=== PATIENT | female | born 1940 | race Caucasian/White ===

== ENCOUNTER 2016-11-28 05:02 | Inpatient (IN) | payer OTHER, MEDICARE ==
[2016-11-28] VITALS (21 sets, daily range): BP systolic 113–180; BP diastolic 55–81; PULSE 73–128; RESP 14–32; TEMP 97–99.6; O2SAT 93–100
[~2016-11-28] VITALS: Ht 152.4 cm; Wt 111.1 kg
[~2016-11-28 05:02] MED LIST: ASPI81TA82 PO; ATOR40TA49 PO; DUONI NEB; FURO20TA PO; HYDR10SO PO; LANTUS2P SQ; LISI-357 PO; LOPR50TA12 PO; PROC90TA PO; TICA90 PO
[2016-11-28] MEDS ORDERED: SUCCINYLCHOLINE CHLORIDE 200 MG/10 ML VIAL ONE (05:06)
[2016-11-28] MEDS ORDERED: ETOMIDATE 20 MG/10 ML VIAL ONE (05:06)
[2016-11-28] MEDS ORDERED: PROPOFOL 1000 MG/100 ML INJ 100 ML ONE (05:19)
[2016-11-28] MEDS ORDERED: INSULIN HUMAN REGULAR 1,000 UNITS/10 ML VIAL SQ ONE (05:30)
[2016-11-28] MEDS ORDERED: SODIUM CHLORIDE 0.9% FLUSH 5 ML FLUSH IVF PRN ×2 (05:30→10:15)
[2016-11-28] MEDS ORDERED: SUCCINYLCHOLINE CHLORIDE 200 MG/10 ML VIAL IV PUSH ONE (05:30)
[2016-11-28] MEDS ORDERED: ETOMIDATE 20 MG/10 ML VIAL IV PUSH ONE (05:30)
[2016-11-28] MEDS ORDERED: FUROSEMIDE 40 MG/4 ML VIAL IV PUSH ONE (05:30)
[2016-11-28 05:37] LABS: AUTOMATED NEUTROPHIL # 15.6 TH/MM3 (1.8-7.7); BASOPHIL % 0.2 % (0.0-2.0); HEMATOCRIT 36.3 % (35.0-46.0); HEMO FLAGS DIFF FINAL; LYMPH % 10.3 % (9.0-44.0); LYMPHOCYTE # 1.9 TH/MM3 (1.0-4.8); MEAN CELL VOLUME 91.6 FL (80.0-100.0); MEAN CORPUSCULAR HEMOGLOBIN 29.1 PG (27.0-34.0); MEAN CORPUSCULAR HGB CONC 31.7 % (32.0-36.0); MONO % 3.6 % (0.0-8.0); NEUT % 85.9 % (16.0-70.0); PLATELET COUNT 302 TH/MM3 (150-450); RED BLOOD COUNT 3.96 MIL/MM3 (4.00-5.30); RED CELL DISTRIBUTION WIDTH 13.3 % (11.6-17.2); WHITE BLOOD COUNT 18.2 TH/MM3 (4.0-11.0)
[2016-11-28] MEDS ORDERED: MIDAZOLAM HCL 2 MG/2 ML VIAL IV PUSH ONE (05:45)
[2016-11-28 05:46] LABS: I-STAT POTASSIUM 4.7 MMOL/L (3.5-4.9)
[2016-11-28 05:49] LABS: APTT (PATIENT) 23.4 SEC (24.3-30.1); PROTHROMBIN TIME - PATIENT 11.3 SEC (9.8-11.6)
[2016-11-28] MEDS: PROPOFOL 1000 MG/100 ML INJ 100 ML IV SCH (05:49)
--- NOTE | 2016-11-28 05:50 | RADRPT ---
EXAM DATE/TIME: 11/28/2016 05:27 [facility] COMPARISON: CHEST SINGLE AP, February 19, 2016, 5:38. INDICATIONS : Evaluate ETT placement, Possible STEMI alert. MEDICAL HISTORY : Congestive heart failure. SURGICAL HISTORY : None. ENCOUNTER: Initial ACUITY: 1 day PAIN SCORE: Non-responsive. LOCATION: Bilateral chest FINDINGS: Portable AP view the chest demonstrates a normal-sized cardiac silhouette in this patient post median sternotomy. Nasogastric tube is looped in the stomach. Endotracheal tube has been placed and extends into the right main bronchus. There is bibasilar pleural-parenchymal opacity, left greater than righ t. No pneumothorax is visualized. Multiple clips overlie the left axilla. There is abnormal appearanc e of the right proximal humerus at the glenohumeral joint similar to the prior exam. CONCLUSION: 1. The endotracheal tube extends into the right main bronchus and should be retracted proximately 3-4 cm. 2. Abnormal bibasilar pleural-parenchymal opacities likely representing pleural effusions with associ ated volume loss and/or airspace consolidation. 3. Abnormal appearance of the right proximal humerus at the glenohumeral joint that is stable. The above findings concerning the endotracheal tube location were discussed with Dr. Cruz via tele phone at 5:47 AM. Lennox Tomas MD on November 28, 2016 at 5:44 Board Certified Radiologist. This report was verified electronically.
--- NOTE | 2016-11-28 05:50 | PD ---
HPI Chief Complaint: Respiratory Distress Time Seen by Provider: 05:20 Travel History International Travel<30 days: No Contact w/Intl Traveler<30days: No Traveled to known affect area: No History of Present Illness HPI 76-year-old female came to the emergency room brought by EMS as a STEMI alert. Patient called 911 for shortness of breath. When they arrived patient says oxygen saturation was in the 80s and she was in respiratory distress. Patient has history of coronary artery disease and congestive heart failure. She told me she had her bypass surgery done few years ago. Patient denied of any chest pain at any point. EMS said that patient had told them that she was nauseous for past couple days and vomited last night. She was woken up from the sleep with this shortness of breath. By the time patient arrived to the ER she was acutely short of breath and in severe respiratory distress. She was unable to give much history. She was pale and started getting agitated and diaphoretic when they moved her from the gurney to the stretcher. PFSH Past Medical History Narrative Medical List of her past medical history as reviewed from the nursing note. Arthritis: Yes Asthma: No Autoimmune Disease: No Heart Rhythm Problems: No Cancer: Yes Cardiac Catheterization: Yes Cardiovascular Problems: Yes High Cholesterol: Yes Chemotherapy: Yes (LT BREAST) Chest Pain: Yes Congestive Heart Failure: Yes COPD: No Cerebrovascular Accident: No Coronary Artery Disease: Yes Diabetes: Yes (type 2) Diminished Hearing: No Endocrine: Yes Gastrointestinal Disorders: Yes GERD: Yes Glaucoma: No Genitourinary: Yes (KIDNEY PROBLEMS, MD CLAY) Headaches: No Hepatitis: No Hiatal Hernia: No Hypertension: Yes Immune Disorder: No Implanted Vascular Access Dvce: No Kidney Stones: No Musculoskeletal: Yes (POLIO) Neurologic: Yes (POLIO) Psychiatric: No Reproductive: No Respiratory: Yes Immunizations Current: Yes Myocardial Infarction: Yes Radiation Therapy: No Renal Failure: No Seizures: No Sleep Apnea: No Thyroid Disease: No Ulcer: No Past Surgical History Abdominal Surgery: No AICD: No Body Medical Devices: STENTS Cardiac Surgery: Yes (CABG) Coronary Artery Bypass Graft: Yes (triple bypass 2003) Coronary Stent: Yes (X 4) Ear Surgery: No Endocrine Surgery: No Eye Surgery: No Genitourinary Surgery: No Gynecologic Surgery: Yes (ROLF) Hysterectomy: Yes Mastectomy: Yes (lt) Neurologic Surgery: No Oral Surgery: No Pacemaker: No Thoracic Surgery: No Other Surgery: Yes (BREAST RECONSTRUCTION DUE TO CA BREAST) Social History Alcohol Use: No Tobacco Use: No Substance Use: No Allergies-Medications (Allergen,Severity, Reaction): Coded Allergies: Sulfa (Verified Allergy, Severe, Swelling, 11/28/16) Swelling of lips *MDRO Multi-Drug Resistant Organism (Verified Allergy, Unknown, 11/28/16) MRSA foot wound 05/2013 MRSA PCR screen negative 12/17/15 & 12/20/15 Per Infection Control, pt does not require isolation for history of MRSA prior to 12/20/2015. Comments List of allergies reviewed from the nursing note. Reported Meds & Prescriptions Reported Meds & Active Scripts Active Reported Nifedipine ER (Nifedipine) 90 Mg Tab 1 Tab PO DAILY Hydrocodone-Acetaminophen 5-300 Mg Tab Unknown Dose PO Q4H PRN Lopressor (Metoprolol Tartrate) 50 Mg Tab 75 Mg PO DAILY Lisinopril 5 Mg Tab 5 Mg PO DAILY Lantus Inj (Insulin Glargine) 100 Unit/Ml Inj 35 Units SQ BID Furosemide 20 Mg Tab 20 Mg PO DAILY Brilinta (Ticagrelor) 90 Mg Tab 90 Mg PO BID Atorvastatin (Atorvastatin Calcium) 40 Mg Tab 40 Mg PO HS Aspir-81 (Aspirin) 81 Mg Tabdr 1 Tab PO DAILY Duoneb (Ipratropium-Albuterol Neb) 0.5-2.5 Mg/3 Ml Neb 1 Nebule INH Q4HR NEB Narrative Medication List of her home medications reviewed from the nursing note. Review of Systems Except as stated in HPI: all other systems reviewed are Neg Physical Exam Narrative GENERAL: Awake, alert, anxious, severe respiratory distress, morbidly obese SKIN: Pale, diaphoretic HEAD: Atraumatic. Normocephalic. EYES: Pupils equal and round. No scleral icterus. No injection or drainage. ENT: No nasal bleeding or discharge. Mucous membranes pink and moist. NECK: Trachea midline. No JVD. CARDIOVASCULAR: Regular rate and rhythm. No murmur appreciated. RESPIRATORY: Severe respiratory distress, accessory muscles used, decreased air entry bilaterally GASTROINTESTINAL: Abdomen soft, non-tender, nondistended. Hepatic and splenic margins not palpable. MUSCULOSKELETAL: No obvious deformities. No clubbing. No cyanosis. No edema. NEUROLOGICAL: Awake and alert. No obvious cranial nerve deficits. Motor grossly within normal limits. Normal speech. PSYCHIATRIC: Appropriate mood and affect; insight and judgment normal. Data Data Last Documented VS Vital Signs Date Time Temp Pulse Resp B/P Pulse Ox O2 Delivery O2 Flow Rate FiO2 11/28/16 06:30 87 14 113/55 96 Ventilator 60 11/28/16 05:22 97.8 Orders Etomidate Inj (Amidate Inj) (11/28/16 05:06) Succinylcholine Inj (Quelicin Inj) (11/28/16 05:06) Propofol 1000 Mg/100 Ml Inj (Diprivan 10 (11/28/16 05:19) Electrocardiogram (11/28/16 05:20) Basic Metabolic Panel (Bmp) (11/28/16 05:20) B-Type Natriuretic Peptide (11/28/16 05:20) Ckmb (Isoenzyme) Profile (11/28/16 05:20) Complete Blood Count With Diff (11/28/16 05:20) Magnesium (Mg) (11/28/16 05:20) Prothrombin Time / Inr (Pt) (11/28/16 05:20) Act Partial Throm Time (Ptt) (11/28/16 05:20) Troponin I (11/28/16 05:20) Chest, Single Ap (11/28/16 05:20) Ecg Monitoring (11/28/16 05:20) Bilateral Bp Monitoring (11/28/16 05:20) Iv Access Insert/Monitor (11/28/16 05:20) Oximetry (11/28/16 05:20) Oxygen Administration (11/28/16 05:20) Sodium Chloride 0.9% Flush (Ns Flush) (11/28/16 05:30) Arterial Blood Gas (Abg) (11/28/16 ) Succinylcholine Inj (Quelicin Inj) (11/28/16 05:30) Etomidate Inj (Amidate Inj) (11/28/16 05:30) Propofol 1000 Mg/100 Ml Inj (Diprivan 10 (11/28/16 05:30) ^ Infusion (11/28/16 05:22) RASS (11/28/16 05:22) Neurological Rass Scale THAD.Q2H (11/28/16 05:22) I-Stat Creatinine (11/28/16 05:20) I-Stat Profile (11/28/16 05:20) Insulin Human Regular Inj (Novolin R Inj (11/28/16 05:30) Furosemide Inj (Lasix Inj) (11/28/16 05:30) Juan Manuel-Gastric Tube Insert/Mon (11/28/16 05:24) Urinary Catheter Insert/Apply (11/28/16 05:24) Midazolam Inj (Versed Inj) (11/28/16 05:45) Chest, Single Ap (11/28/16 ) CKMB (11/28/16 05:00) CKMB% (11/28/16 05:00) Lactic Acid (11/28/16 06:13) Heparin Inj (Heparin Inj) (11/28/16 06:15) Heparin Infusion THAD.Q1H (11/28/16 06:32) Heparin-D5w Inj (Heparin-D5w Inj) (11/28/16 06:45) Cbc No Diff, Includes Plts (12/01/16 06:00) Act Partial Throm Time (Ptt) (11/28/16 13:32) Occult Blood (Hemoccult) Stool (11/28/16 06:32) Quality Control Supervisor / Telemetry (11/28/16 06:32) ^ Insert Iv (11/28/16 06:32) Diet Npo (11/28/16 Breakfast) Sodium Chlor 0.9% 1000 Ml Inj (Ns 1000 M (11/28/16 06:32) Dext 5%-Nacl 0.9% 1000 Ml Inj (D5w-Ns 10 (11/28/16 06:32) Insulin Regular (Iv Infusion) (Novolin R (11/28/16 06:45) Potassium Chlor 40 Meq Premix (Kcl 40 Me (11/28/16 06:45) Potassium Chlor 40 Meq Premix (Kcl 40 Me (11/28/16 06:45) Potassium Chlor 20 Meq Premix (Kcl 20 Me (11/28/16 06:45) Potassium Chlor 20 Meq Premix (Kcl 20 Me (11/28/16 06:45) Potassium Chlor 20 Meq Premix (Kcl 20 Me (11/28/16 06:45) Potassium Chlor 20 Meq Premix (Kcl 20 Me (11/28/16 06:45) Potassium Chlor 20 Meq Premix (Kcl 20 Me (11/28/16 06:45) Potassium Chlor 20 Meq Premix (Kcl 20 Me (11/28/16 06:45) Sodium Bicarbonate 8.4% Inj (Sodium Bica (11/28/16 06:45) Sodium Bicarbonate 8.4% Inj (Sodium Bica (11/28/16 06:45) Sodium Phosphate Inj (Sodium Phosphate I (11/28/16 06:45) Urinalysis - C+S If Indicated (11/28/16 06:32) Basic Metabolic Panel (Bmp) (11/28/16 11:32) Basic Metabolic Panel (Bmp) (11/28/16 17:32) Magnesium (Mg) (11/28/16 11:32) Magnesium (Mg) (11/28/16 17:32) Magnesium (Mg) (11/29/16 05:32) Phosphorus (Po4) (11/28/16 11:32) Phosphorus (Po4) (11/28/16 17:32) Phosphorus (Po4) (11/29/16 05:32) Admit Order (Ed Use Only) (11/28/16 06:36) Piperacil-Tazo 4.5 Gm Premix (Zosyn 4.5 (11/28/16 06:45) Vancomycin Inj (Vancomycin Inj) (11/28/16 06:45) CKMB (11/28/16 17:35) CKMB% (11/28/16 17:35) CKMB (11/29/16 00:13) CKMB% (11/29/16 00:13) Labs Laboratory Tests Test 11/28/16 11/28/16 11/28/16 11/28/16 05:00 05:15 05:20 06:15 Bedside Hemoglobin 12.2 G/DL Bedside Hematocrit 36.0 % Prothrombin Time 11.3 SEC Prothromb Time International 1.0 RATIO Ratio Activated Partial 23.4 SEC Thromboplast Time Bedside Sodium 139 MMOL/L Sodium Level 138 MEQ/L Bedside Potassium 4.7 MMOL/L Potassium Level 4.7 MEQ/L Bedside Chloride 105 MMOL/L Chloride Level 104 MEQ/L Carbon Dioxide Level 20.6 MEQ/L Anion Gap 13 MEQ/L Bedside Blood Urea Nitrogen 51 MG/DL Blood Urea Nitrogen 52 MG/DL Creatinine 2.23 MG/DL Bedside Creatinine 1.8 MG/DL Estimat Glomerular Filtration 21 ML/MIN Rate Bedside Glucose 524 MG/DL Random Glucose 528 MG/DL Calcium Level 8.9 MG/DL Magnesium Level 2.2 MG/DL Total Creatine Kinase 525 U/L Creatine Kinase MB 29.7 NG/ML Creatine Kinase MB % 5.7 % Troponin I 20.70 NG/ML B-Type Natriuretic Peptide 922 PG/ML B-Hydroxybutyrate 0.73 MMOL/L Hemoglobin A1c 10.4 % Urine Color LIGHT-YELLOW Urine Turbidity CLEAR Urine pH 5.0 Urine Specific [place] 1.014 Urine Protein TRACE mg/dL Urine Glucose (UA) 1000 mg/dL Urine Ketones NEG mg/dL Urine Occult Blood NEG Urine Nitrite NEG Urine Bilirubin NEG Urine Urobilinogen LESS THAN 2.0 MG/DL Urine Leukocyte Esterase NEG Urine RBC LESS THAN 1 /hpf Urine WBC LESS THAN 1 /hpf Microscopic Urinalysis Comment CATH-CULT NOT IND White Blood Count 18.2 TH/MM3 Red Blood Count 3.96 MIL/MM3 Hemoglobin 11.5 GM/DL Hematocrit 36.3 % Mean Corpuscular Volume 91.6 FL Mean Corpuscular Hemoglobin 29.1 PG Mean Corpuscular Hemoglobin 31.7 % Concent Red Cell Distribution Width 13.3 % Platelet Count 302 TH/MM3 Mean Platelet Volume 9.7 FL Neutrophils (%) (Auto) 85.9 % Lymphocytes (%) (Auto) 10.3 % Monocytes (%) (Auto) 3.6 % Eosinophils (%) (Auto) 0.0 % Basophils (%) (Auto) 0.2 % Neutrophils # (Auto) 15.6 TH/MM3 Lymphocytes # (Auto) 1.9 TH/MM3 Monocytes # (Auto) 0.7 TH/MM3 Eosinophils # (Auto) 0.0 TH/MM3 Basophils # (Auto) 0.0 TH/MM3 CBC Comment DIFF FINAL Differential Comment Blood Gas Puncture Site RT RADIAL Blood Gas Patient Temperature 98.6 Blood Gas HCO3 19 mmol/L Blood Gas Base Excess -5.8 mmol/L Blood Gas Oxygen Saturation 92 % Arterial Blood pH 7.30 Arterial Blood Partial 41 mmHg Pressure CO2 Arterial Blood Partial 94 mmHG Pressure O2 Arterial Blood Oxygen Content 14.4 Vol % Arterial Blood 2.2 % Carboxyhemoglobin Arterial Blood Methemoglobin 2.2 % Blood Gas Hemoglobin 11.1 G/DL Blood Gas Ventilator Setting Blood Gas Inspired Oxygen 60 % Test 11/28/16 06:25 Lactic Acid Level 4.8 mmol/L MDM Medical Decision Making Medical Screen Exam Complete: Yes Emergency Medical Condition: Yes Medical Record Reviewed: Yes Interpretation(s) Twelve-lead EKG was reviewed by me. Normal sinus rhythm, tachycardia, left bundle branch block versus interventricular conduction delay, normal axis. Heart rate of 115 bpm. Differential Diagnosis Flash pulmonary edema, congestive heart failure, pneumonia, pleural effusion, non-STEMI Narrative Course 6:24 AM I decided to intubate the patient given her severe respiratory distress and impending respiratory failure. Once patient was intubated at 12-lead EKG was obtained. Due to the lack of convincing ST elevations a STEMI alert was not called. Also confirmed directly by patient and from EMS patient never complained of any chest pain. Sterilization Specialist integration software developer Dr. Garcia was contacted and I spoke with him over the phone. The case was discussed along with the EKG findings. He agreed not to call this a STEMI alert. However, he came down to see the patient and evaluated her. Soon after, troponin result was called as a critical from the labs soon after. Patient was given a bolus of heparin and a drip will be started. Patient has significant high morbidity and mortality given the past medical history as well as the current lab values showing acute renal failure, metabolic acidosis, DKA and possible sepsis from pneumonia. I will start her on antibiotic as well. Awaiting for the applied behavior science specialist to call back. Patient's condition is critical with a quite possibly poor prognosis. 6:30 AM I discussed the case with Dr. Santiago from ICU who has accepted the patient. Dr. Garcia is yet to let me know if the patient will go to the [facility] Apprentice. Patient's mortality is high regardless. I decided to put a a central line given the number of drips and medications needed. Critical Care Narrative Aggregate critical care time was 60 minutes. Time to perform other separately billable procedures was not included in the critical care time. My time did not include minutes spent treating any other patients simultaneously or on activities that did not directly contribute to the patient's treatment. The services I provided to this patient were to treat and/or prevent clinically significant deterioration that could result in: Respiratory failure, non-STEMI, elevated troponin, congestive heart failure , DKA, acute renal failure, pneumonia, sepsis I provided critical care services requiring my management, as noted below: Chart data review, documentation time, medication orders and management, vital sign assessments/reviewing monitor data, ordering and reviewing lab tests, ordering and interpreting/reviewing x-rays and diagnostic studies, care of the patient and discussion of the patient with the admitting physicians. Procedures Procedure Narrative After the risks and benefits were discussed the following procedure was performed: INTUBATION: The patient was put in optimal position for the procedure. Rapid sequence intubation was initiated by me using 20 milligrams of etomidate IV and 100 milligrams of succinylcholine IV. The patient was intubated with a 7.5 cuffed endotracheal tube. Tube placement was confirmed by visualization of the tube and balloon passing through the cords, capnometry and subsequent chest x-ray. Breath sounds were equal and well aerated bilaterally postintubation. No breath sounds over stomach. Patient tolerated procedure well. CENTRAL VENOUS LINE: The site was prepped with Betadine and sterilely draped. It was infiltrated with 1% lidocaine plain. The deep vein was cannulated using normal Seldinger technique. A triple lumen central line was placed in the left subclavian site and secured with simple interrupted suture. The site was sterilely dressed. The patient tolerated the procedure well. EKG Prior to Arrival: Yes Physician Communication Physician Communication Dr. Garcia, Dr. Santiago Diagnosis Primary Impression: Acute respiratory failure with hypoxemia Additional Impressions: Hx of chronic congestive heart failure Non-STEMI (non-ST elevated myocardial infarction) Sepsis Qualified Code: A41.9 - Sepsis, due to unspecified organism Pneumonia Qualified Code: J18.9 - Pneumonia of both lungs due to infectious organism, unspecified part of lung Acute renal failure Qualified Code: N17.9 - Acute renal failure, unspecified acute renal failure type Admitting Information Admitting Physician Requests: Glen Gates MD Nov 28, 2016 05:49
[2016-11-28 06:09] LABS: BICARBONATE 20.6 MEQ/L (21.0-32.0); MAGNESIUM 2.2 MG/DL (1.5-2.5); POTASSIUM 4.7 MEQ/L (3.5-5.1)
[2016-11-28] MEDS ORDERED: HEPARIN SODIUM - IV 10,000 UNITS/10 ML VIAL IV ONE (06:15)
[2016-11-28 06:21] LABS: BLOOD GAS BASE EXCESS -5.8 mmol/L (-2-2); BLOOD GAS CARBOXYHEMOGLOBIN 2.2 % (0-4); BLOOD GAS HCO3 19 mmol/L (22-26); BLOOD GAS METHEMOGLOBIN 2.2 % (0-2); BLOOD GAS O2 HGB SATURATION 92 % (90-100); BLOOD GAS OXYGEN CONTENT 14.4 Vol % (12.0-20.0); BLOOD GAS PCO2 41 mmHg (38-42); BLOOD GAS PO2 94 mmHG (61-120); BLOOD GAS TOTAL HGB 11.1 G/DL (12.0-16.0); TEMP CORR TO 98.6
[2016-11-28 06:22] LABS: CRITICAL VALUE YES; DRAW SITE RT RADIAL; FIO2 60 %; NUMBER OF ARTERIAL PUNCTURES 3; STAT YES; ULNAR PULSE Y
[2016-11-28 06:31] LABS: CKMB 29.7 NG/ML (0.5-3.6)
[2016-11-28] MEDS ORDERED: PIPERACIL-TAZO 4.5 GM PREMIX 100 ML IV ONE (06:45)
[2016-11-28] MEDS ORDERED: SODIUM BICARBONATE 8.4% SOLN 50 MEQ/50 ML VIAL IV PRN ×2 (06:45)
[2016-11-28] MEDS ORDERED: VANCOMYCIN INJ 1,000 MG in SODIUM CHLOR 0.9% 250 ML INJ 250 ML IV ONE (06:45)
[2016-11-28] MEDS ORDERED: POTASSIUM CHLOR 20 MEQ PREMIX 100 ML IV PRN ×5 (06:45)
[2016-11-28] MEDS ORDERED: SODIUM PHOSPHATE INJ 15 MMOL in SODIUM CHLORIDE 0.9% INJ 100 ML IV PRN (06:45)
[2016-11-28] MEDS ORDERED: POTASSIUM CHLOR 40 MEQ PREMIX 100 ML IV PRN ×2 (06:45)
--- NOTE | 2016-11-28 06:49 | RADRPT ---
EXAM DATE/TIME: 11/28/2016 06:12 [facility] COMPARISON: CHEST SINGLE AP, November 28, 2016, 5:27. INDICATIONS : ET tube adjustment. MEDICAL HISTORY : Congestive heart failure. SURGICAL HISTORY : None. ENCOUNTER: Subsequent ACUITY: 1 day PAIN SCORE: Non-responsive. LOCATION: Bilateral chest FINDINGS: Portable AP view of the chest demonstrates interval retraction of the endotracheal tube with tip flaquita uring approximately 2.1 cm from the ad. Otherwise, there has been no significant interval change. CONCLUSION: Interval retraction of the endotracheal tube with tip now measuring approximately 2.1 cm from the car corey. Lennox Tomas MD on November 28, 2016 at 6:47 Board Certified Radiologist. This report was verified electronically.
--- NOTE | 2016-11-28 07:31 | RADRPT ---
EXAM DATE/TIME: 11/28/2016 06:55 [facility] COMPARISON: CHEST SINGLE AP, November 28, 2016, 6:12. INDICATIONS : Left sided central line placement. MEDICAL HISTORY : Unobtainable. SURGICAL HISTORY : Unobtainable. ENCOUNTER: Initial ACUITY: 1 day PAIN SCORE: Non-responsive. LOCATION: Bilateral chest FINDINGS: ET tube and nasogastric tube are in good position. Central line is in expected locations superior ca va. Heart is enlarged. Patchy airspace disease is present in both lungs worse in the right. Surgic al clips are seen in the left apex. CONCLUSION: Support apparatus in good position. Patchy airspace disease on the right. Jimmie Multani MD FACR on November 28, 2016 at 7:29 Board Certified Radiologist. This report was verified electronically.
[2016-11-28] MEDS: HEPARIN-D5W INJ 250 ML IV SCH (07:34)
[2016-11-28 07:52] LABS: BLOOD, URINE NEG (NEG); GLUCOSE,URINE 1000 mg/dL (NEG); KETONE, URINE NEG (NEG); NITRITE,URINE NEG (NEG); URINE COLOR LIGHT-YELLOW (YELLW/STRAW)
[2016-11-28 07:53] LABS: COMMENT (UR) CATH-CULT NOT IND; CULTURE IF INDICATED CATH CULTURE NOT IND
[2016-11-28] MEDS ORDERED: LISI-519 PO (07:53)
[2016-11-28] MEDS ORDERED: LANTUS2P SQ (07:53)
[2016-11-28] MEDS ORDERED: ASPI81TA81 PO (07:53)
[2016-11-28] MEDS ORDERED: IPRASOL INH (07:53)
[2016-11-28] MEDS ORDERED: HYDR-4107 PO (07:53)
[2016-11-28] MEDS ORDERED: BRIL90TA PO (07:53)
[2016-11-28] MEDS ORDERED: ATOR40TA16 PO (07:53)
[2016-11-28] MEDS ORDERED: NIFE90TA2 PO (07:53)
[2016-11-28] MEDS ORDERED: FURO20TA PO (07:53)
[2016-11-28] MEDS ORDERED: METO-309 PO (07:53)
[2016-11-28] MEDS: INSULIN REGULAR (IV INFUSION) 100 UNITS in SODIUM CHLORIDE 0.9% INJ 99 ML IV SCH ×2 (07:59→15:33)
--- NOTE | 2016-11-28 08:19 | MB ---
cc: MURPHY CHERY,RADHA BUCKLEY M.D., M.D. DATE OF CONSULTATION: 11/28/2016 REASON FOR CONSULTATION Heart failure, NSTEMI. HISTORY OF PRESENT ILLNESS Sandee Almonte is a 76-year-old female who presented to [facility] on November 28, 2016 due to shortness of breath. The patient is currently intubated and history is taken from the chart and the emergency room physician. Mrs. Almonte apparently was nauseous for the past few days and vomiting last night. She woke up this morning short of breath but denied any chest pain. She called 911 due to the shortness of breath. She was found to be in severe respiratory distress and on arrival Dr. Cruz spoke to her and she once again stated that she was not in chest pain. It was felt at that time due to her significant shortness of breath that she needed to be intubated. EKG was done which shows sinus tachycardia with an intraventricular conduction delay. I was called emergently by Dr. Cruz for consideration of a STEMI Alert. At this time the EKG has no acute ST elevations. Although there was a concern for a new left bundle branch block, previous EKGs show a similar interventricular conduction delay. I did feel due to her presentation and critical status that I would see the patient emergently. PAST MEDICAL HISTORY 1. Coronary artery disease. 2. Peripheral artery disease. 3. Hypertension 4. Diabetes mellitus. 5. Obesity. 6. Dyslipidemia. 7. Chronic kidney disease. 8. History of breast cancer status post mastectomy and chemotherapy. 9. Hysterectomy. 10.History of sepsis with bilateral pneumonia. 11.Chronic leg edema. 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 13.GERD. 14.Lumbar laminectomy. PAST SURGICAL HISTORY 1. Coronary artery bypass grafting ([address] Carty) with a IYER to LAD, vein graft to circumflex, vein graft to RCA. 2. Chronic occlusion of SFA and popliteal with an unsuccessful attempt at opening (February 20, 2011). 3. Previous cardiac catheterization at [facility] by Dr. Sorto with bare metal stenting in the distal and proximal circumflex, two long drug-eluting stents in the mid RCA and one Promus stent at the ostium of the RCA. 4. Left transmetatarsal amputation. 5. Previous mastectomy for breast cancer with breast reconstruction. 6. Hysterectomy. 7. Lumbar laminectomy. ALLERGIES SULFA. MEDICATIONS Unable to be obtained at this time; previously on: 1. Lisinopril. 2. Lopressor. 3. Nifedipine. 4. Lipitor. 5. Lantus. 6. Lasix. 7. Aspirin. FAMILY HISTORY Unable to be obtained at this time. SOCIAL HISTORY The patient is and retired. Per the son she has been helping out in an office for a friend who is extremely sick which has put more stress on her. She is a lifetime nonsmoker. Denies alcohol or drug abuse. REVIEW OF SYSTEMS Unable to obtain other then from the emergency room records. Essentially positive for nausea and vomiting this week, shortness of breath this morning and no chest pain. PHYSICAL EXAMINATION VITAL SIGNS: Temperature 97.8, heart rate 83, blood pressure 120/78, respirations 20. Pulse ox 98% on the vent. GENERAL: In general the patient is currently sedated on the vent. HEENT: Pupils are equal and reactive. Mucous membranes are moist. NECK: Supple. Difficult to determine the JVD due to neck size and current condition. HEART: Regular rate and rhythm. Positive first and second heart sounds with a 1/6 holosystolic murmur noted at the apex. LUNGS: Decreased breath sounds bilateral with rales noted. ABDOMEN: Soft, nontender, nondistended. No organomegaly noted. EXTREMITIES: Mild edema bilaterally. NEUROLOGIC: Unable to determine due to current status. SKIN: Warm, dry and intact. MUSCULOSKELETAL: Osteopathically mild lordosis, no kyphoscoliosis or paraspinal tender points. LABORATORY White blood cells 18.2, hemoglobin 11.5, hematocrit 36.3, platelets 302. Potassium 4.7, BUN 52, creatinine 2.23, GFR 21, glucose 524, lactic acid 4.8. Troponin 20.7. BNP 922. EKG Electrocardiogram (November 28, 2016 at 0511): Sinus tachycardia at 119 beats per minute, intraventricular conduction delay, nonspecific ST-T wave changes. Similar to an EKG from December 16, 2015 at 2138. IMPRESSIONS 1. Lma-SO-agkieqssh myocardial infarction. 2. Acute heart failure on chronic diastolic heart failure. 3. Acute respiratory failure requiring intubation. 4. Leukocytosis, possibly stress reaction versus pneumonia. 5. Coronary artery disease with a history of coronary artery bypass grafting and interventions. 6. Peripheral artery disease with an occluded right SFA and popliteal. 7. Acute kidney injury. 8. Lactic acidosis. 9. Possible DKA with an elevation of glucose at 524. 10.Sepsis. RECOMMENDATIONS 1. I was called emergently for Mrs. Almonte for consideration of new left bundle branch block and possible STEMI Alert. On arrival she was having no chest pain and looking back at previous EKGs she did have a similar type intraventricular conduction delay in the past. 2. As far as her NSTEMI and current heart failure, she is currently hemodynamically stable and I do not feel that she needs to emergently go to the lab with her significant co-morbidities including acute kidney injury on chronic kidney disease, DKA, lactic acidosis, leukocytosis. 3. Will check a 2-D echo to look at her overall left ventricular function, valvulopathies and cardiac structure. 4. Will continue with supportive care for her heart failure and NSTEMI. 5. Will place her on heparin, aspirin and Brilinta. Will hold off on beta blockade to make sure she continues to be stable. 6. I spoke to Mrs. Almonte' son, Miller Almonte, to let him know the critical nature of the patient and that I did not feel at this time that taking her emergently to the director labor standards would change her mortality risk. 7. Once the patient is through the acute illness including sugar control, resolution of her acute kidney injury and lactic acidosis, consideration will be made for coronary visualization. Thank you for allowing me to see Sandee Almonte. If there are any questions, please do not hesitate to call. Murphy Chery DO VGP/BT /6:57 AM /7:42 AM
[2016-11-28] MEDS: ASPIRIN 81 MG CHEW TAB CHEW SCH (08:50)
[2016-11-28] MEDS: SODIUM CHLOR 0.9% 1000 ML INJ 1,000 ML IV SCH ×2 (09:04→23:38)
[2016-11-28] MEDS: TICAGRELOR 90 MG TAB PO SCH ×2 (09:19→21:56)
[2016-11-28] MEDS ORDERED: CHLORHEXIDINE GLUCONATE 2 % 1 PACK (2 CLOTHS) TOP PRN (10:15)
[2016-11-28] MEDS ORDERED: MISCELLANEOUS NURSING INFORMATION XX SCH (10:15)
--- NOTE | 2016-11-28 10:36 | HHI.HP ---
HPI Service Critical Care Medicine Primary Care Physician Ethan Pradhan MD Admission Diagnosis respiratory failure, non-STEMI, congestive heart failure, sepsis, DK Diagnosis: Travel History International Travel<30 Days: No Contact w/Intl Traveler <30 Da: No Traveled to Known Affected Are: No History of Present Illness HPI 76-year-old female came to the emergency room brought by EMS as a STEMI alert. Patient called 911 for shortness of breath. When they arrived patient says oxygen saturation was in the 80s and she was in respiratory distress. Patient has history of coronary artery disease and congestive heart failure. She told me she had her bypass surgery done few years ago. Patient denied of any chest pain at any point. EMS said that patient had told them that she was nauseous for past couple days and vomited last night. She was woken up from the sleep with this shortness of breath. By the time patient arrived to the ER she was acutely short of breath and in severe respiratory distress. She was unable to give much history. She was pale and started getting agitated and diaphoretic when they moved her from the [place] to the [facility]. Patient developed worsening respiratory distress and required emergent intubation was placed on mechanical ventilation by ER physician. Her troponin came back at 20 and her EKG suggested intraventricular conduction delay versus left bundle branch block. Cardiology was contacted and felt patient had a non-ST elevation ID. She was also noted to be extremely hyperglycemic with glucose levels in the 500s with metabolic acidosis/lactic acidosis. She was started on the DKA protocol by ER physician. Urine ketones are negative. Beta hydroxybutyrate slightly elevated. Patient had a central line placed by ER physician and was started on heparin drip for anticoagulation for her ID. She was accepted for admission by critical care medicine service. I discussed the case with Dr. Auguste who is not planning cardiac catheterization at this time. Patient also was given empiric antibiotics up to obtaining cultures. History PFSH Past Medical History Narrative Medical List of her past medical history as reviewed from the nursing note. Arthritis: Yes Asthma: No Autoimmune Disease: No Heart Rhythm Problems: No Cancer: Yes Cardiac Catheterization: Yes Cardiovascular Problems: Yes High Cholesterol: Yes Chemotherapy: Yes (LT BREAST) Chest Pain: Yes Congestive Heart Failure: Yes COPD: No Cerebrovascular Accident: No Coronary Artery Disease: Yes Diabetes: Yes (type 2) Diminished Hearing: No Endocrine: Yes Gastrointestinal Disorders: Yes GERD: Yes Glaucoma: No Genitourinary: Yes (KIDNEY PROBLEMS, MD CLAY) Headaches: No Hepatitis: No Hiatal Hernia: No Hypertension: Yes Immune Disorder: No Implanted Vascular Access Dvce: No Kidney Stones: No Musculoskeletal: Yes (POLIO) Neurologic: Yes (POLIO) Psychiatric: No Reproductive: No Respiratory: Yes Immunizations Current: Yes Myocardial Infarction: Yes Radiation Therapy: No Renal Failure: No Seizures: No Sleep Apnea: No Thyroid Disease: No Ulcer: No Past Surgical History Abdominal Surgery: No AICD: No Body Medical Devices: STENTS Cardiac Surgery: Yes (CABG) Coronary Artery Bypass Graft: Yes (triple bypass 2003) Coronary Stent: Yes (X 4) Ear Surgery: No Endocrine Surgery: No Eye Surgery: No Genitourinary Surgery: No Gynecologic Surgery: Yes (ROLF) Hysterectomy: Yes Mastectomy: Yes (lt) Neurologic Surgery: No Oral Surgery: No Pacemaker: No Thoracic Surgery: No Other Surgery: Yes (BREAST RECONSTRUCTION DUE TO CA BREAST) Social History Alcohol Use: No Tobacco Use: No Substance Use: No Allergies-Medications Allergies-Medications (Allergen,Severity, Reaction): Coded Allergies: Sulfa (Verified Allergy, Severe, Swelling, 11/28/16) Swelling of lips *MDRO Multi-Drug Resistant Organism (Verified Allergy, Unknown, 11/28/16) MRSA foot wound 05/2013 MRSA PCR screen negative 12/17/15 & 12/20/15 Per Infection Control, pt does not require isolation for history of MRSA prior to 12/20/2015. Comments List of allergies reviewed from the nursing note. Reported Meds & Prescriptions Reported Meds & Active Scripts Active Furosemide 20 Mg Tab 40 Mg PO DAILY Procardia Xl (Nifedipine) 90 Mg Tabcr 90 Mg PO BID 30 Days Lipitor 40 Mg Tab (Atorvastatin Calcium) 40 Mg Tab 40 Mg PO HS 30 Days Brilinta 90 Mg Tab (Ticagrelor) 90 Mg Tab 90 Mg PO Q12H 30 Days Resp: Albuterol/Ipratropium 2.5 Mg/0.5 Mg (Albuterol/Ipratropium) 1 Amp Nebu 1 Ampule NEB Q4HR NEB PRN 30 Days Reported Lopressor (Metoprolol Tartrate) 50 Mg Tab 75 Mg PO BID Lisinopril 5 mg (Lisinopril) 5 Mg Tab 5 Mg PO DAILY Hydrocodone/Acetaminophen 10 mg/325 mg 1 Tab 1 Tab PO Q4H PRN Aspir-81 (Aspirin) 81 Mg Tab 81 Mg PO HS Review of Systems ROS Limitations: Intubated Physical Exam Vital Signs Vital Signs Date Time Temp Pulse Resp B/P Pulse Ox O2 Delivery O2 Flow Rate FiO2 11/28/16 10:09 100 50 11/28/16 09:00 75 20 131/63 98 Ventilator 50 11/28/16 08:00 97.5 83 20 119/59 97 Ventilator 50 11/28/16 07:47 97 60 11/28/16 07:18 60 11/28/16 07:15 82 14 125/61 98 60 11/28/16 07:00 83 14 122/55 98 Ventilator 60 11/28/16 06:30 87 14 113/55 96 Ventilator 60 11/28/16 06:00 95 14 115/58 96 Ventilator 60 11/28/16 05:30 114 14 157/72 95 Ventilator 60 11/28/16 05:24 93 60 11/28/16 05:22 97.8 128 32 173/79 93 11/28/16 05:10 124 16 180/77 97 11/28/16 05:09 60 Physical Exam HEENT/ Neuro: Sedated, orally intubated, Pallor present, no icterus, tongue/ mucosa moist Neck: No JVD Chest/Pulm: on mech vent, good air entry bilaterally, scattered rhonchi, no wheezing or crackles CVS: S1-S2 regular, no murmur GI/abdomen: soft, nontender, bowel sounds sluggish Extremities: warm bilaterally, no edema Laboratory Laboratory Tests Test 11/28/16 11/28/16 11/28/16 11/28/16 05:00 05:15 05:20 06:15 Bedside Hemoglobin 12.2 Bedside Hematocrit 36.0 Prothrombin Time 11.3 Prothromb Time International 1.0 Ratio Activated Partial 23.4 Thromboplast Time Bedside Sodium 139 Sodium Level 138 Bedside Potassium 4.7 Potassium Level 4.7 Bedside Chloride 105 Chloride Level 104 Carbon Dioxide Level 20.6 Anion Gap 13 Bedside Blood Urea Nitrogen 51 Blood Urea Nitrogen 52 Creatinine 2.23 Bedside Creatinine 1.8 Estimat Glomerular Filtration 21 Rate Bedside Glucose 524 Random Glucose 528 Calcium Level 8.9 Magnesium Level 2.2 Total Creatine Kinase 525 Creatine Kinase MB 29.7 Creatine Kinase MB % 5.7 Troponin I 20.70 B-Type Natriuretic Peptide 922 B-Hydroxybutyrate 0.73 Urine Color LIGHT-YELLOW Urine Turbidity CLEAR Urine pH 5.0 Urine Specific [place] 1.014 Urine Protein TRACE Urine Glucose (UA) 1000 Urine Ketones NEG Urine Occult Blood NEG Urine Nitrite NEG Urine Bilirubin NEG Urine Urobilinogen LESS THAN 2.0 Urine Leukocyte Esterase NEG Urine RBC LESS THAN 1 Urine WBC LESS THAN 1 Microscopic Urinalysis Comment CATH-CULT NOT IND White Blood Count 18.2 Red Blood Count 3.96 Hemoglobin 11.5 Hematocrit 36.3 Mean Corpuscular Volume 91.6 Mean Corpuscular Hemoglobin 29.1 Mean Corpuscular Hemoglobin 31.7 Concent Red Cell Distribution Width 13.3 Platelet Count 302 Mean Platelet Volume 9.7 Neutrophils (%) (Auto) 85.9 Lymphocytes (%) (Auto) 10.3 Monocytes (%) (Auto) 3.6 Eosinophils (%) (Auto) 0.0 Basophils (%) (Auto) 0.2 Neutrophils # (Auto) 15.6 Lymphocytes # (Auto) 1.9 Monocytes # (Auto) 0.7 Eosinophils # (Auto) 0.0 Basophils # (Auto) 0.0 CBC Comment DIFF FINAL Differential Comment Blood Gas Puncture Site RT RADIAL Blood Gas Patient Temperature 98.6 Blood Gas HCO3 19 Blood Gas Base Excess -5.8 Blood Gas Oxygen Saturation 92 Arterial Blood pH 7.30 Arterial Blood Partial 41 Pressure CO2 Arterial Blood Partial 94 Pressure O2 Arterial Blood Oxygen Content 14.4 Arterial Blood 2.2 Carboxyhemoglobin Arterial Blood Methemoglobin 2.2 Blood Gas Hemoglobin 11.1 Blood Gas Ventilator Setting Blood Gas Inspired Oxygen 60 Test 11/28/16 06:25 Lactic Acid Level 4.8 Result Diagram: 11/28/1651911/28/16 0500 Imaging Last 24 hours Impressions Chest X-Ray 11/28/16519 Signed Impressions: Service Date/Time: Monday, November 28, 2016 05:27 - CONCLUSION: 1. The endotracheal tube extends into the right main bronchus and should be retracted proximately 3-4 cm. 2. Abnormal bibasilar pleural-parenchymal opacities likely representing pleural effusions with associated volume loss and/or airspace consolidation. 3. Abnormal appearance of the right proximal humerus at the glenohumeral joint that is stable. The above findings concerning the endotracheal tube location were discussed with Dr. Cruz via telephone at 5: 47 AM. Lennox Tomas MD Chest X-Ray 11/28/16 0000 Signed Impressions: Service Date/Time: Monday, November 28, 2016 06:55 - CONCLUSION: Support apparatus in good position. Patchy airspace disease on the right. Jimmie Multani MD FACR Chest X-Ray 11/28/16 0000 Signed Impressions: Service Date/Time: Monday, November 28, 2016 06:12 - CONCLUSION: Interval retraction of the endotracheal tube with tip now measuring approximately 2.1 cm from the ad. Lennox Tomas MD Septic Shock Reassessment Heart: Regular rate and rhythm Lungs: Course Skin: Warm Peripheral Pulses: Bounding Right Radial Capillary Refill: Brisk Assessment and Plan Assessment and Plan 76-year-old female with: Acute respiratory failure on mechanical ventilation CHF Sepsis Possible Pneumonia Non-ST elevation ID Uncontrolled diabetes mellitus Lactic acidosis History of CAD History of PVD Plan: Neuro: Sedation with propofol, fentanyl when necessary, daily sedation vacation. Follow neuro status Cardiovascular: Started on heparin for full anticoagulation. Continue aspirin and Brilinta per cardiology. Cardiac catheterization to be held at this time per my discussion with Dr. Murphy Garcia until improvement in her metabolic status. Currently on IV fluids due to sepsis/DKA protocol. Cycle cardiac enzymes. Follow-up 2-D echo. Decrease normal saline to 100 cc per hour. May require diuresis subsequently. Pulmonary: Continue mechanical ventilation, vent bundle, bronchodilators. Daily C Pap trials starting tomorrow. GI/liver: Nothing by mouth for now. If not extubated in a.m. consider tube feeds Renal/: IV hydration, strict intake output, monitor and replete electrolytes, follow BUN/creatinine. Heme: Follow CBC ID: Empiric antibiotic coverage with IV cefepime/Zithromax. Received a dose of vancomycin and Zosyn in the ER. Follow-up cultures. Endocrine: Started on insulin drip DKA protocol by ER. Urine for ketones negative. Beta hydroxybutyrate borderline elevated. Plan to switch insulin drip to non-DKA protocol following review of next set of labs. Prophylaxis: PPI/SCDs. On full anticoagulation with heparin Discussed with ER physician. Discussed with Dr. Murphy Garcia from cardiology. Condition critical. Time spent on critical care excluding procedures 70 minutes. Bahman Gamble MD Nov 28, 2016 10:36
[2016-11-28 11:08] LABS: BICARBONATE 25.4 MEQ/L (21.0-32.0); MAGNESIUM 1.9 MG/DL (1.5-2.5); POTASSIUM 4.4 MEQ/L (3.5-5.1)
[2016-11-28 11:09] LABS: CREATINE KINASE 922 U/L (26-192)
[2016-11-28 11:31] LABS: CKMB 62.8 NG/ML (0.5-3.6)
[2016-11-28] MEDS: CEFEPIME INJ 1,000 MG in SODIUM CHLORIDE 0.9% INJ 100 ML IV SCH ×2 (12:32→21:56)
[2016-11-28] MEDS: PANTOPRAZOLE SODIUM 40 MG VIAL IV SCH (12:33)
[2016-11-28] MEDS: AZITHROMYCIN INJ 500 MG in SODIUM CHLOR 0.9% 250 ML INJ 250 ML IV SCH (12:33)
[2016-11-28 14:30] LABS: APTT (PATIENT) 58.8 SEC (24.3-30.1)
--- NOTE | 2016-11-28 14:51 | EKG ---
Date Performed: 11/28/2016 Time Performed: 05:11:48 PTAGE: 76 years EKG: SINUS TACHYCARDIA MODERATE INTRAVENTRICULAR CONDUCTION DELAY ST ELEVATION, PROBABLY EARLY R EPOLARIZATION NONSPECIFIC ST & T-WAVE ABNORMALITY Compared to previous tracing there has been an incr ease in the IVCD and the sinus tachycardia is new. There has been an increase in the lateral ST segme nt elevation but it is nonspecific with the worsening conduction delay. Clinical correlation advised. ABNORMAL ECG PREVIOUS TRACING : 02/15/2016 15.25 DOCTOR: Cherie King Interpretating Date/Time 11/28/2016 14:50:39
[2016-11-28] MEDS: RESP: ALBUTEROL 2.5 MG/IPRATROPIUM 0.5 MG NEB (SCH) NEB ×2 (16:07→20:22)
[2016-11-28] MEDS ORDERED: GLUCAGON 1 MG/ML VIAL IM/SQ PRN (17:00)
[2016-11-28] MEDS ORDERED: DEXTROSE 50% IN WATER 50 ML VIAL(D50) IV PRN (17:00)
[2016-11-28] MEDS ORDERED: DC previous DKA orders (HMC 1917) XX ONE (18:00)
[2016-11-28] MEDS ORDERED: DC Insulin drip 2 hrs post basal insulin dose XX ONE (18:00)
[2016-11-28] MEDS: INSULIN DETEMIR 100 UNITS/ML VIAL SQ SCH ×2 (18:39→21:55)
[2016-11-28 18:59] LABS: ANION GAP 7 MEQ/L (5-15); BICARBONATE 26.5 MEQ/L (21.0-32.0); BLOOD UREA NITROGEN 46 MG/DL (7-18); CHLORIDE 112 MEQ/L (98-107); CREATINE KINASE 1139 U/L (26-192); GLOMERULAR FILTRATION RATE 29 ML/MIN (>89); POTASSIUM 4.5 MEQ/L (3.5-5.1); SODIUM (NA) 145 MEQ/L (136-145)
[2016-11-28] MEDS: DEXT 5%-NACL 0.9% 1000 ML INJ 1,000 ML IV SCH (19:35)
[2016-11-28] MEDS: INSULIN ASPART SUPPLEMENTAL SCALE SQ SCH (20:00)
[2016-11-28] MEDS: CHLORHEXIDINE 0.12% (ORAL KIT) 15 ML CUP MT SCH (20:00)
[2016-11-28] MEDS: SODIUM CHLORIDE 0.9% FLUSH 5 ML FLUSH IVF SCH (21:56)
[2016-11-28 22:20] LABS: CKMB 73.6 NG/ML (0.5-3.6)
[2016-11-29] VITALS (18 sets, daily range): BP systolic 105–148; BP diastolic 54–67; PULSE 70–100; RESP 20; TEMP 99.7–100.4; O2SAT 93–100
[2016-11-29] MEDS: DEXT 5%-NACL 0.9% 1000 ML INJ 1,000 ML IV SCH (02:32)
[2016-11-29] MEDS: CEFEPIME INJ 1,000 MG in SODIUM CHLORIDE 0.9% INJ 100 ML IV SCH ×3 (03:18→20:15)
[2016-11-29 03:20] LABS: APTT (PATIENT) 45.9 SEC (24.3-30.1)
[2016-11-29] MEDS: INSULIN ASPART SUPPLEMENTAL SCALE SQ SCH ×8 (03:25→23:54)
[2016-11-29] MEDS: CHLORHEXIDINE GLUCONATE 2 % 1 PACK (2 CLOTHS) TOP SCH ×2 (03:25→23:55)
[2016-11-29 04:40] LABS: AUTOMATED NEUTROPHIL # 10.3 TH/MM3 (1.8-7.7); BASOPHIL % 0.2 % (0.0-2.0); EOSINOPHIL % 0.1 % (0.0-4.0); HEMATOCRIT 26.8 % (35.0-46.0); HEMO FLAGS DIFF FINAL; LYMPH % 6.9 % (9.0-44.0); LYMPHOCYTE # 0.8 TH/MM3 (1.0-4.8); MEAN CELL VOLUME 87.1 FL (80.0-100.0); MEAN CORPUSCULAR HEMOGLOBIN 29.4 PG (27.0-34.0); MEAN CORPUSCULAR HGB CONC 33.8 % (32.0-36.0); MONO % 7.2 % (0.0-8.0); NEUT % 85.6 % (16.0-70.0); PLATELET COUNT 199 TH/MM3 (150-450); RED BLOOD COUNT 3.07 MIL/MM3 (4.00-5.30); RED CELL DISTRIBUTION WIDTH 13.1 % (11.6-17.2)
[2016-11-29] MEDS: RESP: ALBUTEROL 2.5 MG/IPRATROPIUM 0.5 MG NEB (SCH) NEB ×4 (04:40→20:08)
[2016-11-29] MEDS: HEPARIN-D5W INJ 250 ML IV SCH (04:49)
[2016-11-29] MEDS: PROPOFOL 1000 MG/100 ML INJ 100 ML IV SCH ×6 (04:50→23:56)
[2016-11-29 05:02] LABS: ANION GAP 9 MEQ/L (5-15); AST (GOT) 113 U/L (15-37); BICARBONATE 22.2 MEQ/L (21.0-32.0); BLOOD UREA NITROGEN 44 MG/DL (7-18); CHLORIDE 112 MEQ/L (98-107); GLOMERULAR FILTRATION RATE 31 ML/MIN (>89); MAGNESIUM 1.9 MG/DL (1.5-2.5); POTASSIUM 4.5 MEQ/L (3.5-5.1); SODIUM (NA) 143 MEQ/L (136-145)
[2016-11-29 05:04] LABS: ALKALINE PHOSPHATASE 61 U/L (45-117); ALT (GPT) 24 U/L (10-53); TOTAL BILIRUBIN ADULT 0.5 MG/DL (0.2-1.0)
--- NOTE | 2016-11-29 08:59 | PD.CARD.PN ---
Subjective Subjective Remarks The chart was reviewed. Patient is intubated and sedated. Telemetry reveals sinus rhythm. Objective Medications Reviewed Vital Signs / I&O Vital Signs Date Time Temp Pulse Resp B/P Pulse Ox O2 Delivery O2 Flow Rate FiO2 11/29/16 08:41 99 35 11/29/16 06:00 87 11/29/16 04:18 100 35 11/29/16 04:00 40 11/29/16 04:00 92 11/29/16 04:00 99.7 92 20 132/63 99 11/29/16 02:00 92 11/29/16 01:12 98 35 11/29/16 00:00 99.7 86 20 105/54 97 11/29/16 00:00 86 11/29/16 00:00 40 11/28/16 22:15 100 40 11/28/16 22:00 93 11/28/16 20:00 84 11/28/16 20:00 40 11/28/16 20:00 99.6 84 20 120/60 100 11/28/16 19:22 100 40 11/28/16 16:08 98 40 11/28/16 16:00 98.0 83 21 125/81 99 11/28/16 12:00 97.0 73 20 122/56 99 11/28/16 10:27 99 40 11/28/16 10:15 40 11/28/16 10:15 95 100 11/28/16 10:09 100 50 11/28/16 09:00 75 20 131/63 98 Ventilator 50 I/O 11/28/16 11/28/16 11/28/16 11/29/16 11/29/16 11/29/16 07:00 15:00 23:00 07:00 15:00 23:00 Intake Total 937 ml 1129 ml 880 ml Output Total 875 ml 350 ml 400 ml Balance 62 ml 779 ml 480 ml Intake IV Total 937 ml 1129 ml 880 ml Output Urine Total 775 ml 350 ml 400 ml Gastric Drainage Total 100 ml # Bowel Movements 0 Physical Exam GENERAL: Intubated and sedated. SKIN: Warm and dry. NECK: JVD normal - less than or equal to 5 cm H20. CARDIOVASCULAR: Regular rate and rhythm without murmurs, gallops, or rubs. RESPIRATORY: Normal breath sounds - equal bilaterally. No accessory muscle use. No wheezes, rales or rubs. PERIPHERY: No cyanosis, or edema. Laboratory Laboratory Tests Test 11/28/16 11/28/16 11/28/16 11/28/16 10:05 10:35 13:25 17:35 Nasal Screen MRSA (PCR) NEGATIVE Sodium Level 141 MEQ/L 145 MEQ/L Potassium Level 4.4 MEQ/L 4.5 MEQ/L Chloride Level 107 MEQ/L 112 MEQ/L Carbon Dioxide Level 25.4 MEQ/L 26.5 MEQ/L Anion Gap 9 MEQ/L 7 MEQ/L Blood Urea Nitrogen 50 MG/DL 46 MG/DL Creatinine 2.11 MG/DL 1.74 MG/DL Estimat Glomerular Filtration 23 ML/MIN 29 ML/MIN Rate Random Glucose 400 MG/DL 88 MG/DL Calcium Level 8.4 MG/DL 8.3 MG/DL Phosphorus Level 2.2 MG/DL 1.7 MG/DL Magnesium Level 1.9 MG/DL 2.0 MG/DL Total Creatine Kinase 922 U/L 1139 U/L Creatine Kinase MB 62.8 NG/ML 73.6 NG/ML Creatine Kinase MB % 6.8 % 6.5 % Troponin I GREATER THAN GREATER THAN 40.00 NG/ML 40.00 NG/ML Activated Partial 58.8 SEC Thromboplast Time Lactic Acid Level 1.2 mmol/L Test 11/28/16 11/29/16 11/29/16 11/29/16 20:40 00:13 02:50 04:05 Activated Partial 47.0 SEC 45.9 SEC Thromboplast Time Total Creatine Kinase 857 U/L Creatine Kinase MB 39.0 NG/ML Creatine Kinase MB % 4.6 % Troponin I 34.70 NG/ML White Blood Count 12.0 TH/MM3 Red Blood Count 3.07 MIL/MM3 Hemoglobin 9.0 GM/DL Hematocrit 26.8 % Mean Corpuscular Volume 87.1 FL Mean Corpuscular Hemoglobin 29.4 PG Mean Corpuscular Hemoglobin 33.8 % Concent Red Cell Distribution Width 13.1 % Platelet Count 199 TH/MM3 Mean Platelet Volume 9.5 FL Neutrophils (%) (Auto) 85.6 % Lymphocytes (%) (Auto) 6.9 % Monocytes (%) (Auto) 7.2 % Eosinophils (%) (Auto) 0.1 % Basophils (%) (Auto) 0.2 % Neutrophils # (Auto) 10.3 TH/MM3 Lymphocytes # (Auto) 0.8 TH/MM3 Monocytes # (Auto) 0.9 TH/MM3 Eosinophils # (Auto) 0.0 TH/MM3 Basophils # (Auto) 0.0 TH/MM3 CBC Comment DIFF FINAL Differential Comment Sodium Level 143 MEQ/L Potassium Level 4.5 MEQ/L Chloride Level 112 MEQ/L Carbon Dioxide Level 22.2 MEQ/L Anion Gap 9 MEQ/L Blood Urea Nitrogen 44 MG/DL Creatinine 1.63 MG/DL Estimat Glomerular Filtration 31 ML/MIN Rate Random Glucose 179 MG/DL Calcium Level 8.1 MG/DL Phosphorus Level 2.3 MG/DL Magnesium Level 1.9 MG/DL Total Bilirubin 0.5 MG/DL Aspartate Amino Transf 113 U/L (AST/SGOT) Alanine Aminotransferase 24 U/L (ALT/SGPT) Alkaline Phosphatase 61 U/L Total Protein 5.7 GM/DL Albumin 2.5 GM/DL Imaging Last 48 hours Impressions Chest X-Ray 11/28/16 05 Signed Impressions: Service Date/Time: Monday, November 28, 2016 05:27 - CONCLUSION: 1. The endotracheal tube extends into the right main bronchus and should be retracted proximately 3-4 cm. 2. Abnormal bibasilar pleural-parenchymal opacities likely representing pleural effusions with associated volume loss and/or airspace consolidation. 3. Abnormal appearance of the right proximal humerus at the glenohumeral joint that is stable. The above findings concerning the endotracheal tube location were discussed with Dr. Cruz via telephone at 5: 47 AM. Lennox Tomas MD Chest X-Ray 11/28/16 0000 Signed Impressions: Service Date/Time: Monday, November 28, 2016 06:55 - CONCLUSION: Support apparatus in good position. Patchy airspace disease on the right. Jimmie Multani MD FACR Chest X-Ray 11/28/16 0000 Signed Impressions: Service Date/Time: Monday, November 28, 2016 06:12 - CONCLUSION: Interval retraction of the endotracheal tube with tip now measuring approximately 2.1 cm from the ad. Lennox Tomas MD Assessment and Plan Assessment and Plan Problems: Non-ST elevation [place] Respiratory failure Sepsis Known coronary artery disease and peripheral vascular disease Diabetes Hypertension Hyperlipidemia Chronic kidney disease Recommendations: Continue present medical management Respiratory and antibiotics per primary service We will be available if needed tomorrow. Dr. Auguste will be back on Thursday. Rudolph Clark MD Nov 29, 2016 08:59
[2016-11-29] MEDS: SODIUM CHLORIDE 0.9% FLUSH 5 ML FLUSH IVF SCH ×2 (09:10→20:15)
[2016-11-29] MEDS: ACETAMINOPHEN 325 MG TAB PO PRN ×2 (09:10→17:24)
[2016-11-29] MEDS: ATORVASTATIN 40 MG TAB PO SCH (09:11)
[2016-11-29] MEDS: PANTOPRAZOLE SODIUM 40 MG VIAL IV SCH (09:11)
[2016-11-29] MEDS: ASPIRIN 81 MG CHEW TAB CHEW SCH (09:11)
[2016-11-29] MEDS: TICAGRELOR 90 MG TAB PO SCH ×2 (09:11→20:16)
[2016-11-29] MEDS: SODIUM CHLOR 0.9% 1000 ML INJ 1,000 ML IV SCH (09:12)
[2016-11-29] MEDS: INSULIN DETEMIR 100 UNITS/ML VIAL SQ SCH ×2 (09:12→20:16)
[2016-11-29] MEDS: CHLORHEXIDINE 0.12% (ORAL KIT) 15 ML CUP MT SCH ×2 (09:13→20:14)
--- NOTE | 2016-11-29 11:09 | HHI.CCPN ---
Subjective Remarks/Hospital Course 76-year-old female came to the emergency room brought by EMS as a STEMI alert. Patient called 911 for shortness of breath. When they arrived patient says oxygen saturation was in the 80s and she was in respiratory distress. Patient has history of coronary artery disease and congestive heart failure. She told me she had her bypass surgery done few years ago. Patient denied of any chest pain at any point. EMS said that patient had told them that she was nauseous for past couple days and vomited last night. She was woken up from the sleep with this shortness of breath. By the time patient arrived to the ER she was acutely short of breath and in severe respiratory distress. She was unable to give much history. She was pale and started getting agitated and diaphoretic when they moved her from the gurney to the stretcher. Patient developed worsening respiratory distress and required emergent intubation was placed on mechanical ventilation by ER physician. Her troponin came back at 20 and her EKG suggested intraventricular conduction delay versus left bundle branch block. Cardiology was contacted and felt patient had a non-ST elevation HI. She was also noted to be extremely hyperglycemic with glucose levels in the 500s with metabolic acidosis/lactic acidosis. She was started on the DKA protocol by ER physician. Urine ketones are negative. Beta hydroxybutyrate slightly elevated. Patient had a central line placed by ER physician and was started on heparin drip for anticoagulation for her HI. She was accepted for admission by critical care medicine service. I discussed the case with Dr. Auguste who is not planning cardiac catheterization at this time. Patient also was given empiric antibiotics up to obtaining cultures. 11/29 Patient is sedated with Diprivan and intubated. Remains on Heparin drip. On PRVC/AC RR 20 IT 1.0, TV 500, PEEP:5 and FIO2 35% Objective Vital Signs Date Time Temp Pulse Resp B/P Pulse Ox O2 Delivery O2 Flow Rate FiO2 11/29/16 08:41 99 35 11/29/16 06:00 87 11/29/16 04:00 99.7 20 132/63 11/28/16 09:00 Ventilator Intake and Output 11/28/16 11/28/16 11/29/16 08:00 16:00 00:00 Intake Total 937 ml 1129 ml Output Total 875 ml 350 ml Balance 62 ml 779 ml Result Diagram: 11/29/16 0405 11/29/16 0405 Other Results Laboratory Tests Test 11/28/16 11/28/16 11/28/16 11/29/16 13:25 17:35 20:40 00:13 Activated Partial 58.8 SEC 47.0 SEC Thromboplast Time Sodium Level 145 MEQ/L Potassium Level 4.5 MEQ/L Chloride Level 112 MEQ/L Carbon Dioxide Level 26.5 MEQ/L Anion Gap 7 MEQ/L Blood Urea Nitrogen 46 MG/DL Creatinine 1.74 MG/DL Estimat Glomerular Filtration 29 ML/MIN Rate Random Glucose 88 MG/DL Lactic Acid Level 1.2 mmol/L Calcium Level 8.3 MG/DL Phosphorus Level 1.7 MG/DL Magnesium Level 2.0 MG/DL Total Creatine Kinase 1139 U/L 857 U/L Creatine Kinase MB 73.6 NG/ML 39.0 NG/ML Creatine Kinase MB % 6.5 % 4.6 % Troponin I GREATER THAN 34.70 NG/ML 40.00 NG/ML Test 11/29/16 11/29/16 02:50 04:05 Activated Partial 45.9 SEC Thromboplast Time White Blood Count 12.0 TH/MM3 Red Blood Count 3.07 MIL/MM3 Hemoglobin 9.0 GM/DL Hematocrit 26.8 % Mean Corpuscular Volume 87.1 FL Mean Corpuscular Hemoglobin 29.4 PG Mean Corpuscular Hemoglobin 33.8 % Concent Red Cell Distribution Width 13.1 % Platelet Count 199 TH/MM3 Mean Platelet Volume 9.5 FL Neutrophils (%) (Auto) 85.6 % Lymphocytes (%) (Auto) 6.9 % Monocytes (%) (Auto) 7.2 % Eosinophils (%) (Auto) 0.1 % Basophils (%) (Auto) 0.2 % Neutrophils # (Auto) 10.3 TH/MM3 Lymphocytes # (Auto) 0.8 TH/MM3 Monocytes # (Auto) 0.9 TH/MM3 Eosinophils # (Auto) 0.0 TH/MM3 Basophils # (Auto) 0.0 TH/MM3 CBC Comment DIFF FINAL Differential Comment Sodium Level 143 MEQ/L Potassium Level 4.5 MEQ/L Chloride Level 112 MEQ/L Carbon Dioxide Level 22.2 MEQ/L Anion Gap 9 MEQ/L Blood Urea Nitrogen 44 MG/DL Creatinine 1.63 MG/DL Estimat Glomerular Filtration 31 ML/MIN Rate Random Glucose 179 MG/DL Calcium Level 8.1 MG/DL Phosphorus Level 2.3 MG/DL Magnesium Level 1.9 MG/DL Total Bilirubin 0.5 MG/DL Aspartate Amino Transf 113 U/L (AST/SGOT) Alanine Aminotransferase 24 U/L (ALT/SGPT) Alkaline Phosphatase 61 U/L Total Protein 5.7 GM/DL Albumin 2.5 GM/DL Imaging Last Impressions Chest X-Ray 11/28/16 0520 Signed Impressions: Service Date/Time: Monday, November 28, 2016 05:27 - CONCLUSION: 1. The endotracheal tube extends into the right main bronchus and should be retracted proximately 3-4 cm. 2. Abnormal bibasilar pleural-parenchymal opacities likely representing pleural effusions with associated volume loss and/or airspace consolidation. 3. Abnormal appearance of the right proximal humerus at the glenohumeral joint that is stable. The above findings concerning the endotracheal tube location were discussed with Dr. Cruz via telephone at 5: 47 AM. Lennox Tomas MD Objective Remarks GENERAL: Patient is 76 yo intubated and sedated SKIN: Warm and dry. HEAD: Normocephalic. EYES: No scleral icterus. No injection or drainage. NECK: Supple, trachea midline. No JVD or lymphadenopathy. Orally intubated. CARDIOVASCULAR: Regular rate and rhythm without murmurs, gallops, or rubs. RESPIRATORY: Breath sounds equal bilaterally. No accessory muscle use. GASTROINTESTINAL: Abdomen soft, non-tender, nondistended. MUSCULOSKELETAL: No cyanosis, or edema. Neuro: sedated and intubated A/P Assessment and Plan 76-year-old female with: VDRF CHF Sepsis Possible Pneumonia Non-ST elevation HI Uncontrolled diabetes mellitus Lactic acidosis History of CAD History of PVD Plan: Neuro: On Diprivan infusion for sedation. Daily sedation vacation. Pulm: Continue with vent support keep sat >92% Bronchodilators, ICU vent bundle, start CPAP trials as ramone CV: Monitor HR and BP keep MAP>65mmHg Monitor CK/trop. Follow up on echo results Cards- Dr. Garcia. On ASA, Lipitor, Brilinta 90mg BID, heparin drip. : Monitor renal function, I/O's, electrolytes replacement per protocol. Cr: 1.63 today from 1.74 GI/liver: On Protonix 40mg daily, start TF if remains intubated today Heme: Monitor CBC ID: Empiric antibiotic coverage with IV cefepime/Zithromax. Received a dose of vancomycin and Zosyn in the ER. Monitor for signs of infections ( Fever, WBC) Endocrine: On SSI ( medium scale) and Levemir 10u BID Prophylaxis: PPI/SCDs. On full anticoagulation with heparin CCT 30 mins Fransisco Mas MD Nov 29, 2016 11:09
--- NOTE | 2016-11-29 12:15 | EC ---
Study Study Date:11/29/2016 STUDY CONCLUSIONS SUMMARY - Left ventricle: The cavity size was normal. Wall thickness was normal. Systolic function was mildly to moderately reduced. The estimated ejection fraction was in the range of 40% to 45%. Hypokinesis of the apical myocardium. - Aortic valve: Valve area: 0.52cm^2(VTI). Valve area: 0.78cm^2 (Vmax). - Mitral valve: Mildly calcified annulus. Mildly thickened leaflets, . - Pulmonary arteries: PA peak pressure: 35mm Hg (S). If LV function is below 40, please consider prescribing an ACEI or ARB or document rationale for non-use. PROCEDURE DATA STUDY STATUS: Elective. Procedure: Transthoracic echocardiography. Image quality was fair. Scanning was performed from the parasternal, apical, and subcostal acoustic windows. Study completion: The patient tolerated the procedure well. Transthoracic echocardiography. M-mode, complete 2D, complete spectral Doppler, and color Doppler. Weight: Weight: 248.5lb. Patient status: Inpatient. CARDIAC ANATOMY LEFT VENTRICLE: The cavity size was normal. Wall thickness was normal. Systolic function was mildly to moderately reduced. The estimated ejection fraction was in the range of 40% to 45%. Regional wall motion abnormalities: Hypokinesis of the apical myocardium. AORTIC VALVE: Trileaflet; mildly thickened, mildly calcified leaflets. Doppler: Transvalvular velocity was within the normal range. There was no stenosis. No regurgitation. Valve area: 0.52cm^2(VTI). Valve area: 0.78cm^2 (Vmax). Mean gradient: 3mm Hg (S). AORTA: Aortic root: The aortic root was normal in size. MITRAL VALVE: Mildly calcified annulus. Mildly thickened leaflets, . Doppler: Transvalvular velocity was within the normal range. There was no evidence for stenosis. Trace regurgitation. Peak gradient: 4mm Hg (D). LEFT ATRIUM: The atrium was normal in size. RIGHT VENTRICLE: Poorly visualized. PULMONIC VALVE: Doppler: Transvalvular velocity was within the normal range. There was no evidence for stenosis. No regurgitation. TRICUSPID VALVE: Poorly visualized. Doppler: Transvalvular velocity was within the normal range. No regurgitation. PULMONARY ARTERY: The main pulmonary artery was normal-sized. Systolic pressure was within the normal range. RIGHT ATRIUM: Poorly visualized. PERICARDIUM: There was no pericardial effusion. Patient weight: 248.5lb _Ejection fraction:_ 65-75% _Fractional shortening:_ 32% up to 5Kg 5-11.5Kg 11.6-22.9Kg 23-45Kg 45-57Kg Aortic Root 7-13 <17 13-22 17-27 17-27 LA diam 6-13 <23 24-38 33-47 37-40 RVID 10-17 7-15 7-15 7-18 8-17 LVIDd 12-22 <32 24-38 33-47 37-40 LVPW 2-4 3-6 5-7 6-8 7-8 IVS 2-4 3-6 5-7 6-8 7-8 BASIC MEASUREMENTS ADULT Normal Left ventricle LV internal dimension, ED, chordal level, *41.4 mm 43-52 PLAX LV internal dimension, ES, chordal level, 33.3 mm 23-38 PLAX Fractional shortening, chordal level, PLAX *20 % >29 LV posterior wall thickness, ED 10.9 mm IVS/LVPW ratio, ED 1 <1.3 Ventricular septum Septal thickness, ED 10.9 mm Aortic valve Leaflet separation 20 mm 15-26 Aorta Root diameter, ED 33 mm Left atrium Anterior-posterior dimension 33 mm BASIC MEASUREMENTS ADULT Normal Aortic valve Leaflet separation 20 mm 15-26 DOPPLER MEASUREMENTS ADULT Normal Main pulmonary artery Pressure, S *35 mm Hg =30 Aortic valve Peak velocity, S 103 cm/s Mean velocity, S 77.8 cm/s VTI, S 20.5 cm Mean gradient, S 3 mm Hg Valve area, VTI 0.52 cm^2 Valve area, Vmax 0.78 cm^2 Mitral valve Peak E-wave velocity 98.2 cm/s Peak A-wave velocity 108 cm/s Peak gradient, D 4 mm Hg Peak E/A ratio 0.9 Tricuspid valve Regurgitant peak velocity 276 cm/s Peak RV-RA gradient, S 30 mm Hg Maximal regurgitant velocity 276 cm/s Systemic veins Estimated CVP 10 mm Hg Right ventricle RV pressure, S *40 mm Hg <30 Pulmonic valve Peak velocity, S 114 cm/s LEGEND: Mean values are shown as u=mean value. Asterisk (*) colin values outside specified normal range. Prepared and signed by Rudoplh Clark [id number]
[2016-11-29] MEDS: AZITHROMYCIN INJ 500 MG in SODIUM CHLOR 0.9% 250 ML INJ 250 ML IV SCH (13:53)
[2016-11-29 13:57] LABS: CKMB 17.4 NG/ML (0.5-3.6)
[2016-11-29 14:27] LABS: BLOOD GAS BASE EXCESS -5.1 mmol/L (-2-2); BLOOD GAS CARBOXYHEMOGLOBIN 1.8 % (0-4); BLOOD GAS HCO3 19 mmol/L (22-26); BLOOD GAS METHEMOGLOBIN 1.3 % (0-2); BLOOD GAS O2 HGB SATURATION 83 % (90-100); BLOOD GAS OXYGEN CONTENT 12.2 Vol % (12.0-20.0); BLOOD GAS PCO2 30 mmHg (38-42); BLOOD GAS PO2 50 mmHg (61-120); BLOOD GAS TOTAL HGB 10.5 G/DL (12.0-16.0); TEMP CORR TO 98.6
[2016-11-29 14:28] LABS: CRITICAL VALUE YES; DRAW SITE RT RADIAL; FIO2 35 %; NUMBER OF ARTERIAL PUNCTURES 1; OXYGEN DEVICE VENTILATOR; STAT NO; ULNAR PULSE PRESENT; VENT SETTINGS CPAP+5/PS+10/
--- NOTE | 2016-11-29 16:25 | RADRPT ---
EXAM DATE/TIME: 11/29/2016 15:06 [facility] COMPARISON: CHEST SINGLE AP, November 28, 2016, 6:55. INDICATIONS : Short of Breath, Low FiO2. MEDICAL HISTORY : Cardiovascular disease. Hypertension. Carcinoma, breast. SURGICAL HISTORY : CABG. Mastectomy, left. Stents ENCOUNTER: Subsequent ACUITY: 2 days PAIN SCORE: Non-responsive. LOCATION: Bilateral chest FINDINGS: A single view of the chest demonstrates endotracheal tube in satisfactory position. NG enters stomach . Left central line in superior vena cava. Bilateral basilar airspace disease and pleural effusions. CONCLUSION: 1. Bilateral mostly basilar airspace disease and pleural effusions slightly increased from November 28 . Support apparatus unchanged. Previous CABG. Larry Dawson MD on November 29, 2016 at 16:17 Board Certified Radiologist. This report was verified electronically.
[2016-11-29 19:39] LABS: CKMB 13.9 NG/ML (0.5-3.6)
[2016-11-30] VITALS (18 sets, daily range): BP systolic 129–163; BP diastolic 60–74; PULSE 76–108; RESP 20–23; TEMP 98.1–100.8; O2SAT 90–100
[2016-11-30 01:44] LABS: CKMB 9.5 NG/ML (0.5-3.6)
[2016-11-30] MEDS: CEFEPIME INJ 1,000 MG in SODIUM CHLORIDE 0.9% INJ 100 ML IV SCH ×3 (03:16→20:23)
[2016-11-30] MEDS: INSULIN ASPART SUPPLEMENTAL SCALE SQ SCH ×5 (03:16→20:21)
[2016-11-30] MEDS: PROPOFOL 1000 MG/100 ML INJ 100 ML IV SCH ×3 (03:16→18:08)
[2016-11-30] MEDS: HEPARIN-D5W INJ 250 ML IV SCH (03:19)
[2016-11-30] MEDS: RESP: ALBUTEROL 2.5 MG/IPRATROPIUM 0.5 MG NEB (SCH) NEB ×4 (03:42→22:37)
[2016-11-30 05:29] LABS: AUTOMATED NEUTROPHIL # 11.4 TH/MM3 (1.8-7.7); BASOPHIL % 0.4 % (0.0-2.0); EOSINOPHIL # 0.1 TH/MM3 (0-0.4); EOSINOPHIL % 0.6 % (0.0-4.0); HEMATOCRIT 27.4 % (35.0-46.0); HEMO FLAGS DIFF FINAL; LYMPH % 8.4 % (9.0-44.0); LYMPHOCYTE # 1.1 TH/MM3 (1.0-4.8); MEAN CELL VOLUME 88.4 FL (80.0-100.0); MEAN CORPUSCULAR HEMOGLOBIN 29.5 PG (27.0-34.0); MEAN CORPUSCULAR HGB CONC 33.4 % (32.0-36.0); MONO % 7.3 % (0.0-8.0); NEUT % 83.3 % (16.0-70.0); PLATELET COUNT 201 TH/MM3 (150-450); RED CELL DISTRIBUTION WIDTH 13.4 % (11.6-17.2); WHITE BLOOD COUNT 13.6 TH/MM3 (4.0-11.0)
[2016-11-30 05:36] LABS: MAGNESIUM 2.3 MG/DL (1.5-2.5); POTASSIUM 4.2 MEQ/L (3.5-5.1)
[2016-11-30] MEDS: INSULIN DETEMIR 100 UNITS/ML VIAL SQ SCH ×2 (07:27→20:22)
[2016-11-30] MEDS: PANTOPRAZOLE SODIUM 40 MG VIAL IV SCH (07:27)
[2016-11-30] MEDS: SODIUM CHLORIDE 0.9% FLUSH 5 ML FLUSH IVF SCH ×2 (07:28→20:21)
[2016-11-30] MEDS: TICAGRELOR 90 MG TAB PO SCH ×2 (07:28→20:21)
[2016-11-30] MEDS: ATORVASTATIN 40 MG TAB PO SCH (07:28)
[2016-11-30] MEDS: ASPIRIN 81 MG CHEW TAB CHEW SCH (07:28)
[2016-11-30] MEDS: CHLORHEXIDINE 0.12% (ORAL KIT) 15 ML CUP MT SCH ×2 (07:29→20:21)
[2016-11-30] MEDS ORDERED: BUMETANIDE INJ 1 MG/4 ML VIAL IV PUSH ONE (08:30)
--- NOTE | 2016-11-30 08:36 | HHI.CCPN ---
Subjective Remarks/Hospital Course 76-year-old female came to the emergency room brought by EMS as a STEMI alert. Patient called 911 for shortness of breath. When they arrived patient says oxygen saturation was in the 80s and she was in respiratory distress. Patient has history of coronary artery disease and congestive heart failure. She told me she had her bypass surgery done few years ago. Patient denied of any chest pain at any point. EMS said that patient had told them that she was nauseous for past couple days and vomited last night. She was woken up from the sleep with this shortness of breath. By the time patient arrived to the ER she was acutely short of breath and in severe respiratory distress. She was unable to give much history. She was pale and started getting agitated and diaphoretic when they moved her from the gurney to the stretcher. Patient developed worsening respiratory distress and required emergent intubation was placed on mechanical ventilation by ER physician. Her troponin came back at 20 and her EKG suggested intraventricular conduction delay versus left bundle branch block. Cardiology was contacted and felt patient had a non-ST elevation OR. She was also noted to be extremely hyperglycemic with glucose levels in the 500s with metabolic acidosis/lactic acidosis. She was started on the DKA protocol by ER physician. Urine ketones are negative. Beta hydroxybutyrate slightly elevated. Patient had a central line placed by ER physician and was started on heparin drip for anticoagulation for her OR. She was accepted for admission by critical care medicine service. I discussed the case with Dr. Auguste who is not planning cardiac catheterization at this time. Patient also was given empiric antibiotics up to obtaining cultures. 11/29 Patient is sedated with Diprivan and intubated. Remains on Heparin drip. On PRVC/AC RR 20 IT 1.0, TV 500, PEEP:5 and FIO2 35% 11/30 No acute events overnight. Sedated and intubated. Afebrile. On Heparin drip Objective Vital Signs Date Time Temp Pulse Resp B/P Pulse Ox O2 Delivery O2 Flow Rate FiO2 11/30/16 07:54 92 50 11/30/16 06:00 76 11/30/16 04:00 98.1 23 141/63 11/28/16 09:00 Ventilator Intake and Output 11/29/16 11/29/16 11/30/16 08:00 16:00 00:00 Intake Total 880 ml 1242 ml 1186 ml Output Total 400 ml 575 ml 550 ml Balance 480 ml 667 ml 636 ml Result Diagram: 11/30/16 0410 11/30/16 0410 Other Results Laboratory Tests Test 11/29/16 11/29/16 11/29/16 11/30/16 11:45 13:54 18:00 00:27 Total Creatine Kinase 926 U/L 1093 U/L 822 U/L Creatine Kinase MB 17.4 NG/ML 13.9 NG/ML 9.5 NG/ML Creatine Kinase MB % 1.9 % 1.3 % 1.2 % Troponin I 18.60 NG/ML 13.30 NG/ML 9.59 NG/ML Blood Gas Puncture Site RT RADIAL Blood Gas Patient Temperature 98.6 Blood Gas HCO3 19 mmol/L Blood Gas Base Excess -5.1 mmol/L Blood Gas Oxygen Saturation 83 % Arterial Blood pH 7.41 Arterial Blood Partial 30 mmHg Pressure CO2 Arterial Blood Partial 50 mmHg Pressure O2 Arterial Blood Oxygen Content 12.2 Vol % Arterial Blood 1.8 % Carboxyhemoglobin Arterial Blood Methemoglobin 1.3 % Blood Gas Hemoglobin 10.5 G/DL Oxygen Delivery Device VENTILATOR Blood Gas Ventilator Setting CPAP+5/PS+10/ Blood Gas Inspired Oxygen 35 % Test 11/30/16 04:10 White Blood Count 13.6 TH/MM3 Red Blood Count 3.10 MIL/MM3 Hemoglobin 9.2 GM/DL Hematocrit 27.4 % Mean Corpuscular Volume 88.4 FL Mean Corpuscular Hemoglobin 29.5 PG Mean Corpuscular Hemoglobin 33.4 % Concent Red Cell Distribution Width 13.4 % Platelet Count 201 TH/MM3 Mean Platelet Volume 10.0 FL Neutrophils (%) (Auto) 83.3 % Lymphocytes (%) (Auto) 8.4 % Monocytes (%) (Auto) 7.3 % Eosinophils (%) (Auto) 0.6 % Basophils (%) (Auto) 0.4 % Neutrophils # (Auto) 11.4 TH/MM3 Lymphocytes # (Auto) 1.1 TH/MM3 Monocytes # (Auto) 1.0 TH/MM3 Eosinophils # (Auto) 0.1 TH/MM3 Basophils # (Auto) 0.0 TH/MM3 CBC Comment DIFF FINAL Differential Comment Sodium Level 145 MEQ/L Potassium Level 4.2 MEQ/L Chloride Level 113 MEQ/L Carbon Dioxide Level 23.0 MEQ/L Anion Gap 9 MEQ/L Blood Urea Nitrogen 41 MG/DL Creatinine 1.49 MG/DL Estimat Glomerular Filtration 34 ML/MIN Rate Random Glucose 272 MG/DL Calcium Level 8.3 MG/DL Phosphorus Level 2.9 MG/DL Magnesium Level 2.3 MG/DL Imaging Last Impressions Chest X-Ray 11/29/16 0000 Signed Impressions: Service Date/Time: Tuesday, November 29, 2016 15:06 - CONCLUSION: 1. Bilateral mostly basilar airspace disease and pleural effusions slightly increased from November 28. Support apparatus unchanged. Previous CABG. Larry Dawson MD Objective Remarks GENERAL: Patient is 76 yo intubated and sedated SKIN: Warm and dry. HEAD: Normocephalic. EYES: No scleral icterus. No injection or drainage. NECK: Supple, trachea midline. No JVD or lymphadenopathy. Orally intubated. CARDIOVASCULAR: Regular rate and rhythm without murmurs, gallops, or rubs. RESPIRATORY: Breath sounds equal bilaterally. No accessory muscle use. GASTROINTESTINAL: Abdomen soft, non-tender, nondistended. MUSCULOSKELETAL: No cyanosis, or edema. Neuro: sedated and intubated A/P Assessment and Plan 76-year-old female with: VDRF CHF Sepsis Possible Pneumonia Non-ST elevation OR Uncontrolled diabetes mellitus Lactic acidosis History of CAD History of PVD Plan: Neuro: On Diprivan infusion for sedation. Daily sedation vacation. Pulm: Continue with vent support keep sat >92% Bronchodilators, ICU vent bundle, CPAP trials as ramone CV: Monitor HR and BP keep MAP>65mmHg Monitor CK/trop. Echo showed EF 40-45%, hypokinesis in apical myocardium. Cards- Dr. Garcia. On ASA, Lipitor, Brilinta 90mg BID, heparin drip. : Monitor renal function, I/O's, electrolytes replacement per protocol. Cr: 1.49 today from 1.63. Diurese with [id number] x1 GI/liver: On Protonix 40mg daily, on Glucerna 1.5@45ml/hr Heme: Monitor CBC ID: Empiric antibiotic coverage with IV cefepime/Zithromax. Received a dose of vancomycin and Zosyn in the ER. Monitor for signs of infections ( Fever, WBC) Endocrine: On SSI ( medium scale) increase Levemir 15u BID Prophylaxis: PPI/SCDs. On full anticoagulation with heparin CCT 30 mins Fransisco Mas MD Nov 30, 2016 08:36
[2016-11-30 09:41] LABS: APTT (PATIENT) 40.7 SEC (24.3-30.1)
[2016-11-30 09:41] LABS: HEMOGLOBIN A1a 1.4 %; HEMOGLOBIN A1b 1.7 %; HEMOGLOBIN Ao 73.4 %; HEMOGLOBIN F 2.1 %; HEMOGLOBIN P3 8.6 %
[2016-11-30 09:47] LABS: INDIRECT BILIRUBIN 0.4 MG/DL (0.0-0.8); TOTAL BILIRUBIN ADULT 0.6 MG/DL (0.2-1.0)
[2016-11-30 10:13] LABS: CKMB 9.4 NG/ML (0.5-3.6)
[2016-11-30] MEDS: AZITHROMYCIN INJ 500 MG in SODIUM CHLOR 0.9% 250 ML INJ 250 ML IV SCH (12:02)
[2016-11-30] MEDS: ACETAMINOPHEN 325 MG TAB PO PRN (16:16)
[2016-12-01] VITALS (20 sets, daily range): BP systolic 131–142; BP diastolic 61–65; PULSE 79–102; RESP 20–23; TEMP 99.1–101.1; O2SAT 92–98
[2016-12-01] MEDS: INSULIN ASPART SUPPLEMENTAL SCALE SQ SCH ×7 (00:47→23:41)
[2016-12-01] MEDS: PROPOFOL 1000 MG/100 ML INJ 100 ML IV SCH ×5 (01:30→21:20)
[2016-12-01] MEDS: HEPARIN-D5W INJ 250 ML IV SCH (02:24)
[2016-12-01] MEDS: CHLORHEXIDINE GLUCONATE 2 % 1 PACK (2 CLOTHS) TOP SCH (03:19)
[2016-12-01] MEDS: CEFEPIME INJ 1,000 MG in SODIUM CHLORIDE 0.9% INJ 100 ML IV SCH ×3 (03:20→20:02)
[2016-12-01] MEDS: RESP: ALBUTEROL 2.5 MG/IPRATROPIUM 0.5 MG NEB (SCH) NEB ×4 (04:24→21:01)
[2016-12-01 05:40] LABS: AUTOMATED NEUTROPHIL # 8.1 TH/MM3 (1.8-7.7); BASOPHIL # 0.1 TH/MM3 (0-0.2); BASOPHIL % 0.8 % (0.0-2.0); EOSINOPHIL # 0.2 TH/MM3 (0-0.4); EOSINOPHIL % 1.9 % (0.0-4.0); HEMATOCRIT 24.1 % (35.0-46.0); HEMO FLAGS DIFF FINAL; LYMPH % 10.3 % (9.0-44.0); MEAN CELL VOLUME 88.5 FL (80.0-100.0); MEAN CORPUSCULAR HEMOGLOBIN 29.7 PG (27.0-34.0); MEAN CORPUSCULAR HGB CONC 33.5 % (32.0-36.0); MONO % 6.3 % (0.0-8.0); NEUT % 80.7 % (16.0-70.0); PLATELET COUNT 179 TH/MM3 (150-450); RED BLOOD COUNT 2.73 MIL/MM3 (4.00-5.30); RED CELL DISTRIBUTION WIDTH 13.4 % (11.6-17.2)
[2016-12-01 06:09] LABS: ALT (GPT) 22 U/L (10-53); ANION GAP 7 MEQ/L (5-15); AST (GOT) 40 U/L (15-37); BICARBONATE 23.8 MEQ/L (21.0-32.0); BLOOD UREA NITROGEN 44 MG/DL (7-18); CHLORIDE 115 MEQ/L (98-107); GLOMERULAR FILTRATION RATE 32 ML/MIN (>89); MAGNESIUM 2.5 MG/DL (1.5-2.5); POTASSIUM 4.1 MEQ/L (3.5-5.1); SODIUM (NA) 146 MEQ/L (136-145)
[2016-12-01 06:11] LABS: ALKALINE PHOSPHATASE 60 U/L (45-117); TOTAL BILIRUBIN ADULT 0.4 MG/DL (0.2-1.0)
[2016-12-01] MEDS: CHLORHEXIDINE 0.12% (ORAL KIT) 15 ML CUP MT SCH ×2 (08:07→20:03)
[2016-12-01] MEDS: ASPIRIN 81 MG CHEW TAB CHEW SCH (08:08)
[2016-12-01] MEDS: TICAGRELOR 90 MG TAB PO SCH ×2 (08:08→20:02)
[2016-12-01] MEDS: INSULIN DETEMIR 100 UNITS/ML VIAL SQ SCH ×2 (08:08→20:02)
[2016-12-01] MEDS: ATORVASTATIN 40 MG TAB PO SCH (08:08)
[2016-12-01] MEDS: PANTOPRAZOLE SODIUM 40 MG VIAL IV SCH (08:09)
[2016-12-01] MEDS: SODIUM CHLORIDE 0.9% FLUSH 5 ML FLUSH IVF SCH ×2 (08:09→20:03)
--- NOTE | 2016-12-01 10:37 | HHI.CCPN ---
Subjective Remarks/Hospital Course 76-year-old female came to the emergency room brought by EMS as a STEMI alert. Patient called 911 for shortness of breath. When they arrived patient says oxygen saturation was in the 80s and she was in respiratory distress. Patient has history of coronary artery disease and congestive heart failure. She told me she had her bypass surgery done few years ago. Patient denied of any chest pain at any point. EMS said that patient had told them that she was nauseous for past couple days and vomited last night. She was woken up from the sleep with this shortness of breath. By the time patient arrived to the ER she was acutely short of breath and in severe respiratory distress. She was unable to give much history. She was pale and started getting agitated and diaphoretic when they moved her from the gurney to the stretcher. Patient developed worsening respiratory distress and required emergent intubation was placed on mechanical ventilation by ER physician. Her troponin came back at 20 and her EKG suggested intraventricular conduction delay versus left bundle branch block. Cardiology was contacted and felt patient had a non-ST elevation DE. She was also noted to be extremely hyperglycemic with glucose levels in the 500s with metabolic acidosis/lactic acidosis. She was started on the DKA protocol by ER physician. Urine ketones are negative. Beta hydroxybutyrate slightly elevated. Patient had a central line placed by ER physician and was started on heparin drip for anticoagulation for her DE. She was accepted for admission by critical care medicine service. I discussed the case with Dr. Auguste who is not planning cardiac catheterization at this time. Patient also was given empiric antibiotics up to obtaining cultures. 2 Patient is sedated with Diprivan and intubated. Remains on Heparin drip. On PRVC/AC RR 20 IT 1.0, TV 500, PEEP:5 and FIO2 35% 2 No acute events overnight. Sedated and intubated. Afebrile. On Heparin drip 12/01 Patient remains sedated and intubated. Afebrile. On Heparin drip. She had episode of desaturation while on CPAP. Objective Vital Signs Date Time Temp Pulse Resp B/P Pulse Ox O2 Delivery O2 Flow Rate FiO2 12/01/16 10:00 93 12/01/16 09:44 97 45 12/01/16 08:00 99.1 20 137/62 11/28/16 09:00 Ventilator Intake and Output 11/30/16 11/30/16 12/01/16 08:00 16:00 00:00 Intake Total 427 ml 771 ml 732 ml Output Total 350 ml 775 ml 500 ml Balance 77 ml -4 ml 232 ml Result Diagram: 12/01/16 0415 12/01/16 0415 Other Results Laboratory Tests Test 12/01/16 04:15 White Blood Count 10.0 TH/MM3 Red Blood Count 2.73 MIL/MM3 Hemoglobin 8.1 GM/DL Hematocrit 24.1 % Mean Corpuscular Volume 88.5 FL Mean Corpuscular Hemoglobin 29.7 PG Mean Corpuscular Hemoglobin 33.5 % Concent Red Cell Distribution Width 13.4 % Platelet Count 179 TH/MM3 Mean Platelet Volume 9.8 FL Neutrophils (%) (Auto) 80.7 % Lymphocytes (%) (Auto) 10.3 % Monocytes (%) (Auto) 6.3 % Eosinophils (%) (Auto) 1.9 % Basophils (%) (Auto) 0.8 % Neutrophils # (Auto) 8.1 TH/MM3 Lymphocytes # (Auto) 1.0 TH/MM3 Monocytes # (Auto) 0.6 TH/MM3 Eosinophils # (Auto) 0.2 TH/MM3 Basophils # (Auto) 0.1 TH/MM3 CBC Comment DIFF FINAL Differential Comment Activated Partial 50.0 SEC Thromboplast Time Sodium Level 146 MEQ/L Potassium Level 4.1 MEQ/L Chloride Level 115 MEQ/L Carbon Dioxide Level 23.8 MEQ/L Anion Gap 7 MEQ/L Blood Urea Nitrogen 44 MG/DL Creatinine 1.56 MG/DL Estimat Glomerular Filtration 32 ML/MIN Rate Random Glucose 205 MG/DL Calcium Level 8.4 MG/DL Phosphorus Level 3.0 MG/DL Magnesium Level 2.5 MG/DL Total Bilirubin 0.4 MG/DL Aspartate Amino Transf 40 U/L (AST/SGOT) Alanine Aminotransferase 22 U/L (ALT/SGPT) Alkaline Phosphatase 60 U/L Total Protein 5.6 GM/DL Albumin 2.1 GM/DL Imaging Last Impressions Chest X-Ray 11/29/16 0000 Signed Impressions: Service Date/Time: Tuesday, November 29, 2016 15:06 - CONCLUSION: 1. Bilateral mostly basilar airspace disease and pleural effusions slightly increased from November 28. Support apparatus unchanged. Previous CABG. Larry Dawson MD Objective Remarks GENERAL: Patient is 76 yo intubated and sedated SKIN: Warm and dry. HEAD: Normocephalic. EYES: No scleral icterus. No injection or drainage. NECK: Supple, trachea midline. No JVD or lymphadenopathy. Orally intubated. CARDIOVASCULAR: Regular rate and rhythm without murmurs, gallops, or rubs. RESPIRATORY: Breath sounds equal bilaterally. No accessory muscle use. GASTROINTESTINAL: Abdomen soft, non-tender, nondistended. MUSCULOSKELETAL: No cyanosis, or edema. Neuro: sedated and intubated A/P Assessment and Plan 76-year-old female with: VDRF CHF Sepsis Possible Pneumonia Non-ST elevation DE Uncontrolled diabetes mellitus Lactic acidosis History of CAD History of PVD Plan: Neuro: On Diprivan infusion for sedation. Daily sedation vacation. Pulm: Continue with vent support keep sat >92% check CXR Bronchodilators, ICU vent bundle, CPAP trials as ramone CV: Monitor HR and BP keep MAP>65mmHg Monitor CK/trop. Echo showed EF 40-45%, hypokinesis in apical myocardium. Cards- Dr. Garcia. On ASA, Lipitor, Brilinta 90mg BID, heparin drip. : Monitor renal function, I/O's, electrolytes replacement per protocol. Cr: 1.56 with UO 1625 ml in 24 hrs GI/liver: On Protonix 40mg daily, on Glucerna 1.5@45ml/hr Heme: Monitor CBC ID: Empiric antibiotic coverage with IV cefepime/Zithromax. Received a dose of vancomycin and Zosyn in the ER. Monitor for signs of infections ( Fever, WBC) Endocrine: On SSI ( medium scale) increase Levemir 20 u BID Prophylaxis: PPI/SCDs. On full anticoagulation with heparin CCT 30 mins Fransisco Mas MD Dec 01, 2016 10:28
[2016-12-01 11:22] LABS: APTT (PATIENT) 41.9 SEC (24.3-30.1)
--- NOTE | 2016-12-01 11:26 | RADRPT ---
EXAM DATE/TIME: 12/01/2016 10:31 [facility] COMPARISON: CHEST SINGLE AP, November 29, 2016, 15:06. INDICATIONS: Respiratory failure. MEDICAL HISTORY: None. SURGICAL HISTORY: None. ENCOUNTER: Subsequent ACUITY: 4 - 6 days PAIN SCORE: Non-responsive. LOCATION: Chest FINDINGS: Nasogastric tube is across the GE junction. ET tube is in good position. Heart is enlarged. Mild in terstitial edema is present. Central line in good position. CONCLUSION: Increased interstitial edema. Jimmie Multani MD FACR on December 01, 2016 at 11:10 Board Certified Radiologist. This report was verified electronically.
[2016-12-01] MEDS ORDERED: BUMETANIDE INJ 1 MG/4 ML VIAL IV PUSH ONE (12:00)
[2016-12-01] MEDS: AZITHROMYCIN INJ 500 MG in SODIUM CHLOR 0.9% 250 ML INJ 250 ML IV SCH (12:02)
--- NOTE | 2016-12-01 12:18 | PD.CARD.PN ---
Subjective Subjective Remarks On vent/ sedated Objective Medications Current Medications Medications (Trade) Dose Ordered Sig/Amber Route Start Time Stop Time Status Last Admin Propofol 100 ml @ 0 mls/hr TITRATE IV 11/28/16 05:30 12/01/16 12:01 Heparin Sodium/ Dextrose 250 ml @ 0 mls/hr TITRATE IV 11/28/16 06:45 12/01/16 02:24 Potassium Chloride 100 ml @ 100 mls/hr Q1H PRN IV 11/28/16 06:45 Potassium Chloride 100 ml @ 50 mls/hr Q2H PRN IV 11/28/16 06:45 Potassium Chloride 100 ml @ 100 mls/hr Q1H PRN IV 11/28/16 06:45 Potassium Chloride 100 ml @ 100 mls/hr Q1H PRN IV 11/28/16 06:45 11/28/16 09:05 Potassium Chloride 100 ml @ 50 mls/hr Q2H PRN IV 11/28/16 06:45 Potassium Chloride 100 ml @ 50 mls/hr Q2H PRN IV 11/28/16 06:45 Potassium Chloride 100 ml @ 50 mls/hr Q2H PRN IV 11/28/16 06:45 (KCl 20 Meq Premix Inj) 100 ml @ 50 mls/hr Q2H PRN IV 11/28/16 06:45 (Sodium Bicarbonate 8.4% Inj) 100 meq UNSCH PRN IV 11/28/16 06:45 Sodium Bicarbonate 50 meq 50 meq UNSCH PRN IV 11/28/16 06:45 (Sodium Phosphate Inj/NS Inj) 105 ml @ 25 mls/hr UNSCH PRN IV 11/28/16 06:45 (Aspirin Chew) 81 mg DAILY CHEW 11/28/16 09:00 12/01/16 08:08 (Brilinta) 90 mg BID PO 11/28/16 09:00 12/01/16 08:08 (NS Flush) 2 ml UNSCH PRN IVF 11/28/16 10:15 11/30/16 07:28 (NS Flush) 2 ml BID IVF 11/28/16 21:00 12/01/16 08:09 (Tylenol) 650 mg Q6H PRN PO 11/28/16 10:15 11/30/16 16:16 (fentaNYL INJ) 100 mcg Q4H PRN IV 11/28/16 10:15 (Peridex 0.12% Liq) 15 ml BID@08,20 MT 11/28/16 20:00 12/01/16 08:07 (Protonix Inj) 40 mg DAILY IV 11/28/16 11:00 12/01/16 08:09 Miscellaneous Information 1 Q361D XX 11/28/16 10:15 11/28/16 10:15 (Chlorhexidine 2% Cloth) 3 pack Taper DAILY@04 TOP 11/29/16 04:00 11/25/17 03:59 12/01/16 03:19 Chlorhexidine Gluconate 3 pack 3 pack UNSCH PRN TOP 11/28/16 10:15 Propofol 100 ml @ 0 mls/hr TITRATE IV 11/28/16 10:15 11/29/16 04:50 Cefepime HCl 1000 mg/Sodium Chloride 100 ml @ 200 mls/hr Q8H IV 11/28/16 13:00 12/01/16 12:03 (Zithromax Inj/ NS 250 ml Inj) 250 ml @ 250 mls/hr Q24H IV 11/28/16 12:00 12/01/16 12:02 (NovoLOG SUPPLEMENTAL SCALE) 1 Q4HR SQ 11/28/16 20:00 12/01/16 12:03 (D50w (Vial) Inj) 25 ml UNSCH PRN IV 11/28/16 17:00 (Glucagon Inj) 1 mg UNSCH PRN IM/SQ 11/28/16 17:00 (Lipitor) 40 mg DAILY PO 11/29/16 09:00 12/01/16 08:08 (Levemir Inj) 20 units BID SQ 12/01/16 21:00 Vital Signs / I&O Vital Signs Date Time Temp Pulse Resp B/P Pulse Ox O2 Delivery O2 Flow Rate FiO2 12/01/16 10:00 93 12/01/16 09:44 97 45 12/01/16 08:45 40 12/01/16 08:35 92 45 12/01/16 08:00 40 12/01/16 08:00 91 12/01/16 08:00 99.1 83 20 137/62 95 12/01/16 07:25 96 45 12/01/16 06:00 93 12/01/16 04:20 98 45 12/01/16 04:00 99.5 79 20 131/61 96 12/01/16 04:00 79 12/01/16 04:00 45 12/01/16 02:00 82 12/01/16 00:00 45 12/01/16 00:00 96 12/01/16 00:00 99.5 82 20 138/64 98 11/30/16 22:37 100 45 11/30/16 22:00 86 11/30/16 20:00 91 11/30/16 20:00 100.5 91 20 133/62 98 11/30/16 20:00 45 11/30/16 18:00 91 11/30/16 16:00 100.8 91 22 129/60 95 11/30/16 16:00 91 11/30/16 16:00 45 11/30/16 14:51 98 45 11/30/16 14:00 96 I/O 11/30/16 11/30/16 11/30/16 12/01/16 12/01/16 12/01/16 07:00 15:00 23:00 07:00 15:00 23:00 Intake Total 427 ml 771 ml 732 ml 577 ml Output Total 350 ml 775 ml 500 ml 350 ml Balance 77 ml -4 ml 232 ml 227 ml Intake IV Total 262 ml 605 ml 492 ml 325 ml Tube Feeding 135 ml 106 ml 240 ml 222 ml Other 30 ml 60 ml 30 ml Output Urine Total 350 ml 775 ml 500 ml 350 ml # Bowel Movements 0 Physical Exam Sedated Morbidly obese Chest dimished anteriorly CV S1 S2 RRR Abd: obese Ext: warm/well perfused. Absent pedal pulses but good right femoral pulse. Laboratory Laboratory Tests Test 12/01/16 12/01/16 12/01/16 04:15 10:20 10:51 White Blood Count 10.0 TH/MM3 Red Blood Count 2.73 MIL/MM3 Hemoglobin 8.1 GM/DL Hematocrit 24.1 % Mean Corpuscular Volume 88.5 FL Mean Corpuscular Hemoglobin 29.7 PG Mean Corpuscular Hemoglobin 33.5 % Concent Red Cell Distribution Width 13.4 % Platelet Count 179 TH/MM3 Mean Platelet Volume 9.8 FL Neutrophils (%) (Auto) 80.7 % Lymphocytes (%) (Auto) 10.3 % Monocytes (%) (Auto) 6.3 % Eosinophils (%) (Auto) 1.9 % Basophils (%) (Auto) 0.8 % Neutrophils # (Auto) 8.1 TH/MM3 Lymphocytes # (Auto) 1.0 TH/MM3 Monocytes # (Auto) 0.6 TH/MM3 Eosinophils # (Auto) 0.2 TH/MM3 Basophils # (Auto) 0.1 TH/MM3 CBC Comment DIFF FINAL Differential Comment Activated Partial 50.0 SEC 41.9 SEC Thromboplast Time Sodium Level 146 MEQ/L Potassium Level 4.1 MEQ/L Chloride Level 115 MEQ/L Carbon Dioxide Level 23.8 MEQ/L Anion Gap 7 MEQ/L Blood Urea Nitrogen 44 MG/DL Creatinine 1.56 MG/DL Estimat Glomerular Filtration 32 ML/MIN Rate Random Glucose 205 MG/DL Calcium Level 8.4 MG/DL Phosphorus Level 3.0 MG/DL Magnesium Level 2.5 MG/DL Total Bilirubin 0.4 MG/DL Aspartate Amino Transf 40 U/L (AST/SGOT) Alanine Aminotransferase 22 U/L (ALT/SGPT) Alkaline Phosphatase 60 U/L Total Protein 5.6 GM/DL Albumin 2.1 GM/DL Total Creatine Kinase 583 U/L Creatine Kinase MB 5.0 NG/ML Creatine Kinase MB % 0.9 % Troponin I 6.93 NG/ML Assessment and Plan Problem List: (1) Non-STEMI (non-ST elevated myocardial infarction) Assessment and Plan: Troponin trending down. Add BB/nitrates. Conside a possible heart cath tomorrow depending on renal function. (2) Acute renal failure Assessment and Plan: Recheck creatinine in AM. High risk for contrast (3) Heart failure Assessment and Plan: Acute systolic (4) CAD (coronary artery disease) Assessment and Plan: Known severe disease (5) Anemia Assessment and Plan: Marked hematocrit drop since admit. No overt bleeding seen. Problem Qualifiers (1) Acute renal failure: Qualified Code: N17.9 - Acute renal failure, unspecified acute renal failure type Kyle Hartman MD Dec 01, 2016 12:17
[2016-12-01] MEDS ORDERED: PILL SPLITTER OTHER PRN (12:30)
[2016-12-01] MEDS: NITROGLYCERIN 2% OINT 1 GM PACKET TOPICAL SCH ×2 (16:20→23:41)
[2016-12-01] MEDS: ACETAMINOPHEN 325 MG TAB PO PRN (20:02)
[2016-12-01] MEDS: METOPROLOL TARTRATE 25 MG TAB PO SCH (20:02)
[2016-12-02] VITALS (19 sets, daily range): BP systolic 109–134; BP diastolic 57–63; PULSE 71–87; RESP 20; TEMP 97.7–100.1; O2SAT 97–99
[2016-12-02] MEDS: PROPOFOL 1000 MG/100 ML INJ 100 ML IV SCH ×5 (01:24→20:08)
[2016-12-02] MEDS: HEPARIN-D5W INJ 250 ML IV SCH ×2 (01:25→20:10)
[2016-12-02] MEDS: RESP: ALBUTEROL 2.5 MG/IPRATROPIUM 0.5 MG NEB (SCH) NEB ×3 (03:15→15:38)
[2016-12-02] MEDS: INSULIN ASPART SUPPLEMENTAL SCALE SQ SCH ×5 (04:00→20:00)
[2016-12-02] MEDS: CEFEPIME INJ 1,000 MG in SODIUM CHLORIDE 0.9% INJ 100 ML IV SCH ×3 (04:02→20:11)
[2016-12-02] MEDS: CHLORHEXIDINE GLUCONATE 2 % 1 PACK (2 CLOTHS) TOP SCH (04:02)
[2016-12-02] MEDS: NITROGLYCERIN 2% OINT 1 GM PACKET TOPICAL SCH ×3 (04:03→16:44)
[2016-12-02 05:05] LABS: AUTOMATED NEUTROPHIL # 8.7 TH/MM3 (1.8-7.7); BASOPHIL # 0.1 TH/MM3 (0-0.2); BASOPHIL % 0.5 % (0.0-2.0); EOSINOPHIL # 0.3 TH/MM3 (0-0.4); EOSINOPHIL % 3.1 % (0.0-4.0); HEMATOCRIT 24.5 % (35.0-46.0); HEMO FLAGS DIFF FINAL; LYMPH % 10.4 % (9.0-44.0); LYMPHOCYTE # 1.2 TH/MM3 (1.0-4.8); MEAN CELL VOLUME 88.2 FL (80.0-100.0); MEAN CORPUSCULAR HEMOGLOBIN 29.1 PG (27.0-34.0); MONO % 7.7 % (0.0-8.0); NEUT % 78.3 % (16.0-70.0); PLATELET COUNT 192 TH/MM3 (150-450); RED BLOOD COUNT 2.78 MIL/MM3 (4.00-5.30); RED CELL DISTRIBUTION WIDTH 13.4 % (11.6-17.2); WHITE BLOOD COUNT 11.1 TH/MM3 (4.0-11.0)
[2016-12-02 05:12] LABS: APTT (PATIENT) 42.2 SEC (24.3-30.1)
[2016-12-02 05:28] LABS: ALKALINE PHOSPHATASE 67 U/L (45-117); ALT (GPT) 25 U/L (10-53); ANION GAP 9 MEQ/L (5-15); AST (GOT) 28 U/L (15-37); BICARBONATE 24.4 MEQ/L (21.0-32.0); BLOOD UREA NITROGEN 51 MG/DL (7-18); CHLORIDE 115 MEQ/L (98-107); GLOMERULAR FILTRATION RATE 30 ML/MIN (>89); POTASSIUM 4.6 MEQ/L (3.5-5.1); SODIUM (NA) 148 MEQ/L (136-145); TOTAL BILIRUBIN ADULT 0.4 MG/DL (0.2-1.0)
[2016-12-02] MEDS: ASPIRIN 81 MG CHEW TAB CHEW SCH (08:02)
[2016-12-02] MEDS: INSULIN DETEMIR 100 UNITS/ML VIAL SQ SCH ×2 (08:02→20:08)
[2016-12-02] MEDS: METOPROLOL TARTRATE 25 MG TAB PO SCH ×2 (08:03→20:07)
--- NOTE | 2016-12-02 08:05 | PD.CARD.PN ---
Subjective Subjective Remarks Sedated on vent Objective Medications Current Medications Medications (Trade) Dose Ordered Sig/Amber Route Start Time Stop Time Status Last Admin Propofol 100 ml @ 0 mls/hr TITRATE IV 11/28/16 05:30 12/02/16 04:02 Heparin Sodium/ Dextrose 250 ml @ 0 mls/hr TITRATE IV 11/28/16 06:45 12/02/16 01:25 Potassium Chloride 100 ml @ 100 mls/hr Q1H PRN IV 11/28/16 06:45 Potassium Chloride 100 ml @ 50 mls/hr Q2H PRN IV 11/28/16 06:45 Potassium Chloride 100 ml @ 100 mls/hr Q1H PRN IV 11/28/16 06:45 Potassium Chloride 100 ml @ 100 mls/hr Q1H PRN IV 11/28/16 06:45 11/28/16 09:05 Potassium Chloride 100 ml @ 50 mls/hr Q2H PRN IV 11/28/16 06:45 Potassium Chloride 100 ml @ 50 mls/hr Q2H PRN IV 11/28/16 06:45 Potassium Chloride 100 ml @ 50 mls/hr Q2H PRN IV 11/28/16 06:45 (KCl 20 Meq Premix Inj) 100 ml @ 50 mls/hr Q2H PRN IV 11/28/16 06:45 (Sodium Bicarbonate 8.4% Inj) 100 meq UNSCH PRN IV 11/28/16 06:45 Sodium Bicarbonate 50 meq 50 meq UNSCH PRN IV 11/28/16 06:45 (Sodium Phosphate Inj/NS Inj) 105 ml @ 25 mls/hr UNSCH PRN IV 11/28/16 06:45 (Aspirin Chew) 81 mg DAILY CHEW 11/28/16 09:00 12/01/16 08:08 (Brilinta) 90 mg BID PO 11/28/16 09:00 12/01/16 20:02 (NS Flush) 2 ml UNSCH PRN IVF 11/28/16 10:15 11/30/16 07:28 (NS Flush) 2 ml BID IVF 11/28/16 21:00 12/01/16 08:09 (Tylenol) 650 mg Q6H PRN PO 11/28/16 10:15 12/01/16 20:02 (fentaNYL INJ) 100 mcg Q4H PRN IV 11/28/16 10:15 (Peridex 0.12% Liq) 15 ml BID@08,20 MT 11/28/16 20:00 12/01/16 20:03 (Protonix Inj) 40 mg DAILY IV 11/28/16 11:00 12/01/16 08:09 Miscellaneous Information 1 Q361D XX 11/28/16 10:15 11/28/16 10:15 (Chlorhexidine 2% Cloth) 3 pack Taper DAILY@04 TOP 11/29/16 04:00 11/25/17 03:59 12/02/16 04:02 Chlorhexidine Gluconate 3 pack 3 pack UNSCH PRN TOP 11/28/16 10:15 Propofol 100 ml @ 0 mls/hr TITRATE IV 11/28/16 10:15 11/29/16 04:50 Cefepime HCl 1000 mg/Sodium Chloride 100 ml @ 200 mls/hr Q8H IV 11/28/16 13:00 12/02/16 04:02 (Zithromax Inj/ NS 250 ml Inj) 250 ml @ 250 mls/hr Q24H IV 11/28/16 12:00 12/01/16 12:02 (NovoLOG SUPPLEMENTAL SCALE) 1 Q4HR SQ 11/28/16 20:00 12/01/16 23:41 (D50w (Vial) Inj) 25 ml UNSCH PRN IV 11/28/16 17:00 (Glucagon Inj) 1 mg UNSCH PRN IM/SQ 11/28/16 17:00 (Lipitor) 40 mg DAILY PO 11/29/16 09:00 12/01/16 08:08 (Levemir Inj) 20 units BID SQ 12/01/16 21:00 12/01/16 20:02 (Nitroglycerin 2% Oint) 0.5 inch Q6HR TOPICAL 12/01/16 18:00 12/02/16 04:03 (Lopressor) 12.5 mg Q12HR PO 12/01/16 21:00 12/01/16 20:02 (Pill Splitter) 1 ea UNSCH PRN OTHER 12/01/16 12:30 Vital Signs / I&O Vital Signs Date Time Temp Pulse Resp B/P Pulse Ox O2 Delivery O2 Flow Rate FiO2 12/02/16 07:50 98 40 12/02/16 06:00 75 12/02/16 04:19 97 40 12/02/16 04:00 98.5 87 20 133/62 97 12/02/16 04:00 87 12/02/16 04:00 45 12/02/16 02:54 97 40 12/02/16 02:00 81 12/02/16 01:05 98 40 12/02/16 00:00 45 12/02/16 00:00 85 12/02/16 00:00 100.1 85 20 123/59 97 12/01/16 22:08 98 45 12/01/16 22:00 98 12/01/16 21:20 20 12/01/16 20:00 102 12/01/16 20:00 45 12/01/16 20:00 101.1 102 21 142/63 95 12/01/16 19:35 96 45 12/01/16 18:00 93 12/01/16 16:00 99.7 97 20 142/65 94 12/01/16 16:00 40 12/01/16 16:00 93 12/01/16 15:58 97 45 12/01/16 14:00 96 12/01/16 12:00 93 12/01/16 12:00 40 12/01/16 12:00 99.3 99 23 140/63 98 12/01/16 11:55 94 45 12/01/16 10:00 93 12/01/16 09:44 97 45 12/01/16 08:45 40 12/01/16 08:35 92 45 I/O 12/01/16 12/01/16 12/01/16 12/02/16 12/02/16 12/02/16 07:00 15:00 23:00 07:00 15:00 23:00 Intake Total 577 ml 1052 ml 933 ml 273 ml Output Total 350 ml 675 ml 300 ml Balance 227 ml 377 ml 933 ml -27 ml Intake IV Total 325 ml 594 ml 651 ml 273 ml Tube Feeding 222 ml 408 ml 252 ml Tube Irrigant 50 ml Other 30 ml 30 ml Output Urine Total 350 ml 675 ml 300 ml Physical Exam Sedated Morbidly obese Chest dimished anteriorly CV S1 S2 RRR Abd: obese Ext: warm/well perfused. Absent pedal pulses but good right femoral pulse. Laboratory Laboratory Tests Test 12/01/16 12/01/1612/02/17 10:20 10:51 04:10 Activated Partial 41.9 SEC 42.2 SEC Thromboplast Time Total Creatine Kinase 583 U/L Creatine Kinase MB 5.0 NG/ML Creatine Kinase MB % 0.9 % Troponin I 6.93 NG/ML White Blood Count 11.1 TH/MM3 Red Blood Count 2.78 MIL/MM3 Hemoglobin 8.1 GM/DL Hematocrit 24.5 % Mean Corpuscular Volume 88.2 FL Mean Corpuscular Hemoglobin 29.1 PG Mean Corpuscular Hemoglobin 33.0 % Concent Red Cell Distribution Width 13.4 % Platelet Count 192 TH/MM3 Mean Platelet Volume 9.5 FL Neutrophils (%) (Auto) 78.3 % Lymphocytes (%) (Auto) 10.4 % Monocytes (%) (Auto) 7.7 % Eosinophils (%) (Auto) 3.1 % Basophils (%) (Auto) 0.5 % Neutrophils # (Auto) 8.7 TH/MM3 Lymphocytes # (Auto) 1.2 TH/MM3 Monocytes # (Auto) 0.9 TH/MM3 Eosinophils # (Auto) 0.3 TH/MM3 Basophils # (Auto) 0.1 TH/MM3 CBC Comment DIFF FINAL Differential Comment Sodium Level 148 MEQ/L Potassium Level 4.6 MEQ/L Chloride Level 115 MEQ/L Carbon Dioxide Level 24.4 MEQ/L Anion Gap 9 MEQ/L Blood Urea Nitrogen 51 MG/DL Creatinine 1.69 MG/DL Estimat Glomerular Filtration 30 ML/MIN Rate Random Glucose 154 MG/DL Calcium Level 8.2 MG/DL Total Bilirubin 0.4 MG/DL Aspartate Amino Transf 28 U/L (AST/SGOT) Alanine Aminotransferase 25 U/L (ALT/SGPT) Alkaline Phosphatase 67 U/L Total Protein 5.9 GM/DL Albumin 2.2 GM/DL Assessment and Plan Problem List: (1) Non-STEMI (non-ST elevated myocardial infarction) (2) Acute renal failure Assessment and Plan: Creatinine up from yesterday - potpone cath (3) Heart failure (4) CAD (coronary artery disease) (5) Anemia Problem Qualifiers (1) Acute renal failure: Qualified Code: N17.9 - Acute renal failure, unspecified acute renal failure type Kyle Hartman MD Dec 02, 2016 08:05
[2016-12-02] MEDS: ATORVASTATIN 40 MG TAB PO SCH (08:06)
[2016-12-02] MEDS: TICAGRELOR 90 MG TAB PO SCH ×2 (08:06→20:11)
[2016-12-02] MEDS: PANTOPRAZOLE SODIUM 40 MG VIAL IV SCH (08:06)
[2016-12-02] MEDS: CHLORHEXIDINE 0.12% (ORAL KIT) 15 ML CUP MT SCH ×2 (08:07→20:08)
[2016-12-02] MEDS: SODIUM CHLORIDE 0.9% FLUSH 5 ML FLUSH IVF SCH ×2 (08:07→20:11)
--- NOTE | 2016-12-02 11:14 | HHI.CCPN ---
Subjective Remarks/Hospital Course 76-year-old female came to the emergency room brought by EMS as a STEMI alert. Patient called 911 for shortness of breath. When they arrived patient says oxygen saturation was in the 80s and she was in respiratory distress. Patient has history of coronary artery disease and congestive heart failure. She told me she had her bypass surgery done few years ago. Patient denied of any chest pain at any point. EMS said that patient had told them that she was nauseous for past couple days and vomited last night. She was woken up from the sleep with this shortness of breath. By the time patient arrived to the ER she was acutely short of breath and in severe respiratory distress. She was unable to give much history. She was pale and started getting agitated and diaphoretic when they moved her from the gurney to the stretcher. Patient developed worsening respiratory distress and required emergent intubation was placed on mechanical ventilation by ER physician. Her troponin came back at 20 and her EKG suggested intraventricular conduction delay versus left bundle branch block. Cardiology was contacted and felt patient had a non-ST elevation DE. She was also noted to be extremely hyperglycemic with glucose levels in the 500s with metabolic acidosis/lactic acidosis. She was started on the DKA protocol by ER physician. Urine ketones are negative. Beta hydroxybutyrate slightly elevated. Patient had a central line placed by ER physician and was started on heparin drip for anticoagulation for her DE. She was accepted for admission by critical care medicine service. I discussed the case with Dr. Auguste who is not planning cardiac catheterization at this time. Patient also was given empiric antibiotics up to obtaining cultures. 11/29 Patient is sedated with Diprivan and intubated. Remains on Heparin drip. On PRVC/AC RR 20 IT 1.0, TV 500, PEEP:5 and FIO2 35% 11/30 No acute events overnight. Sedated and intubated. Afebrile. On Heparin drip 12/01 Patient remains sedated and intubated. Afebrile. On Heparin drip. She had episode of desaturation while on CPAP. 12/02 Patient is sedated with Diprivan and intubated. Remains on Heparin drip. Objective Vital Signs Date Time Temp Pulse Resp B/P Pulse Ox O2 Delivery O2 Flow Rate FiO2 12/02/16 08:00 75 12/02/16 08:00 40 12/02/16 08:00 97.7 20 109/57 98 11/28/16 09:00 Ventilator Intake and Output 12/01/16 12/01/16 12/02/16 08:00 16:00 00:00 Intake Total 577 ml 1052 ml 933 ml Output Total 350 ml 675 ml Balance 227 ml 377 ml 933 ml Result Diagram: 12/02/16 0410 12/02/16 0410 Other Results Laboratory Tests Test 12/02/16 04:10 White Blood Count 11.1 TH/MM3 Red Blood Count 2.78 MIL/MM3 Hemoglobin 8.1 GM/DL Hematocrit 24.5 % Mean Corpuscular Volume 88.2 FL Mean Corpuscular Hemoglobin 29.1 PG Mean Corpuscular Hemoglobin 33.0 % Concent Red Cell Distribution Width 13.4 % Platelet Count 192 TH/MM3 Mean Platelet Volume 9.5 FL Neutrophils (%) (Auto) 78.3 % Lymphocytes (%) (Auto) 10.4 % Monocytes (%) (Auto) 7.7 % Eosinophils (%) (Auto) 3.1 % Basophils (%) (Auto) 0.5 % Neutrophils # (Auto) 8.7 TH/MM3 Lymphocytes # (Auto) 1.2 TH/MM3 Monocytes # (Auto) 0.9 TH/MM3 Eosinophils # (Auto) 0.3 TH/MM3 Basophils # (Auto) 0.1 TH/MM3 CBC Comment DIFF FINAL Differential Comment Activated Partial 42.2 SEC Thromboplast Time Sodium Level 148 MEQ/L Potassium Level 4.6 MEQ/L Chloride Level 115 MEQ/L Carbon Dioxide Level 24.4 MEQ/L Anion Gap 9 MEQ/L Blood Urea Nitrogen 51 MG/DL Creatinine 1.69 MG/DL Estimat Glomerular Filtration 30 ML/MIN Rate Random Glucose 154 MG/DL Calcium Level 8.2 MG/DL Total Bilirubin 0.4 MG/DL Aspartate Amino Transf 28 U/L (AST/SGOT) Alanine Aminotransferase 25 U/L (ALT/SGPT) Alkaline Phosphatase 67 U/L Total Protein 5.9 GM/DL Albumin 2.2 GM/DL Imaging Last Impressions Chest X-Ray 12/01/16 0000 Signed Impressions: Service Date/Time: Thursday, December 01, 2016 10:31 - CONCLUSION: Increased interstitial edema. Jimmie Multani MD FACR Objective Remarks GENERAL: Patient is 76 yo intubated and sedated SKIN: Warm and dry. HEAD: Normocephalic. EYES: No scleral icterus. No injection or drainage. NECK: Supple, trachea midline. No JVD or lymphadenopathy. Orally intubated. CARDIOVASCULAR: Regular rate and rhythm without murmurs, gallops, or rubs. RESPIRATORY: Breath sounds equal bilaterally. No accessory muscle use. GASTROINTESTINAL: Abdomen soft, non-tender, nondistended. MUSCULOSKELETAL: No cyanosis, or edema. Neuro: sedated and intubated A/P Assessment and Plan 76-year-old female with: VDRF CHF Sepsis Possible Pneumonia Non-ST elevation DE Uncontrolled diabetes mellitus Lactic acidosis History of CAD History of PVD Plan: Neuro: On Diprivan infusion for sedation. Daily sedation vacation. Pulm: Continue with vent support keep sat >92% Bronchodilators, ICU vent bundle, CPAP trials as ramone CV: Monitor HR and BP keep MAP>65mmHg Monitor CK/trop. Echo showed EF 40-45%, hypokinesis in apical myocardium. Cards- . On ASA, Lipitor, Brilinta 90mg BID, heparin drip. No plans for cardiac cath today due to worsening renal function. : Monitor renal function, I/O's, electrolytes replacement per protocol. Cr: 1.69 from 1.56 with UO 975 ml in 24 hrs GI/liver: On Protonix 40mg daily, on Glucerna 1.5@45ml/hr Heme: Monitor CBC, coags- on heparin drip per DE protocol. ID: Empiric antibiotic coverage with IV cefepime/Zithromax started 2/3. Received a dose of vancomycin and Zosyn in the ER. Monitor for signs of infections ( Fever, WBC) check sputum cx Endocrine: On SSI ( medium scale) Levemir 20 u BID Prophylaxis: PPI/SCDs. On full anticoagulation with heparin CCT 30 mins Fransisco Mas MD Dec 02, 2016 11:14
[2016-12-02] MEDS: AZITHROMYCIN INJ 500 MG in SODIUM CHLOR 0.9% 250 ML INJ 250 ML IV SCH (12:08)
[2016-12-02 12:27] LABS: BLOOD GAS BASE EXCESS -3.2 mmol/L (-2-2); BLOOD GAS CARBOXYHEMOGLOBIN 1.4 % (0-4); BLOOD GAS HCO3 20 mmol/L (22-26); BLOOD GAS METHEMOGLOBIN 1.2 % (0-2); BLOOD GAS O2 HGB SATURATION 96 % (90-100); BLOOD GAS OXYGEN CONTENT 20.8 Vol % (12.0-20.0); BLOOD GAS PCO2 30 mmHg (38-42); BLOOD GAS PO2 107 mmHg (61-120); BLOOD GAS TOTAL HGB 15.5 G/DL (12.0-16.0); TEMP CORR TO 98.6
[2016-12-02 12:28] LABS: CRITICAL VALUE NO; OXYGEN DEVICE VENTILATOR
[2016-12-02 12:29] LABS: DRAW SITE RT RADIAL; FIO2 40 %; NUMBER OF ARTERIAL PUNCTURES 1; STAT NO; ULNAR PULSE PRESENT; VENT SETTINGS PRVC/AC20/500/IT1.0/
[2016-12-02] MEDS: RESP: ALBUTEROL 2.5 MG/3 ML NEB (PRN) INH (20:19)
[2016-12-03] VITALS (19 sets, daily range): BP systolic 116–147; BP diastolic 57–99; PULSE 71–98; RESP 20–21; TEMP 98.2–98.8; O2SAT 94–98
[2016-12-03] MEDS: NITROGLYCERIN 2% OINT 1 GM PACKET TOPICAL SCH ×5 (00:23→22:56)
[2016-12-03] MEDS: CHLORHEXIDINE GLUCONATE 2 % 1 PACK (2 CLOTHS) TOP SCH (03:36)
[2016-12-03] MEDS: CEFEPIME INJ 1,000 MG in SODIUM CHLORIDE 0.9% INJ 100 ML IV SCH ×3 (03:36→19:56)
[2016-12-03] MEDS: INSULIN ASPART SUPPLEMENTAL SCALE SQ SCH ×7 (03:40→22:56)
[2016-12-03] MEDS: PROPOFOL 1000 MG/100 ML INJ 100 ML IV SCH ×4 (03:53→20:07)
[2016-12-03 04:14] LABS: AUTOMATED NEUTROPHIL # 8.1 TH/MM3 (1.8-7.7); BASOPHIL % 0.2 % (0.0-2.0); EOSINOPHIL # 0.4 TH/MM3 (0-0.4); EOSINOPHIL % 3.6 % (0.0-4.0); HEMATOCRIT 23.3 % (35.0-46.0); LYMPH % 8.9 % (9.0-44.0); LYMPHOCYTE # 0.9 TH/MM3 (1.0-4.8); MEAN CELL VOLUME 88.4 FL (80.0-100.0); MEAN CORPUSCULAR HEMOGLOBIN 29.6 PG (27.0-34.0); MEAN CORPUSCULAR HGB CONC 33.5 % (32.0-36.0); MONO % 8.4 % (0.0-8.0); NEUT % 78.9 % (16.0-70.0); PLATELET COUNT 193 TH/MM3 (150-450); RED BLOOD COUNT 2.64 MIL/MM3 (4.00-5.30); RED CELL DISTRIBUTION WIDTH 13.7 % (11.6-17.2); WHITE BLOOD COUNT 10.2 TH/MM3 (4.0-11.0)
[2016-12-03 04:15] LABS: HEMO FLAGS AUTO DIFF
[2016-12-03 04:20] LABS: APTT (PATIENT) 39.9 SEC (24.3-30.1)
[2016-12-03 04:51] LABS: BICARBONATE 26.3 MEQ/L (21.0-32.0); POTASSIUM 4.8 MEQ/L (3.5-5.1)
--- NOTE | 2016-12-03 05:29 | RADRPT ---
EXAM DATE/TIME: 12/03/2016 03:57 [facility] COMPARISON: CHEST SINGLE AP, December 01, 2016, 10:31. INDICATIONS : Shortness of breath. MEDICAL HISTORY : Hypertension. Hypercholesterolemia. Myocardial infarction. CHF, PVD, Polio, CAD, GERD, Diabetes, Breast cancer, MRSA SURGICAL HISTORY : CABG. Mastectomy, left. Hysterectomy. Heart cath, Laminectomy, Breast reconstruction ENCOUNTER: Subsequent ACUITY: 4 - 6 days PAIN SCORE: Non-responsive. LOCATION: Bilateral chest FINDINGS: Bilateral effusions and consolidation unchanged. Sternotomy wires and clips, left axillary clips and left subclavian line, endotracheal tube and NG tube again noted. CONCLUSION: Stable exam. Clay Loco MD on December 03, 2016 at 5:26 Board Certified Radiologist. This report was verified electronically.
[2016-12-03 07:08] LABS: SCAN/DIFF AUTO DIFF CONFIRMED
[2016-12-03] MEDS: CHLORHEXIDINE 0.12% (ORAL KIT) 15 ML CUP MT SCH ×2 (08:17→19:56)
[2016-12-03] MEDS: PANTOPRAZOLE SODIUM 40 MG VIAL IV SCH (08:19)
[2016-12-03] MEDS: ASPIRIN 81 MG CHEW TAB CHEW SCH (08:19)
[2016-12-03] MEDS: SODIUM CHLORIDE 0.9% FLUSH 5 ML FLUSH IVF SCH ×2 (08:20→19:59)
[2016-12-03] MEDS: TICAGRELOR 90 MG TAB PO SCH ×2 (08:20→19:56)
[2016-12-03] MEDS: ATORVASTATIN 40 MG TAB PO SCH (08:20)
[2016-12-03] MEDS: METOPROLOL TARTRATE 25 MG TAB PO SCH ×2 (08:21→19:56)
[2016-12-03] MEDS: INSULIN DETEMIR 100 UNITS/ML VIAL SQ SCH ×2 (08:21→19:57)
--- NOTE | 2016-12-03 11:05 | PD.CARD.PN ---
Subjective Subjective Remarks Sedated on vent Objective Medications Current Medications Medications (Trade) Dose Ordered Sig/Amber Route Start Time Stop Time Status Last Admin Propofol 100 ml @ 0 mls/hr TITRATE IV 11/28/16 05:30 12/03/16 08:17 Heparin Sodium/ Dextrose 250 ml @ 0 mls/hr TITRATE IV 11/28/16 06:45 12/02/16 20:10 Potassium Chloride 100 ml @ 100 mls/hr Q1H PRN IV 11/28/16 06:45 Potassium Chloride 100 ml @ 50 mls/hr Q2H PRN IV 11/28/16 06:45 Potassium Chloride 100 ml @ 100 mls/hr Q1H PRN IV 11/28/16 06:45 Potassium Chloride 100 ml @ 100 mls/hr Q1H PRN IV 11/28/16 06:45 11/28/16 09:05 Potassium Chloride 100 ml @ 50 mls/hr Q2H PRN IV 11/28/16 06:45 Potassium Chloride 100 ml @ 50 mls/hr Q2H PRN IV 11/28/16 06:45 Potassium Chloride 100 ml @ 50 mls/hr Q2H PRN IV 11/28/16 06:45 (KCl 20 Meq Premix Inj) 100 ml @ 50 mls/hr Q2H PRN IV 11/28/16 06:45 (Sodium Bicarbonate 8.4% Inj) 100 meq UNSCH PRN IV 11/28/16 06:45 Sodium Bicarbonate 50 meq 50 meq UNSCH PRN IV 11/28/16 06:45 (Sodium Phosphate Inj/NS Inj) 105 ml @ 25 mls/hr UNSCH PRN IV 11/28/16 06:45 (Aspirin Chew) 81 mg DAILY CHEW 11/28/16 09:00 12/03/16 08:19 (Brilinta) 90 mg BID PO 11/28/16 09:00 12/03/16 08:20 (NS Flush) 2 ml UNSCH PRN IVF 11/28/16 10:15 11/30/16 07:28 (NS Flush) 2 ml BID IVF 11/28/16 21:00 12/03/16 08:20 (Tylenol) 650 mg Q6H PRN PO 11/28/16 10:15 12/01/16 20:02 (fentaNYL INJ) 100 mcg Q4H PRN IV 11/28/16 10:15 (Peridex 0.12% Liq) 15 ml BID@08,20 MT 11/28/16 20:00 12/03/16 08:17 (Protonix Inj) 40 mg DAILY IV 11/28/16 11:00 12/03/16 08:19 Miscellaneous Information 1 Q361D XX 11/28/16 10:15 11/28/16 10:15 (Chlorhexidine 2% Cloth) 3 pack Taper DAILY@04 TOP 11/29/16 04:00 11/25/17 03:59 12/03/16 03:36 Chlorhexidine Gluconate 3 pack 3 pack UNSCH PRN TOP 11/28/16 10:15 Propofol 100 ml @ 0 mls/hr TITRATE IV 11/28/16 10:15 11/29/16 04:50 Cefepime HCl 1000 mg/Sodium Chloride 100 ml @ 200 mls/hr Q8H IV 11/28/16 13:00 12/03/16 03:36 (Zithromax Inj/ NS 250 ml Inj) 250 ml @ 250 mls/hr Q24H IV 11/28/16 12:00 12/02/16 12:08 (NovoLOG SUPPLEMENTAL SCALE) 1 Q4HR SQ 11/28/16 20:00 12/03/16 03:40 (D50w (Vial) Inj) 25 ml UNSCH PRN IV 11/28/16 17:00 (Glucagon Inj) 1 mg UNSCH PRN IM/SQ 11/28/16 17:00 (Lipitor) 40 mg DAILY PO 11/29/16 09:00 12/03/16 08:20 (Levemir Inj) 20 units BID SQ 12/01/16 21:00 12/03/16 08:21 (Nitroglycerin 2% Oint) 0.5 inch Q6HR TOPICAL 12/01/16 18:00 12/03/16 06:29 (Lopressor) 12.5 mg Q12HR PO 12/01/16 21:00 12/03/16 08:21 (Pill Splitter) 1 ea UNSCH PRN OTHER 12/01/16 12:30 Vital Signs / I&O Vital Signs Date Time Temp Pulse Resp B/P Pulse Ox O2 Delivery O2 Flow Rate FiO2 12/03/16 08:00 40 12/03/16 08:00 98.4 75 20 124/61 98 12/03/16 08:00 75 12/03/16 07:58 98 40 12/03/16 06:00 85 12/03/16 04:43 98 40 12/03/16 04:00 40 12/03/16 04:00 98.6 83 20 120/60 98 12/03/16 04:00 83 12/03/16 02:00 82 12/03/16 00:45 98 40 12/03/16 00:00 75 12/03/16 00:00 40 12/03/16 00:00 98.4 75 20 116/57 97 12/02/16 22:00 87 12/02/16 20:05 97 40 12/02/16 20:00 40 12/02/16 20:00 98.8 75 20 110/57 98 12/02/16 20:00 75 12/02/16 18:00 81 12/02/16 16:00 40 12/02/16 16:00 79 12/02/16 16:00 98.6 79 20 134/63 98 12/02/16 15:39 98 40 12/02/16 14:00 71 12/02/16 12:05 99 40 12/02/16 12:00 40 12/02/16 12:00 74 12/02/16 12:00 98.7 74 20 129/60 98 I/O 12/02/16 12/02/16 12/02/16 12/03/16 12/03/16 12/03/16 07:00 15:00 23:00 07:00 15:00 23:00 Intake Total 273 ml 632 ml 685 ml 200 ml Output Total 300 ml 500 ml 450 ml 400 ml Balance -27 ml 132 ml 235 ml -200 ml Intake IV Total 273 ml 312 ml 400 ml 200 ml Tube Feeding 200 ml 165 ml 0 ml Other 120 ml 120 ml Output Urine Total 300 ml 500 ml 450 ml 400 ml # Bowel Movements 0 0 Physical Exam Sedated Morbidly obese Chest dimished anteriorly CV S1 S2 RRR Abd: obese Ext: warm/well perfused. Absent pedal pulses but good right femoral pulse. Exam unchanged Laboratory Laboratory Tests Test 12/02/16 12/03/16 12:20 03:40 Blood Gas Puncture Site RT RADIAL Blood Gas Patient Temperature 98.6 Blood Gas HCO3 20 mmol/L Blood Gas Base Excess -3.2 mmol/L Blood Gas Oxygen Saturation 96 % Arterial Blood pH 7.45 Arterial Blood Partial 30 mmHg Pressure CO2 Arterial Blood Partial 107 mmHg Pressure O2 Arterial Blood Oxygen Content 20.8 Vol % Arterial Blood 1.4 % Carboxyhemoglobin Arterial Blood Methemoglobin 1.2 % Blood Gas Hemoglobin 15.5 G/DL Oxygen Delivery Device VENTILATOR Blood Gas Ventilator Setting PRVC/AC20/500/IT1.0/ Blood Gas Inspired Oxygen 40 % White Blood Count 10.2 TH/MM3 Red Blood Count 2.64 MIL/MM3 Hemoglobin 7.8 GM/DL Hematocrit 23.3 % Mean Corpuscular Volume 88.4 FL Mean Corpuscular Hemoglobin 29.6 PG Mean Corpuscular Hemoglobin 33.5 % Concent Red Cell Distribution Width 13.7 % Platelet Count 193 TH/MM3 Mean Platelet Volume 9.9 FL Neutrophils (%) (Auto) 78.9 % Lymphocytes (%) (Auto) 8.9 % Monocytes (%) (Auto) 8.4 % Eosinophils (%) (Auto) 3.6 % Basophils (%) (Auto) 0.2 % Neutrophils # (Auto) 8.1 TH/MM3 Lymphocytes # (Auto) 0.9 TH/MM3 Monocytes # (Auto) 0.9 TH/MM3 Eosinophils # (Auto) 0.4 TH/MM3 Basophils # (Auto) 0.0 TH/MM3 CBC Comment AUTO DIFF Differential Comment AUTO DIFF CONFIRMED Activated Partial 39.9 SEC Thromboplast Time Sodium Level 148 MEQ/L Potassium Level 4.8 MEQ/L Chloride Level 115 MEQ/L Carbon Dioxide Level 26.3 MEQ/L Anion Gap 7 MEQ/L Blood Urea Nitrogen 53 MG/DL Creatinine 1.54 MG/DL Estimat Glomerular Filtration 33 ML/MIN Rate Random Glucose 153 MG/DL Calcium Level 8.3 MG/DL Assessment and Plan Problem List: (1) Non-STEMI (non-ST elevated myocardial infarction) (2) Acute renal failure Assessment and Plan: Creat fairly stable (3) Heart failure Assessment and Plan: CXR b/l effusionas (4) CAD (coronary artery disease) Assessment and Plan: Would like to do cath but extremely high risk (5) Anemia Assessment and Plan Will discuss with curriculum director Problem Qualifiers (1) Acute renal failure: Qualified Code: N17.9 - Acute renal failure, unspecified acute renal failure type Kyle Hartman MD Dec 03, 2016 11:05
[2016-12-03] MEDS: AZITHROMYCIN INJ 500 MG in SODIUM CHLOR 0.9% 250 ML INJ 250 ML IV SCH (12:32)
--- NOTE | 2016-12-03 15:43 | HHI.CCPN ---
Subjective Remarks/Hospital Course 76-year-old female came to the emergency room brought by EMS as a STEMI alert. Patient called 911 for shortness of breath. When they arrived patient says oxygen saturation was in the 80s and she was in respiratory distress. Patient has history of coronary artery disease and congestive heart failure. She told me she had her bypass surgery done few years ago. Patient denied of any chest pain at any point. EMS said that patient had told them that she was nauseous for past couple days and vomited last night. She was woken up from the sleep with this shortness of breath. By the time patient arrived to the ER she was acutely short of breath and in severe respiratory distress. She was unable to give much history. She was pale and started getting agitated and diaphoretic when they moved her from the gurney to the stretcher. Patient developed worsening respiratory distress and required emergent intubation was placed on mechanical ventilation by ER physician. Her troponin came back at 20 and her EKG suggested intraventricular conduction delay versus left bundle branch block. Cardiology was contacted and felt patient had a non-ST elevation AL. She was also noted to be extremely hyperglycemic with glucose levels in the 500s with metabolic acidosis/lactic acidosis. She was started on the DKA protocol by ER physician. Urine ketones are negative. Beta hydroxybutyrate slightly elevated. Patient had a central line placed by ER physician and was started on heparin drip for anticoagulation for her AL. She was accepted for admission by critical care medicine service. I discussed the case with Dr. Auguste who is not planning cardiac catheterization at this time. Patient also was given empiric antibiotics up to obtaining cultures. 2 Patient is sedated with Diprivan and intubated. Remains on Heparin drip. On PRVC/AC RR 20 IT 1.0, TV 500, PEEP:5 and FIO2 35% 11/30 No acute events overnight. Sedated and intubated. Afebrile. On Heparin drip 2 Patient remains sedated and intubated. Afebrile. On Heparin drip. She had episode of desaturation while on CPAP. 12/02 Patient is sedated with Diprivan and intubated. Remains on Heparin drip. 12/03 No events over night. Attempt SBT tomorrow post cardiac Catheterization Objective Vital Signs Date Time Temp Pulse Resp B/P Pulse Ox O2 Delivery O2 Flow Rate FiO2 12/03/16 14:00 98 12/03/16 12:00 98.2 20 136/61 98 12/03/16 12:00 40 Intake and Output 12/02/16 12/02/16 12/03/16 08:00 16:00 00:00 Intake Total 273 ml 632 ml 685 ml Output Total 300 ml 500 ml 450 ml Balance -27 ml 132 ml 235 ml Result Diagram: 12/03/16 0340 12/03/16 0340 Imaging Last Impressions Chest X-Ray 12/01/16 0000 Signed Impressions: Service Date/Time: Thursday, December 01, 2016 10:31 - CONCLUSION: Increased interstitial edema. Jimmie Multani MD FACR Objective Remarks GENERAL: Patient is 76 yo intubated and sedated SKIN: Warm and dry. HEAD: Normocephalic. EYES: No scleral icterus. No injection or drainage. NECK: Supple, trachea midline. No JVD or lymphadenopathy. Orally intubated. CARDIOVASCULAR: Regular rate and rhythm without murmurs, gallops, or rubs. RESPIRATORY: Breath sounds equal bilaterally. No accessory muscle use. GASTROINTESTINAL: Abdomen soft, non-tender, nondistended. MUSCULOSKELETAL: No cyanosis, or edema. Neuro: sedated and intubated A/P Assessment and Plan 76-year-old female with: VDRF CHF Sepsis Possible Pneumonia Non-ST elevation AL Uncontrolled diabetes mellitus Lactic acidosis History of CAD History of PVD Plan: Neuro: On Diprivan infusion for sedation. Daily sedation vacation. Attempt of SBT and extubation tomorrow post cardiac catheterization Pulm: Continue with vent support keep sat >92% Bronchodilators, ICU vent bundle, CPAP trials as ramone - SBT tomorrow CV: Monitor HR and BP keep MAP>65mmHg Monitor CK/trop. Echo showed EF 40-45%, hypokinesis in apical myocardium. Cards- . On ASA, Lipitor, Brilinta 90mg BID, heparin drip. cardiac cath tomorrow at 7:30 AM : Monitor renal function, I/O's, electrolytes replacement per protocol. Cr: 1.69 from 1.56 with UO 975 ml in 24 hrs GI/liver: On Protonix 40mg daily, on Glucerna 1.5@45ml/hr Heme: Monitor CBC, coags- on heparin drip per [place] protocol. ID: Empiric antibiotic coverage with IV cefepime/Zithromax started /. Received a dose of vancomycin and Zosyn in the ER. Monitor for signs of infections ( Fever, WBC) check sputum cx Endocrine: On SSI ( medium scale) Levemir 20 u BID Prophylaxis: PPI/SCDs. On full anticoagulation with heparin CCT 30 mins Hema Gomez MD Dec 03, 2016 15:43
[2016-12-03] MEDS: SODIUM BICARBONATE 8.4% INJ 100 MEQ in SODIUM CHLOR 0.45% 1000 ML INJ 1,000 ML IV SCH (18:36)
[2016-12-03] MEDS: HEPARIN-D5W INJ 250 ML IV SCH (19:59)
[2016-12-03] MEDS: RESP: ALBUTEROL 2.5 MG/3 ML NEB (PRN) INH (20:42)
[2016-12-03] MEDS: SODIUM CHLOR 0.9% 1000 ML INJ 1,000 ML IV SCH (22:21)
[2016-12-04] VITALS (18 sets, daily range): BP systolic 111–166; BP diastolic 54–73; PULSE 64–105; RESP 20–22; TEMP 98.1–100; O2SAT 95–99
[2016-12-04] MEDS: PROPOFOL 1000 MG/100 ML INJ 100 ML IV SCH ×4 (02:03→20:17)
[2016-12-04] MEDS: SODIUM BICARBONATE 8.4% INJ 100 MEQ in SODIUM CHLOR 0.45% 1000 ML INJ 1,000 ML IV SCH ×2 (02:34→16:48)
[2016-12-04] MEDS: CHLORHEXIDINE GLUCONATE 2 % 1 PACK (2 CLOTHS) TOP SCH (02:34)
[2016-12-04] MEDS: INSULIN ASPART SUPPLEMENTAL SCALE SQ SCH ×6 (04:00→23:52)
[2016-12-04] MEDS: CEFEPIME INJ 1,000 MG in SODIUM CHLORIDE 0.9% INJ 100 ML IV SCH ×3 (04:39→20:13)
[2016-12-04] MEDS: NITROGLYCERIN 2% OINT 1 GM PACKET TOPICAL SCH ×4 (05:00→23:52)
--- NOTE | 2016-12-04 05:28 | RADRPT ---
EXAM DATE/TIME: 12/04/2016 04:31 [facility] COMPARISON: CHEST SINGLE AP, December 03, 2016, 3:57. INDICATIONS : Shortness of breath, possible pulmonary disease. MEDICAL HISTORY : Hypertension. Hypercholesterolemia. Myocardial infarction. CHF PVD [place] GERD Breast cancer SURGICAL HISTORY : CABG. Mastectomy, left. Hysterectomy. ENCOUNTER: Subsequent ACUITY: 1 week PAIN SCORE: Non-responsive. LOCATION: Bilateral chest FINDINGS: Teral effusions and consolidation are again seen and stable. Endotracheal tube tip at the inferior ma rgin of the clavicles. Left axillary clips and left subclavian line are noted. NG tube courses beneat h the diaphragm. Sternotomy wires are present. CONCLUSION: No significant change has occurred. Clay Loco MD on December 04, 2016 at 5:26 Board Certified Radiologist. This report was verified electronically.
[2016-12-04 05:44] LABS: BLOOD GAS BASE EXCESS -3.7 mmol/L (-2-2); BLOOD GAS CARBOXYHEMOGLOBIN 1.6 % (0-4); BLOOD GAS HCO3 20 mmol/L (22-26); BLOOD GAS METHEMOGLOBIN 1.4 % (0-2); BLOOD GAS O2 HGB SATURATION 94 % (90-100); BLOOD GAS OXYGEN CONTENT 13.1 Vol % (12.0-20.0); BLOOD GAS PCO2 28 mmHg (38-42); BLOOD GAS PO2 90 mmHg (61-120); BLOOD GAS TOTAL HGB 9.8 G/DL (12.0-16.0); CRITICAL VALUE NO; OXYGEN DEVICE PRVC/AC; TEMP CORR TO 98.6
[2016-12-04 05:45] LABS: DRAW SITE RT RADIAL; FIO2 40 %; NUMBER OF ARTERIAL PUNCTURES 1; STAT NO; ULNAR PULSE PRESENT
[2016-12-04 05:47] LABS: AUTOMATED NEUTROPHIL # 7.2 TH/MM3 (1.8-7.7); BASOPHIL % 0.4 % (0.0-2.0); EOSINOPHIL # 0.2 TH/MM3 (0-0.4); EOSINOPHIL % 2.3 % (0.0-4.0); HEMATOCRIT 23.3 % (35.0-46.0); HEMO FLAGS DIFF FINAL; LYMPH % 12.9 % (9.0-44.0); LYMPHOCYTE # 1.2 TH/MM3 (1.0-4.8); MEAN CELL VOLUME 88.4 FL (80.0-100.0); MEAN CORPUSCULAR HEMOGLOBIN 28.9 PG (27.0-34.0); MEAN CORPUSCULAR HGB CONC 32.7 % (32.0-36.0); MONO % 10.2 % (0.0-8.0); NEUT % 74.2 % (16.0-70.0); PLATELET COUNT 188 TH/MM3 (150-450); RED BLOOD COUNT 2.63 MIL/MM3 (4.00-5.30); RED CELL DISTRIBUTION WIDTH 13.5 % (11.6-17.2); WHITE BLOOD COUNT 9.7 TH/MM3 (4.0-11.0)
[2016-12-04 05:55] LABS: APTT (PATIENT) 27.9 SEC (24.3-30.1)
[2016-12-04 06:06] LABS: ALT (GPT) 26 U/L (10-53); ANION GAP 11 MEQ/L (5-15); AST (GOT) 23 U/L (15-37); BICARBONATE 21.4 MEQ/L (21.0-32.0); BLOOD UREA NITROGEN 50 MG/DL (7-18); CHLORIDE 117 MEQ/L (98-107); GLOMERULAR FILTRATION RATE 32 ML/MIN (>89); MAGNESIUM 2.7 MG/DL (1.5-2.5); POTASSIUM 4.2 MEQ/L (3.5-5.1); SODIUM (NA) 149 MEQ/L (136-145)
[2016-12-04 06:08] LABS: ALKALINE PHOSPHATASE 57 U/L (45-117); TOTAL BILIRUBIN ADULT 0.3 MG/DL (0.2-1.0)
[2016-12-04] MEDS ORDERED: HEPARIN-NS/PF INJ 500 ML ONE ×2 (07:29→08:56)
[2016-12-04] MEDS ORDERED: STERILE WATER FOR INJECTION 10 ML VIAL ONE (08:20)
[2016-12-04] MEDS ORDERED: BIVALIRUDIN 250 MG VIAL ONE (08:20)
[2016-12-04] MEDS: INSULIN DETEMIR 100 UNITS/ML VIAL SQ SCH ×2 (09:00→20:13)
[2016-12-04] MEDS: METOPROLOL TARTRATE 25 MG TAB PO SCH ×2 (09:00→20:12)
[2016-12-04] MEDS ORDERED: MISC INFORMATION XX ONE (09:30)
[2016-12-04] MEDS ORDERED: IODIXANOL 320 MG/ML 100 ML VIAL (for Cath Lab) OTHER ONE (09:30)
[2016-12-04] MEDS ORDERED: SODIUM CHLORIDE 0.9% FLUSH 5 ML FLUSH IVF PRN (09:30)
[2016-12-04] MEDS ORDERED: SODIUM CHLOR 0.9% 1000 ML INJ 1,000 ML IV SCH (10:00)
[2016-12-04] MEDS: SODIUM CHLOR 0.9% 1000 ML INJ 1,000 ML IV SCH ×2 (10:24→20:14)
[2016-12-04] MEDS: TICAGRELOR 90 MG TAB PO SCH ×2 (10:30→20:12)
[2016-12-04] MEDS: ASPIRIN 81 MG CHEW TAB CHEW SCH (10:30)
[2016-12-04] MEDS: ATORVASTATIN 40 MG TAB PO SCH (10:31)
[2016-12-04] MEDS: PANTOPRAZOLE SODIUM 40 MG VIAL IV SCH (10:32)
--- NOTE | 2016-12-04 11:11 | MA ---
cc: RADHA MACDONALD M.D. DATE 12/04/2016 PROCEDURE PERFORMED 1. Coronary angiography. 2. Bypass graft angiography. 3. Balloon angioplasty and stenting of the free left internal mammary artery bypass graft to the mid-left anterior descending coronary artery. 4. Balloon angioplasty and stenting of the proximal right coronary artery. DESCRIPTION OF PROCEDURE The patient was brought to the Card[facility] Design [facility] in a fasting state. The right groin was prepped and draped in sterile fashion. Using 1% lidocaine for local anesthesia, a 6.5-Nauruan sheath was placed in the right femoral artery and this required only a single arterial stick. Next, coronary angiography was completed using a left 4.5 Darrion for the left coronary artery and a right 4 Darrion for the right coronary artery. Angiography of the only remaining graft which was a free internal mammary graft to the LAD was then performed with the right Darrion. Films were studied to try to revascularize two tight lesions. I started with a 6-Nauruan JR-4 guiding catheter to engage the free mammary graft to the LAD. That was wired with a ChoICE Floppy PT wire. I then predilated it with a 2-0 balloon, then stented it with 2.5 x 8-mm Resolute stent deployed at 9 atmospheres. The site of the stent and distal to the stent looked okay but just proximal to the stent there was either a stenosis or dissection. This was stented in overlapping fashion utilizing a 3.0 x 9-mm Resolute stent of 12 atmospheres. Angiography now demonstrates no residual stenosis in the proximal portion of the graft and christianity of flow into the LAD. The distal LAD is diffusely diseased and not felt to be amenable to intervention. I then turned my attention to the right coronary artery. After the balloon and wire removed, the same guide was used to engage the right coronary artery. I crossed this with a fresh BMW wire and then predilated it proximally with a 2-0 balloon, then stented with a 2.5 x 14-mm Resolute stent deployed at 14 atmospheres. The proximal vessel looks very satisfactory. There is diffuse mid-disease of the right coronary artery and the distal vessel is very small. I opted not to perform any further intervention on this vessel. I did not think her kidneys would tolerate the dye load. Angiography was then obtained of the right femoral artery via the sheath. The sheath insertion site looks fine, then I would have had to deploy Angio-Seal. FINDINGS I. HEMODYNAMICS The aortic pressure is 135/59 with a mean of 88. II. CORONARY ANGIOGRAPHY The left main coronary artery is short and normal-appearing. It bifurcates into the LAD and circumflex vessels. The LAD is totally occluded in its midsegment. The circumflex artery has about 40% proximal stenosis and diffuse irregularities. The right coronary artery is dominant. This vessel has previous stents in the ostium and midportion of the vessel. The ostia of the vessel appeared satisfactory but the proximal vessel has a high-grade 95% stenosis with ORLY 2-3 flow. III. RESULTS OF INTERVENTION Following stenting of the free left internal mammary graft to the LAD, the internal mammary graft proximally is now widely patent and there is christianity of ORLY grade 3 flow. One can see, however, that the distal LAD is severely and diffusely diseased with multiple high-grade lesions but not felt to be amenable to PCI as the vessel is much smaller than 1 mm. There is flow, however, all the way out to the inferoapical portion of the LAD which might help her. Following intervention of the proximal right coronary artery, the right coronary artery has improvement of flow to ORLY grade 3. There is diffuse mid-disease and a very small distal vessel which is purposely not intervened upon. IV. ANGIOGRAPHY OF THE RIGHT GROIN The sheath insertion site appears very satisfactory. Distally at the SFA bifurcation it has a very unusual appearance that is difficult to describe, and there appeared to be three vessels given off at that point, one of which is large and sluggish flow but this area was not stuck or entered during that sheath insertion. CONCLUSIONS 1. Normal arterial pressure. 2. Severe eyak coronary artery disease with occlusion of the LAD and severe disease of the eyak right coronary artery. 3. Only one residual graft which was severely compromised. This is the free mammary graft to the LAD/ 4. Successful intervention on the free mammary bypass graft to the LAD with christianity of ORLY-3 flow and successful revascularization of the proximal right coronary artery with improvement in flow. PLAN Would continue the patient on aspirin and Brilinta. Will discontinue her other anticoagulants while her groin becomes more stable. MD BYRCE Luz/MAME /9:16 AM /10:41 AM
[2016-12-04] MEDS: CHLORHEXIDINE 0.12% (ORAL KIT) 15 ML CUP MT SCH ×2 (12:09→19:45)
[2016-12-04] MEDS: AZITHROMYCIN INJ 500 MG in SODIUM CHLOR 0.9% 250 ML INJ 250 ML IV SCH (12:09)
--- NOTE | 2016-12-04 14:42 | HHI.CCPN ---
Subjective Remarks/Hospital Course 76-year-old female came to the emergency room brought by EMS as a STEMI alert. Patient called 911 for shortness of breath. When they arrived patient says oxygen saturation was in the 80s and she was in respiratory distress. Patient has history of coronary artery disease and congestive heart failure. She told me she had her bypass surgery done few years ago. Patient denied of any chest pain at any point. EMS said that patient had told them that she was nauseous for past couple days and vomited last night. She was woken up from the sleep with this shortness of breath. By the time patient arrived to the ER she was acutely short of breath and in severe respiratory distress. She was unable to give much history. She was pale and started getting agitated and diaphoretic when they moved her from the gurney to the stretcher. Patient developed worsening respiratory distress and required emergent intubation was placed on mechanical ventilation by ER physician. Her troponin came back at 20 and her EKG suggested intraventricular conduction delay versus left bundle branch block. Cardiology was contacted and felt patient had a non-ST elevation RI. She was also noted to be extremely hyperglycemic with glucose levels in the 500s with metabolic acidosis/lactic acidosis. She was started on the DKA protocol by ER physician. Urine ketones are negative. Beta hydroxybutyrate slightly elevated. Patient had a central line placed by ER physician and was started on heparin drip for anticoagulation for her RI. She was accepted for admission by critical care medicine service. I discussed the case with Dr. Auguste who is not planning cardiac catheterization at this time. Patient also was given empiric antibiotics up to obtaining cultures. 2 Patient is sedated with Diprivan and intubated. Remains on Heparin drip. On PRVC/AC RR 20 IT 1.0, TV 500, PEEP:5 and FIO2 35% 11/30 No acute events overnight. Sedated and intubated. Afebrile. On Heparin drip 12/01 Patient remains sedated and intubated. Afebrile. On Heparin drip. She had episode of desaturation while on CPAP. 12/02 Patient is sedated with Diprivan and intubated. Remains on Heparin drip. 12/03 No events over night. Attempt SBT tomorrow post cardiac Catheterization 12/04 cardiac catheterization today, successful intervention on the free mammary bypass graft to the LAD with scientology of ORLY-3 flow and successful revascularization of the proximal right coronary artery with improvement in flow Objective Vital Signs Date Time Temp Pulse Resp B/P Pulse Ox O2 Delivery O2 Flow Rate FiO2 12/04/16 12:00 40 12/04/16 12:00 67 12/04/16 12:00 98.1 20 121/57 98 Intake and Output 12/03/16 12/03/16 12/04/16 08:00 16:00 00:00 Intake Total 200 ml 387 ml 1060 ml Output Total 400 ml 600 ml 450 ml Balance -200 ml -213 ml 610 ml Result Diagram: 12/04/16 0530 12/04/16 0530 Other Results Laboratory Tests Test 12/04/16 05:29 Blood Gas Puncture Site RT RADIAL Blood Gas Patient Temperature 98.6 Blood Gas HCO3 20 mmol/L (22-26) Blood Gas Base Excess -3.7 mmol/L (-2-2) Blood Gas Oxygen Saturation 94 % (90-100) Arterial Blood pH 7.46 (7.380-7.420) Arterial Blood Partial 28 mmHg (38-42) Pressure CO2 Arterial Blood Partial 90 mmHg Pressure O2 (61-120) Arterial Blood Oxygen Content 13.1 Vol % (12.0-20.0) Arterial Blood 1.6 % (0-4) Carboxyhemoglobin Arterial Blood Methemoglobin 1.4 % (0-2) Blood Gas Hemoglobin 9.8 G/DL (12.0-16.0) Oxygen Delivery Device PRVC/AC Blood Gas Inspired Oxygen 40 % Imaging Last Impressions Chest X-Ray 12/01/16 0000 Signed Impressions: Service Date/Time: Thursday, December 01, 2016 10:31 - CONCLUSION: Increased interstitial edema. Jimmie Multani MD FACR Objective Remarks GENERAL: Patient is 76 yo intubated and sedated SKIN: Warm and dry. HEAD: Normocephalic. EYES: No scleral icterus. No injection or drainage. NECK: Supple, trachea midline. No JVD or lymphadenopathy. Orally intubated. CARDIOVASCULAR: Regular rate and rhythm without murmurs, gallops, or rubs. RESPIRATORY: Breath sounds equal bilaterally. No accessory muscle use. GASTROINTESTINAL: Abdomen soft, non-tender, nondistended. MUSCULOSKELETAL: No cyanosis, or edema. Neuro: sedated and intubated A/P Assessment and Plan 76-year-old female with: VDRF CHF Sepsis Possible Pneumonia Non-ST elevation RI Uncontrolled diabetes mellitus Lactic acidosis History of CAD History of PVD Plan: Neuro: Stop Diprivan infusion for sedation. Attempt to wean. Attempt of SBT and extubation today Pulm: Wean off vent support as tolerated keep sat >92% Bronchodilators, ICU vent bundle, CPAP trials as ramone - SBT CV: Monitor HR and BP keep MAP>65mmHg Monitor CK/trop. Echo showed EF 40-45%, hypokinesis in apical myocardium. Cards- . - Continue ASA, Lipitor, Brilinta 90mg BID, heparin drip. - Status post catheterization today, successful intervention on the free mammary bypass graft to the LAD with scientology of ORLY-3 flow and successful revascularization of the proximal right coronary artery with improvement in flow : Monitor renal function, I/O's, electrolytes replacement per protocol. - Bicarbonate drip to prevent contrast-induced nephrotoxicity GI/liver: On Protonix 40mg daily, on Glucerna 1.5@45ml/hr Heme: Monitor CBC, coags- on heparin drip per RI protocol. ID: Empiric antibiotic coverage with IV cefepime/Zithromax started 2/3. Received a dose of vancomycin and Zosyn in the ER. Monitor for signs of infections ( Fever, WBC) check sputum cx Endocrine: On SSI ( medium scale) Levemir 20 u BID Prophylaxis: PPI/SCDs. On full anticoagulation with heparin CCT 30 mins Hema Gomez MD Dec 04, 2016 14:42
[2016-12-04] MEDS: SODIUM CHLORIDE 0.9% FLUSH 5 ML FLUSH IVF SCH (20:13)
[2016-12-05] VITALS (19 sets, daily range): BP systolic 116–155; BP diastolic 58–68; PULSE 66–96; RESP 20–25; TEMP 98.7–100; O2SAT 95–99
[2016-12-05] MEDS: PROPOFOL 1000 MG/100 ML INJ 100 ML IV SCH ×3 (02:19→11:18)
[2016-12-05] MEDS: SODIUM BICARBONATE 8.4% INJ 100 MEQ in SODIUM CHLOR 0.45% 1000 ML INJ 1,000 ML IV SCH ×2 (02:26→13:01)
[2016-12-05] MEDS: CHLORHEXIDINE GLUCONATE 2 % 1 PACK (2 CLOTHS) TOP SCH (02:27)
[2016-12-05] MEDS: INSULIN ASPART SUPPLEMENTAL SCALE SQ SCH ×5 (04:00→20:00)
[2016-12-05] MEDS: CEFEPIME INJ 1,000 MG in SODIUM CHLORIDE 0.9% INJ 100 ML IV SCH ×3 (04:03→19:51)
[2016-12-05] MEDS: NITROGLYCERIN 2% OINT 1 GM PACKET TOPICAL SCH ×3 (04:03→18:37)
[2016-12-05 06:02] LABS: AUTOMATED NEUTROPHIL # 8.4 TH/MM3 (1.8-7.7); BASOPHIL % 0.4 % (0.0-2.0); EOSINOPHIL # 0.2 TH/MM3 (0-0.4); EOSINOPHIL % 1.9 % (0.0-4.0); HEMATOCRIT 23.6 % (35.0-46.0); LYMPH % 11.7 % (9.0-44.0); LYMPHOCYTE # 1.3 TH/MM3 (1.0-4.8); MEAN CELL VOLUME 88.6 FL (80.0-100.0); MEAN CORPUSCULAR HEMOGLOBIN 29.5 PG (27.0-34.0); MEAN CORPUSCULAR HGB CONC 33.4 % (32.0-36.0); MONO % 9.1 % (0.0-8.0); NEUT % 76.9 % (16.0-70.0); PLATELET COUNT 204 TH/MM3 (150-450); RED BLOOD COUNT 2.66 MIL/MM3 (4.00-5.30); RED CELL DISTRIBUTION WIDTH 13.3 % (11.6-17.2); WHITE BLOOD COUNT 10.9 TH/MM3 (4.0-11.0)
[2016-12-05 06:23] LABS: ALKALINE PHOSPHATASE 65 U/L (45-117); ALT (GPT) 35 U/L (10-53); ANION GAP 11 MEQ/L (5-15); AST (GOT) 34 U/L (15-37); BICARBONATE 22.7 MEQ/L (21.0-32.0); BLOOD UREA NITROGEN 49 MG/DL (7-18); CHLORIDE 116 MEQ/L (98-107); CREATINE KINASE 167 U/L (26-192); GLOMERULAR FILTRATION RATE 33 ML/MIN (>89); MAGNESIUM 2.7 MG/DL (1.5-2.5); POTASSIUM 3.8 MEQ/L (3.5-5.1); SODIUM (NA) 150 MEQ/L (136-145); TOTAL BILIRUBIN ADULT 0.4 MG/DL (0.2-1.0)
[2016-12-05 06:32] LABS: HEMO FLAGS AUTO DIFF
[2016-12-05 07:15] LABS: BANDS 12 % (0-6); EOSINOPHILS 1 % (0-4); METAMYELOCYTES 2 % (0-1); NEUTROPHIL # MANUAL DIFF 8.9 TH/MM3 (1.8-7.7); PLATELET ESTIMATE SMEAR NORMAL (NORMAL); PLATELET MORPHOLOGY NORMAL (NORMAL); POLYS (SEG NEUTROPHILS) 68 % (16-70); SCAN/DIFF FINAL DIFF MANUAL; WBC DIFF SAMPLE 100
[2016-12-05] MEDS: CHLORHEXIDINE 0.12% (ORAL KIT) 15 ML CUP MT SCH ×2 (07:41→19:55)
[2016-12-05] MEDS: SODIUM CHLORIDE 0.9% FLUSH 5 ML FLUSH IVF SCH ×2 (07:54→19:51)
[2016-12-05] MEDS: TICAGRELOR 90 MG TAB PO SCH ×2 (07:54→19:51)
[2016-12-05] MEDS: ATORVASTATIN 40 MG TAB PO SCH (07:54)
[2016-12-05] MEDS: PANTOPRAZOLE SODIUM 40 MG VIAL IV SCH (07:54)
[2016-12-05] MEDS: ASPIRIN 81 MG CHEW TAB CHEW SCH (07:54)
[2016-12-05] MEDS: INSULIN DETEMIR 100 UNITS/ML VIAL SQ SCH (07:55)
[2016-12-05] MEDS: METOPROLOL TARTRATE 25 MG TAB PO SCH ×2 (07:55→19:51)
--- NOTE | 2016-12-05 08:56 | PD.CARD.PN ---
Subjective Subjective Remarks on a CPAP trial now, awake Objective Medications Current Medications Medications (Trade) Dose Ordered Sig/Amber Route Start Time Stop Time Status Last Admin Potassium Chloride 100 ml @ 100 mls/hr Q1H PRN IV 11/28/16 06:45 Potassium Chloride 100 ml @ 50 mls/hr Q2H PRN IV 11/28/16 06:45 Potassium Chloride 100 ml @ 100 mls/hr Q1H PRN IV 11/28/16 06:45 Potassium Chloride 100 ml @ 100 mls/hr Q1H PRN IV 11/28/16 06:45 11/28/16 09:05 Potassium Chloride 100 ml @ 50 mls/hr Q2H PRN IV 11/28/16 06:45 Potassium Chloride 100 ml @ 50 mls/hr Q2H PRN IV 11/28/16 06:45 Potassium Chloride 100 ml @ 50 mls/hr Q2H PRN IV 11/28/16 06:45 (KCl 20 Meq Premix Inj) 100 ml @ 50 mls/hr Q2H PRN IV 11/28/16 06:45 (Sodium Bicarbonate 8.4% Inj) 100 meq UNSCH PRN IV 11/28/16 06:45 Sodium Bicarbonate 50 meq 50 meq UNSCH PRN IV 11/28/16 06:45 (Sodium Phosphate Inj/NS Inj) 105 ml @ 25 mls/hr UNSCH PRN IV 11/28/16 06:45 (Aspirin Chew) 81 mg DAILY CHEW 11/28/16 09:00 12/05/16 07:54 (Brilinta) 90 mg BID PO 11/28/16 09:00 12/05/16 07:54 (Tylenol) 650 mg Q6H PRN PO 11/28/16 10:15 12/01/16 20:02 (fentaNYL INJ) 100 mcg Q4H PRN IV 11/28/16 10:15 (Peridex 0.12% Liq) 15 ml BID@08,20 MT 11/28/16 20:00 12/05/16 07:41 (Protonix Inj) 40 mg DAILY IV 11/28/16 11:00 12/05/16 07:54 Miscellaneous Information 1 Q361D XX 11/28/16 10:15 11/28/16 10:15 (Chlorhexidine 2% Cloth) Taper DAILY@04 TOP 11/29/16 04:00 11/25/17 03:59 12/04/16 02:34 Chlorhexidine Gluconate 3 pack 3 pack UNSCH PRN TOP 11/28/16 10:15 Propofol 100 ml @ 0 mls/hr TITRATE IV 11/28/16 10:15 12/05/16 06:38 Cefepime HCl 1000 mg/Sodium Chloride 100 ml @ 200 mls/hr Q8H IV 11/28/16 13:00 12/05/16 04:03 (Zithromax Inj/ NS 250 ml Inj) 250 ml @ 250 mls/hr Q24H IV 11/28/16 12:00 12/04/16 12:09 (NovoLOG SUPPLEMENTAL SCALE) 1 Q4HR SQ 11/28/16 20:00 12/03/16 03:40 (D50w (Vial) Inj) 25 ml UNSCH PRN IV 11/28/16 17:00 (Glucagon Inj) 1 mg UNSCH PRN IM/SQ 11/28/16 17:00 (Lipitor) 40 mg DAILY PO 11/29/16 09:00 12/05/16 07:54 (Levemir Inj) 20 units BID SQ 12/01/16 21:00 12/04/16 20:13 (Nitroglycerin 2% Oint) 0.5 inch Q6HR TOPICAL 12/01/16 18:00 12/05/16 04:03 (Lopressor) 12.5 mg Q12HR PO 12/01/16 21:00 12/04/16 20:12 Miscellaneous 1 ea 1 ea UNSCH PRN OTHER 12/01/16 12:30 Sodium Bicarbonate 100 meq/Sodium Chloride 1,100 ml @ 100 mls/hr Q11H IV 12/03/16 17:00 12/05/16 02:26 (NS 1000 ml Inj) 1,000 ml @ 83 mls/hr Q12H3M IV 12/03/16 22:21 12/08/16 22:20 12/03/16 22:21 (NS Flush) 2 ml UNSCH PRN IVF 12/04/16 09:30 (NS Flush) 2 ml BID IVF 12/04/16 21:00 12/05/16 07:54 Vital Signs / I&O Vital Signs Date Time Temp Pulse Resp B/P Pulse Ox O2 Delivery O2 Flow Rate FiO2 12/05/16 08:03 97 50 12/05/16 06:00 72 12/05/16 04:07 98 50 12/05/16 04:00 50 12/05/16 04:00 100.0 78 20 120/58 99 12/05/16 04:00 68 12/05/16 02:00 66 12/05/16 01:15 98 50 12/05/16 00:00 50 12/05/16 00:00 72 12/05/16 00:00 99.9 72 20 123/58 98 12/04/16 22:10 99 50 12/04/16 22:00 71 12/04/16 20:00 50 12/04/16 20:00 80 12/04/16 20:00 100.0 80 20 124/60 95 12/04/16 19:10 99 50 12/04/16 18:00 105 12/04/16 16:00 71 12/04/16 16:00 40 12/04/16 16:00 98.7 64 22 166/73 95 12/04/16 15:37 40 12/04/16 15:32 95 40 12/04/16 14:00 67 12/04/16 12:00 40 12/04/16 12:00 67 12/04/16 12:00 98.1 67 20 121/57 98 12/04/16 11:09 98 40 12/04/16 10:00 70 I/O 12/04/16 12/04/16 12/04/16 12/05/16 12/05/16 12/05/16 07:00 15:00 23:00 07:00 15:00 23:00 Intake Total 950 ml 1300 ml 1078 ml 771 ml Output Total 275 ml 550 ml 375 ml 350 ml Balance 675 ml 750 ml 703 ml 421 ml Intake Oral 0 ml 0 ml 0 ml 0 ml IV Total 890 ml 1200 ml 1018 ml 771 ml Tube Feeding 0 ml 0 ml Tube Irrigant 60 ml Other 60 ml 100 ml Output Urine Total 275 ml 550 ml 375 ml 350 ml # Bowel Movements 0 0 0 0 Physical Exam Awake Morbidly obese Chest dimished anteriorly CV S1 S2 RRR Abd: obese Ext: warm/well perfused. Right groin looks good Laboratory Laboratory Tests Test 12/05/16 04:44 White Blood Count 10.9 TH/MM3 Red Blood Count 2.66 MIL/MM3 Hemoglobin 7.9 GM/DL Hematocrit 23.6 % Mean Corpuscular Volume 88.6 FL Mean Corpuscular Hemoglobin 29.5 PG Mean Corpuscular Hemoglobin 33.4 % Concent Red Cell Distribution Width 13.3 % Platelet Count 204 TH/MM3 Mean Platelet Volume 9.7 FL Neutrophils (%) (Auto) 76.9 % Lymphocytes (%) (Auto) 11.7 % Monocytes (%) (Auto) 9.1 % Eosinophils (%) (Auto) 1.9 % Basophils (%) (Auto) 0.4 % Neutrophils # (Auto) 8.4 TH/MM3 Lymphocytes # (Auto) 1.3 TH/MM3 Monocytes # (Auto) 1.0 TH/MM3 Eosinophils # (Auto) 0.2 TH/MM3 Basophils # (Auto) 0.0 TH/MM3 CBC Comment AUTO DIFF Differential Total Cells 100 Counted Neutrophils % (Manual) 68 % Band Neutrophils % 12 % Lymphocytes % 10 % Monocytes % 7 % Eosinophils % 1 % Neutrophils # (Manual) 8.9 TH/MM3 Metamyelocytes 2 % Differential Comment FINAL DIFF MANUAL Platelet Estimate NORMAL Platelet Morphology Comment NORMAL Sodium Level 150 MEQ/L Potassium Level 3.8 MEQ/L Chloride Level 116 MEQ/L Carbon Dioxide Level 22.7 MEQ/L Anion Gap 11 MEQ/L Blood Urea Nitrogen 49 MG/DL Creatinine 1.53 MG/DL Estimat Glomerular Filtration 33 ML/MIN Rate Random Glucose 79 MG/DL Calcium Level 8.0 MG/DL Phosphorus Level 3.6 MG/DL Magnesium Level 2.7 MG/DL Total Bilirubin 0.4 MG/DL Aspartate Amino Transf 34 U/L (AST/SGOT) Alanine Aminotransferase 35 U/L (ALT/SGPT) Alkaline Phosphatase 65 U/L Total Creatine Kinase 167 U/L Total Protein 5.6 GM/DL Albumin 1.9 GM/DL Imaging Last 48 hours Impressions Chest X-Ray 12/04/16 0600 Signed Impressions: Service Date/Time: November 04:31 - CONCLUSION: No significant change has occurred. Clay Loco MD Assessment and Plan Problem List: (1) Non-STEMI (non-ST elevated myocardial infarction) (2) Acute renal failure Assessment and Plan: Tolerated cath/PCI without rise in creatinine (3) Heart failure Assessment and Plan: Might need more diuretic but waiting to make sure creat stable. If stable tomorrow consider upping her diuretic (4) CAD (coronary artery disease) Assessment and Plan: Severe disease. S/p stent LAD graft and prox RCA (5) Anemia (6) Stented coronary artery Assessment and Plan: Continue 81mg ASA and Brilinta [address] Dawson house calls nurse practitioner Sat/Sun Problem Qualifiers (1) Acute renal failure: Qualified Code: N17.9 - Acute renal failure, unspecified acute renal failure type Kyle Hartman MD Dec 05, 2016 08:56
[2016-12-05] MEDS: AZITHROMYCIN INJ 500 MG in SODIUM CHLOR 0.9% 250 ML INJ 250 ML IV SCH (11:16)
[2016-12-05] MEDS: SODIUM CHLOR 0.9% 1000 ML INJ 1,000 ML IV SCH ×2 (11:17→22:33)
[2016-12-05 13:27] LABS: BLOOD GAS BASE EXCESS -5.5 mmol/L (-2-2); BLOOD GAS CARBOXYHEMOGLOBIN 1.9 % (0-4); BLOOD GAS HCO3 19 mmol/L (22-26); BLOOD GAS METHEMOGLOBIN 1.3 % (0-2); BLOOD GAS O2 HGB SATURATION 91 % (90-100); BLOOD GAS OXYGEN CONTENT 10.8 Vol % (12.0-20.0); BLOOD GAS PCO2 33 mmHg (38-42); BLOOD GAS PO2 75 mmHg (61-120); BLOOD GAS TOTAL HGB 8.4 G/DL (12.0-16.0); CRITICAL VALUE NO; OXYGEN DEVICE VENTILATOR; TEMP CORR TO 98.6
[2016-12-05 13:28] LABS: DRAW SITE RT RADIAL; FIO2 40 %; NUMBER OF ARTERIAL PUNCTURES 1; ULNAR PULSE PRESENT
[2016-12-05 13:29] LABS: STAT NO
--- NOTE | 2016-12-05 15:55 | HHI.CCPN ---
Subjective Remarks/Hospital Course 76-year-old female came to the emergency room brought by EMS as a STEMI alert. Patient called 911 for shortness of breath. When they arrived patient says oxygen saturation was in the 80s and she was in respiratory distress. Patient has history of coronary artery disease and congestive heart failure. She told me she had her bypass surgery done few years ago. Patient denied of any chest pain at any point. EMS said that patient had told them that she was nauseous for past couple days and vomited last night. She was woken up from the sleep with this shortness of breath. By the time patient arrived to the ER she was acutely short of breath and in severe respiratory distress. She was unable to give much history. She was pale and started getting agitated and diaphoretic when they moved her from the gurney to the stretcher. Patient developed worsening respiratory distress and required emergent intubation was placed on mechanical ventilation by ER physician. Her troponin came back at 20 and her EKG suggested intraventricular conduction delay versus left bundle branch block. Cardiology was contacted and felt patient had a non-ST elevation NE. She was also noted to be extremely hyperglycemic with glucose levels in the 500s with metabolic acidosis/lactic acidosis. She was started on the DKA protocol by ER physician. Urine ketones are negative. Beta hydroxybutyrate slightly elevated. Patient had a central line placed by ER physician and was started on heparin drip for anticoagulation for her NE. She was accepted for admission by critical care medicine service. I discussed the case with Dr. Auguste who is not planning cardiac catheterization at this time. Patient also was given empiric antibiotics up to obtaining cultures. 2 Patient is sedated with Diprivan and intubated. Remains on Heparin drip. On PRVC/AC RR 20 IT 1.0, TV 500, PEEP:5 and FIO2 35% 11/30 No acute events overnight. Sedated and intubated. Afebrile. On Heparin drip 12/01 Patient remains sedated and intubated. Afebrile. On Heparin drip. She had episode of desaturation while on CPAP. 12/02 Patient is sedated with Diprivan and intubated. Remains on Heparin drip. 12/03 No events over night. Attempt SBT tomorrow post cardiac Catheterization 12/04 cardiac catheterization today, successful intervention on the free mammary bypass graft to the LAD with temple of ORLY-3 flow and successful revascularization of the proximal right coronary artery with improvement in flow 12/05 attempt to wean from the mechanical ventilation failure due to rapid shallow breathing today Objective Vital Signs Date Time Temp Pulse Resp B/P Pulse Ox O2 Delivery O2 Flow Rate FiO2 12/05/16 15:45 95 40 12/05/16 14:00 82 12/05/16 12:00 98.9 21 122/58 Intake and Output 12/04/16 12/04/16 12/05/16 08:00 16:00 00:00 Intake Total 950 ml 1300 ml 1078 ml Output Total 275 ml 550 ml 375 ml Balance 675 ml 750 ml 703 ml Result Diagram: 12/05/16 0444 12/05/16 0444 Other Results Laboratory Tests Test 12/05/16 12:14 Blood Gas Puncture Site RT RADIAL Blood Gas Patient Temperature 98.6 Blood Gas HCO3 19 mmol/L (22-26) Blood Gas Base Excess -5.5 mmol/L (-2-2) Blood Gas Oxygen Saturation 91 % (90-100) Arterial Blood pH 7.37 (7.380-7.420) Arterial Blood Partial 33 mmHg (38-42) Pressure CO2 Arterial Blood Partial 75 mmHg Pressure O2 (61-120) Arterial Blood Oxygen Content 10.8 Vol % (12.0-20.0) Arterial Blood 1.9 % (0-4) Carboxyhemoglobin Arterial Blood Methemoglobin 1.3 % (0-2) Blood Gas Hemoglobin 8.4 G/DL (12.0-16.0) Oxygen Delivery Device VENTILATOR Blood Gas Ventilator Setting Blood Gas Inspired Oxygen 40 % Imaging Last Impressions Chest X-Ray 12/01/16 0000 Signed Impressions: Service Date/Time: Thursday, December 01, 2016 10:31 - CONCLUSION: Increased interstitial edema. Jimmie Multani MD FACR Objective Remarks GENERAL: Patient is 76 yo intubated and sedated SKIN: Warm and dry. HEAD: Normocephalic. EYES: No scleral icterus. No injection or drainage. NECK: Supple, trachea midline. No JVD or lymphadenopathy. Orally intubated. CARDIOVASCULAR: Regular rate and rhythm without murmurs, gallops, or rubs. RESPIRATORY: Breath sounds equal bilaterally. No accessory muscle use. GASTROINTESTINAL: Abdomen soft, non-tender, nondistended. MUSCULOSKELETAL: No cyanosis, or edema. Neuro: sedated and intubated A/P Assessment and Plan 76-year-old female with: VDRF CHF Sepsis Possible Pneumonia Non-ST elevation NE Uncontrolled diabetes mellitus Lactic acidosis History of CAD History of PVD Plan: Neuro: Stop Diprivan infusion for sedation. Attempt to wean. Attempt of SBT and extubation today failure due to rapid shallow breathing - We'll try again tomorrow Pulm: Wean off vent support as tolerated keep sat >92% Bronchodilators, ICU vent bundle, CPAP trials as ramone - SBT daily CV: Monitor HR and BP keep MAP>65mmHg Monitor CK/trop. Echo showed EF 40-45%, hypokinesis in apical myocardium. Cards- . - Continue ASA, Lipitor, Brilinta 90mg BID, heparin drip. - Status post catheterization December 04, successful intervention on the free mammary bypass graft to the LAD with temple of ORLY-3 flow and successful revascularization of the proximal right coronary artery with improvement in flow : Monitor renal function, I/O's, electrolytes replacement per protocol. - Bicarbonate drip to prevent contrast-induced nephrotoxicity - DC GI/liver: On Protonix 40mg daily, on Glucerna 1.5@45ml/hr Heme: Monitor CBC, coags- on heparin drip per [place] protocol. ID: Empiric antibiotic coverage with IV cefepime/Zithromax started 11/28. Received a dose of vancomycin and Zosyn in the ER. Monitor for signs of infections ( Fever, WBC) check sputum cx Endocrine: On SSI ( medium scale) Levemir 20 u BID Prophylaxis: PPI/SCDs. On full anticoagulation with heparin CCT 35 mins Hema Gomez MD Dec 05, 2016 15:55
[2016-12-05] MEDS: DEXMEDETOMIDINE INJ 50 ML IV SCH (18:36)
--- NOTE | 2016-12-05 21:29 | EKG ---
Date Performed: 12/04/2016 Time Performed: 12:48:27 PTAGE: 76 years EKG: Sinus rhythm LOW QRS VOLTAGE IN EXTREMITY LEADS MINIMAL ST DEPRESSION When compared to previous tracing, heart ra te is slower, Intraventricular conduction disturbance is somewhat decreased, Otherwise no significant change. BORDERLINE ECG PREVIOUS TRACING : 11/28/2016 05.11 DOCTOR: Dave Yip Interpretating Date/Time 12/05/2016 21:28:53
[2016-12-06] VITALS (19 sets, daily range): BP systolic 121–171; BP diastolic 60–79; PULSE 63–97; RESP 14–39; TEMP 97.4–98.9; O2SAT 95–100
[2016-12-06] MEDS: NITROGLYCERIN 2% OINT 1 GM PACKET TOPICAL SCH ×4 (00:11→17:39)
[2016-12-06] MEDS: INSULIN ASPART SUPPLEMENTAL SCALE SQ SCH ×6 (04:00→20:59)
--- NOTE | 2016-12-06 04:38 | RADRPT ---
EXAM DATE/TIME: 12/06/2016 02:57 [facility] COMPARISON: CHEST SINGLE AP, December 04, 2016, 4:31. INDICATIONS : Shortness of breath, possible pulmonary disease. MEDICAL HISTORY : Hypertension. Hypercholesterolemia. Myocardial infarction. CHF PVD SURGICAL HISTORY : CABG. Mastectomy, left. Hysterectomy. ENCOUNTER: Subsequent ACUITY: 1 week PAIN SCORE: Non-responsive. LOCATION: Bilateral chest FINDINGS: Basilar consolidation and bilateral effusions are worsening, now moderate on both sides. No pneumotho rax seen. Heart size stable, within normal limits. Patient has had previous median sternotomy and CABG. Endotracheal tube tip is about 2 cm above the ad. There is a nasogastric tube with tip in the sto mach. Left subclavian central venous catheter again seen, tip in the superior vena cava. CONCLUSION: Worsening bibasilar consolidation and effusions. Lennox Cason MD on December 06, 2016 at 4:35 Board Certified Radiologist. This report was verified electronically.
[2016-12-06] MEDS: CEFEPIME INJ 1,000 MG in SODIUM CHLORIDE 0.9% INJ 100 ML IV SCH ×3 (05:13→20:53)
[2016-12-06 05:19] LABS: BLOOD GAS BASE EXCESS -8.2 mmol/L (-2-2); BLOOD GAS CARBOXYHEMOGLOBIN 1.7 % (0-4); BLOOD GAS HCO3 16 mmol/L (22-26); BLOOD GAS METHEMOGLOBIN 1.3 % (0-2); BLOOD GAS O2 HGB SATURATION 93 % (90-100); BLOOD GAS OXYGEN CONTENT 14.9 Vol % (12.0-20.0); BLOOD GAS PCO2 31 mmHg (38-42); BLOOD GAS PO2 90 mmHg (61-120); BLOOD GAS TOTAL HGB 11.2 G/DL (12.0-16.0); TEMP CORR TO 98.6
[2016-12-06 05:20] LABS: CRITICAL VALUE YES; DRAW SITE RT RADIAL; FIO2 40 %; NUMBER OF ARTERIAL PUNCTURES 1; OXYGEN DEVICE VENTILATOR; STAT NO; ULNAR PULSE PRESENT; VENT SETTINGS PC/AC
[2016-12-06 06:31] LABS: AUTOMATED NEUTROPHIL # 10.2 TH/MM3 (1.8-7.7); BASOPHIL % 0.3 % (0.0-2.0); EOSINOPHIL % 0.4 % (0.0-4.0); HEMATOCRIT 24.1 % (35.0-46.0); LYMPH % 6.7 % (9.0-44.0); LYMPHOCYTE # 0.8 TH/MM3 (1.0-4.8); MEAN CELL VOLUME 89.7 FL (80.0-100.0); MEAN CORPUSCULAR HEMOGLOBIN 29.3 PG (27.0-34.0); MEAN CORPUSCULAR HGB CONC 32.7 % (32.0-36.0); MONO % 7.5 % (0.0-8.0); NEUT % 85.1 % (16.0-70.0); PLATELET COUNT 223 TH/MM3 (150-450); RED BLOOD COUNT 2.68 MIL/MM3 (4.00-5.30); RED CELL DISTRIBUTION WIDTH 13.5 % (11.6-17.2)
[2016-12-06 06:37] LABS: HEMO FLAGS AUTO DIFF
[2016-12-06 06:59] LABS: ANION GAP 14 MEQ/L (5-15); AST (GOT) 20 U/L (15-37); BICARBONATE 19.8 MEQ/L (21.0-32.0); BLOOD UREA NITROGEN 55 MG/DL (7-18); CHLORIDE 117 MEQ/L (98-107); GLOMERULAR FILTRATION RATE 34 ML/MIN (>89); MAGNESIUM 2.7 MG/DL (1.5-2.5); POTASSIUM 4.2 MEQ/L (3.5-5.1); SODIUM (NA) 151 MEQ/L (136-145)
[2016-12-06 07:19] LABS: ALKALINE PHOSPHATASE 68 U/L (45-117); ALT (GPT) 31 U/L (10-53); TOTAL BILIRUBIN ADULT 0.4 MG/DL (0.2-1.0)
[2016-12-06] MEDS ORDERED: SODIUM BICARBONATE 8.4% INJ 50 MEQ/50 ML SYR IV PUSH ONE (08:00)
[2016-12-06] MEDS: DEXMEDETOMIDINE INJ 50 ML IV SCH ×2 (08:09→17:39)
[2016-12-06] MEDS: INSULIN DETEMIR 100 UNITS/ML VIAL SQ SCH ×2 (08:09→21:03)
[2016-12-06] MEDS: ATORVASTATIN 40 MG TAB PO SCH (08:10)
[2016-12-06] MEDS: PANTOPRAZOLE SODIUM 40 MG VIAL IV SCH (08:10)
[2016-12-06] MEDS: TICAGRELOR 90 MG TAB PO SCH ×2 (08:10→20:53)
[2016-12-06] MEDS: METOPROLOL TARTRATE 25 MG TAB PO SCH ×2 (08:11→20:53)
[2016-12-06] MEDS: ASPIRIN 81 MG CHEW TAB CHEW SCH (08:11)
[2016-12-06] MEDS: SODIUM CHLORIDE 0.9% FLUSH 5 ML FLUSH IVF SCH ×2 (08:11→20:53)
[2016-12-06] MEDS: CHLORHEXIDINE 0.12% (ORAL KIT) 15 ML CUP MT SCH ×2 (08:12→20:55)
--- NOTE | 2016-12-06 09:44 | PD.CARD.PN ---
Subjective Subjective Remarks Intubated, sedated. Objective Medications Administered Medications Medications (Trade) Dose Ordered Sig/Amber Route PRN Reason Start Time Stop Time Status Last Admin Dose Admin Potassium Chloride (KCl 20 Meq Premix Inj) 100 ml @ 100 mls/hr Q1H PRN IV SEE LABEL COMMENTS 11/28/16 06:45 11/28/16 09:05 Aspirin (Aspirin Chew) 81 mg DAILY CHEW 11/28/16 09:00 12/06/16 08:11 Ticagrelor (Brilinta) 90 mg BID PO 11/28/16 09:00 12/06/16 08:10 Acetaminophen (Tylenol) 650 mg Q6H PRN PO PAIN 1-10 AND/OR FEVER >101F 11/28/16 10:15 12/01/16 20:02 Chlorhexidine Gluconate (Peridex 0.12% Liq) 15 ml BID@08,20 MT 11/28/16 20:00 12/06/16 08:12 Pantoprazole Sodium (Protonix Inj) 40 mg DAILY IV 11/28/16 11:00 12/06/16 08:10 Miscellaneous Information 1 Q361D XX 11/28/16 10:15 11/28/16 10:15 Chlorhexidine Gluconate Taper DAILY@04 TOP 11/29/16 04:00 11/25/17 03:59 12/04/16 02:34 Cefepime HCl 1000 mg/Sodium Chloride 100 ml @ 200 mls/hr Q8H IV 11/28/16 13:00 12/06/16 05:13 Azithromycin/ Sodium Chloride (Zithromax Inj/ NS 250 ml Inj) 250 ml @ 250 mls/hr Q24H IV 11/28/16 12:00 12/05/16 11:16 Insulin Aspart (NovoLOG SUPPLEMENTAL SCALE) 1 Q4HR SQ 11/28/16 20:00 12/03/16 03:40 Atorvastatin Calcium (Lipitor) 40 mg DAILY PO 11/29/16 09:00 12/06/16 08:10 Insulin Detemir (Levemir Inj) 20 units BID SQ 12/01/16 21:00 12/06/16 08:09 Nitroglycerin (Nitroglycerin 2% Oint) 0.5 inch Q6HR TOPICAL 12/01/16 18:00 12/06/16 05:14 Metoprolol Tartrate 12.5 mg 12.5 mg Q12HR PO 12/01/16 21:00 12/06/16 08:11 Sodium Chloride (NS 1000 ml Inj) 1,000 ml @ 83 mls/hr Q12H3M IV 12/03/16 22:21 12/08/16 22:20 12/05/16 11:17 IV Flush 2 ml 2 ml BID IVF 12/04/16 21:00 12/06/16 08:11 Dexmedetomidine HCl (Precedex Inj) 50 ml @ 0 mls/hr TITRATE IV 12/05/16 17:15 12/06/16 08:09 Vital Signs / I&O Vital Signs Date Time Temp Pulse Resp B/P Pulse Ox O2 Delivery O2 Flow Rate FiO2 12/06/16 08:00 40 12/06/16 07:35 95 40 12/06/16 06:00 75 12/06/16 04:12 99 40 12/06/16 04:00 97.8 64 20 122/60 98 12/06/16 04:00 64 12/06/16 04:00 40 12/06/16 02:00 70 12/06/16 01:09 99 40 12/06/16 00:00 97.4 66 20 121/60 98 12/06/16 00:00 40 12/06/16 00:00 66 12/05/16 22:06 99 40 12/05/16 22:00 66 12/05/16 20:00 40 12/05/16 20:00 98.8 72 22 116/58 98 12/05/16 20:00 72 12/05/16 19:15 97 40 12/05/16 18:00 94 12/05/16 16:00 40 12/05/16 16:00 82 12/05/16 16:00 98.7 96 24 155/68 95 12/05/16 15:45 95 40 12/05/16 14:00 82 12/05/16 12:00 98.9 92 25 146/64 95 12/05/16 12:00 81 12/05/16 12:00 40 12/05/16 12:00 98.9 78 21 122/58 95 12/05/16 11:58 95 40 12/05/16 10:00 93 12/05/16 10:00 93 I/O 12/05/16 12/05/16 12/05/16 12/06/16 12/06/16 12/06/16 07:00 15:00 23:00 07:00 15:00 23:00 Intake Total 771 ml 200 ml 1115 ml 966 ml Output Total 350 ml 700 ml 225 ml 400 ml Balance 421 ml -500 ml 890 ml 566 ml Intake Oral 0 ml 200 ml IV Total 771 ml 0 ml 1015 ml 866 ml Tube Feeding 0 ml 0 ml Other 100 ml 100 ml Output Urine Total 350 ml 700 ml 225 ml 400 ml # Bowel Movements 0 100 Physical Exam GENERAL: Intubated, sedated CARDIOVASCULAR: Regular rate and rhythm without murmurs, gallops, or rubs. RESPIRATORY: Clear to auscultation. Breath sounds equal bilaterally. No wheezes , rales, or rhonchi. GASTROINTESTINAL: Abdomen soft, non-tender, nondistended. Normal active bowel sounds MUSCULOSKELETAL: trace LE edema NEURO: Intubated, sedated Laboratory Laboratory Tests Test 12/05/16 12/06/16 12/06/16 12:14 05:04 05:20 Blood Gas Puncture Site RT RADIAL RT RADIAL Blood Gas Patient Temperature 98.6 98.6 Blood Gas HCO3 19 mmol/L 16 mmol/L Blood Gas Base Excess -5.5 mmol/L -8.2 mmol/L Blood Gas Oxygen Saturation 91 % 93 % Arterial Blood pH 7.37 7.34 Arterial Blood Partial 33 mmHg 31 mmHg Pressure CO2 Arterial Blood Partial 75 mmHg 90 mmHg Pressure O2 Arterial Blood Oxygen Content 10.8 Vol % 14.9 Vol % Arterial Blood 1.9 % 1.7 % Carboxyhemoglobin Arterial Blood Methemoglobin 1.3 % 1.3 % Blood Gas Hemoglobin 8.4 G/DL 11.2 G/DL Oxygen Delivery Device VENTILATOR VENTILATOR Blood Gas Ventilator Setting PC/AC Blood Gas Inspired Oxygen 40 % 40 % White Blood Count 12.0 TH/MM3 Red Blood Count 2.68 MIL/MM3 Hemoglobin 7.9 GM/DL Hematocrit 24.1 % Mean Corpuscular Volume 89.7 FL Mean Corpuscular Hemoglobin 29.3 PG Mean Corpuscular Hemoglobin 32.7 % Concent Red Cell Distribution Width 13.5 % Platelet Count 223 TH/MM3 Mean Platelet Volume 9.8 FL Neutrophils (%) (Auto) 85.1 % Lymphocytes (%) (Auto) 6.7 % Monocytes (%) (Auto) 7.5 % Eosinophils (%) (Auto) 0.4 % Basophils (%) (Auto) 0.3 % Neutrophils # (Auto) 10.2 TH/MM3 Lymphocytes # (Auto) 0.8 TH/MM3 Monocytes # (Auto) 0.9 TH/MM3 Eosinophils # (Auto) 0.0 TH/MM3 Basophils # (Auto) 0.0 TH/MM3 CBC Comment AUTO DIFF Sodium Level 151 MEQ/L Potassium Level 4.2 MEQ/L Chloride Level 117 MEQ/L Carbon Dioxide Level 19.8 MEQ/L Anion Gap 14 MEQ/L Blood Urea Nitrogen 55 MG/DL Creatinine 1.51 MG/DL Estimat Glomerular Filtration 34 ML/MIN Rate Random Glucose 100 MG/DL Calcium Level 8.1 MG/DL Phosphorus Level 4.8 MG/DL Magnesium Level 2.7 MG/DL Total Bilirubin 0.4 MG/DL Aspartate Amino Transf 20 U/L (AST/SGOT) Alanine Aminotransferase 31 U/L (ALT/SGPT) Alkaline Phosphatase 68 U/L Total Protein 5.9 GM/DL Albumin 2.0 GM/DL Imaging Last Impressions Chest X-Ray 12/06/16 0600 Signed Impressions: Service Date/Time: Tuesday, December 06, 2016 02:57 - CONCLUSION: Worsening bibasilar consolidation and effusions. Lennox Cason MD Assessment and Plan Problem List: (1) Non-STEMI (non-ST elevated myocardial infarction) (2) Acute renal failure Assessment and Plan: Cr bumped up slightly this am; essentially net even. (3) Heart failure Assessment and Plan: Cr bumped so will not increase diuretics at this time. (4) CAD (coronary artery disease) Assessment and Plan: Severe disease. S/p stent LAD graft and prox RCA (5) Anemia (6) Stented coronary artery Assessment and Plan: Continue 81mg ASA and Brilinta 90 bid Problem Qualifiers (1) Acute renal failure: Qualified Code: N17.9 - Acute renal failure, unspecified acute renal failure type Norman Moore MD Dec 06, 2016 09:44
[2016-12-06 09:57] LABS: BANDS 5 % (0-6); NEUTROPHIL # MANUAL DIFF 10.6 TH/MM3 (1.8-7.7); POLYS (SEG NEUTROPHILS) 83 % (16-70); WBC DIFF SAMPLE 100
[2016-12-06 09:58] LABS: PLATELET ESTIMATE SMEAR NORMAL (NORMAL); PLATELET MORPHOLOGY NORMAL (NORMAL); SCAN/DIFF FINAL DIFF MANUAL
[2016-12-06] MEDS: SODIUM CHLOR 0.9% 1000 ML INJ 1,000 ML IV SCH ×2 (10:36→20:58)
--- NOTE | 2016-12-06 10:54 | HHI.CCPN ---
Subjective Remarks/Hospital Course 76-year-old female came to the emergency room brought by EMS as a STEMI alert. Patient called 911 for shortness of breath. When they arrived patient says oxygen saturation was in the 80s and she was in respiratory distress. Patient has history of coronary artery disease and congestive heart failure. She told me she had her bypass surgery done few years ago. Patient denied of any chest pain at any point. EMS said that patient had told them that she was nauseous for past couple days and vomited last night. She was woken up from the sleep with this shortness of breath. By the time patient arrived to the ER she was acutely short of breath and in severe respiratory distress. She was unable to give much history. She was pale and started getting agitated and diaphoretic when they moved her from the gurney to the stretcher. Patient developed worsening respiratory distress and required emergent intubation was placed on mechanical ventilation by ER physician. Her troponin came back at 20 and her EKG suggested intraventricular conduction delay versus left bundle branch block. Cardiology was contacted and felt patient had a non-ST elevation [place]. She was also noted to be extremely hyperglycemic with glucose levels in the 500s with metabolic acidosis/lactic acidosis. She was started on the DKA protocol by ER physician. Urine ketones are negative. Beta hydroxybutyrate slightly elevated. Patient had a central line placed by ER physician and was started on heparin drip for anticoagulation for her [place]. She was accepted for admission by critical care medicine service. I discussed the case with Dr. Auguste who is not planning cardiac catheterization at this time. Patient also was given empiric antibiotics up to obtaining cultures. 2 Patient is sedated with Diprivan and intubated. Remains on Heparin drip. On PRVC/AC RR 20 IT 1.0, TV 500, PEEP:5 and FIO2 35% 11/30 No acute events overnight. Sedated and intubated. Afebrile. On Heparin drip 12/01 Patient remains sedated and intubated. Afebrile. On Heparin drip. She had episode of desaturation while on CPAP. 12/02 Patient is sedated with Diprivan and intubated. Remains on Heparin drip. 12/03 No events over night. Attempt SBT tomorrow post cardiac Catheterization 12/04 cardiac catheterization today, successful intervention on the free mammary bypass graft to the LAD with congregation of ORLY-3 flow and successful revascularization of the proximal right coronary artery with improvement in flow 12/05 attempt to wean from the mechanical ventilation failure due to rapid shallow breathing today 12/06 no evidence overnight Objective Vital Signs Date Time Temp Pulse Resp B/P Pulse Ox O2 Delivery O2 Flow Rate FiO2 12/06/16 10:00 83 12/06/16 08:00 40 12/06/16 08:00 97.7 39 171/79 97 Intake and Output 12/05/16 12/05/16 12/06/16 08:00 16:00 00:00 Intake Total 771 ml 200 ml 1115 ml Output Total 350 ml 700 ml 225 ml Balance 421 ml -500 ml 890 ml Result Diagram: 12/06/16 0520 12/06/16 0520 Other Results Laboratory Tests Test 12/05/16 12/06/16 12:14 05:04 Blood Gas Puncture Site RT RADIAL RT RADIAL Blood Gas Patient Temperature 98.6 98.6 Blood Gas HCO3 19 mmol/L 16 mmol/L (22-26) (22-26) Blood Gas Base Excess -5.5 mmol/L -8.2 mmol/L (-2-2) (-2-2) Blood Gas Oxygen Saturation 91 % (90-100) 93 % (90-100) Arterial Blood pH 7.37 7.34 (7.380-7.420) (7.380-7.420) Arterial Blood Partial 33 mmHg (38-42) 31 mmHg (38-42) Pressure CO2 Arterial Blood Partial 75 mmHg 90 mmHg Pressure O2 (61-120) (61-120) Arterial Blood Oxygen Content 10.8 Vol % 14.9 Vol % (12.0-20.0) (12.0-20.0) Arterial Blood 1.9 % (0-4) 1.7 % (0-4) Carboxyhemoglobin Arterial Blood Methemoglobin 1.3 % (0-2) 1.3 % (0-2) Blood Gas Hemoglobin 8.4 G/DL 11.2 G/DL (12.0-16.0) (12.0-16.0) Oxygen Delivery Device VENTILATOR VENTILATOR Blood Gas Ventilator Setting PC/AC Blood Gas Inspired Oxygen 40 % 40 % Imaging Last 24 hours Impressions Chest X-Ray 12/06/16 0600 Signed Impressions: Service Date/Time: Tuesday, December 06, 2016 02:57 - CONCLUSION: Worsening bibasilar consolidation and effusions. Lennox Cason MD Objective Remarks GENERAL: Patient is 76 yo intubated and sedated SKIN: Warm and dry. HEAD: Normocephalic. EYES: No scleral icterus. No injection or drainage. NECK: Supple, trachea midline. No JVD or lymphadenopathy. Orally intubated. CARDIOVASCULAR: Regular rate and rhythm without murmurs, gallops, or rubs. RESPIRATORY: Breath sounds equal bilaterally. No accessory muscle use. GASTROINTESTINAL: Abdomen soft, non-tender, nondistended. MUSCULOSKELETAL: No cyanosis, or edema. Neuro: sedated and intubated A/P Assessment and Plan 76-year-old female with: VDRF CHF Sepsis Possible Pneumonia Non-ST elevation [place] Uncontrolled diabetes mellitus Lactic acidosis History of CAD History of PVD Plan: Neuro: Off Diprivan infusion Precedex as needed Attempt of SBT and extubation today failure due to rapid shallow breathing last afternoon Pulm: Wean off vent support as tolerated keep sat >92% Bronchodilators, ICU vent bundle, CPAP trials as ramone - SBT daily CV: Monitor HR and BP keep MAP>65mmHg Monitor CK/trop. Echo showed EF 40-45%, hypokinesis in apical myocardium. Cards- . Gladly appreciated - Continue ASA, Lipitor, Brilinta 90mg BID, heparin drip. - Status post catheterization December 04, successful intervention on the free mammary bypass graft to the LAD with congregation of ORLY-3 flow and successful revascularization of the proximal right coronary artery with improvement in flow : Monitor renal function, I/O's, electrolytes replacement per protocol. - Bicarbonate drip to prevent contrast-induced nephrotoxicity - DC GI/liver: On Protonix 40mg daily, on Glucerna 1.5@45ml/hr Heme: Monitor CBC, coags- on heparin drip per [place] protocol. ID: Empiric antibiotic coverage with IV cefepime/Zithromax started 2/3. Received a dose of vancomycin and Zosyn in the ER. Monitor for signs of infections ( Fever, WBC) check sputum cx Endocrine: On SSI ( medium scale) Levemir 20 u BID Prophylaxis: PPI/SCDs. On full anticoagulation with heparin CCT 35 mins Hema Gomez MD Dec 06, 2016 10:54
[2016-12-06] MEDS: AZITHROMYCIN INJ 500 MG in SODIUM CHLOR 0.9% 250 ML INJ 250 ML IV SCH (11:47)
[2016-12-06] MEDS: RESP: ALBUTEROL 2.5 MG/3 ML NEB (PRN) INH ×2 (17:55→23:31)
[2016-12-06] MEDS: CHLORHEXIDINE GLUCONATE 2 % 1 PACK (2 CLOTHS) TOP SCH (19:32)
[2016-12-07] VITALS (19 sets, daily range): BP systolic 127–153; BP diastolic 61–107; PULSE 59–76; RESP 14–28; TEMP 97.6–99.3; O2SAT 91–100
[2016-12-07] MEDS: NITROGLYCERIN 2% OINT 1 GM PACKET TOPICAL SCH ×5 (00:19→23:59)
[2016-12-07] MEDS: DEXMEDETOMIDINE INJ 50 ML IV SCH ×3 (02:52→16:32)
[2016-12-07] MEDS: INSULIN ASPART SUPPLEMENTAL SCALE SQ SCH ×7 (04:00→23:58)
[2016-12-07] MEDS: CEFEPIME INJ 1,000 MG in SODIUM CHLORIDE 0.9% INJ 100 ML IV SCH (04:51)
[2016-12-07 05:17] LABS: AUTOMATED NEUTROPHIL # 10.3 TH/MM3 (1.8-7.7); BASOPHIL % 0.2 % (0.0-2.0); EOSINOPHIL % 0.1 % (0.0-4.0); HEMATOCRIT 22.7 % (35.0-46.0); LYMPH % 6.7 % (9.0-44.0); LYMPHOCYTE # 0.8 TH/MM3 (1.0-4.8); MEAN CELL VOLUME 89.5 FL (80.0-100.0); MEAN CORPUSCULAR HEMOGLOBIN 29.9 PG (27.0-34.0); MEAN CORPUSCULAR HGB CONC 33.5 % (32.0-36.0); PLATELET COUNT 222 TH/MM3 (150-450); RED BLOOD COUNT 2.53 MIL/MM3 (4.00-5.30); RED CELL DISTRIBUTION WIDTH 13.6 % (11.6-17.2); WHITE BLOOD COUNT 12.1 TH/MM3 (4.0-11.0)
[2016-12-07 05:21] LABS: HEMO FLAGS AUTO DIFF
[2016-12-07 06:17] LABS: ALKALINE PHOSPHATASE 69 U/L (45-117); ALT (GPT) 34 U/L (10-53); ANION GAP 13 MEQ/L (5-15); AST (GOT) 17 U/L (15-37); BLOOD UREA NITROGEN 67 MG/DL (7-18); CHLORIDE 120 MEQ/L (98-107); GLOMERULAR FILTRATION RATE 32 ML/MIN (>89); MAGNESIUM 2.9 MG/DL (1.5-2.5); SODIUM (NA) 152 MEQ/L (136-145); TOTAL BILIRUBIN ADULT 0.4 MG/DL (0.2-1.0)
[2016-12-07 06:24] LABS: BANDS 3 % (0-6); BASOPHILS 1 % (0-2); CORRECTED NUCLEATED RBC 1 /100 WBC (0-0); MYELOCYTES 1 % (0-0); NEUTROPHIL # MANUAL DIFF 9.7 TH/MM3 (1.8-7.7); POLYS (SEG NEUTROPHILS) 76 % (16-70); WBC DIFF SAMPLE 100
[2016-12-07 06:25] LABS: PLATELET ESTIMATE SMEAR NORMAL (NORMAL); PLATELET MORPHOLOGY NORMAL (NORMAL); ROULEAUX PRESENT (NORMAL); SCAN/DIFF FINAL DIFF MANUAL
--- NOTE | 2016-12-07 09:16 | HHI.CCPN ---
Subjective Remarks/Hospital Course 76-year-old female came to the emergency room brought by EMS as a STEMI alert. Patient called 911 for shortness of breath. When they arrived patient says oxygen saturation was in the 80s and she was in respiratory distress. Patient has history of coronary artery disease and congestive heart failure. She told me she had her bypass surgery done few years ago. Patient denied of any chest pain at any point. EMS said that patient had told them that she was nauseous for past couple days and vomited last night. She was woken up from the sleep with this shortness of breath. By the time patient arrived to the ER she was acutely short of breath and in severe respiratory distress. She was unable to give much history. She was pale and started getting agitated and diaphoretic when they moved her from the gurney to the stretcher. Patient developed worsening respiratory distress and required emergent intubation was placed on mechanical ventilation by ER physician. Her troponin came back at 20 and her EKG suggested intraventricular conduction delay versus left bundle branch block. Cardiology was contacted and felt patient had a non-ST elevation MD. She was also noted to be extremely hyperglycemic with glucose levels in the 500s with metabolic acidosis/lactic acidosis. She was started on the DKA protocol by ER physician. Urine ketones are negative. Beta hydroxybutyrate slightly elevated. Patient had a central line placed by ER physician and was started on heparin drip for anticoagulation for her MD. She was accepted for admission by critical care medicine service. I discussed the case with Dr. Auguste who is not planning cardiac catheterization at this time. Patient also was given empiric antibiotics up to obtaining cultures. 2 Patient is sedated with Diprivan and intubated. Remains on Heparin drip. On PRVC/AC RR 20 IT 1.0, TV 500, PEEP:5 and FIO2 35% 11/30 No acute events overnight. Sedated and intubated. Afebrile. On Heparin drip 12/01 Patient remains sedated and intubated. Afebrile. On Heparin drip. She had episode of desaturation while on CPAP. 12/02 Patient is sedated with Diprivan and intubated. Remains on Heparin drip. 12/03 No events over night. Attempt SBT tomorrow post cardiac Catheterization 12/04 cardiac catheterization today, successful intervention on the free mammary bypass graft to the LAD with episcopalian of ORLY-3 flow and successful revascularization of the proximal right coronary artery with improvement in flow 12/05 attempt to wean from the mechanical ventilation failure due to rapid shallow breathing today 12/06 no evidence overnight 12/07 failed as SBT yesterday due to rapid shallow breathing Objective Vital Signs Date Time Temp Pulse Resp B/P Pulse Ox O2 Delivery O2 Flow Rate FiO2 12/07/16 07:55 98 35 12/07/16 06:00 61 12/07/16 04:00 97.6 14 143/64 Intake and Output 12/06/16 12/06/16 12/07/16 08:00 16:00 00:00 Intake Total 966 ml 1289 ml 464 ml Output Total 400 ml 500 ml 600 ml Balance 566 ml 789 ml -136 ml Result Diagram: 12/07/16 04112/07/16 041 Imaging Last 24 hours Impressions Chest X-Ray 12/06/16 0600 Signed Impressions: Service Date/Time: Tuesday, December 06, 2016 02:57 - CONCLUSION: Worsening bibasilar consolidation and effusions. Lennox Cason MD Objective Remarks GENERAL: Patient is 76 yo intubated and sedated SKIN: Warm and dry. HEAD: Normocephalic. EYES: No scleral icterus. No injection or drainage. NECK: Supple, trachea midline. No JVD or lymphadenopathy. Orally intubated. CARDIOVASCULAR: Regular rate and rhythm without murmurs, gallops, or rubs. RESPIRATORY: Breath sounds equal bilaterally. No accessory muscle use. GASTROINTESTINAL: Abdomen soft, non-tender, nondistended. MUSCULOSKELETAL: No cyanosis, or edema. Neuro: sedated and intubated A/P Assessment and Plan 76-year-old female with: VDRF CHF Sepsis Possible Pneumonia Non-ST elevation MD Uncontrolled diabetes mellitus Lactic acidosis History of CAD History of PVD Plan: Neuro: Off Diprivan infusion Continue Precedex as needed Failed SBT yesterday due to a rapid shallow breathing Attempt of SBT and extubation today again Pulm: - Wean off vent support as tolerated keep sat >92% - Bronchodilators, ICU vent bundle, CPAP trials as ramone - SBT daily CV: -Telemetry - keep MAP>65mmHg - Echo showed EF 40-45%, hypokinesis in apical myocardium. - Cardiology- . Gladly appreciated - Continue ASA, Lipitor, Brilinta 90mg BID, heparin drip. - Status post catheterization December 04, successful intervention on the free mammary bypass graft to the LAD with episcopalian of ORLY-3 flow and successful revascularization of the proximal right coronary artery with improvement in flow : - Monitor renal function, I/O's, electrolytes replacement per protocol. - Bicarbonate drip to prevent contrast-induced nephrotoxicity - DCed - Started gentle diuresis GI/liver: On Protonix 40mg daily, on Glucerna 1.5@45ml/hr Heme: Monitor CBC, coags- on heparin drip per MD protocol. ID: Discontinue Empiric antibiotic coverage with IV cefepime/Zithromax started . Received a dose of vancomycin and Zosyn in the ER. Monitor for signs of infections ( Fever, WBC) check sputum cx Endocrine: On SSI ( medium scale) Levemir 20 u BID Prophylaxis: PPI/SCDs. On full anticoagulation with heparin Level III Hema Gomez MD Dec 07, 2016 09:16
[2016-12-07] MEDS: CHLORHEXIDINE 0.12% (ORAL KIT) 15 ML CUP MT SCH ×2 (09:17→20:54)
[2016-12-07] MEDS: ATORVASTATIN 40 MG TAB PO SCH (09:18)
[2016-12-07] MEDS: METOPROLOL TARTRATE 25 MG TAB PO SCH ×2 (09:18→20:50)
[2016-12-07] MEDS: PANTOPRAZOLE SODIUM 40 MG VIAL IV SCH (09:18)
[2016-12-07] MEDS: TICAGRELOR 90 MG TAB PO SCH ×2 (09:18→20:50)
[2016-12-07] MEDS: INSULIN DETEMIR 100 UNITS/ML VIAL SQ SCH ×2 (09:18→20:51)
[2016-12-07] MEDS: ASPIRIN 81 MG CHEW TAB CHEW SCH (09:19)
[2016-12-07] MEDS: SODIUM CHLORIDE 0.9% FLUSH 5 ML FLUSH IVF SCH ×2 (09:23→20:51)
--- NOTE | 2016-12-07 09:30 | PD.CARD.PN ---
Subjective Subjective Remarks Intubated/sedated, on cpap trial, responsive. Objective Medications Administered Medications Medications (Trade) Dose Ordered Sig/Amber Route PRN Reason Start Time Stop Time Status Last Admin Dose Admin Potassium Chloride (KCl 20 Meq Premix Inj) 100 ml @ 100 mls/hr Q1H PRN IV SEE LABEL COMMENTS 11/28/16 06:45 11/28/16 09:05 Aspirin (Aspirin Chew) 81 mg DAILY CHEW 11/28/16 09:00 12/07/16 09:19 Ticagrelor (Brilinta) 90 mg BID PO 11/28/16 09:00 12/07/16 09:18 Acetaminophen (Tylenol) 650 mg Q6H PRN PO PAIN 1-10 AND/OR FEVER >101F 11/28/16 10:15 12/01/16 20:02 Chlorhexidine Gluconate (Peridex 0.12% Liq) 15 ml BID@08,20 MT 11/28/16 20:00 12/07/16 09:17 Pantoprazole Sodium (Protonix Inj) 40 mg DAILY IV 11/28/16 11:00 12/07/16 09:18 Miscellaneous Information 1 Q361D XX 11/28/16 10:15 11/28/16 10:15 Chlorhexidine Gluconate (Chlorhexidine 2% Cloth) Taper DAILY@04 TOP 11/29/16 04:00 11/25/17 03:59 12/04/16 02:34 Insulin Aspart (NovoLOG SUPPLEMENTAL SCALE) 1 Q4HR SQ 11/28/16 20:00 12/03/16 03:40 Atorvastatin Calcium (Lipitor) 40 mg DAILY PO 11/29/16 09:00 12/07/16 09:18 Insulin Detemir (Levemir Inj) 20 units BID SQ 12/01/16 21:00 12/07/16 09:18 Nitroglycerin (Nitroglycerin 2% Oint) 0.5 inch Q6HR TOPICAL 12/01/16 18:00 12/07/16 05:46 Metoprolol Tartrate 12.5 mg 12.5 mg Q12HR PO 12/01/16 21:00 12/07/16 09:18 Sodium Chloride (NS 1000 ml Inj) 1,000 ml @ 83 mls/hr Q12H3M IV 12/03/16 22:21 12/08/16 22:20 12/06/16 20:58 IV Flush 2 ml 2 ml BID IVF 12/04/16 21:00 12/07/16 09:23 Dexmedetomidine HCl (Precedex Inj) 50 ml @ 0 mls/hr TITRATE IV 12/05/16 17:15 12/07/16 02:52 Vital Signs / I&O Vital Signs Date Time Temp Pulse Resp B/P Pulse Ox O2 Delivery O2 Flow Rate FiO2 12/07/16 07:55 98 35 12/07/16 07:55 35 12/07/16 06:00 61 12/07/16 04:30 100 40 12/07/16 04:00 97.6 60 14 143/64 100 12/07/16 04:00 40 12/07/16 04:00 60 12/07/16 02:00 63 12/07/16 01:15 100 35 12/07/16 00:00 98.5 68 14 136/63 100 12/07/16 00:00 68 12/07/16 00:00 40 12/06/16 22:33 100 40 12/06/16 22:00 63 12/06/16 20:00 67 12/06/16 20:00 98.9 67 14 129/60 100 12/06/16 20:00 40 12/06/16 19:48 100 40 12/06/16 18:00 73 12/06/16 17:58 100 40 12/06/16 16:00 98.4 67 20 123/60 99 12/06/16 16:00 40 12/06/16 16:00 67 12/06/16 14:15 97 40 12/06/16 14:00 71 12/06/16 12:45 40 12/06/16 12:00 40 12/06/16 12:00 98.4 97 25 149/71 97 12/06/16 12:00 97 12/06/16 12:00 40 12/06/16 10:00 83 I/O 12/06/16 12/06/16 12/06/16 12/07/16 12/07/16 12/07/16 07:00 15:00 23:00 07:00 15:00 23:00 Intake Total 966 ml 1289 ml 464 ml 675 ml Output Total 400 ml 500 ml 600 ml 325 ml Balance 566 ml 789 ml -136 ml 350 ml IV Total 866 ml 1229 ml 444 ml 675 ml Other 100 ml 60 ml 20 ml Output Urine Total 400 ml 500 ml 600 ml 325 ml # Bowel Movements 0 0 0 Physical Exam GENERAL: Intubated, sedated CARDIOVASCULAR: Regular rate and rhythm without murmurs, gallops, or rubs. RESPIRATORY: Clear to auscultation. Breath sounds equal bilaterally. No wheezes , rales, or rhonchi. GASTROINTESTINAL: Abdomen soft, non-tender, nondistended. Normal active bowel sounds MUSCULOSKELETAL: trace LE edema NEURO: Intubated, sedated Laboratory Laboratory Tests Test 12/07/16 04:11 White Blood Count 12.1 TH/MM3 Red Blood Count 2.53 MIL/MM3 Hemoglobin 7.6 GM/DL Hematocrit 22.7 % Mean Corpuscular Volume 89.5 FL Mean Corpuscular Hemoglobin 29.9 PG Mean Corpuscular Hemoglobin 33.5 % Concent Red Cell Distribution Width 13.6 % Platelet Count 222 TH/MM3 Mean Platelet Volume 9.6 FL Neutrophils (%) (Auto) 85.0 % Lymphocytes (%) (Auto) 6.7 % Monocytes (%) (Auto) 8.0 % Eosinophils (%) (Auto) 0.1 % Basophils (%) (Auto) 0.2 % Neutrophils # (Auto) 10.3 TH/MM3 Lymphocytes # (Auto) 0.8 TH/MM3 Monocytes # (Auto) 1.0 TH/MM3 Eosinophils # (Auto) 0.0 TH/MM3 Basophils # (Auto) 0.0 TH/MM3 CBC Comment AUTO DIFF Differential Total Cells 100 Counted Neutrophils % (Manual) 76 % Band Neutrophils % 3 % Lymphocytes % 12 % Monocytes % 7 % Basophils % 1 % Neutrophils # (Manual) 9.7 TH/MM3 Myelocytes 1 % Nucleated Red Blood Cells 1 /100 WBC Differential Comment FINAL DIFF MANUAL Platelet Estimate NORMAL Platelet Morphology Comment NORMAL Rouleau PRESENT Sodium Level 152 MEQ/L Potassium Level 4.0 MEQ/L Chloride Level 120 MEQ/L Carbon Dioxide Level 19.0 MEQ/L Anion Gap 13 MEQ/L Blood Urea Nitrogen 67 MG/DL Creatinine 1.56 MG/DL Estimat Glomerular Filtration 32 ML/MIN Rate Random Glucose 132 MG/DL Calcium Level 8.3 MG/DL Phosphorus Level 4.7 MG/DL Magnesium Level 2.9 MG/DL Total Bilirubin 0.4 MG/DL Aspartate Amino Transf 17 U/L (AST/SGOT) Alanine Aminotransferase 34 U/L (ALT/SGPT) Alkaline Phosphatase 69 U/L Total Protein 5.7 GM/DL Albumin 1.9 GM/DL Imaging Last Impressions Chest X-Ray 12/06/16 0600 Signed Impressions: Service Date/Time: Tuesday, December 06, 2016 02:57 - CONCLUSION: Worsening bibasilar consolidation and effusions. Lennox Cason MD Assessment and Plan Problem List: (1) Non-STEMI (non-ST elevated myocardial infarction) (2) Acute renal failure Assessment and Plan: Cr essentially stable, will have to watch given added Lasix. (3) Heart failure Assessment and Plan: Significantly net-in; will add IV lasix particularly given need to extubate. (4) CAD (coronary artery disease) Assessment and Plan: Severe disease. S/p stent LAD graft and prox RCA (5) Anemia (6) Stented coronary artery Assessment and Plan: Continue 81mg ASA and Brilinta 90 [address] Hartman will resume care in the AM Problem Qualifiers (1) Acute renal failure: Qualified Code: N17.9 - Acute renal failure, unspecified acute renal failure type Norman Moore MD Dec 07, 2016 09:30
[2016-12-07 09:56] LABS: BLOOD GAS BASE EXCESS -8.4 mmol/L (-2-2); BLOOD GAS CARBOXYHEMOGLOBIN 1.7 % (0-4); BLOOD GAS HCO3 17 mmol/L (22-26); BLOOD GAS METHEMOGLOBIN 1.1 % (0-2); BLOOD GAS O2 HGB SATURATION 92 % (90-100); BLOOD GAS OXYGEN CONTENT 13.3 Vol % (12.0-20.0); BLOOD GAS PCO2 33 mmHg (38-42); BLOOD GAS PO2 82 mmHg (61-120); BLOOD GAS TOTAL HGB 10.2 G/DL (12.0-16.0); CRITICAL VALUE NO; OXYGEN DEVICE VENTILATOR; TEMP CORR TO 98.6
[2016-12-07 09:57] LABS: DRAW SITE RT RADIAL; FIO2 45 %; NUMBER OF ARTERIAL PUNCTURES 1; STAT NO; ULNAR PULSE Y; VENT SETTINGS IPAP 12 EPAP5
[2016-12-07] MEDS ORDERED: FUROSEMIDE 20 MG/2 ML VIAL IV PUSH SCH (10:00)
[2016-12-07] MEDS ORDERED: FUROSEMIDE 20 MG/2 ML VIAL IV PUSH ONE (11:30)
[2016-12-07] MEDS ORDERED: LABETALOL HCL 100 MG/20 ML VIAL IV ONE (11:45)
[2016-12-07] MEDS: FUROSEMIDE 40 MG/4 ML VIAL IV PUSH SCH (17:25)
[2016-12-07] MEDS: CHLORHEXIDINE GLUCONATE 2 % 1 PACK (2 CLOTHS) TOP SCH (23:59)
[2016-12-08] VITALS (20 sets, daily range): BP systolic 127–151; BP diastolic 60–69; PULSE 67–72; RESP 14–21; TEMP 99.4–101.7; O2SAT 92–100
[2016-12-08] MEDS: DEXMEDETOMIDINE INJ 50 ML IV SCH ×2 (02:40→05:41)
[2016-12-08] MEDS: RESP: ALBUTEROL 2.5 MG/3 ML NEB (PRN) INH (03:44)
[2016-12-08] MEDS ORDERED: ALTEPLASE RECOMBINANT 2 MG VIAL INTRACATH ONE (04:15)
[2016-12-08] MEDS: INSULIN ASPART SUPPLEMENTAL SCALE SQ SCH ×5 (04:35→21:22)
[2016-12-08] MEDS: NITROGLYCERIN 2% OINT 1 GM PACKET TOPICAL SCH ×3 (05:03→18:06)
--- NOTE | 2016-12-08 05:17 | RADRPT ---
EXAM DATE/TIME: 12/08/2016 04:10 [facility] COMPARISON: CHEST SINGLE AP, December 06, 2016, 2:57. INDICATIONS : Shortness of breath, possible pulmonary disease. MEDICAL HISTORY : Hypertension. Hypercholesterolemia. Myocardial infarction. CHF PVD SURGICAL HISTORY : CABG. Mastectomy, left. Hysterectomy. ENCOUNTER: Subsequent ACUITY: 1 week PAIN SCORE: Non-responsive. LOCATION: Bilateral chest FINDINGS: The cardiac silhouette is normal in transverse diameter. Median sternotomy wires are present. Support lines and tubes are in satisfactory position. There is left lower lobe atelectasis versus pneumonia. Bilateral effusions are present. CONCLUSION: 1. Left lower lobe atelectasis versus pneumonia. Bilateral effusions There has been no significant ch rommel when compared to the prior exam. Timmy Jones MD on December 08, 2016 at 5:15 Board Certified Radiologist. This report was verified electronically.
[2016-12-08 05:54] LABS: BLOOD GAS BASE EXCESS -4.6 mmol/L (-2-2); BLOOD GAS CARBOXYHEMOGLOBIN 1.7 % (0-4); BLOOD GAS HCO3 19 mmol/L (22-26); BLOOD GAS METHEMOGLOBIN 1.4 % (0-2); BLOOD GAS O2 HGB SATURATION 92 % (90-100); BLOOD GAS OXYGEN CONTENT 11.6 Vol % (12.0-20.0); BLOOD GAS PCO2 32 mmHg (38-42); BLOOD GAS PO2 76 mmHg (61-120); TEMP CORR TO 98.6
[2016-12-08 05:55] LABS: CRITICAL VALUE YES; DRAW SITE RT RADIAL; FIO2 35 %; NUMBER OF ARTERIAL PUNCTURES 1; STAT NO; ULNAR PULSE Y
[2016-12-08 05:56] LABS: AUTOMATED NEUTROPHIL # 10.6 TH/MM3 (1.8-7.7); BASOPHIL % 0.2 % (0.0-2.0); EOSINOPHIL % 0.2 % (0.0-4.0); HEMATOCRIT 23.5 % (35.0-46.0); HEMO FLAGS DIFF FINAL; LYMPH % 3.2 % (9.0-44.0); LYMPHOCYTE # 0.4 TH/MM3 (1.0-4.8); MEAN CELL VOLUME 88.2 FL (80.0-100.0); MEAN CORPUSCULAR HEMOGLOBIN 29.1 PG (27.0-34.0); MONO % 6.4 % (0.0-8.0); PLATELET COUNT 251 TH/MM3 (150-450); RED BLOOD COUNT 2.67 MIL/MM3 (4.00-5.30); RED CELL DISTRIBUTION WIDTH 13.6 % (11.6-17.2); WHITE BLOOD COUNT 11.7 TH/MM3 (4.0-11.0)
[2016-12-08 06:11] LABS: ALT (GPT) 46 U/L (10-53); ANION GAP 13 MEQ/L (5-15); AST (GOT) 31 U/L (15-37); BICARBONATE 20.4 MEQ/L (21.0-32.0); BLOOD UREA NITROGEN 69 MG/DL (7-18); CHLORIDE 121 MEQ/L (98-107); GLOMERULAR FILTRATION RATE 31 ML/MIN (>89); MAGNESIUM 2.7 MG/DL (1.5-2.5); POTASSIUM 3.6 MEQ/L (3.5-5.1); SODIUM (NA) 154 MEQ/L (136-145)
[2016-12-08 06:13] LABS: ALKALINE PHOSPHATASE 71 U/L (45-117); TOTAL BILIRUBIN ADULT 0.3 MG/DL (0.2-1.0)
[2016-12-08] MEDS: PANTOPRAZOLE SODIUM 40 MG VIAL IV SCH (08:00)
[2016-12-08] MEDS: INSULIN DETEMIR 100 UNITS/ML VIAL SQ SCH ×2 (08:01→21:21)
[2016-12-08] MEDS: ATORVASTATIN 40 MG TAB PO SCH (08:03)
[2016-12-08] MEDS: FUROSEMIDE 40 MG/4 ML VIAL IV PUSH SCH ×2 (08:03→18:05)
[2016-12-08] MEDS: ASPIRIN 81 MG CHEW TAB CHEW SCH (08:04)
[2016-12-08] MEDS: METOPROLOL TARTRATE 25 MG TAB PO SCH ×2 (08:04→21:21)
[2016-12-08] MEDS: TICAGRELOR 90 MG TAB PO SCH ×2 (08:04→21:00)
[2016-12-08] MEDS: CHLORHEXIDINE 0.12% (ORAL KIT) 15 ML CUP MT SCH ×2 (08:07→21:21)
[2016-12-08] MEDS: SODIUM CHLORIDE 0.9% FLUSH 5 ML FLUSH IVF SCH ×2 (09:00→21:22)
--- NOTE | 2016-12-08 09:27 | HHI.CCPN ---
Subjective Remarks/Hospital Course 76-year-old female came to the emergency room brought by EMS as a STEMI alert. Patient called 911 for shortness of breath. When they arrived patient says oxygen saturation was in the 80s and she was in respiratory distress. Patient has history of coronary artery disease and congestive heart failure. She told me she had her bypass surgery done few years ago. Patient denied of any chest pain at any point. EMS said that patient had told them that she was nauseous for past couple days and vomited last night. She was woken up from the sleep with this shortness of breath. By the time patient arrived to the ER she was acutely short of breath and in severe respiratory distress. She was unable to give much history. She was pale and started getting agitated and diaphoretic when they moved her from the gurney to the stretcher. Patient developed worsening respiratory distress and required emergent intubation was placed on mechanical ventilation by ER physician. Her troponin came back at 20 and her EKG suggested intraventricular conduction delay versus left bundle branch block. Cardiology was contacted and felt patient had a non-ST elevation TX. She was also noted to be extremely hyperglycemic with glucose levels in the 500s with metabolic acidosis/lactic acidosis. She was started on the DKA protocol by ER physician. Urine ketones are negative. Beta hydroxybutyrate slightly elevated. Patient had a central line placed by ER physician and was started on heparin drip for anticoagulation for her TX. She was accepted for admission by critical care medicine service. I discussed the case with Dr. Auguste who is not planning cardiac catheterization at this time. Patient also was given empiric antibiotics up to obtaining cultures. 2 Patient is sedated with Diprivan and intubated. Remains on Heparin drip. On PRVC/AC RR 20 IT 1.0, TV 500, PEEP:5 and FIO2 35% 11/30 No acute events overnight. Sedated and intubated. Afebrile. On Heparin drip 12/01 Patient remains sedated and intubated. Afebrile. On Heparin drip. She had episode of desaturation while on CPAP. 12/02 Patient is sedated with Diprivan and intubated. Remains on Heparin drip. 12/03 No events over night. Attempt SBT tomorrow post cardiac Catheterization 12/04 cardiac catheterization today, successful intervention on the free mammary bypass graft to the LAD with holiness of ORLY-3 flow and successful revascularization of the proximal right coronary artery with improvement in flow 12/05 attempt to wean from the mechanical ventilation failure due to rapid shallow breathing today 12/06 no evidence overnight 12/07 failed as SBT yesterday due to rapid shallow breathing 12/08 Patient remains intubated and on Precedex drip. Afebrile. She was on CPAP x 4 hrs yesterday then became tachycardic and hypertensive. Objective Vital Signs Date Time Temp Pulse Resp B/P Pulse Ox O2 Delivery O2 Flow Rate FiO2 12/08/16 08:50 92 35 12/08/16 06:00 67 12/08/16 04:00 99.7 21 133/60 Intake and Output 12/07/16 12/07/16 12/08/16 08:00 16:00 00:00 Intake Total 675 ml 632 ml 289 ml Output Total 325 ml 1000 ml 1275 ml Balance 350 ml -368 ml -986 ml Result Diagram: 12/08/16 0545 12/08/16 0545 Other Results Laboratory Tests Test 12/07/16 12/08/16 12/08/16 09:42 05:45 05:50 Blood Gas Puncture Site RT RADIAL RT RADIAL Blood Gas Patient Temperature 98.6 98.6 Blood Gas HCO3 17 mmol/L 19 mmol/L Blood Gas Base Excess -8.4 mmol/L -4.6 mmol/L Blood Gas Oxygen Saturation 92 % 92 % Arterial Blood pH 7.32 7.40 Arterial Blood Partial 33 mmHg 32 mmHg Pressure CO2 Arterial Blood Partial 82 mmHg 76 mmHg Pressure O2 Arterial Blood Oxygen Content 13.3 Vol % 11.6 Vol % Arterial Blood 1.7 % 1.7 % Carboxyhemoglobin Arterial Blood Methemoglobin 1.1 % 1.4 % Blood Gas Hemoglobin 10.2 G/DL 9.0 G/DL Oxygen Delivery Device VENTILATOR Blood Gas Ventilator Setting IPAP 12 EPAP5 Blood Gas Inspired Oxygen 45 % 35 % White Blood Count 11.7 TH/MM3 Red Blood Count 2.67 MIL/MM3 Hemoglobin 7.8 GM/DL Hematocrit 23.5 % Mean Corpuscular Volume 88.2 FL Mean Corpuscular Hemoglobin 29.1 PG Mean Corpuscular Hemoglobin 33.0 % Concent Red Cell Distribution Width 13.6 % Platelet Count 251 TH/MM3 Mean Platelet Volume 9.2 FL Neutrophils (%) (Auto) 90.0 % Lymphocytes (%) (Auto) 3.2 % Monocytes (%) (Auto) 6.4 % Eosinophils (%) (Auto) 0.2 % Basophils (%) (Auto) 0.2 % Neutrophils # (Auto) 10.6 TH/MM3 Lymphocytes # (Auto) 0.4 TH/MM3 Monocytes # (Auto) 0.8 TH/MM3 Eosinophils # (Auto) 0.0 TH/MM3 Basophils # (Auto) 0.0 TH/MM3 CBC Comment DIFF FINAL Differential Comment Sodium Level 154 MEQ/L Potassium Level 3.6 MEQ/L Chloride Level 121 MEQ/L Carbon Dioxide Level 20.4 MEQ/L Anion Gap 13 MEQ/L Blood Urea Nitrogen 69 MG/DL Creatinine 1.61 MG/DL Estimat Glomerular Filtration 31 ML/MIN Rate Random Glucose 184 MG/DL Calcium Level 8.5 MG/DL Phosphorus Level 3.8 MG/DL Magnesium Level 2.7 MG/DL Total Bilirubin 0.3 MG/DL Aspartate Amino Transf 31 U/L (AST/SGOT) Alanine Aminotransferase 46 U/L (ALT/SGPT) Alkaline Phosphatase 71 U/L Total Protein 5.4 GM/DL Albumin 1.8 GM/DL Imaging Last Impressions Chest X-Ray 12/08/16 0600 Signed Impressions: Service Date/Time: Thursday, December 08, 2016 04:10 - CONCLUSION: 1. Left lower lobe atelectasis versus pneumonia. Bilateral effusions There has been no significant change when compared to the prior exam. Timmy Jones MD Objective Remarks GENERAL: Patient is 76 yo intubated and sedated SKIN: Warm and dry. HEAD: Normocephalic. EYES: No scleral icterus. No injection or drainage. NECK: Supple, trachea midline. No JVD or lymphadenopathy. Orally intubated. CARDIOVASCULAR: Regular rate and rhythm without murmurs, gallops, or rubs. RESPIRATORY: Breath sounds equal bilaterally. No accessory muscle use. GASTROINTESTINAL: Abdomen soft, non-tender, nondistended. MUSCULOSKELETAL: No cyanosis, or edema. Neuro: sedated and intubated A/P Assessment and Plan 76-year-old female with: VDRF CHF Sepsis Possible Pneumonia Non-ST elevation TX Uncontrolled diabetes mellitus Lactic acidosis History of CAD History of PVD Plan: Neuro: Wean off Precedex as ramone. Monitor neuro status. Check CT brain r/o acute process, check EEG. Pulm: - Continue with vent support and keep sat >92% - Bronchodilators, ICU vent bundle, CPAP trials as ramone CV: -Monitor HR and BP keep MAP>65mmHg - Echo showed EF 40-45%, hypokinesis in apical myocardium. - Cardiology- . - Continue ASA, Lipitor, Brilinta 90mg BID, Lopressor 12.5mg Q12 - Status post catheterization December 04, successful intervention on the free mammary bypass graft to the LAD with holiness of ORLY-3 flow and successful revascularization of the proximal right coronary artery with improvement in flow : - Monitor renal function, I/O's, electrolytes replacement per protocol. - Decrease Lasix 40mg daily ( worsening renal function) -Place on Free H20 250ml Q8 for hypernatremia, monitor Sodium level. GI/liver: On Protonix 40mg daily, on Glucerna 1.5@45ml/hr Heme: Monitor CBC ID: s/p IV cefepime/Zithromax Monitor for signs of infections ( Fever, WBC) Endocrine: On SSI ( medium scale) Levemir 20 u BID Prophylaxis: PPI/SCDs/Heparin CCT 30 mins Fransisco Mas MD Dec 08, 2016 09:27
--- NOTE | 2016-12-08 12:11 | PD.CARD.PN ---
Subjective Subjective Remarks sedated on vent Objective Medications Current Medications Medications (Trade) Dose Ordered Sig/Amber Route Start Time Stop Time Status Last Admin Potassium Chloride 100 ml @ 100 mls/hr Q1H PRN IV 11/28/16 06:45 Potassium Chloride 100 ml @ 50 mls/hr Q2H PRN IV 11/28/16 06:45 Potassium Chloride 100 ml @ 100 mls/hr Q1H PRN IV 11/28/16 06:45 Potassium Chloride 100 ml @ 100 mls/hr Q1H PRN IV 11/28/16 06:45 11/28/16 09:05 Potassium Chloride 100 ml @ 50 mls/hr Q2H PRN IV 11/28/16 06:45 Potassium Chloride 100 ml @ 50 mls/hr Q2H PRN IV 11/28/16 06:45 Potassium Chloride 100 ml @ 50 mls/hr Q2H PRN IV 11/28/16 06:45 (KCl 20 Meq Premix Inj) 100 ml @ 50 mls/hr Q2H PRN IV 11/28/16 06:45 (Sodium Bicarbonate 8.4% Inj) 100 meq UNSCH PRN IV 11/28/16 06:45 Sodium Bicarbonate 50 meq 50 meq UNSCH PRN IV 11/28/16 06:45 (Sodium Phosphate Inj/NS Inj) 105 ml @ 25 mls/hr UNSCH PRN IV 11/28/16 06:45 (Aspirin Chew) 81 mg DAILY CHEW 11/28/16 09:00 12/08/16 08:04 (Brilinta) 90 mg BID PO 11/28/16 09:00 12/08/16 08:04 (Tylenol) 650 mg Q6H PRN PO 11/28/16 10:15 12/01/16 20:02 (fentaNYL INJ) 100 mcg Q4H PRN IV 11/28/16 10:15 12/08/16 02:41 (Peridex 0.12% Liq) 15 ml BID@08,20 MT 11/28/16 20:00 12/08/16 08:07 (Protonix Inj) 40 mg DAILY IV 11/28/16 11:00 12/08/16 08:00 Miscellaneous Information 1 Q361D XX 11/28/16 10:15 11/28/16 10:15 (Chlorhexidine 2% Cloth) Taper DAILY@04 TOP 11/29/16 04:00 1/31/18 03:59 12/04/16 02:34 (Chlorhexidine 2% Cloth) 3 pack UNSCH PRN TOP 11/28/16 10:15 (NovoLOG SUPPLEMENTAL SCALE) 1 Q4HR SQ 11/28/16 20:00 12/08/16 08:02 (D50w (Vial) Inj) 25 ml UNSCH PRN IV 11/28/16 17:00 (Glucagon Inj) 1 mg UNSCH PRN IM/SQ 11/28/16 17:00 (Lipitor) 40 mg DAILY PO 11/29/16 09:00 12/08/16 08:03 (Levemir Inj) 20 units BID SQ 12/01/16 21:00 12/08/16 08:01 (Nitroglycerin 2% Oint) 0.5 inch Q6HR TOPICAL 12/01/16 18:00 12/08/16 05:03 (Lopressor) 12.5 mg Q12HR PO 12/01/16 21:00 12/08/16 08:04 (Pill Splitter) 1 ea UNSCH PRN OTHER 12/01/16 12:30 (NS Flush) 2 ml UNSCH PRN IVF 12/04/16 09:30 12/07/16 17:25 (NS Flush) 2 ml BID IVF 12/04/16 21:00 12/07/16 09:23 Furosemide 40 mg 40 mg BID@09,18 IV PUSH 12/07/16 18:00 12/08/16 23:59 12/08/16 08:03 (Precedex Inj/NS Inj) 100 ml @ 0 mls/hr TITRATE IV 12/08/16 09:15 (Lasix Inj) 40 mg DAILY IV PUSH 12/09/16 09:00 (Heparin Inj) 5,000 units Q12HR SQ 12/08/16 21:00 (Free Water) 250 ml Q8HR G-TUBE 12/08/16 14:00 Vital Signs / I&O Vital Signs Date Time Temp Pulse Resp B/P Pulse Ox O2 Delivery O2 Flow Rate FiO2 12/08/16 12:04 99 35 12/08/16 10:00 69 12/08/16 08:50 92 35 12/08/16 08:00 100.2 70 20 151/69 95 12/08/16 08:00 35 12/08/16 08:00 70 12/08/16 06:00 67 12/08/16 04:00 35 12/08/16 04:00 99.7 68 21 133/60 94 12/08/16 04:00 68 12/08/16 03:55 93 35 12/08/16 02:00 68 12/08/16 00:36 98 35 12/08/16 00:00 99.7 71 14 146/66 99 12/08/16 00:00 35 12/08/16 00:00 71 12/07/16 22:00 62 12/07/16 21:35 98 35 12/07/16 20:00 99.3 62 14 127/62 98 12/07/16 20:00 62 12/07/16 20:00 35 12/07/16 19:29 99 35 12/07/16 18:00 59 12/07/16 16:00 98.9 60 14 132/61 100 12/07/16 16:00 60 12/07/16 16:00 35 12/07/16 15:33 98 35 12/07/16 14:00 61 I/O 12/07/16 12/07/16 12/07/16 12/08/16 12/08/16 12/08/16 07:00 15:00 23:00 07:00 15:00 23:00 Intake Total 675 ml 632 ml 289 ml 321 ml Output Total 325 ml 1000 ml 1275 ml 675 ml Balance 350 ml -368 ml -986 ml -354 ml IV Total 675 ml 512 ml 91 ml 91 ml Tube Feeding 178 ml 210 ml Other 120 ml 20 ml 20 ml Output Urine Total 325 ml 1000 ml 1275 ml 675 ml # Bowel Movements 0 0 0 Physical Exam Sedated Morbidly obese Chest dimished anteriorly CV S1 S2 RRR Abd: obese Ext: warm/well perfused. Right groin looks good Laboratory Laboratory Tests Test 12/08/16 12/08/16 05:45 05:50 White Blood Count 11.7 TH/MM3 Red Blood Count 2.67 MIL/MM3 Hemoglobin 7.8 GM/DL Hematocrit 23.5 % Mean Corpuscular Volume 88.2 FL Mean Corpuscular Hemoglobin 29.1 PG Mean Corpuscular Hemoglobin 33.0 % Concent Red Cell Distribution Width 13.6 % Platelet Count 251 TH/MM3 Mean Platelet Volume 9.2 FL Neutrophils (%) (Auto) 90.0 % Lymphocytes (%) (Auto) 3.2 % Monocytes (%) (Auto) 6.4 % Eosinophils (%) (Auto) 0.2 % Basophils (%) (Auto) 0.2 % Neutrophils # (Auto) 10.6 TH/MM3 Lymphocytes # (Auto) 0.4 TH/MM3 Monocytes # (Auto) 0.8 TH/MM3 Eosinophils # (Auto) 0.0 TH/MM3 Basophils # (Auto) 0.0 TH/MM3 CBC Comment DIFF FINAL Differential Comment Sodium Level 154 MEQ/L Potassium Level 3.6 MEQ/L Chloride Level 121 MEQ/L Carbon Dioxide Level 20.4 MEQ/L Anion Gap 13 MEQ/L Blood Urea Nitrogen 69 MG/DL Creatinine 1.61 MG/DL Estimat Glomerular Filtration 31 ML/MIN Rate Random Glucose 184 MG/DL Calcium Level 8.5 MG/DL Phosphorus Level 3.8 MG/DL Magnesium Level 2.7 MG/DL Total Bilirubin 0.3 MG/DL Aspartate Amino Transf 31 U/L (AST/SGOT) Alanine Aminotransferase 46 U/L (ALT/SGPT) Alkaline Phosphatase 71 U/L Total Protein 5.4 GM/DL Albumin 1.8 GM/DL Blood Gas Puncture Site RT RADIAL Blood Gas Patient Temperature 98.6 Blood Gas HCO3 19 mmol/L Blood Gas Base Excess -4.6 mmol/L Blood Gas Oxygen Saturation 92 % Arterial Blood pH 7.40 Arterial Blood Partial 32 mmHg Pressure CO2 Arterial Blood Partial 76 mmHg Pressure O2 Arterial Blood Oxygen Content 11.6 Vol % Arterial Blood 1.7 % Carboxyhemoglobin Arterial Blood Methemoglobin 1.4 % Blood Gas Hemoglobin 9.0 G/DL Blood Gas Ventilator Setting Blood Gas Inspired Oxygen 35 % Assessment and Plan Problem List: (1) Non-STEMI (non-ST elevated myocardial infarction) (2) Acute renal failure Assessment and Plan: creatinine is stable (3) Heart failure (4) CAD (coronary artery disease) (5) Anemia (6) Stented coronary artery Assessment and Plan Consider tracheostomy Problem Qualifiers (1) Acute renal failure: Qualified Code: N17.9 - Acute renal failure, unspecified acute renal failure type (2) CAD (coronary artery disease): Kyle Hartman MD Dec 08, 2016 12:11
[2016-12-08 13:36] LABS: BLOOD GAS BASE EXCESS -2.5 mmol/L (-2-2); BLOOD GAS CARBOXYHEMOGLOBIN 1.8 % (0-4); BLOOD GAS HCO3 21 mmol/L (22-26); BLOOD GAS METHEMOGLOBIN 1.6 % (0-2); BLOOD GAS O2 HGB SATURATION 90 % (90-100); BLOOD GAS OXYGEN CONTENT 11.1 Vol % (12.0-20.0); BLOOD GAS PCO2 32 mmHg (38-42); BLOOD GAS PO2 66 mmHg (61-120); BLOOD GAS TOTAL HGB 8.8 G/DL (12.0-16.0); CRITICAL VALUE NO; DRAW SITE RT RADIAL; FIO2 35 %; NUMBER OF ARTERIAL PUNCTURES 1; OXYGEN DEVICE VENTILATOR; STAT NO; TEMP CORR TO 98.6; ULNAR PULSE PRESENT; VENT SETTINGS CPAP 5/10PS
[2016-12-08] MEDS: FREE WATER G-TUBE SCH ×2 (14:00→21:22)
--- NOTE | 2016-12-08 15:09 | RADRPT ---
EXAM DATE/TIME: 12/08/2016 14:47 [facility] COMPARISON: No previous studies available for comparison. INDICATIONS : Altered mental status today. RADIATION DOSE: 56.35 CTDIvol (mGy) MEDICAL HISTORY : Hypertension. Carcinoma, breast. diabetes SURGICAL HISTORY : mastectomy ENCOUNTER: Initial ACUITY: 1 day PAIN SCALE: Non-responsive LOCATION: Bilateral head TECHNIQUE: Multiple contiguous axial images were obtained of the head. Using automated exposure control and adj ustment of the mA and/or kV according to patient size, radiation dose was kept as low as reasonably a chievable to obtain optimal diagnostic quality images. FINDINGS: CEREBRUM: The ventricles are normal for age. Periventricular areas of diminished attenuation are characteristi c of small vessel ischemic demyelination. 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 No evidence of midline shift, mass lesion, hemorrhage or acute infarction. No extra-axial fluid collect ions are seen. POSTERIOR FOSSA: The cerebellum and brainstem are intact. The 4th ventricle is midline. The cerebellopontine angle i s unremarkable. EXTRACRANIAL: The visualized portion of the orbits is intact. SKULL: The calvaria is intact. No evidence of skull fracture. CONCLUSION: 1. Chronic changes with periventricular small vessel ischemic demyelination and a punctate old lacuna r type infarct in the left thalamus. 2. No acute intracranial process, trauma or fracture. Darius Hernandez MD on December 08, 2016 at 15:05 Board Certified Radiologist. This report was verified electronically.
[2016-12-08] MEDS: hydrALAZINE HCL 10 MG TAB PO SCH ×2 (15:42→21:22)
[2016-12-08] MEDS: ACETAMINOPHEN 325 MG TAB PO PRN (16:19)
--- NOTE | 2016-12-08 17:50 | MG ---
cc: MAURO FLORES Lab No: Date: 12/08/2016 Age: Sex: F Race: EEG NUMBER [id number] TECHNIQUE 17 channel EEG. DESCRIPTION The background rhythm reveals generalized slowing mainly in the theta frequency, roughly 6 Hz. Amplitude is 20-30 microvolts. Occasionally there is further slowing in the delta frequency. There are no lateralizing features. There are no epileptic features. Photic stimulation was done with no significant driving response. INTERPRETATION Abnormal study consistent with a moderate degree of encephalopathy. MD RONAL Murphy/KK /4:52 PM /5:47 PM
[2016-12-08] MEDS: DEXMEDETOMIDINE INJ 400 MCG in SODIUM CHLORIDE 0.9% INJ 96 ML IV SCH (17:55)
[2016-12-08] MEDS ORDERED: VANCOMYCIN INJ 1,250 MG in SODIUM CHLOR 0.9% 250 ML INJ 250 ML IV ONE (19:30)
[2016-12-08] MEDS ORDERED: Vancomycin Consult Pharmacy 1 EA OTHER SCH (19:30)
[2016-12-08] MEDS ORDERED: VANCOMYCIN INJ 2,500 MG in SODIUM CHLORID 0.9% 500 ML INJ 500 ML IV ONE (21:00)
[2016-12-08] MEDS: PIPERACIL-TAZO 3.375 GM PREMIX 50 ML IV SCH (21:00)
[2016-12-08] MEDS: HEPARIN SODIUM - SQ 10,000 UNITS/ML VIAL SQ SCH (21:21)
[2016-12-08 21:39] LABS: BLOOD, URINE SMALL (NEG); GLUCOSE,URINE NEG (NEG); HYALINE CAST, URINE 12 /lpf (RARE); KETONE, URINE NEG (NEG); NITRITE,URINE NEG (NEG); SQUAMOUS EPITHELIAL CELL URINE 2 /hpf (0-5); URINE COLOR LIGHT-YELLOW (YELLW/STRAW)
[2016-12-08 21:40] LABS: COMMENT (UR) CATH-CULT NOT IND; CULTURE IF INDICATED CATH CULTURE NOT IND
--- NOTE | 2016-12-08 22:54 | PD.PROCEDR ---
Procedure Note Procedure Central Line Procedure Note Right IJ 7 [place] triple-lumen catheter Diagnosis: Acute hypoxic respiratory failure Indications: And need for central pressure monitoring Consent: Written consent was obtained Anesthesia: 1% lidocaine locally, Precedex IV Description of the Procedure: The patient was placed in the supine, mild- Trendelenburg position. The area was prepped and draped sterilely. A 19g needle was inserted under negative pressure aspiration and dark venous blood was obtained. A guidewire was inserted easily without resistance. A small incision was made using a #11 blade. Using a modified Seldinger technique, the dilator and 7 Guatemalan, 20 cm catheter were advanced over the guidewire without resistance. All ports were aspirated and flushed, and had brisk blood return. The line was secured at 17 cm at the skin using 2-0 silk interrupted sutures. A Biopatch and Transparent sterile dressing were applied. There were no immediate complications noted. There was minimal EBL. The patient tolerated the procedure well. Ultrasound Guidance: Ultrasound guidance was used to identify the right internal jugular vein. The vascular anatomy of the right anterior neck was normal. The vessel was cannulated under direct, real-time ultrasound visualization. After placement of the guidewire, confirmation of the guidewire in the lumen of the vessel was made using ultrasound visualization, before dilation of the tract. A Chest x-ray has been ordered. I personally performed the procedure. Dejon Wylie MD Dec 08, 2016 22:54
--- NOTE | 2016-12-08 23:06 | RADRPT ---
EXAM DATE/TIME: 12/08/2016 22:37 [facility] COMPARISON: CHEST SINGLE AP, December 08, 2016, 4:10. INDICATIONS : Central line placement. MEDICAL HISTORY : Hypertension. Hypercholesterolemia. Myocardial infarction. CHF. PVD. SURGICAL HISTORY : CABG. Mastectomy, left. Hysterectomy. ENCOUNTER: Subsequent ACUITY: 1 week PAIN SCORE: Non-responsive. LOCATION: Bilateral chest FINDINGS: The cardiac silhouette is normal in transverse diameter. Median sternotomy wires are present. Support lines and tubes are in satisfactory position. A right sided internal jugular vein catheter is in francesca ce without pneumothorax with its tip in the superior vena cava. Bilateral effusions persists. CONCLUSION: 1. Uncomplicated line placement. No evidence of pneumothorax. Timmy Jones MD on December 08, 2016 at 23:04 Board Certified Radiologist. This report was verified electronically.
[2016-12-09] VITALS (18 sets, daily range): BP systolic 127–148; BP diastolic 62–67; PULSE 58–70; RESP 14–28; TEMP 98.6–101.6; O2SAT 94–100
[2016-12-09] MEDS: DEXMEDETOMIDINE INJ 400 MCG in SODIUM CHLORIDE 0.9% INJ 96 ML IV SCH ×4 (00:52→11:14)
[2016-12-09] MEDS: INSULIN ASPART SUPPLEMENTAL SCALE SQ SCH ×7 (00:53→23:22)
[2016-12-09] MEDS: NITROGLYCERIN 2% OINT 1 GM PACKET TOPICAL SCH ×5 (00:54→23:22)
[2016-12-09] MEDS: PIPERACIL-TAZO 3.375 GM PREMIX 50 ML IV SCH ×4 (02:57→20:29)
[2016-12-09] MEDS: CHLORHEXIDINE GLUCONATE 2 % 1 PACK (2 CLOTHS) TOP SCH (03:40)
[2016-12-09] MEDS: FREE WATER G-TUBE SCH ×3 (05:13→20:30)
[2016-12-09] MEDS: hydrALAZINE HCL 10 MG TAB PO SCH ×3 (05:13→20:29)
[2016-12-09] MEDS: ACETAMINOPHEN 325 MG TAB PO PRN ×2 (06:41→16:50)
[2016-12-09 07:21] LABS: AUTOMATED NEUTROPHIL # 10.5 TH/MM3 (1.8-7.7); BASOPHIL % 0.2 % (0.0-2.0); EOSINOPHIL % 0.2 % (0.0-4.0); HEMATOCRIT 23.5 % (35.0-46.0); HEMO FLAGS DIFF FINAL; LYMPH % 6.7 % (9.0-44.0); LYMPHOCYTE # 0.8 TH/MM3 (1.0-4.8); MEAN CELL VOLUME 88.5 FL (80.0-100.0); MEAN CORPUSCULAR HEMOGLOBIN 28.4 PG (27.0-34.0); MEAN CORPUSCULAR HGB CONC 32.1 % (32.0-36.0); MONO % 7.5 % (0.0-8.0); NEUT % 85.4 % (16.0-70.0); PLATELET COUNT 220 TH/MM3 (150-450); RED BLOOD COUNT 2.65 MIL/MM3 (4.00-5.30); RED CELL DISTRIBUTION WIDTH 13.7 % (11.6-17.2); WHITE BLOOD COUNT 12.3 TH/MM3 (4.0-11.0)
[2016-12-09 07:53] LABS: BICARBONATE 23.9 MEQ/L (21.0-32.0); MAGNESIUM 2.5 MG/DL (1.5-2.5); POTASSIUM 3.3 MEQ/L (3.5-5.1)
[2016-12-09] MEDS: INSULIN DETEMIR 100 UNITS/ML VIAL SQ SCH ×2 (08:40→20:29)
[2016-12-09] MEDS: ASPIRIN 81 MG CHEW TAB CHEW SCH (08:41)
[2016-12-09] MEDS: PANTOPRAZOLE SODIUM 40 MG VIAL IV SCH (08:42)
[2016-12-09] MEDS: HEPARIN SODIUM - SQ 10,000 UNITS/ML VIAL SQ SCH (08:43)
[2016-12-09] MEDS: TICAGRELOR 90 MG TAB PO SCH ×2 (08:43→20:29)
[2016-12-09] MEDS: METOPROLOL TARTRATE 25 MG TAB PO SCH ×2 (08:43→20:29)
[2016-12-09] MEDS: CHLORHEXIDINE 0.12% (ORAL KIT) 15 ML CUP MT SCH ×2 (08:44→20:31)
[2016-12-09] MEDS: SODIUM CHLORIDE 0.9% FLUSH 5 ML FLUSH IVF SCH ×2 (08:44→20:30)
[2016-12-09] MEDS: ATORVASTATIN 40 MG TAB PO SCH (09:00)
[2016-12-09] MEDS ORDERED: FUROSEMIDE 40 MG/4 ML VIAL IV PUSH SCH (09:00)
[2016-12-09] MEDS: POTASSIUM CHLOR 20 MEQ PREMIX 100 ML IV PRN ×2 (09:07→11:25)
--- NOTE | 2016-12-09 09:26 | HHI.CCPN ---
Subjective Remarks/Hospital Course 76-year-old female came to the emergency room brought by EMS as a STEMI alert. Patient called 911 for shortness of breath. When they arrived patient says oxygen saturation was in the 80s and she was in respiratory distress. Patient has history of coronary artery disease and congestive heart failure. She told me she had her bypass surgery done few years ago. Patient denied of any chest pain at any point. EMS said that patient had told them that she was nauseous for past couple days and vomited last night. She was woken up from the sleep with this shortness of breath. By the time patient arrived to the ER she was acutely short of breath and in severe respiratory distress. She was unable to give much history. She was pale and started getting agitated and diaphoretic when they moved her from the gurney to the stretcher. Patient developed worsening respiratory distress and required emergent intubation was placed on mechanical ventilation by ER physician. Her troponin came back at 20 and her EKG suggested intraventricular conduction delay versus left bundle branch block. Cardiology was contacted and felt patient had a non-ST elevation MA. She was also noted to be extremely hyperglycemic with glucose levels in the 500s with metabolic acidosis/lactic acidosis. She was started on the DKA protocol by ER physician. Urine ketones are negative. Beta hydroxybutyrate slightly elevated. Patient had a central line placed by ER physician and was started on heparin drip for anticoagulation for her MA. She was accepted for admission by critical care medicine service. I discussed the case with Dr. Auguste who is not planning cardiac catheterization at this time. Patient also was given empiric antibiotics up to obtaining cultures. 2 Patient is sedated with Diprivan and intubated. Remains on Heparin drip. On PRVC/AC RR 20 IT 1.0, TV 500, PEEP:5 and FIO2 35% 11/30 No acute events overnight. Sedated and intubated. Afebrile. On Heparin drip 12/01 Patient remains sedated and intubated. Afebrile. On Heparin drip. She had episode of desaturation while on CPAP. 12/02 Patient is sedated with Diprivan and intubated. Remains on Heparin drip. 12/03 No events over night. Attempt SBT tomorrow post cardiac Catheterization 12/04 cardiac catheterization today, successful intervention on the free mammary bypass graft to the LAD with confucianism of ORLY-3 flow and successful revascularization of the proximal right coronary artery with improvement in flow 12/05 attempt to wean from the mechanical ventilation failure due to rapid shallow breathing today 12/06 no evidence overnight 12/07 failed as SBT yesterday due to rapid shallow breathing 12/08 Patient remains intubated and on Precedex drip. Afebrile. She was on CPAP x 4 hrs yesterday then became tachycardic and hypertensive. 12/09 Patient remains sdeated and intubated. Spiked fever with Tmax 101.7. CT brain yesterday showed no acute intracranial process Objective Vital Signs Date Time Temp Pulse Resp B/P Pulse Ox O2 Delivery O2 Flow Rate FiO2 12/09/16 08:38 99 45 12/09/16 06:00 70 12/09/16 04:00 100.1 18 148/67 Intake and Output 12/08/16 12/08/16 12/09/16 08:00 16:00 00:00 Intake Total 321 ml 1032 ml 1177 ml Output Total 675 ml 1350 ml 1000 ml Balance -354 ml -318 ml 177 ml Result Diagram: 12/09/16 0700 12/09/16 0700 Other Results Laboratory Tests Test 12/08/16 12/08/16 12/09/16 13:28 20:30 07:00 Blood Gas Puncture Site RT RADIAL Blood Gas Patient Temperature 98.6 Blood Gas HCO3 21 mmol/L Blood Gas Base Excess -2.5 mmol/L Blood Gas Oxygen Saturation 90 % Arterial Blood pH 7.44 Arterial Blood Partial 32 mmHg Pressure CO2 Arterial Blood Partial 66 mmHg Pressure O2 Arterial Blood Oxygen Content 11.1 Vol % Arterial Blood 1.8 % Carboxyhemoglobin Arterial Blood Methemoglobin 1.6 % Blood Gas Hemoglobin 8.8 G/DL Oxygen Delivery Device VENTILATOR Blood Gas Ventilator Setting CPAP 5/10PS Blood Gas Inspired Oxygen 35 % Urine Color LIGHT-YELLOW Urine Turbidity HAZY Urine pH 5.0 Urine Specific [place] 1.010 Urine Protein 30 mg/dL Urine Glucose (UA) NEG mg/dL Urine Ketones NEG mg/dL Urine Occult Blood SMALL Urine Nitrite NEG Urine Bilirubin NEG Urine Urobilinogen LESS THAN 2.0 MG/DL Urine Leukocyte Esterase NEG Urine RBC 2 /hpf Urine WBC 4 /hpf Urine Squamous Epithelial 2 /hpf Cells Urine Amorphous Sediment RARE Urine Hyaline Casts 12 /lpf Microscopic Urinalysis Comment CATH-CULT NOT IND White Blood Count 12.3 TH/MM3 Red Blood Count 2.65 MIL/MM3 Hemoglobin 7.5 GM/DL Hematocrit 23.5 % Mean Corpuscular Volume 88.5 FL Mean Corpuscular Hemoglobin 28.4 PG Mean Corpuscular Hemoglobin 32.1 % Concent Red Cell Distribution Width 13.7 % Platelet Count 220 TH/MM3 Mean Platelet Volume 10.0 FL Neutrophils (%) (Auto) 85.4 % Lymphocytes (%) (Auto) 6.7 % Monocytes (%) (Auto) 7.5 % Eosinophils (%) (Auto) 0.2 % Basophils (%) (Auto) 0.2 % Neutrophils # (Auto) 10.5 TH/MM3 Lymphocytes # (Auto) 0.8 TH/MM3 Monocytes # (Auto) 0.9 TH/MM3 Eosinophils # (Auto) 0.0 TH/MM3 Basophils # (Auto) 0.0 TH/MM3 CBC Comment DIFF FINAL Differential Comment Sodium Level 157 MEQ/L Potassium Level 3.3 MEQ/L Chloride Level 123 MEQ/L Carbon Dioxide Level 23.9 MEQ/L Anion Gap 10 MEQ/L Blood Urea Nitrogen 67 MG/DL Creatinine 1.74 MG/DL Estimat Glomerular Filtration 29 ML/MIN Rate Random Glucose 152 MG/DL Calcium Level 8.1 MG/DL Magnesium Level 2.5 MG/DL Imaging Last Impressions Chest X-Ray 12/08/16 0600 Signed Impressions: Service Date/Time: Thursday, December 08, 2016 04:10 - CONCLUSION: 1. Left lower lobe atelectasis versus pneumonia. Bilateral effusions There has been no significant change when compared to the prior exam. Timmy Jones MD Head CT 12/08/16 0000 Signed Impressions: Service Date/Time: Thursday, December 08, 2016 14:47 - CONCLUSION: 1. 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 2. No acute intracranial process , trauma or fracture. Darius Hernandez MD Objective Remarks GENERAL: Patient is 76 yo intubated and sedated SKIN: Warm and dry. HEAD: Normocephalic. EYES: No scleral icterus. No injection or drainage. NECK: Supple, trachea midline. No JVD or lymphadenopathy. Orally intubated. CARDIOVASCULAR: Regular rate and rhythm without murmurs, gallops, or rubs. RESPIRATORY: Breath sounds equal bilaterally. No accessory muscle use. GASTROINTESTINAL: Abdomen soft, non-tender, nondistended. MUSCULOSKELETAL: No cyanosis, or edema. Neuro: sedated and intubated A/P Assessment and Plan 76-year-old female with: VDRF CHF Hypernatremia Possible Pneumonia Non-ST elevation MA Uncontrolled diabetes mellitus Lactic acidosis History of CAD History of PVD Plan: Neuro: Wean off Precedex as ramone. Monitor neuro status. 12/08 CT brain: No acute intracranial process 12/08 EEG: Moderate degree of encephalopathy Pulm: - Continue with vent support and keep sat >92% - Bronchodilators, ICU vent bundle, CPAP trials as ramone CV: -Monitor HR and BP keep MAP>65mmHg - Echo showed EF 40-45%, hypokinesis in apical myocardium. - Cardiology- . - Continue ASA, Lipitor, Brilinta 90mg BID, Lopressor 12.5mg Q12 - Status post catheterization December 04, successful intervention on the free mammary bypass graft to the LAD with confucianism of ORLY-3 flow and successful revascularization of the proximal right coronary artery with improvement in flow : - Monitor renal function, I/O's, electrolytes replacement per protocol. - d/c lasix (worsening renal function), -Increase Free H20 300ml Q8 for hypernatremia, place on D5W @50ml/hr monitor Sodium level. GI/liver: On Protonix 40mg daily, on Glucerna 1.5@45ml/hr Heme: Monitor CBC, transfuse 1u PRBC, Guaiac stool for heme ID: Placed on Zosyn overnight, Given Vanco x1 dose , follow up on BC and urine cx. Monitor for signs of infections ( Fever, WBC) Endocrine: On SSI ( medium scale)Levemir 20u BID Prophylaxis: PPI/SCDs/ hold Heparin SQ ( worsening anemia) Lines Right IJ placed 12/08 CCT 30 mins Fransisco Mas MD Dec 09, 2016 09:26
--- NOTE | 2016-12-09 10:02 | PD.CARD.PN ---
Subjective Subjective Remarks intubated Objective Medications Current Medications Medications (Trade) Dose Ordered Sig/Amber Route Start Time Stop Time Status Last Admin Potassium Chloride 100 ml @ 100 mls/hr Q1H PRN IV 11/28/16 06:45 Potassium Chloride 100 ml @ 50 mls/hr Q2H PRN IV 11/28/16 06:45 Potassium Chloride 100 ml @ 100 mls/hr Q1H PRN IV 11/28/16 06:45 12/09/16 09:07 Potassium Chloride 100 ml @ 100 mls/hr Q1H PRN IV 11/28/16 06:45 11/28/16 09:05 Potassium Chloride 100 ml @ 50 mls/hr Q2H PRN IV 11/28/16 06:45 Potassium Chloride 100 ml @ 50 mls/hr Q2H PRN IV 11/28/16 06:45 Potassium Chloride 100 ml @ 50 mls/hr Q2H PRN IV 11/28/16 06:45 (KCl 20 Meq Premix Inj) 100 ml @ 50 mls/hr Q2H PRN IV 11/28/16 06:45 (Sodium Bicarbonate 8.4% Inj) 100 meq UNSCH PRN IV 11/28/16 06:45 Sodium Bicarbonate 50 meq 50 meq UNSCH PRN IV 11/28/16 06:45 (Sodium Phosphate Inj/NS Inj) 105 ml @ 25 mls/hr UNSCH PRN IV 11/28/16 06:45 (Aspirin Chew) 81 mg DAILY CHEW 11/28/16 09:00 12/09/16 08:41 (Brilinta) 90 mg BID PO 11/28/16 09:00 12/09/16 08:43 (Tylenol) 650 mg Q6H PRN PO 11/28/16 10:15 12/09/16 06:41 (fentaNYL INJ) 100 mcg Q4H PRN IV 11/28/16 10:15 12/08/16 02:41 (Peridex 0.12% Liq) 15 ml BID@08,20 MT 11/28/16 20:00 12/09/16 08:44 (Protonix Inj) 40 mg DAILY IV 11/28/16 11:00 12/09/16 08:42 Miscellaneous Information 1 Q361D XX 11/28/16 10:15 11/28/16 10:15 (Chlorhexidine 2% Cloth) Taper DAILY@04 TOP 11/29/16 04:00 11/25/17 03:59 12/04/16 02:34 (Chlorhexidine 2% Cloth) 3 pack UNSCH PRN TOP 11/28/16 10:15 (NovoLOG SUPPLEMENTAL SCALE) 1 Q4HR SQ 11/28/16 20:00 12/09/16 08:39 (D50w (Vial) Inj) 25 ml UNSCH PRN IV 11/28/16 17:00 (Glucagon Inj) 1 mg UNSCH PRN IM/SQ 11/28/16 17:00 (Lipitor) 40 mg DAILY PO 11/29/16 09:00 12/08/16 08:03 (Levemir Inj) 20 units BID SQ 12/01/16 21:00 12/09/16 08:40 (Nitroglycerin 2% Oint) 0.5 inch Q6HR TOPICAL 12/01/16 18:00 12/09/16 05:13 (Lopressor) 12.5 mg Q12HR PO 12/01/16 21:00 12/09/16 08:43 (Pill Splitter) 1 ea UNSCH PRN OTHER 12/01/16 12:30 (NS Flush) 2 ml UNSCH PRN IVF 12/04/16 09:30 12/07/16 17:25 IV Flush 2 ml 2 ml BID IVF 12/04/16 21:00 12/09/16 08:44 (Precedex Inj/NS Inj) 100 ml @ 0 mls/hr TITRATE IV 12/08/16 09:15 12/09/16 07:20 (Heparin Inj) 5,000 units Q12HR SQ 12/08/16 21:00 Hold 12/09/16 08:43 Hydralazine HCl 10 mg 10 mg Q8HR PO 12/08/16 14:00 12/09/16 05:13 Piperacillin Sod/ Tazobactam Sod 50 ml @ 100 mls/hr Q6H IV 12/08/16 21:00 12/09/16 08:42 (Vancomycin Consult Pharmacy) 0 ml @ 0 mls/hr UNSCH OTHER 12/08/16 19:30 Water 300 ml 300 ml Q8HR G-TUBE 12/09/16 14:00 (D5W 1000 ml Inj) 1,000 ml @ 50 mls/hr Q20H IV 12/09/16 09:15 Vital Signs / I&O Vital Signs Date Time Temp Pulse Resp B/P Pulse Ox O2 Delivery O2 Flow Rate FiO2 12/09/16 08:38 99 45 12/09/16 06:00 70 12/09/16 04:16 99 35 12/09/16 04:00 68 12/09/16 04:00 100.1 69 18 148/67 100 12/09/16 04:00 35 12/09/16 02:00 68 12/09/16 01:16 100 35 12/09/16 00:00 35 12/09/16 00:00 100.1 58 14 142/65 100 12/09/16 00:00 67 12/08/16 22:40 97 35 12/08/16 22:00 69 12/08/16 20:00 69 12/08/16 20:00 35 12/08/16 20:00 99.4 69 16 138/64 99 12/08/16 19:56 99 35 12/08/16 18:00 68 12/08/16 16:07 99 35 12/08/16 16:00 68 12/08/16 16:00 35 12/08/16 16:00 101.7 68 18 127/61 100 12/08/16 15:00 100 100 12/08/16 14:00 72 12/08/16 12:04 99 35 12/08/16 12:00 100.0 71 20 147/68 99 12/08/16 12:00 71 12/08/16 12:00 35 I/O 12/08/16 12/08/16 12/08/16 12/09/16 12/09/16 12/09/16 07:00 15:00 23:00 07:00 15:00 23:00 Intake Total 321 ml 1032 ml 1177 ml 774 ml Output Total 675 ml 1350 ml 1000 ml 700 ml Balance -354 ml -318 ml 177 ml 74 ml IV Total 91 ml 446 ml 719 ml 374 ml Tube Feeding 210 ml 286 ml 258 ml 280 ml Other 20 ml 300 ml 200 ml 120 ml Output Urine Total 675 ml 1350 ml 1000 ml 700 ml # Bowel Movements 0 0 0 Physical Exam Sedated Morbidly obese Chest dimished anteriorly CV S1 S2 RRR Abd: obese Ext: warm/well perfused. Right groin looks good Laboratory Laboratory Tests Test 12/08/16 12/08/16 12/09/16 13:28 20:30 07:00 Blood Gas Puncture Site RT RADIAL Blood Gas Patient Temperature 98.6 Blood Gas HCO3 21 mmol/L Blood Gas Base Excess -2.5 mmol/L Blood Gas Oxygen Saturation 90 % Arterial Blood pH 7.44 Arterial Blood Partial 32 mmHg Pressure CO2 Arterial Blood Partial 66 mmHg Pressure O2 Arterial Blood Oxygen Content 11.1 Vol % Arterial Blood 1.8 % Carboxyhemoglobin Arterial Blood Methemoglobin 1.6 % Blood Gas Hemoglobin 8.8 G/DL Oxygen Delivery Device VENTILATOR Blood Gas Ventilator Setting CPAP 5/10PS Blood Gas Inspired Oxygen 35 % Urine Color LIGHT-YELLOW Urine Turbidity HAZY Urine pH 5.0 Urine Specific Leary 1.010 Urine Protein 30 mg/dL Urine Glucose (UA) NEG mg/dL Urine Ketones NEG mg/dL Urine Occult Blood SMALL Urine Nitrite NEG Urine Bilirubin NEG Urine Urobilinogen LESS THAN 2.0 MG/DL Urine Leukocyte Esterase NEG Urine RBC 2 /hpf Urine WBC 4 /hpf Urine Squamous Epithelial 2 /hpf Cells Urine Amorphous Sediment RARE Urine Hyaline Casts 12 /lpf Microscopic Urinalysis Comment CATH-CULT NOT IND White Blood Count 12.3 TH/MM3 Red Blood Count 2.65 MIL/MM3 Hemoglobin 7.5 GM/DL Hematocrit 23.5 % Mean Corpuscular Volume 88.5 FL Mean Corpuscular Hemoglobin 28.4 PG Mean Corpuscular Hemoglobin 32.1 % Concent Red Cell Distribution Width 13.7 % Platelet Count 220 TH/MM3 Mean Platelet Volume 10.0 FL Neutrophils (%) (Auto) 85.4 % Lymphocytes (%) (Auto) 6.7 % Monocytes (%) (Auto) 7.5 % Eosinophils (%) (Auto) 0.2 % Basophils (%) (Auto) 0.2 % Neutrophils # (Auto) 10.5 TH/MM3 Lymphocytes # (Auto) 0.8 TH/MM3 Monocytes # (Auto) 0.9 TH/MM3 Eosinophils # (Auto) 0.0 TH/MM3 Basophils # (Auto) 0.0 TH/MM3 CBC Comment DIFF FINAL Differential Comment Sodium Level 157 MEQ/L Potassium Level 3.3 MEQ/L Chloride Level 123 MEQ/L Carbon Dioxide Level 23.9 MEQ/L Anion Gap 10 MEQ/L Blood Urea Nitrogen 67 MG/DL Creatinine 1.74 MG/DL Estimat Glomerular Filtration 29 ML/MIN Rate Random Glucose 152 MG/DL Calcium Level 8.1 MG/DL Magnesium Level 2.5 MG/DL Imaging Last 48 hours Impressions Chest X-Ray 12/08/16 0600 Signed Impressions: Service Date/Time: Thursday, December 08, 2016 04:10 - CONCLUSION: 1. Left lower lobe atelectasis versus pneumonia. Bilateral effusions There has been no significant change when compared to the prior exam. Timmy Jones MD Head CT 12/08/16 0000 Signed Impressions: Service Date/Time: Thursday, December 08, 2016 14:47 - CONCLUSION: 1. 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 2. No acute intracranial process , trauma or fracture. Darius Hernandez MD Chest X-Ray 12/08/16 0000 Signed Impressions: Service Date/Time: Thursday, December 08, 2016 22:37 - CONCLUSION: 1. Uncomplicated line placement. No evidence of pneumothorax. Timmy Jones MD Assessment and Plan Problem List: (1) Non-STEMI (non-ST elevated myocardial infarction) (2) Acute renal failure (3) Heart failure (4) CAD (coronary artery disease) (5) Anemia (6) Stented coronary artery Assessment and Plan: Cont 81mg ASA uncoated and Brilinta 90 mg bid with no interruption Assessment and Plan Consider tracheostomy Problem Qualifiers (1) Acute renal failure: Qualified Code: N17.9 - Acute renal failure, unspecified acute renal failure type (2) CAD (coronary artery disease): Kyle Hartman MD Dec 09, 2016 10:02
[2016-12-09] MEDS: DEXTROSE 5% IN WATE 1000ML INJ 1,000 ML IV SCH (11:16)
--- NOTE | 2016-12-09 14:42 | RADRPT ---
EXAM DATE/TIME: 12/09/2016 13:23 [facility] COMPARISON: US CHEST RIGHT, February 16, 2016, 15:10. INDICATIONS : Right pleural effusion. MEDICAL HISTORY : Myocardial infarction. Hypercholesterolemia. Hypertension. Polio. Congestive heart failure. Coronary artery disease. Peripheral vascular disease. GERD. Diabetes. Breast cancer. SURGICAL HISTORY : Hysterectomy. Coronary stent x 4. CABG. Mastectomy. Amputation, toes. Laminectomy. Breast reconst ruction. ENCOUNTER: Initial ACUITY: 1 day PAIN SCORE: Nonresponsive. LOCATION: Right chest MEASUREMENTS: SKIN TO PARIETAL PLEURA: 5.0 cm SKIN TO MAX SAFE DEPTH: 6.4 cm ESTIMATED FLUID VOLUME: 634 cc FLUID COMPOSITION: simple FINDINGS: Pleural effusion as above. A neda was placed on the skin surface superficial to the pleural fluid col lection. CONCLUSION: Moderate size right pleural effusion. Torito Conklin MD on December 09, 2016 at 14:40 Board Certified Radiologist. This report was verified electronically.
--- NOTE | 2016-12-09 14:47 | RADRPT ---
EXAM DATE/TIME: 12/09/2016 13:30 [facility] COMPARISON: US CHEST RIGHT, December 09, 2016, 13:23. INDICATIONS : Left pleural effusion. MEDICAL HISTORY : Hypercholesterolemia. Hypertension. Myocardial infarction. Polio. Congestive heart failure. Coronary artery disease. Peripheral vascular disease. GERD. Diabetes. Breast cancer. SURGICAL HISTORY : Hysterectomy. Coronary stent x 4. CABG. Mastectomy. Amputation, toes. Laminectomy. Breast reconst ruction. ENCOUNTER: Initial ACUITY: 1 day PAIN SCORE: Nonresponsive. LOCATION: Left chest MEASUREMENTS: SKIN TO PARIETAL PLEURA: 3.2 cm SKIN TO MAX SAFE DEPTH: 4.7 cm ESTIMATED FLUID VOLUME: 598 cc FLUID COMPOSITION: simple FINDINGS: Pleural effusion as above. A neda was placed on the skin surface superficial to the pleural fluid col lection. CONCLUSION: 1. Successful marking of the patient's left-sided pleural effusion. Long Multani MD on December 09, 2016 at 14:45 Board Certified Radiologist. This report was verified electronically.
[2016-12-09 20:34] LABS: HEMATOCRIT 24.6 % (35.0-46.0); REVIEW FLAG FINAL
[2016-12-10] VITALS (20 sets, daily range): BP systolic 117–141; BP diastolic 55–65; PULSE 66–75; RESP 16–33; TEMP 98.6–100.4; O2SAT 94–100
[2016-12-10] MEDS: PIPERACIL-TAZO 3.375 GM PREMIX 50 ML IV SCH ×4 (02:25→20:59)
[2016-12-10] MEDS: CHLORHEXIDINE GLUCONATE 2 % 1 PACK (2 CLOTHS) TOP SCH (02:31)
[2016-12-10] MEDS: INSULIN ASPART SUPPLEMENTAL SCALE SQ SCH ×5 (02:31→20:58)
[2016-12-10] MEDS: DEXMEDETOMIDINE INJ 1,000 MCG in SODIUM CHLOR 0.9% 250 ML INJ 240 ML IV SCH ×2 (02:35→11:04)
[2016-12-10] MEDS: NITROGLYCERIN 2% OINT 1 GM PACKET TOPICAL SCH ×3 (05:02→17:36)
[2016-12-10] MEDS: FREE WATER G-TUBE SCH ×3 (05:02→20:59)
[2016-12-10] MEDS: DEXTROSE 5% IN WATE 1000ML INJ 1,000 ML IV SCH ×2 (05:02→20:59)
[2016-12-10] MEDS: hydrALAZINE HCL 10 MG TAB PO SCH ×3 (05:02→20:58)
[2016-12-10 05:23] LABS: AUTOMATED NEUTROPHIL # 11.2 TH/MM3 (1.8-7.7); BASOPHIL # 0.1 TH/MM3 (0-0.2); BASOPHIL % 0.4 % (0.0-2.0); EOSINOPHIL # 0.1 TH/MM3 (0-0.4); EOSINOPHIL % 0.8 % (0.0-4.0); HEMATOCRIT 24.1 % (35.0-46.0); HEMO FLAGS DIFF FINAL; LYMPHOCYTE # 0.9 TH/MM3 (1.0-4.8); MEAN CELL VOLUME 87.6 FL (80.0-100.0); MEAN CORPUSCULAR HEMOGLOBIN 28.6 PG (27.0-34.0); MEAN CORPUSCULAR HGB CONC 32.6 % (32.0-36.0); MONO % 6.5 % (0.0-8.0); NEUT % 85.3 % (16.0-70.0); PLATELET COUNT 198 TH/MM3 (150-450); RED BLOOD COUNT 2.75 MIL/MM3 (4.00-5.30); RED CELL DISTRIBUTION WIDTH 14.8 % (11.6-17.2); WHITE BLOOD COUNT 13.2 TH/MM3 (4.0-11.0)
[2016-12-10 05:55] LABS: BICARBONATE 24.6 MEQ/L (21.0-32.0); POTASSIUM 3.6 MEQ/L (3.5-5.1)
[2016-12-10 06:20] LABS: CALCIUM-PROTEIN CORRECTED 8.3 MG/DL (8.5-10.1)
[2016-12-10] MEDS: TICAGRELOR 90 MG TAB PO SCH ×2 (08:41→20:58)
[2016-12-10] MEDS: ATORVASTATIN 40 MG TAB PO SCH (08:41)
[2016-12-10] MEDS: PANTOPRAZOLE SODIUM 40 MG VIAL IV SCH (08:41)
[2016-12-10] MEDS: ASPIRIN 81 MG CHEW TAB CHEW SCH (08:41)
[2016-12-10] MEDS: METOPROLOL TARTRATE 25 MG TAB PO SCH ×2 (08:42→20:58)
[2016-12-10] MEDS: INSULIN DETEMIR 100 UNITS/ML VIAL SQ SCH ×2 (08:42→20:58)
[2016-12-10] MEDS: SODIUM CHLORIDE 0.9% FLUSH 5 ML FLUSH IVF SCH ×2 (08:43→21:35)
[2016-12-10] MEDS: CHLORHEXIDINE 0.12% (ORAL KIT) 15 ML CUP MT SCH ×2 (08:59→20:58)
[2016-12-10] MEDS ORDERED: Vancomycin Consult Pharmacy 1 EA OTHER SCH (10:00)
--- NOTE | 2016-12-10 10:08 | HHI.CCPN ---
Subjective Remarks/Hospital Course 76-year-old female came to the emergency room brought by EMS as a STEMI alert. Patient called 911 for shortness of breath. When they arrived patient says oxygen saturation was in the 80s and she was in respiratory distress. Patient has history of coronary artery disease and congestive heart failure. She told me she had her bypass surgery done few years ago. Patient denied of any chest pain at any point. EMS said that patient had told them that she was nauseous for past couple days and vomited last night. She was woken up from the sleep with this shortness of breath. By the time patient arrived to the ER she was acutely short of breath and in severe respiratory distress. She was unable to give much history. She was pale and started getting agitated and diaphoretic when they moved her from the gurney to the stretcher. Patient developed worsening respiratory distress and required emergent intubation was placed on mechanical ventilation by ER physician. Her troponin came back at 20 and her EKG suggested intraventricular conduction delay versus left bundle branch block. Cardiology was contacted and felt patient had a non-ST elevation AR. She was also noted to be extremely hyperglycemic with glucose levels in the 500s with metabolic acidosis/lactic acidosis. She was started on the DKA protocol by ER physician. Urine ketones are negative. Beta hydroxybutyrate slightly elevated. Patient had a central line placed by ER physician and was started on heparin drip for anticoagulation for her AR. She was accepted for admission by critical care medicine service. I discussed the case with Dr. Auguste who is not planning cardiac catheterization at this time. Patient also was given empiric antibiotics up to obtaining cultures. 2 Patient is sedated with Diprivan and intubated. Remains on Heparin drip. On PRVC/AC RR 20 IT 1.0, TV 500, PEEP:5 and FIO2 35% 11/30 No acute events overnight. Sedated and intubated. Afebrile. On Heparin drip 12/01 Patient remains sedated and intubated. Afebrile. On Heparin drip. She had episode of desaturation while on CPAP. 12/02 Patient is sedated with Diprivan and intubated. Remains on Heparin drip. 12/03 No events over night. Attempt SBT tomorrow post cardiac Catheterization 12/04 cardiac catheterization today, successful intervention on the free mammary bypass graft to the LAD with oriental orthodox of ORLY-3 flow and successful revascularization of the proximal right coronary artery with improvement in flow 12/05 attempt to wean from the mechanical ventilation failure due to rapid shallow breathing today 12/06 no evidence overnight 12/07 failed as SBT yesterday due to rapid shallow breathing 12/08 Patient remains intubated and on Precedex drip. Afebrile. She was on CPAP x 4 hrs yesterday then became tachycardic and hypertensive. 12/09 Patient remains sedated and intubated. Spiked fever with Tmax 101.7. CT brain yesterday showed no acute intracranial process 12/10 Patine is on Precedex drip, on CPAP 09/03 with FIO2 30%. Tmax 101.6. Renal function worse today with Cr: 2.03 from 1.74. s/p transfusion 1u PRBC yesterday. Objective Vital Signs Date Time Temp Pulse Resp B/P Pulse Ox O2 Delivery O2 Flow Rate FiO2 12/10/16 07:37 99 35 12/10/16 06:00 67 12/10/16 04:00 100.0 18 132/61 Intake and Output 12/09/16 12/09/16 12/10/16 08:00 16:00 00:00 Intake Total 774 ml 1453 ml 1153 ml Output Total 700 ml 1200 ml 700 ml Balance 74 ml 253 ml 453 ml Result Diagram: 12/10/16 0400 12/10/16 0400 Other Results Laboratory Tests Test 12/09/16 12/09/16 12/09/16 12/10/16 10:00 17:00 19:35 04:00 Blood Type O NEGATIVE Antibody Screen NEGATIVE Crossmatch Leukocyte-Reduced Red Blood Cells Blood Bank Comment Potassium Level 3.5 MEQ/L 3.6 MEQ/L Hemoglobin 8.1 GM/DL 7.9 GM/DL Hematocrit 24.6 % 24.1 % White Blood Count 13.2 TH/MM3 Red Blood Count 2.75 MIL/MM3 Mean Corpuscular Volume 87.6 FL Mean Corpuscular Hemoglobin 28.6 PG Mean Corpuscular Hemoglobin 32.6 % Concent Red Cell Distribution Width 14.8 % Platelet Count 198 TH/MM3 Mean Platelet Volume 10.6 FL Neutrophils (%) (Auto) 85.3 % Lymphocytes (%) (Auto) 7.0 % Monocytes (%) (Auto) 6.5 % Eosinophils (%) (Auto) 0.8 % Basophils (%) (Auto) 0.4 % Neutrophils # (Auto) 11.2 TH/MM3 Lymphocytes # (Auto) 0.9 TH/MM3 Monocytes # (Auto) 0.9 TH/MM3 Eosinophils # (Auto) 0.1 TH/MM3 Basophils # (Auto) 0.1 TH/MM3 CBC Comment DIFF FINAL Differential Comment Sodium Level 154 MEQ/L Chloride Level 119 MEQ/L Carbon Dioxide Level 24.6 MEQ/L Anion Gap 10 MEQ/L Blood Urea Nitrogen 71 MG/DL Creatinine 2.03 MG/DL Estimat Glomerular Filtration 24 ML/MIN Rate Random Glucose 218 MG/DL Calcium Level 7.3 MG/DL Protein Corrected Calcium 8.3 MG/DL Total Protein 5.2 GM/DL Random Vancomycin Level 18.4 COMMENT Imaging Last Impressions Chest X-Ray 12/08/16 0600 Signed Impressions: Service Date/Time: Thursday, December 08, 2016 04:10 - CONCLUSION: 1. Left lower lobe atelectasis versus pneumonia. Bilateral effusions There has been no significant change when compared to the prior exam. Timmy Jones MD Head CT 12/08/16 0000 Signed Impressions: Service Date/Time: Thursday, December 08, 2016 14:47 - CONCLUSION: 1. 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 2. No acute intracranial process , trauma or fracture. Darius Hernandez MD Objective Remarks GENERAL: Patient is 76 yo intubated and sedated SKIN: Warm and dry. HEAD: Normocephalic. EYES: No scleral icterus. No injection or drainage. NECK: Supple, trachea midline. No JVD or lymphadenopathy. Orally intubated. CARDIOVASCULAR: Regular rate and rhythm without murmurs, gallops, or rubs. RESPIRATORY: Breath sounds equal bilaterally. No accessory muscle use. GASTROINTESTINAL: Abdomen soft, non-tender, nondistended. MUSCULOSKELETAL: No cyanosis, or edema. Neuro: sedated and intubated A/P Assessment and Plan 76-year-old female with: VDRF CHF Hypernatremia Anemia OSMANI Possible Pneumonia Non-ST elevation AR Uncontrolled diabetes mellitus Lactic acidosis History of CAD History of PVD Plan: Neuro: Wean off Precedex as ramone. Monitor neuro status. 12/08 CT brain: No acute intracranial process 12/08 EEG: Moderate degree of encephalopathy Pulm: - Continue with vent support and keep sat >92% - Bronchodilators, ICU vent bundle, CPAP trials as ramone - For CT guided thoracentesis today. Send pleural fluid for analysis and culture CV: -Monitor HR and BP keep MAP>65mmHg - Echo showed EF 40-45%, hypokinesis in apical myocardium. - Cardiology- . - Continue ASA, Lipitor, Brilinta 90mg BID, Lopressor 12.5mg Q12 - Status post catheterization December 04, successful intervention on the free mammary bypass graft to the LAD with oriental orthodox of ORLY-3 flow and successful revascularization of the proximal right coronary artery with improvement in flow : - Monitor renal function, I/O's, electrolytes replacement as needed - Renal function worse today with Cr: 2.01 from 1.74, UO: 2350ml in 24 hrs -On Free H20 300ml Q8 for hypernatremia, increase D5W 75 ml/hr monitor Sodium level. -Check renal US. Renal eval. GI/liver: On Protonix 40mg daily, change TF to Nepro with goal rate 40ml/hr Heme: Monitor CBC, s/p transfuse 1u PRBC 12/09, Guaiac stool for heme ID: Continue Zosyn, add Vanco, pharmacy to adjust dose per renal function. Monitor for signs of infections ( Fever, WBC) BC 12/08, 12/09: NGTD. Check BC, sputum cx Endocrine: On SSI ( medium scale)Levemir 20u BID Prophylaxis: PPI/SCDs/ Heparin SQ on hold for anemia requiring blood transfusion Lines Right IJ placed 12/08 CCT 30 mins Fransisco Mas MD Dec 10, 2016 10:08
[2016-12-10] MEDS ORDERED: CALCIUM GLUCONATE INJ 1 GM in SODIUM CHLORIDE 0.9% INJ 100 ML IV ONE (11:00)
[2016-12-10] MEDS ORDERED: VANCOMYCIN INJ 1,800 MG in SODIUM CHLORID 0.9% 500 ML INJ 500 ML IV ONE (12:00)
--- NOTE | 2016-12-10 16:02 | RADRPT ---
EXAM DATE/TIME: 12/10/2016 14:43 INDICATIONS : Fluid DEVICE(S): 1.) 6 Fr [id number] Total volume of 820 cc of cloudy, yellow fluid was removed. MEDICAL HISTORY : Arthritis. Cardiovascular disease. Diabetes mellitus type 2. Hypertension SURGICAL HISTORY : Mastectomy, left. CABG Coronary artery stent. Hysterectomy ENCOUNTER: Initial ACUITY: 1 day PAIN SCORE: Non-responsive LOCATION: Right chest PROCEDURE: 1. CT guided right thoracentesis. The site was prepped in sterile fashion. Full sterile technique was used, including cap, mask, steri le gloves and gown and a large sterile sheet. Hand hygiene and 2% chlorhexidine and/or betadine/alco hol prep was utilized per protocol for cutaneous antisepsis. The skin and subcutaneous tissues were infiltrated with local anesthetic solution. 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 Dermatotomy was made and the prescribed catheter was advanced into the pleural fluid. The pleural fluid as above was removed from the hemithorax. Post procedural scan show reduction in the amount of fluid with no evidence of pneumothorax. The patient tolerated the procedure well and there were no complications. EKG and oximetry remained s table throughout the procedure. The patient was sent to recovery in stable condition. CONCLUSION: Uncomplicated CT-guided thoracentesis. Jarrod Meyer MD on December 10, 2016 at 15:59 Board Certified Radiologist. This report was verified electronically.
--- NOTE | 2016-12-10 17:18 | PD.CONS ---
[facility] Service Nephrology Consult Requested By Dr. Dodge Reason for Consult OSMANI Primary Care Physician Ethan Pradhan MD History of Present Illness The patient is a 76 yo [place] female who presented to the ED on 11/28/16 with suspected KS as she was having significant SOB. She was ultimately intubated on scene and then transported to the hospital for evaluation. She is currently intubated so history is obtained thru previous encounters and her son who is present in the room. She has known CKD, but she does not follow with a briefcase sewer as an outpatient. As per son, she has had CKD for many years and believes that her SCr is around 1.5-1.6, which from review of notes seems to be congruent. She has an extensive PMHx of cardiac disease with an EF of 40-45%, triple CABG in 2003, 4 PTCA previously, toe amputations related to PVD, DM for at least 20 years, HTN, and breast cancer treated about 30 years ago with mastectomy and chemotherapy. Son reports that she has has ongoing issues with fluid retention for the past year since she was admitted here for cardiac issues. She does use diuretics as outpatient that has been altered as per her fluid needs. She underwent cardiac cath on 12/04 and had 3 stents placed. She was initially on IVF that was converted to diuretics on 12/07/ thru 12/09. She was started on D5W 12/09 as her sodium levels were elevated. She has been receiving 300mL q8h via NG tube of free water. She received Vanc IV on 12/08 x1 dose and then again today as it is suspected that she has a ventilator associated PNA. Underwent thoracentesis today with approx 800mL drained from R lung. Admitting SCr 2.23 that improved to 1.5-1.6 range until 12/09 when she lisa to 1.74 and then ultimately 2.03 at time of consult. Na level has been trending upwards for the past couple of days and is at 154 at consult. (Melinda Orellana) Review of Systems ROS Limitations: Clinical Condition, Intubated (Melinda Orellana) Past Family Social History Allergies: Coded Allergies: Sulfa (Verified Allergy, Severe, Swelling, 11/28/16) Swelling of lips *MDRO Multi-Drug Resistant Organism (Verified Allergy, Unknown, 11/28/16) MRSA foot wound 05/2013 MRSA PCR screen negative 12/17/15 & 12/20/15 Per Infection Control, pt does not require isolation for history of MRSA prior to 12/20/2015. Past Medical History CKD with apparent baseline of 1.5-1.6 DM of at least 20 years HTN CHF with EF of 40-45% CAD s/p bypass and PTCA PVD Breast CA s/p mastectomy and chemo approx 30 years ago Past Surgical History ROLF Mastectomy Toe amputation PTCA CABG Reported Medications Reported Meds & Active Scripts Active Reported Nifedipine ER (Nifedipine) 90 Mg Tab 1 Tab PO DAILY Hydrocodone-Acetaminophen 5-300 Mg Tab Unknown Dose PO Q4H PRN Lopressor (Metoprolol Tartrate) 50 Mg Tab 75 Mg PO DAILY Lisinopril 5 Mg Tab 5 Mg PO DAILY Lantus Inj (Insulin Glargine) 100 Unit/Ml Inj 35 Units SQ BID Furosemide 20 Mg Tab 20 Mg PO DAILY Brilinta (Ticagrelor) 90 Mg Tab 90 Mg PO BID Atorvastatin (Atorvastatin Calcium) 40 Mg Tab 40 Mg PO HS Aspir-81 (Aspirin) 81 Mg Tabdr 1 Tab PO DAILY Duoneb (Ipratropium-Albuterol Neb) 0.5-2.5 Mg/3 Ml Neb 1 Nebule INH Q4HR NEB Active Ordered Medications Current Medications Medications (Trade) Dose Ordered Sig/Amber Route Start Time Stop Time Status Last Admin (Aspirin Chew) 81 mg DAILY CHEW 11/28/16 09:00 12/10/16 08:41 (Brilinta) 90 mg BID PO 11/28/16 09:00 12/10/16 08:41 (Tylenol) 650 mg Q6H PRN PO 11/28/16 10:15 12/09/16 16:50 (fentaNYL INJ) 100 mcg Q4H PRN IV 11/28/16 10:15 12/08/16 02:41 (Peridex 0.12% Liq) 15 ml BID@08,20 MT 11/28/16 20:00 12/10/16 08:59 (Protonix Inj) 40 mg DAILY IV 11/28/16 11:00 12/10/16 08:41 Miscellaneous Information 1 Q361D XX 11/28/16 10:15 11/28/16 10:15 (Chlorhexidine 2% Cloth) Taper DAILY@04 TOP 11/29/16 04:00 11/25/17 03:59 12/04/16 02:34 (Chlorhexidine 2% Cloth) 3 pack UNSCH PRN TOP 11/28/16 10:15 (NovoLOG SUPPLEMENTAL SCALE) 1 Q4HR SQ 11/28/16 20:00 12/10/16 16:07 (D50w (Vial) Inj) 25 ml UNSCH PRN IV 11/28/16 17:00 (Glucagon Inj) 1 mg UNSCH PRN IM/SQ 11/28/16 17:00 (Lipitor) 40 mg DAILY PO 11/29/16 09:00 12/10/16 08:41 (Levemir Inj) 20 units BID SQ 12/01/16 21:00 12/10/16 08:42 (Nitroglycerin 2% Oint) 0.5 inch Q6HR TOPICAL 12/01/16 18:00 12/10/16 11:22 (Lopressor) 12.5 mg Q12HR PO 12/01/16 21:00 12/10/16 08:42 (Pill Splitter) 1 ea UNSCH PRN OTHER 12/01/16 12:30 (NS Flush) 2 ml BID IVF 12/04/16 21:00 12/10/16 08:43 (Heparin Inj) 5,000 units Q12HR SQ 12/08/16 21:00 Hold 12/09/16 08:43 Hydralazine HCl 10 mg 10 mg Q8HR PO 12/08/16 14:00 12/10/16 16:07 (Zosyn 3.375 Gm Premix) 50 ml @ 100 mls/hr Q6H IV 12/08/16 21:00 12/10/16 16:07 Water 300 ml 300 ml Q8HR G-TUBE 12/09/16 14:00 12/10/16 14:00 Dextrose 1,000 ml @ 75 mls/hr [id number] IV 12/09/16 09:15 12/10/16 05:02 Dexmedetomidine HCl 1000 mcg/ Sodium Chloride 250 ml @ 0 mls/hr TITRATE IV 12/09/16 14:45 12/10/16 11:04 (Vancomycin Consult Pharmacy) 0 ml @ 0 mls/hr UNSCH OTHER 12/10/16 10:00 Family History Noncontributory Social History Lives alone Denies any tobacco use No EtOH No illicit drug use (Melinda Orellana) Physical Exam Vital Signs Vital Signs Date Time Temp Pulse Resp B/P Pulse Ox O2 Delivery O2 Flow Rate FiO2 12/10/16 16:24 98 35 12/10/16 12:00 75 12/10/16 12:00 35 12/10/16 12:00 98.6 75 33 141/65 94 12/10/16 11:56 99 35 12/10/16 10:00 74 12/10/16 08:00 69 12/10/16 08:00 35 12/10/16 08:00 100.4 69 26 133/63 97 12/10/16 07:37 99 35 12/10/16 06:00 67 12/10/16 04:04 99 35 12/10/16 04:00 68 12/10/16 04:00 35 12/10/16 04:00 100.0 67 18 132/61 98 12/10/16 02:00 69 12/10/16 01:00 100 40 12/10/16 00:00 68 12/10/16 00:00 35 12/10/16 00:00 100.0 69 17 137/63 99 12/09/16 22:34 100 45 12/09/16 22:00 67 12/09/16 20:00 100.2 69 28 127/63 96 12/09/16 20:00 35 12/09/16 20:00 68 12/09/16 19:39 97 45 12/09/16 18:00 69 Physical Exam GENERAL: Intubated and sedated SKIN: Warm and dry. HEAD: Atraumatic. Normocephalic. EYES: Pupils equal and round. No scleral icterus. No injection or drainage. ENT: No nasal bleeding or discharge. Mucous membranes pink and moist. NECK: Trachea midline. No JVD. CARDIOVASCULAR: Regular rate and rhythm. RESPIRATORY: No accessory muscle use. Scattered rhonchi throughout GASTROINTESTINAL: Abdomen soft, non-tender, nondistended. Hepatic and splenic margins not palpable. MUSCULOSKELETAL: Extremities without clubbing, cyanosis. Significant 2+ pitting edema present in BUE, flanks, hips, and BLE down to toes. NEUROLOGICAL: Intubated and sedated PSYCHIATRIC: Intubated and sedated Laboratory Laboratory Tests Test 12/09/16 12/09/16 12/10/16 17:00 19:35 04:00 Potassium Level 3.5 3.6 Hemoglobin 8.1 7.9 Hematocrit 24.6 24.1 White Blood Count 13.2 Red Blood Count 2.75 Mean Corpuscular Volume 87.6 Mean Corpuscular Hemoglobin 28.6 Mean Corpuscular Hemoglobin 32.6 Concent Red Cell Distribution Width 14.8 Platelet Count 198 Mean Platelet Volume 10.6 Neutrophils (%) (Auto) 85.3 Lymphocytes (%) (Auto) 7.0 Monocytes (%) (Auto) 6.5 Eosinophils (%) (Auto) 0.8 Basophils (%) (Auto) 0.4 Neutrophils # (Auto) 11.2 Lymphocytes # (Auto) 0.9 Monocytes # (Auto) 0.9 Eosinophils # (Auto) 0.1 Basophils # (Auto) 0.1 CBC Comment DIFF FINAL Differential Comment Sodium Level 154 Chloride Level 119 Carbon Dioxide Level 24.6 Anion Gap 10 Blood Urea Nitrogen 71 Creatinine 2.03 Estimat Glomerular Filtration 24 Rate Random Glucose 218 Calcium Level 7.3 Protein Corrected Calcium 8.3 Total Protein 5.2 Random Vancomycin Level 18.4 Date/Time Procedure Status Source Growth 12/10/16 13:27 Aerobic Blood Culture Received Blood Peripheral Pending 12/10/16 13:27 Anaerobic Blood Culture Received Blood Peripheral Pending 12/09/16 06:24 Aerobic Blood Culture - Preliminary Resulted Blood Peripheral NO GROWTH IN 1 DAY 12/09/16 06:24 Anaerobic Blood Culture - Preliminary Resulted Blood Peripheral NO GROWTH IN 1 DAY 12/08/16 22:40 Gram Stain - Final Complete Sputum Endotracheal 12/08/16 22:40 Sputum Culture - Final Complete Sputum Endotracheal HEAVY GROWTH NORMAL RESPIRATORY JUAN CARLOS (Melinda Orellana) Result Diagram: 12/10/16 0400 12/10/16 0400 Imaging Last Impressions Thoracentesis 12/10/16 0000 Signed Impressions: Service Date/Time: Saturday, December 10, 2016 14:43 - CONCLUSION: Uncomplicated CT-guided thoracentesis. Jarrod Meyer MD Chest Ultrasound 12/09/16 0000 Signed Impressions: Service Date/Time: Friday, December 09, 2016 13:23 - CONCLUSION: Moderate size right pleural effusion. Torito Conklin MD Chest X-Ray 12/08/16 0600 Signed Impressions: Service Date/Time: Thursday, December 08, 2016 04:10 - CONCLUSION: 1. Left lower lobe atelectasis versus pneumonia. Bilateral effusions There has been no significant change when compared to the prior exam. Timmy Jones MD Head CT 12/08/16 0000 Signed Impressions: Service Date/Time: Thursday, December 08, 2016 14:47 - CONCLUSION: 1. 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 2. No acute intracranial process , trauma or fracture. Darius Hernandez MD (Melinda Orellana) Assessment and Plan Problem List: (1) Acute renal failure Plan: Acute on chronic renal failure which is likely multifactorial: cardiorenal with EF of 40-45%, contrast injury (contrast via cath on 12/04), interstitial nephritis from Vanc exposure (received 12/08 & 12/10), infectious process (repeat BCx pending as of 12/10) She has a significant amount of fluid present which does raise concern that the SCr is underestimating the severity of her renal insufficiency. We are pending a renal US report that was done today. Ordered labs to r/o any other underlying issues for renal decline. Baseline SCr appears to be 1.5-1.6 with underlying etiology of diabetic nephropathy. We are going to start on IV diuretics as she has a significant amount of overload. As discussed with her son, her azotemia may worsen with diuresis, but this is necessary. She is still intubated and we feel that she will have a difficult time being extubated given her fluid retention. Will follow with labs in the AM. Medications should be adjusted for the patient's renal decline. Avoid nephrotoxic agents including iodinated contrast dyes and NSAIDs. Avoid gadolinium when eGFR <30. (2) CHF (congestive heart failure) Plan: As above. (3) Hypernatremia Plan: Related to impaired free water intake. Receiving water via NG. Monitor. May need Diuril (4) Pneumonia Plan: Mgmt as per CC (5) Non-STEMI (non-ST elevated myocardial infarction) Plan: Mgmt as per cardiology (6) Hypertension Plan: BP stable. Continue on current regimen (7) Diabetes mellitus Plan: Mgmt as per CC (8) Anemia Plan: Repeat CBC & Fe panel. May be related to anemia of renal disease versus a dilutional component given her fluid overload. (Melinda Orellana) Assessment and Plan The exam, history, and the medical decision-making described in the above note were completed with the assistance of the CARRIE. I reviewed and agree with the findings presented. I attest that I had a [id number] encounter with the patient on the same day, and personally performed and documented my assessment and findings in the medical record. Despite the fact that the patient appears to have hypernatremia clinically the patient has marked fluid retention and I believe that diuresis is indicated at this point in time. I discussed with the son that the patient's renal function may remain stable, improve or worsen with diuresis but given the severity of the fluid retention I recommend diuresis at this point in time. He agrees. We' ll try combination of Diuril and bumetanide with IV albumin. Continue to administer free water. (Leandro Doyle MD) Problem Qualifiers (1) Acute renal failure: Qualified Code: N17.9 - Acute renal failure, unspecified acute renal failure type (2) Pneumonia: Qualified Code: J18.9 - Pneumonia of both lungs due to infectious organism, unspecified part of lung Melinda Orellana Dec 10, 2016 17:18 Leandro Doyle MD Dec 10, 2016 19:13
[2016-12-10] MEDS: fentaNYL DRIP 250 ML IV SCH (17:23)
--- NOTE | 2016-12-10 19:37 | RADRPT ---
EXAM DATE/TIME: 12/10/2016 18:06 [facility] COMPARISON: No previous studies available for comparison. INDICATIONS : Acute kidney injury. MEDICAL HISTORY : Congestive heart failure. Myocardial infarction. Hypercholesterolemia. Bulging disc C4-C5. Polio. Cor onary artery disease. Peripheral vascular disease. Hypertension. GERD. Arthritis. Renal disease. L4-L 5 stenosis and neuropathy. Diabetes type II. Breast cancer - left. Chemotherapy. MRSA 2012. SURGICAL HISTORY : CABG. Mastectomy, left. Hysterectomy. Cardiac catheterization. Coronary artery stent x 4. Amputation left 5th toe. Laminectomy. Breast reconstruction. ENCOUNTER: Initial ACUITY: 1 day PAIN SCORE: Nonresponsive. LOCATION: Bilateral flank MEASUREMENTS: RIGHT KIDNEY: 10.0 x 5.0 x 5.6 cm LEFT KIDNEY: 11.5 x 5.9 x 5.9 cm FINDINGS: RIGHT KIDNEY: Renal cortex is normal in thickness and echotexture. No hydronephrosis, stone, or mass. LEFT KIDNEY: Renal cortex is normal in thickness and echotexture. No hydronephrosis, stone, or mass. BLADDER: There is a Astorga catheter present. CONCLUSION: Normal examination. Lennox Rodriguez MD on December 10, 2016 at 19:34 Board Certified Radiologist. This report was verified electronically.
[2016-12-10 19:52] LABS: TOTAL PROTEIN,PLEURAL FLUID 1.5 GM/DL
[2016-12-10 20:25] LABS: PLEURAL FLUID LYMPHS 9 %
[2016-12-10] MEDS: BUMETANIDE INJ 1 MG/4 ML VIAL IV PUSH SCH (20:58)
[2016-12-10] MEDS: ALBUMIN HUMAN 25% 12.5 GM/50 ML BAGP IV SCH (20:59)
[2016-12-10] MEDS: CHLOROTHIAZIDE SOD 500 MG VIAL IV SCH (21:00)
[2016-12-11] VITALS (17 sets, daily range): BP systolic 124–145; BP diastolic 58–65; PULSE 84–93; RESP 10–19; TEMP 99.2–101.6; O2SAT 95–99
[2016-12-11] MEDS: INSULIN ASPART SUPPLEMENTAL SCALE SQ SCH ×6 (00:19→21:54)
[2016-12-11] MEDS: NITROGLYCERIN 2% OINT 1 GM PACKET TOPICAL SCH ×4 (00:19→22:21)
[2016-12-11 03:10] LABS: BLOOD, URINE SMALL (NEG); GLUCOSE,URINE TRACE mg/dL (NEG); KETONE, URINE NEG (NEG); MUCUS URINE FEW /lpf (OCC); NITRITE,URINE NEG (NEG); SQUAMOUS EPITHELIAL CELL URINE 1 /hpf (0-5); TRANSITIONAL EPI CELLS, URINE <1 /hpf; URINE COLOR LIGHT-YELLOW (YELLW/STRAW)
[2016-12-11] MEDS: CHLORHEXIDINE GLUCONATE 2 % 1 PACK (2 CLOTHS) TOP SCH (04:00)
--- NOTE | 2016-12-11 04:46 | RADRPT ---
EXAM DATE/TIME: 12/11/2016 03:26 [facility] COMPARISON: CHEST SINGLE AP, December 08, 2016, 22:37. INDICATIONS : Shortness of breath MEDICAL HISTORY : Hypertension. Hypercholesterolemia. Myocardial infarction. CHF. PVD. SURGICAL HISTORY : CABG. Mastectomy, left. Hysterectomy. ENCOUNTER: Subsequent ACUITY: 2 weeks PAIN SCORE: Non-responsive. LOCATION: Bilateral chest FINDINGS: The cardiac silhouette is normal in transverse diameter. Median sternotomy wires are present. There i s left lower lobe atelectasis versus pneumonia. There are findings of congestive heart failure with i nterstitial and alveolar opacity bilaterally. The findings are improved when compared with the prior exam. CONCLUSION: 1. There is prominence of the central pulmonary vasculature with indistinct vascular margins compatib le with vascular congestion but no evidence of overt failure. The findings are improved when compared with the prior exam. 2. Left lower lobe atelectasis versus pneumonia. Timmy Jones MD on December 11, 2016 at 4:43 Board Certified Radiologist. This report was verified electronically.
[2016-12-11] MEDS: fentaNYL DRIP 250 ML IV SCH (05:05)
[2016-12-11] MEDS: ACETAMINOPHEN 325 MG TAB PO PRN (05:05)
[2016-12-11] MEDS: hydrALAZINE HCL 10 MG TAB PO SCH ×3 (05:05→22:24)
[2016-12-11] MEDS: FREE WATER G-TUBE SCH ×3 (05:06→22:00)
[2016-12-11] MEDS: PIPERACIL-TAZO 3.375 GM PREMIX 50 ML IV SCH ×4 (05:06→21:59)
[2016-12-11 05:25] LABS: AUTOMATED NEUTROPHIL # 17.9 TH/MM3 (1.8-7.7); BASOPHIL # 0.1 TH/MM3 (0-0.2); BASOPHIL % 0.3 % (0.0-2.0); EOSINOPHIL # 0.1 TH/MM3 (0-0.4); EOSINOPHIL % 0.7 % (0.0-4.0); HEMATOCRIT 25.1 % (35.0-46.0); HEMO FLAGS DIFF FINAL; LYMPH % 4.7 % (9.0-44.0); LYMPHOCYTE # 0.9 TH/MM3 (1.0-4.8); MEAN CELL VOLUME 87.4 FL (80.0-100.0); MEAN CORPUSCULAR HEMOGLOBIN 28.8 PG (27.0-34.0); MONO % 5.9 % (0.0-8.0); NEUT % 88.4 % (16.0-70.0); PLATELET COUNT 225 TH/MM3 (150-450); RED BLOOD COUNT 2.87 MIL/MM3 (4.00-5.30); RED CELL DISTRIBUTION WIDTH 14.6 % (11.6-17.2); WHITE BLOOD COUNT 20.2 TH/MM3 (4.0-11.0)
[2016-12-11 06:08] LABS: BICARBONATE 24.3 MEQ/L (21.0-32.0); POTASSIUM 3.6 MEQ/L (3.5-5.1); TOTAL PROTEIN SPE 5.6 GM/DL (6.0-7.6)
--- NOTE | 2016-12-11 08:31 | PD.CARD.PN ---
Subjective Subjective Remarks on vent Objective Medications Current Medications Medications (Trade) Dose Ordered Sig/Amber Route Start Time Stop Time Status Last Admin (Aspirin Chew) 81 mg DAILY CHEW 11/28/16 09:00 12/10/16 08:41 (Brilinta) 90 mg BID PO 11/28/16 09:00 12/10/16 20:58 (Tylenol) 650 mg Q6H PRN PO 11/28/16 10:15 12/11/16 05:05 (fentaNYL INJ) 100 mcg Q4H PRN IV 11/28/16 10:15 12/08/16 02:41 (Peridex 0.12% Liq) 15 ml BID@08,20 MT 11/28/16 20:00 12/10/16 20:58 (Protonix Inj) 40 mg DAILY IV 11/28/16 11:00 12/10/16 08:41 Miscellaneous Information 1 Q361D XX 11/28/16 10:15 11/28/16 10:15 (Chlorhexidine 2% Cloth) Taper DAILY@04 TOP 11/29/16 04:00 11/25/17 03:59 12/04/16 02:34 (Chlorhexidine 2% Cloth) 3 pack UNSCH PRN TOP 11/28/16 10:15 (NovoLOG SUPPLEMENTAL SCALE) 1 Q4HR SQ 11/28/16 20:00 12/11/16 05:06 (D50w (Vial) Inj) 25 ml UNSCH PRN IV 11/28/16 17:00 (Glucagon Inj) 1 mg UNSCH PRN IM/SQ 11/28/16 17:00 (Lipitor) 40 mg DAILY PO 11/29/16 09:00 12/10/16 08:41 (Levemir Inj) 20 units BID SQ 12/01/16 21:00 12/10/16 20:58 (Nitroglycerin 2% Oint) 0.5 inch Q6HR TOPICAL 12/01/16 18:00 12/11/16 05:05 (Lopressor) 12.5 mg Q12HR PO 12/01/16 21:00 12/10/16 20:58 (Pill Splitter) 1 ea UNSCH PRN OTHER 12/01/16 12:30 (NS Flush) 2 ml BID IVF 12/04/16 21:00 12/10/16 21:35 (Heparin Inj) 5,000 units Q12HR SQ 12/08/16 21:00 Hold 12/09/16 08:43 Hydralazine HCl 10 mg 10 mg Q8HR PO 12/08/16 14:00 12/11/16 05:05 (Zosyn 3.375 Gm Premix) 50 ml @ 100 mls/hr Q6H IV 12/08/16 21:00 12/11/16 05:06 Water 300 ml 300 ml Q8HR G-TUBE 12/09/16 14:00 12/11/16 05:06 Dextrose 1,000 ml @ 75 mls/hr [id number] IV 12/09/16 09:15 12/10/16 20:59 Dexmedetomidine HCl 1000 mcg/ Sodium Chloride 250 ml @ 0 mls/hr TITRATE IV 12/09/16 14:45 12/10/16 11:04 Pharmacy Profile Note 0 ml @ 0 mls/hr UNSCH OTHER 12/10/16 10:00 (fentaNYL DRIP) 250 ml @ 0 mls/hr TITRATE IV 12/10/16 17:15 12/11/16 05:05 (Diuril Inj) 250 mg Q12HR IV 12/10/16 21:00 12/10/16 21:00 (Bumex Inj) 1 mg Q12HR IV PUSH 12/10/16 21:00 12/10/16 20:58 (Albumin 25% Inj) 12.5 gm Q12HR IV 12/10/16 21:00 12/10/16 20:59 Vital Signs / I&O Vital Signs Date Time Temp Pulse Resp B/P Pulse Ox O2 Delivery O2 Flow Rate FiO2 12/11/16 08:19 98 35 12/11/16 06:00 90 12/11/16 04:40 99 35 12/11/16 04:00 35 12/11/16 04:00 101.6 89 14 145/65 98 12/11/16 04:00 89 12/11/16 02:00 93 12/11/16 01:56 98 35 12/11/16 00:00 100.6 85 14 140/65 99 12/11/16 00:00 35 12/11/16 00:00 85 12/10/16 22:30 100 35 12/10/16 22:00 71 12/10/16 20:27 99 35 12/10/16 20:00 35 12/10/16 20:00 100.3 66 16 117/55 97 12/10/16 20:00 66 12/10/16 19:16 100 100 12/10/16 18:19 73 12/10/16 16:24 98 35 12/10/16 16:00 100.3 73 22 122/58 98 12/10/16 16:00 35 12/10/16 16:00 73 12/10/16 14:00 72 12/10/16 12:00 75 12/10/16 12:00 35 12/10/16 12:00 98.6 75 33 141/65 94 12/10/16 11:56 99 35 12/10/16 10:00 74 I/O 12/10/16 12/10/16 12/10/16 12/11/16 12/11/16 12/11/16 07:00 15:00 23:00 07:00 15:00 23:00 Intake Total 1201 ml 2246 ml 1527 ml 1204 ml Output Total 450 ml 850 ml 425 ml 400 ml Balance 751 ml 1396 ml 1102 ml 804 ml Intake Oral 0 ml IV Total 632 ml 1430 ml 972 ml 701 ml Tube Feeding 319 ml 366 ml 205 ml 203 ml Albumin 50 ml Other 250 ml 450 ml 300 ml 300 ml Output Urine Total 450 ml 850 ml 425 ml 400 ml # Bowel Movements 0 0 Physical Exam Sedated Morbidly obese Chest clear CV S1 S2 RRR Abd: obese Ext: 1+ edema Laboratory Laboratory Tests Test 12/10/16 12/11/16 12/11/16 15:00 00:05 04:41 Pleural Fluid pH 8.0 Pleural Fluid WBC 756 /MM3 Pleural Fluid RBC 586 /MM3 Pleural Fluid Neutrophils 66 % Pleural Fluid Lymphocytes 9 % Pleural Fluid Monocytes 7 % Pleural Fluid Histiocytes 3 % Pleural Fluid Mesothelial 15 % Cells Pleural Fluid Total Protein 1.5 GM/DL Pleural Fluid LDH 187 U/L Pleural Fluid Glucose 251 MG/DL Urine Color LIGHT-YELLOW Urine Turbidity CLOUDY Urine pH 5.0 Urine Specific [place] 1.010 Urine Protein 30 mg/dL Urine Glucose (UA) TRACE mg/dL Urine Ketones NEG mg/dL Urine Occult Blood SMALL Urine Nitrite NEG Urine Bilirubin NEG Urine Urobilinogen LESS THAN 2.0 MG/DL Urine Leukocyte Esterase TRACE Urine RBC 2 /hpf Urine WBC 6 /hpf Urine Squamous Epithelial 1 /hpf Cells Urine Transitional Epithelial <1 /hpf Cells Urine Amorphous Sediment RARE Urine Mucus FEW /lpf Microscopic Urinalysis Comment Urine Eosinophils NONE SEEN /HPF White Blood Count 20.2 TH/MM3 Red Blood Count 2.87 MIL/MM3 Hemoglobin 8.3 GM/DL Hematocrit 25.1 % Mean Corpuscular Volume 87.4 FL Mean Corpuscular Hemoglobin 28.8 PG Mean Corpuscular Hemoglobin 33.0 % Concent Red Cell Distribution Width 14.6 % Platelet Count 225 TH/MM3 Mean Platelet Volume 10.4 FL Neutrophils (%) (Auto) 88.4 % Lymphocytes (%) (Auto) 4.7 % Monocytes (%) (Auto) 5.9 % Eosinophils (%) (Auto) 0.7 % Basophils (%) (Auto) 0.3 % Neutrophils # (Auto) 17.9 TH/MM3 Lymphocytes # (Auto) 0.9 TH/MM3 Monocytes # (Auto) 1.2 TH/MM3 Eosinophils # (Auto) 0.1 TH/MM3 Basophils # (Auto) 0.1 TH/MM3 CBC Comment DIFF FINAL Differential Comment Sodium Level 147 MEQ/L Potassium Level 3.6 MEQ/L Chloride Level 112 MEQ/L Carbon Dioxide Level 24.3 MEQ/L Anion Gap 11 MEQ/L Blood Urea Nitrogen 75 MG/DL Creatinine 2.42 MG/DL Estimat Glomerular Filtration 19 ML/MIN Rate Random Glucose 293 MG/DL Calcium Level 7.4 MG/DL Total Protein 5.6 GM/DL Assessment and Plan Problem List: (1) Non-STEMI (non-ST elevated myocardial infarction) (2) Acute renal failure (3) Heart failure (4) CAD (coronary artery disease) (5) Anemia (6) Stented coronary artery Assessment and Plan Consider tracheostomy Problem Qualifiers (1) Acute renal failure: Qualified Code: N17.9 - Acute renal failure, unspecified acute renal failure type (2) CAD (coronary artery disease): Kyle Hartman MD Dec 11, 2016 08:31
[2016-12-11] MEDS: CHLOROTHIAZIDE SOD 500 MG VIAL IV SCH ×2 (09:00→21:00)
[2016-12-11] MEDS: METOPROLOL TARTRATE 25 MG TAB PO SCH ×2 (09:01→22:05)
[2016-12-11] MEDS: PANTOPRAZOLE SODIUM 40 MG VIAL IV SCH (09:02)
[2016-12-11] MEDS: INSULIN DETEMIR 100 UNITS/ML VIAL SQ SCH ×2 (09:03→22:06)
[2016-12-11] MEDS: BUMETANIDE INJ 1 MG/4 ML VIAL IV PUSH SCH ×2 (09:04→22:03)
[2016-12-11] MEDS: SODIUM CHLORIDE 0.9% FLUSH 5 ML FLUSH IVF SCH ×2 (09:04→21:00)
[2016-12-11] MEDS: ASPIRIN 81 MG CHEW TAB CHEW SCH (09:04)
[2016-12-11] MEDS: ATORVASTATIN 40 MG TAB PO SCH (09:04)
[2016-12-11] MEDS: ALBUMIN HUMAN 25% 12.5 GM/50 ML BAGP IV SCH ×2 (09:05→21:55)
[2016-12-11] MEDS: CHLORHEXIDINE 0.12% (ORAL KIT) 15 ML CUP MT SCH ×2 (09:06→21:54)
[2016-12-11] MEDS: TICAGRELOR 90 MG TAB PO SCH ×2 (09:10→22:05)
[2016-12-11 09:38] LABS: CALCIUM-PROTEIN CORRECTED 8.2 MG/DL (8.5-10.1)
[2016-12-11 12:01] LABS: ALBUMIN SPE 2.66 GM/DL (3.50-5.00); ALPHA 1 GLOBULIN 0.34 GM/DL (0.11-0.29); ALPHA 2 GLOBULIN 1.33 GM/DL (0.22-1.00); BETA GLOBULINS (SPE) 0.79 GM/DL (0.53-1.03)
[2016-12-11] MEDS: DEXTROSE 5% IN WATE 1000ML INJ 1,000 ML IV SCH ×2 (12:55→22:26)
[2016-12-11] MEDS ORDERED: DEXMEDETOMIDINE INJ 50 ML IV SCH (13:00)
--- NOTE | 2016-12-11 13:06 | HHI.CCPN ---
Subjective Remarks/Hospital Course 76-year-old female came to the emergency room brought by EMS as a STEMI alert. Patient called 911 for shortness of breath. When they arrived patient says oxygen saturation was in the 80s and she was in respiratory distress. Patient has history of coronary artery disease and congestive heart failure. She told me she had her bypass surgery done few years ago. Patient denied of any chest pain at any point. EMS said that patient had told them that she was nauseous for past couple days and vomited last night. She was woken up from the sleep with this shortness of breath. By the time patient arrived to the ER she was acutely short of breath and in severe respiratory distress. She was unable to give much history. She was pale and started getting agitated and diaphoretic when they moved her from the gurney to the stretcher. Patient developed worsening respiratory distress and required emergent intubation was placed on mechanical ventilation by ER physician. Her troponin came back at 20 and her EKG suggested intraventricular conduction delay versus left bundle branch block. Cardiology was contacted and felt patient had a non-ST elevation ID. She was also noted to be extremely hyperglycemic with glucose levels in the 500s with metabolic acidosis/lactic acidosis. She was started on the DKA protocol by ER physician. Urine ketones are negative. Beta hydroxybutyrate slightly elevated. Patient had a central line placed by ER physician and was started on heparin drip for anticoagulation for her ID. She was accepted for admission by critical care medicine service. I discussed the case with Dr. Auguste who is not planning cardiac catheterization at this time. Patient also was given empiric antibiotics up to obtaining cultures. 2 Patient is sedated with Diprivan and intubated. Remains on Heparin drip. On PRVC/AC RR 20 IT 1.0, TV 500, PEEP:5 and FIO2 35% 11/30 No acute events overnight. Sedated and intubated. Afebrile. On Heparin drip 12/01 Patient remains sedated and intubated. Afebrile. On Heparin drip. She had episode of desaturation while on CPAP. 12/02 Patient is sedated with Diprivan and intubated. Remains on Heparin drip. 12/03 No events over night. Attempt SBT tomorrow post cardiac Catheterization 12/04 cardiac catheterization today, successful intervention on the free mammary bypass graft to the LAD with adventist of ORLY-3 flow and successful revascularization of the proximal right coronary artery with improvement in flow 12/05 attempt to wean from the mechanical ventilation failure due to rapid shallow breathing today 12/06 no evidence overnight 12/07 failed as SBT yesterday due to rapid shallow breathing 12/08 Patient remains intubated and on Precedex drip. Afebrile. She was on CPAP x 4 hrs yesterday then became tachycardic and hypertensive. 12/09 Patient remains sedated and intubated. Spiked fever with Tmax 101.7. CT brain yesterday showed no acute intracranial process 12/10 Patient is on Precedex drip, on CPAP 15/ with FIO2 30%. Tmax 101.6. Renal function worse today with Cr: 2.03 from 1.74. s/p transfusion 1u PRBC yesterday. 12/11 Tolerating CPAP. Remains encephalopathic, not following commands. MAXIMUM TEMPERATURE 101.6, white count was sent from 13.2-20.2. Function also worsening from 2-2.4. s/p CT guided thoracentesis 12/10/16, with 820 mL of yellow cloudy fluid removed. Fluid studies consistent with transudative effusion Objective Vital Signs Date Time Temp Pulse Resp B/P Pulse Ox O2 Delivery O2 Flow Rate FiO2 12/11/16 11:33 99 35 12/11/16 08:00 86 12/11/16 08:00 99.8 14 124/58 Intake and Output 12/10/16 12/10/16 12/11/16 08:00 16:00 00:00 Intake Total 1201 ml 2246 ml 1527 ml Output Total 450 ml 850 ml 425 ml Balance 751 ml 1396 ml 1102 ml Result Diagram: 12/11/16 0441 12/11/16 0845 Other Results Microbiology Date/Time Procedure Status Source Growth 12/08/16 22:40 Gram Stain - Final Complete Sputum Endotracheal 12/08/16 22:40 Sputum Culture - Final Complete Sputum Endotracheal HEAVY GROWTH NORMAL RESPIRATORY JUAN CARLOS Imaging Last Impressions Chest X-Ray 12/08/16 0600 Signed Impressions: Service Date/Time: Thursday, December 08, 2016 04:10 - CONCLUSION: 1. Left lower lobe atelectasis versus pneumonia. Bilateral effusions There has been no significant change when compared to the prior exam. Timmy Jones MD Head CT 12/08/16 0000 Signed Impressions: Service Date/Time: Thursday, December 08, 2016 14:47 - CONCLUSION: 1. 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 2. No acute intracranial process , trauma or fracture. Darius Hernandez MD Objective Remarks GENERAL: Patient is 76 yo intubated and sedated with fentanyl 150 g per hour SKIN: Warm and dry. HEAD: Normocephalic. EYES: No scleral icterus. No injection or drainage. NECK: Supple, trachea midline. No JVD or lymphadenopathy. Orally intubated. CARDIOVASCULAR: Regular rate and rhythm without murmurs, gallops, or rubs. RESPIRATORY: Breath sounds equal bilaterally. No accessory muscle use. GASTROINTESTINAL: Abdomen soft, non-tender, nondistended. MUSCULOSKELETAL: No cyanosis, or edema. Neuro: sedated and intubated. Eyes are open, moves extremities, but do not follow commands Urinary Catheter: Yes Assessment to: Continue Vascular Central Line Catheter: Yes Assessment to: Continue ( ) A/P Assessment and Plan 76-year-old female with: Acute respiratory failure Metabolic encephalopathy Severe sepsis Congestive heart failure Hypernatremia Anemia OSMANI Possible Pneumonia Non-ST elevation ID Uncontrolled diabetes mellitus Lactic acidosis History of CAD History of PVD Plan: Neuro: Continue Precedex to facilitate ventilator weaning. Monitor neuro status. Wean off fentanyl as tolerated 12/08 CT brain: No acute intracranial process 12/08 EEG: Moderate degree of encephalopathy Encephalopathy seems to be metabolic Pulm: - Continue with vent support and keep sat >90% - Bronchodilators, ICU vent bundle, CPAP trials as ramone. Vent day 14 - CT guided thoracentesis 12/10- 820 ml of cloudy fluid removed from the right side. Fluid studies consistent with transudate - If not weaned to extubation in the next 2 days, will need trach CV: - Monitor HR and BP keep MAP>65mmHg - Echo showed EF 40-45%, hypokinesis in apical myocardium. - Cardiology- . - Continue ASA, Lipitor, Brilinta 90mg BID, Lopressor 12.5mg Q12 - Status post catheterization December 04, successful intervention on the free mammary bypass graft to the LAD with adventist of ORLY-3 flow and successful revascularization of the proximal right coronary artery with improvement in flow : - Monitor renal function, I/O's, electrolytes replacement as needed - Renal function worse today with Cr: 2.4 from 2, UO: 1700ml in 24 hrs -On Free H20 300ml Q8 for hypernatremia, D5W 75 ml/hr monitor Sodium level. -Renal US. normal study GI/liver: On Protonix 40mg daily, TF Nepro with goal rate 40ml/hr Heme: Monitor CBC, s/p transfuse 1u PRBC 12/09, Guaiac stool for heme ID: Continue Fabien Gonzalez, pharmacy to adjust dose per renal function. Monitor for signs of infections ( Fever, WBC) Add Micafungin BC 12/08, 12/09: NGTD. 12/10 BC, sputum cx negative to date. ID consulted Endocrine: On SSI ( medium scale)Levemir 20u BID -increase to 30 BID Prophylaxis: PPI/SCDs/ Heparin SQ on hold for anemia requiring blood transfusion Lines Right IJ placed 12/08 CCT 35 mins Logan High MD Dec 11, 2016 13:06 Logan High MD Dec 11, 2016 13:06
[2016-12-11] MEDS ORDERED: Vancomycin Consult Pharmacy 1 EA OTHER SCH (13:15)
[2016-12-11] MEDS: DEXMEDETOMIDINE INJ 1,000 MCG in SODIUM CHLOR 0.9% 250 ML INJ 240 ML IV SCH (13:26)
[2016-12-11 13:39] LABS: BLOOD GAS BASE EXCESS -3.8 mmol/L (-2-2); BLOOD GAS HCO3 21 mmol/L (22-26); BLOOD GAS METHEMOGLOBIN 1.2 % (0-2); BLOOD GAS O2 HGB SATURATION 95 % (90-100); BLOOD GAS OXYGEN CONTENT 11.1 Vol % (12.0-20.0); BLOOD GAS PCO2 37 mmHg (38-42); BLOOD GAS PO2 108 mmHg (61-120); BLOOD GAS TOTAL HGB 8.2 G/DL (12.0-16.0); CRITICAL VALUE NO; OXYGEN DEVICE VENTILATOR; TEMP CORR TO 98.6
[2016-12-11 13:40] LABS: DRAW SITE LT RADIAL; FIO2 35 %; NUMBER OF ARTERIAL PUNCTURES 1; STAT NO; ULNAR PULSE Y; VENT SETTINGS IPAP 5 EPAP5
[2016-12-11] MEDS: MICAFUNGIN INJ 100 MG in SODIUM CHLORIDE 0.9% INJ 100 ML IV SCH (14:28)
--- NOTE | 2016-12-11 18:11 | HHI.NPPN ---
Subjective History of Present Illness The patient is a 76 yo [place] female who presented to the ED on 11/28/16 with suspected IA as she was having significant SOB. She was ultimately intubated on scene and then transported to the hospital for evaluation. She is currently intubated so history is obtained thru previous encounters and her son who is present in the room. She has known CKD, but she does not follow with a signal maintainer helper as an outpatient. As per son, she has had CKD for many years and believes that her SCr is around 1.5-1.6, which from review of notes seems to be congruent. She has an extensive PMHx of cardiac disease with an EF of 40-45%, triple CABG in 2003, 4 PTCA previously, toe amputations related to PVD, DM for at least 20 years, HTN, and breast cancer treated about 30 years ago with mastectomy and chemotherapy. Son reports that she has has ongoing issues with fluid retention for the past year since she was admitted here for cardiac issues. She does use diuretics as outpatient that has been altered as per her fluid needs. She underwent cardiac cath on 12/04 and had 3 stents placed. She was initially on IVF that was converted to diuretics on 12/07/ thru 12/09. She was started on D5W 12/09 as her sodium levels were elevated. She has been receiving 300mL q8h via NG tube of free water. She received Vanc IV on 12/08 x1 dose and then again today as it is suspected that she has a ventilator associated PNA. Underwent thoracentesis today with approx 800mL drained from R lung. Admitting SCr 2.23 that improved to 1.5-1.6 range until 12/09 when she lisa to 1.74 and then ultimately 2.03 at time of consult. Interval History Patient remains intubated. Review of Systems General General Remarks Patient unable to respond to questions. Objective Data Data 12/10/16 12/11/16 19:00 07:00 Intake Total 2246 ml 2731 ml Output Total 850 ml 825 ml Balance 1396 ml 1906 ml Intake Oral 0 ml IV Total 1430 ml 1673 ml Tube Feeding 366 ml 408 ml Albumin 50 ml Other 450 ml 600 ml Output Urine Total 850 ml 825 ml # Bowel Movements 0 Vital Signs Date Time Temp Pulse Resp B/P Pulse Ox O2 Delivery O2 Flow Rate FiO2 12/11/16 16:20 98 35 12/11/16 16:00 99.9 84 19 129/62 98 12/11/16 16:00 84 12/11/16 16:00 35 12/11/16 14:00 90 12/11/16 12:00 100.1 86 10 145/65 98 12/11/16 12:00 35 12/11/16 12:00 86 12/11/16 11:33 99 35 12/11/16 10:40 35 12/11/16 10:00 86 12/11/16 08:19 98 35 12/11/16 08:00 35 12/11/16 08:00 86 12/11/16 08:00 99.8 86 14 124/58 98 12/11/16 06:00 90 12/11/16 04:40 99 35 12/11/16 04:00 35 12/11/16 04:00 101.6 89 14 145/65 98 12/11/16 04:00 89 12/11/16 02:00 93 12/11/16 01:56 98 35 12/11/16 00:00 100.6 85 14 140/65 99 12/11/16 00:00 35 12/11/16 00:00 85 12/10/16 22:30 100 35 12/10/16 22:00 71 12/10/16 20:27 99 35 12/10/16 20:00 35 12/10/16 20:00 100.3 66 16 117/55 97 12/10/16 20:00 66 12/10/16 19:16 100 100 12/10/16 18:19 73 -: 12/11/16 0441 12/11/16 0845 Microbiology 12/10/16 Gram Stain - Final, Resulted 12/10/16 Sputum Culture - Preliminary, Resulted NO GROWTH IN 24 HOURS. 12/11/16 Urine Culture, Received Pending Physical Exam General Appearance: Obese Eyes Eye Exam: Sclera White Pulmonary Resp Exam: Clear Bilaterally, Breath Sounds Equal, No Distress, Decreased Bases Cardiology CV Exam: Regular, Normal Sinus Rhythm Gastrointestinal/Abdomen GI Exam: Soft, Non-Tender Integumentary Skin Exam: Clear, Warm Extremeties Extremities Exam: Moderate Edema (involving all limbs and dependent torso.) Neurologic Neuro Exam: Sedated Assessment/Plan Problem List: (1) Acute renal failure Plan: Patient appears to have established acute kidney injury with marginal response to diuretics at this point in time and worsening azotemia. It is also concerning the patient is now spiking temps with worsening leukocytosis. I discussed with the patient's son by the bedside the above. He was advised that if the patient's azotemia and or fluid retention continues to worsen we may have to consider renal replacement therapy i.e. dialysis. I discussed with the son that if dialysis is initiated it may be required temporarily or permanently depending whether or not renal recovery occurs subsequently. He advised me that he has had discussions with his mother in the past regarding her CKD and possible need for renal replacement therapy in the future but no specific decision was made previously. Acute on chronic renal failure which is likely multifactorial: cardiorenal with EF of 40-45%, contrast injury (contrast via cath on 12/04), interstitial nephritis from Vanc exposure (received 12/08 & 12/10), infectious process (repeat BCx pending as of 12/10) Ordered labs to r/o any other underlying issues for renal decline. Baseline SCr appears to be 1.5-1.6 with underlying etiology of diabetic nephropathy. Medications should be adjusted for the patient's renal decline. Avoid nephrotoxic agents including iodinated contrast dyes and NSAIDs. Avoid gadolinium when eGFR <30. Total time spent in direct patient care 38 minutes. (2) CHF (congestive heart failure) Plan: Continue bumetanide at current dosage however will increase Diuril in the hope of improving diuresis. (3) Hypernatremia Plan: Related to impaired free water intake. Receiving water via NG. Monitor. (4) Pneumonia Plan: Mgmt as per CC (5) Non-STEMI (non-ST elevated myocardial infarction) Plan: Mgmt as per cardiology (6) Hypertension Plan: BP stable. Continue on current regimen (7) Diabetes mellitus Plan: Mgmt as per CC (8) Anemia Plan: Repeat CBC & Fe panel. May be related to anemia of renal disease versus a dilutional component given her fluid overload. Problem Qualifiers (1) Acute renal failure: Qualified Code: N17.9 - Acute renal failure, unspecified acute renal failure type (2) Pneumonia: Qualified Code: J18.9 - Pneumonia of both lungs due to infectious organism, unspecified part of lung Leandro Doyle MD Dec 11, 2016 18:11
[2016-12-12] VITALS (18 sets, daily range): BP systolic 110–128; BP diastolic 56–60; PULSE 54–84; RESP 16–24; TEMP 97.5–99.2; O2SAT 96–100
[2016-12-12] MEDS: PIPERACIL-TAZO 3.375 GM PREMIX 50 ML IV SCH ×2 (01:49→08:43)
[2016-12-12] MEDS: INSULIN ASPART SUPPLEMENTAL SCALE SQ SCH ×7 (01:51→23:38)
[2016-12-12] MEDS: CHLORHEXIDINE GLUCONATE 2 % 1 PACK (2 CLOTHS) TOP SCH (04:00)
[2016-12-12 04:28] LABS: AUTOMATED NEUTROPHIL # 14.7 TH/MM3 (1.8-7.7); BASOPHIL # 0.1 TH/MM3 (0-0.2); BASOPHIL % 0.5 % (0.0-2.0); EOSINOPHIL # 0.1 TH/MM3 (0-0.4); EOSINOPHIL % 0.5 % (0.0-4.0); HEMATOCRIT 21.8 % (35.0-46.0); LYMPH % 3.4 % (9.0-44.0); LYMPHOCYTE # 0.6 TH/MM3 (1.0-4.8); MEAN CELL VOLUME 87.6 FL (80.0-100.0); MEAN CORPUSCULAR HEMOGLOBIN 29.3 PG (27.0-34.0); MEAN CORPUSCULAR HGB CONC 33.4 % (32.0-36.0); MONO % 4.5 % (0.0-8.0); NEUT % 91.1 % (16.0-70.0); PLATELET COUNT 179 TH/MM3 (150-450); RED BLOOD COUNT 2.49 MIL/MM3 (4.00-5.30); RED CELL DISTRIBUTION WIDTH 14.6 % (11.6-17.2); WHITE BLOOD COUNT 16.1 TH/MM3 (4.0-11.0)
[2016-12-12 04:31] LABS: HEMO FLAGS AUTO DIFF
[2016-12-12] MEDS: FREE WATER G-TUBE SCH ×3 (04:36→19:55)
[2016-12-12] MEDS: NITROGLYCERIN 2% OINT 1 GM PACKET TOPICAL SCH ×4 (04:36→23:34)
[2016-12-12] MEDS: hydrALAZINE HCL 10 MG TAB PO SCH ×3 (04:36→21:52)
[2016-12-12 04:46] LABS: BICARBONATE 22.9 MEQ/L (21.0-32.0); MAGNESIUM 2.3 MG/DL (1.5-2.5); POTASSIUM 3.5 MEQ/L (3.5-5.1)
[2016-12-12 04:50] LABS: CALCIUM-PROTEIN CORRECTED 8.3 MG/DL (8.5-10.1); TOTAL BILIRUBIN ADULT 0.4 MG/DL (0.2-1.0)
[2016-12-12 05:27] LABS: OVALOCYTES 1+ (NORMAL); SCAN/DIFF AUTO DIFF CONFIRMED
--- NOTE | 2016-12-12 06:57 | RADRPT ---
EXAM DATE/TIME: 12/12/2016 04:47 [facility] COMPARISON: CHEST SINGLE AP, December 11, 2016, 3:26. INDICATIONS : Shortness of breath. MEDICAL HISTORY : Hypertension. Myocardial infarction. Congestive heart failure. SURGICAL HISTORY : CABG. Mastectomy, left. ENCOUNTER: Subsequent ACUITY: 2 weeks PAIN SCORE: Non-responsive. LOCATION: Bilateral chest FINDINGS: The cardiac silhouette is enlarged in transverse diameter. Support lines and tubes are in satisfactor y position. There are findings of congestive heart failure with interstitial and alveolar opacity eugene aterally. Small bilateral pleural effusions are identified. CONCLUSION: 1. Cardiomegaly and findings of congestive heart failure. The findings have worsened when compared wi th the prior examination. Timmy Jones MD on December 12, 2016 at 6:55 Board Certified Radiologist. This report was verified electronically.
[2016-12-12] MEDS: CHLORHEXIDINE 0.12% (ORAL KIT) 15 ML CUP MT SCH ×2 (08:00→19:40)
[2016-12-12] MEDS: ALBUMIN HUMAN 25% 12.5 GM/50 ML BAGP IV SCH ×2 (08:39→19:45)
[2016-12-12] MEDS: BUMETANIDE INJ 1 MG/4 ML VIAL IV PUSH SCH (08:42)
[2016-12-12] MEDS: ASPIRIN 81 MG CHEW TAB CHEW SCH (08:42)
[2016-12-12] MEDS: TICAGRELOR 90 MG TAB PO SCH ×2 (08:42→19:55)
[2016-12-12] MEDS: ATORVASTATIN 40 MG TAB PO SCH (08:42)
[2016-12-12] MEDS: METOPROLOL TARTRATE 25 MG TAB PO SCH ×2 (08:43→19:53)
[2016-12-12] MEDS: PANTOPRAZOLE SODIUM 40 MG VIAL IV SCH (08:43)
[2016-12-12] MEDS: INSULIN DETEMIR 100 UNITS/ML VIAL SQ SCH ×2 (08:43→19:53)
[2016-12-12] MEDS: CHLOROTHIAZIDE SOD 500 MG VIAL IV SCH ×2 (08:45→19:48)
[2016-12-12] MEDS: SODIUM CHLORIDE 0.9% FLUSH 5 ML FLUSH IVF SCH ×2 (09:00→19:52)
--- NOTE | 2016-12-12 09:38 | PD.CARD.PN ---
Subjective Subjective Remarks alert, intubated Objective Medications Current Medications Medications (Trade) Dose Ordered Sig/Amber Route Start Time Stop Time Status Last Admin (Aspirin Chew) 81 mg DAILY CHEW 11/28/16 09:00 12/12/16 08:42 (Brilinta) 90 mg BID PO 11/28/16 09:00 12/12/16 08:42 (Tylenol) 650 mg Q6H PRN PO 11/28/16 10:15 12/11/16 05:05 (fentaNYL INJ) 100 mcg Q4H PRN IV 11/28/16 10:15 12/08/16 02:41 (Peridex 0.12% Liq) 15 ml BID@08,20 MT 11/28/16 20:00 12/12/16 08:00 (Protonix Inj) 40 mg DAILY IV 11/28/16 11:00 12/12/16 08:43 Miscellaneous Information 1 Q361D XX 11/28/16 10:15 11/28/16 10:15 (Chlorhexidine 2% Cloth) Taper DAILY@04 TOP 11/29/16 04:00 11/25/17 03:59 12/12/16 04:00 (Chlorhexidine 2% Cloth) 3 pack UNSCH PRN TOP 11/28/16 10:15 (NovoLOG SUPPLEMENTAL SCALE) 1 Q4HR SQ 11/28/16 20:00 12/12/16 04:35 (D50w (Vial) Inj) 25 ml UNSCH PRN IV 11/28/16 17:00 (Glucagon Inj) 1 mg UNSCH PRN IM/SQ 11/28/16 17:00 (Lipitor) 40 mg DAILY PO 11/29/16 09:00 12/12/16 08:42 (Nitroglycerin 2% Oint) 0.5 inch Q6HR TOPICAL 12/01/16 18:00 12/12/16 04:36 (Lopressor) 12.5 mg Q12HR PO 12/01/16 21:00 12/12/16 08:43 (Pill Splitter) 1 ea UNSCH PRN OTHER 12/01/16 12:30 (NS Flush) 2 ml BID IVF 12/04/16 21:00 12/11/16 09:04 (Heparin Inj) 5,000 units Q12HR SQ 12/08/16 21:00 Hold 12/09/16 08:43 (Apresoline) 10 mg Q8HR PO 12/08/16 14:00 12/12/16 04:36 Water 300 ml 300 ml Q8HR G-TUBE 12/09/16 14:00 12/12/16 04:36 Dextrose 1,000 ml @ 75 mls/hr [id number] IV 12/09/16 09:15 12/11/16 12:55 Dexmedetomidine HCl 1000 mcg/ Sodium Chloride 250 ml @ 0 mls/hr TITRATE IV 12/09/16 14:45 12/11/16 13:26 Pharmacy Profile Note 0 ml @ 0 mls/hr UNSCH OTHER 12/10/16 10:00 (fentaNYL DRIP) 250 ml @ 0 mls/hr TITRATE IV 12/10/16 17:15 12/11/16 05:05 (Bumex Inj) 1 mg Q12HR IV PUSH 12/10/16 21:00 12/12/16 08:42 (Albumin 25% Inj) 12.5 gm Q12HR IV 12/10/16 21:00 12/12/16 08:39 Insulin Detemir 30 units 30 units BID SQ 12/11/16 21:00 12/12/16 08:43 (Mycamine Inj/NS Inj) 100 ml @ 100 mls/hr Q24H IV 12/11/16 14:00 12/11/16 14:28 Chlorothiazide Sodium 500 mg 500 mg Q12HR IV 12/11/16 21:00 12/12/16 08:45 (Zosyn 2.25 Gm Premix) 50 ml @ 100 mls/hr Q6H IV 12/12/16 15:00 Vital Signs / I&O Vital Signs Date Time Temp Pulse Resp B/P Pulse Ox O2 Delivery O2 Flow Rate FiO2 12/12/16 08:22 99 35 12/12/16 08:22 35 12/12/16 06:00 68 12/12/16 04:00 35 12/12/16 04:00 99 35 12/12/16 04:00 99.2 79 22 119/58 100 12/12/16 04:00 79 12/12/16 02:00 83 12/12/16 00:45 99 35 12/12/16 00:00 98.2 74 19 117/56 99 12/12/16 00:00 74 12/12/16 00:00 35 12/11/16 22:00 91 12/11/16 22:00 99 35 12/11/16 20:30 35 12/11/16 20:00 99.2 93 19 137/62 95 12/11/16 20:00 35 12/11/16 20:00 86 12/11/16 18:22 89 12/11/16 16:20 98 35 12/11/16 16:00 99.9 84 19 129/62 98 12/11/16 16:00 84 12/11/16 16:00 35 12/11/16 14:00 90 12/11/16 12:00 100.1 86 10 145/65 98 12/11/16 12:00 35 12/11/16 12:00 86 12/11/16 11:33 99 35 12/11/16 10:40 35 12/11/16 10:00 86 I/O 12/11/16 12/11/16 12/11/16 12/12/16 12/12/16 12/12/16 07:00 15:00 23:00 07:00 15:00 23:00 Intake Total 1204 ml 1138 ml 1338 ml 1208 ml Output Total 400 ml 300 ml 125 ml 240 ml Balance 804 ml 838 ml 1213 ml 968 ml Intake Oral 0 ml IV Total 701 ml 956 ml 925 ml 642 ml Tube Feeding 203 ml 182 ml 63 ml 266 ml Albumin 50 ml Other 300 ml 300 ml 300 ml Output Urine Total 400 ml 300 ml 125 ml 240 ml # Bowel Movements 1 0 1 Physical Exam Sedated Morbidly obese Chest clear CV S1 S2 RRR Abd: obese Ext: trace edema Laboratory Laboratory Tests Test 12/11/16 12/12/16 13:30 04:00 Blood Gas Puncture Site LT RADIAL Blood Gas Patient Temperature 98.6 Blood Gas HCO3 21 mmol/L Blood Gas Base Excess -3.8 mmol/L Blood Gas Oxygen Saturation 95 % Arterial Blood pH 7.37 Arterial Blood Partial 37 mmHg Pressure CO2 Arterial Blood Partial 108 mmHg Pressure O2 Arterial Blood Oxygen Content 11.1 Vol % Arterial Blood 2.0 % Carboxyhemoglobin Arterial Blood Methemoglobin 1.2 % Blood Gas Hemoglobin 8.2 G/DL Oxygen Delivery Device VENTILATOR Blood Gas Ventilator Setting IPAP 5 EPAP5 Blood Gas Inspired Oxygen 35 % White Blood Count 16.1 TH/MM3 Red Blood Count 2.49 MIL/MM3 Hemoglobin 7.3 GM/DL Hematocrit 21.8 % Mean Corpuscular Volume 87.6 FL Mean Corpuscular Hemoglobin 29.3 PG Mean Corpuscular Hemoglobin 33.4 % Concent Red Cell Distribution Width 14.6 % Platelet Count 179 TH/MM3 Mean Platelet Volume 10.9 FL Neutrophils (%) (Auto) 91.1 % Lymphocytes (%) (Auto) 3.4 % Monocytes (%) (Auto) 4.5 % Eosinophils (%) (Auto) 0.5 % Basophils (%) (Auto) 0.5 % Neutrophils # (Auto) 14.7 TH/MM3 Lymphocytes # (Auto) 0.6 TH/MM3 Monocytes # (Auto) 0.7 TH/MM3 Eosinophils # (Auto) 0.1 TH/MM3 Basophils # (Auto) 0.1 TH/MM3 CBC Comment AUTO DIFF Differential Comment AUTO DIFF CONFIRMED Ovalocytes 1+ Sodium Level 143 MEQ/L Potassium Level 3.5 MEQ/L Chloride Level 108 MEQ/L Carbon Dioxide Level 22.9 MEQ/L Anion Gap 12 MEQ/L Blood Urea Nitrogen 84 MG/DL Creatinine 3.31 MG/DL Estimat Glomerular Filtration 14 ML/MIN Rate Random Glucose 272 MG/DL Calcium Level 7.3 MG/DL Protein Corrected Calcium 8.3 MG/DL Magnesium Level 2.3 MG/DL Total Bilirubin 0.4 MG/DL Aspartate Amino Transf 44 U/L (AST/SGOT) Alanine Aminotransferase 81 U/L (ALT/SGPT) Alkaline Phosphatase 55 U/L Total Protein 5.2 GM/DL Albumin 1.9 GM/DL Random Vancomycin Level 27.1 COMMENT Assessment and Plan Problem List: (1) Non-STEMI (non-ST elevated myocardial infarction) Assessment and Plan: s/p stenting (2) Acute renal failure (3) Heart failure (4) CAD (coronary artery disease) (5) Anemia (6) Stented coronary artery Assessment and Plan Extubation today Problem Qualifiers (1) Acute renal failure: Qualified Code: N17.9 - Acute renal failure, unspecified acute renal failure type (2) CAD (coronary artery disease): Kyle Hartman MD Dec 12, 2016 09:37
[2016-12-12] MEDS: RESP: ALBUTEROL 2.5 MG/3 ML NEB (PRN) INH (11:26)
[2016-12-12] MEDS ORDERED: SODIUM CHLORID 0.9% IV ONE (12:30)
[2016-12-12] MEDS ORDERED: VANCOMYCIN IV ONE (12:30)
--- NOTE | 2016-12-12 12:40 | HHI.CCPN ---
Subjective Remarks/Hospital Course 76-year-old female came to the emergency room brought by EMS as a STEMI alert. Patient called 911 for shortness of breath. When they arrived patient says oxygen saturation was in the 80s and she was in respiratory distress. Patient has history of coronary artery disease and congestive heart failure. She told me she had her bypass surgery done few years ago. Patient denied of any chest pain at any point. EMS said that patient had told them that she was nauseous for past couple days and vomited last night. She was woken up from the sleep with this shortness of breath. By the time patient arrived to the ER she was acutely short of breath and in severe respiratory distress. She was unable to give much history. She was pale and started getting agitated and diaphoretic when they moved her from the gurney to the stretcher. Patient developed worsening respiratory distress and required emergent intubation was placed on mechanical ventilation by ER physician. Her troponin came back at 20 and her EKG suggested intraventricular conduction delay versus left bundle branch block. Cardiology was contacted and felt patient had a non-ST elevation AL. She was also noted to be extremely hyperglycemic with glucose levels in the 500s with metabolic acidosis/lactic acidosis. She was started on the DKA protocol by ER physician. Urine ketones are negative. Beta hydroxybutyrate slightly elevated. Patient had a central line placed by ER physician and was started on heparin drip for anticoagulation for her AL. She was accepted for admission by critical care medicine service. I discussed the case with Dr. Auguste who is not planning cardiac catheterization at this time. Patient also was given empiric antibiotics up to obtaining cultures. 2 Patient is sedated with Diprivan and intubated. Remains on Heparin drip. On PRVC/AC RR 20 IT 1.0, TV 500, PEEP:5 and FIO2 35% 11/30 No acute events overnight. Sedated and intubated. Afebrile. On Heparin drip 12/01 Patient remains sedated and intubated. Afebrile. On Heparin drip. She had episode of desaturation while on CPAP. 12/02 Patient is sedated with Diprivan and intubated. Remains on Heparin drip. 12/03 No events over night. Attempt SBT tomorrow post cardiac Catheterization 12/04 cardiac catheterization today, successful intervention on the free mammary bypass graft to the LAD with jain of ORLY-3 flow and successful revascularization of the proximal right coronary artery with improvement in flow 12/05 attempt to wean from the mechanical ventilation failure due to rapid shallow breathing today 12/06 no evidence overnight 12/07 failed as SBT yesterday due to rapid shallow breathing 12/08 Patient remains intubated and on Precedex drip. Afebrile. She was on CPAP x 4 hrs yesterday then became tachycardic and hypertensive. 12/09 Patient remains sedated and intubated. Spiked fever with Tmax 101.7. CT brain yesterday showed no acute intracranial process 12/10 Patient is on Precedex drip, on CPAP 15/ with FIO2 30%. Tmax 101.6. Renal function worse today with Cr: 2.03 from 1.74. s/p transfusion 1u PRBC yesterday. 12/11 Tolerating CPAP. Remains encephalopathic, not following commands. MAXIMUM TEMPERATURE 101.6, white count was sent from 13.2-20.2. Function also worsening from 2-2.4. s/p CT guided thoracentesis 12/10/16, with 820 mL of yellow cloudy fluid removed. Fluid studies consistent with transudative effusion 12/12: Awake today follows commands but tachypneic, and using accessory muscles on 5 or 5 spontaneous breathing trial. Chest x-ray shows increased pulmonary vascular congestion/CHF. Worsening creatinine increased from 2-3.3, with decreased urine output. Additional 2 mg IV push bumetanide. Sputum culture growing Pseudomonas. One blood culture with gram-positive cocci-continue Zosyn , single dose of vancomycin ordered Objective Vital Signs Date Time Temp Pulse Resp B/P Pulse Ox O2 Delivery O2 Flow Rate FiO2 12/12/16 11:08 99 35 12/12/16 06:00 68 12/12/16 04:00 99.2 22 119/58 Intake and Output 12/11/16 12/11/16 12/12/16 08:00 16:00 00:00 Intake Total 1204 ml 1138 ml 1338 ml Output Total 400 ml 300 ml 125 ml Balance 804 ml 838 ml 1213 ml Result Diagram: 12/12/16 0400 12/12/16 0400 Other Results Laboratory Tests Test 12/11/16 13:30 Blood Gas Puncture Site LT RADIAL Blood Gas Patient Temperature 98.6 Blood Gas HCO3 21 mmol/L (22-26) Blood Gas Base Excess -3.8 mmol/L (-2-2) Blood Gas Oxygen Saturation 95 % (90-100) Arterial Blood pH 7.37 (7.380-7.420) Arterial Blood Partial 37 mmHg (38-42) Pressure CO2 Arterial Blood Partial 108 mmHg Pressure O2 (61-120) Arterial Blood Oxygen Content 11.1 Vol % (12.0-20.0) Arterial Blood 2.0 % (0-4) Carboxyhemoglobin Arterial Blood Methemoglobin 1.2 % (0-2) Blood Gas Hemoglobin 8.2 G/DL (12.0-16.0) Oxygen Delivery Device VENTILATOR Blood Gas Ventilator Setting IPAP 5 EPAP5 Blood Gas Inspired Oxygen 35 % Imaging Last Impressions Chest X-Ray 12/08/16 0600 Signed Impressions: Service Date/Time: Thursday, December 08, 2016 04:10 - CONCLUSION: 1. Left lower lobe atelectasis versus pneumonia. Bilateral effusions There has been no significant change when compared to the prior exam. Timmy Jones MD Head CT 12/08/16 0000 Signed Impressions: Service Date/Time: Thursday, December 08, 2016 14:47 - CONCLUSION: 1. 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 2. No acute intracranial process , trauma or fracture. Darius Hernandez MD Objective Remarks GENERAL: Patient is 76 yo intubated and sedated with Precedex 0.2 -0.4 mcg/kg/hr SKIN: Warm and dry. HEAD: Normocephalic. EYES: No scleral icterus. No injection or drainage. NECK: Supple, trachea midline. No JVD or lymphadenopathy. Orally intubated. CARDIOVASCULAR: Regular rate and rhythm without murmurs, gallops, or rubs. RESPIRATORY: Breath sounds equal bilaterally. + accessory muscle use on CPAP 5/ 5. Anxious GASTROINTESTINAL: Abdomen soft, non-tender, nondistended. MUSCULOSKELETAL: No cyanosis, or edema. Neuro: sedated and intubated. Eyes are open, moves extremities, follows commands today Urinary Catheter: Yes Assessment to: Continue Vascular Central Line Catheter: Yes Assessment to: Continue A/P Assessment and Plan 76-year-old female with: ASSESSMENT: Acute respiratory failure Metabolic encephalopathy Non-ST elevation AL Severe sepsis Pseudomonas pneumonia Congestive heart failure Hypernatremia Anemia OSMANI Uncontrolled diabetes mellitus Lactic acidosis History of CAD History of PVD PLAN: Neuro: - Continue Precedex to facilitate ventilator weaning. Monitor neuro status. 12/08 CT brain: No acute intracranial process 12/08 EEG: Moderate degree of encephalopathy - Encephalopathy seems to be metabolic, improving patient following commands today Pulm: - Continue with vent support and keep sat >90% - Bronchodilators, ICU vent bundle, CPAP trials as ramone. Vent day 15 - CT guided thoracentesis 12/10- 820 ml of cloudy fluid removed from the right side. Fluid studies consistent with transudate - If not weaned to extubation in the next 2 days, will need trach - Sputum culture with Pseudomonas continue Zosyn. ID consulted CV: - Monitor HR and BP keep MAP>65mmHg - Echo showed EF 40-45%, hypokinesis in apical myocardium. - Cardiology- . - Continue ASA, Lipitor, Brilinta 90mg BID, Lopressor 12.5mg Q12 - Status post catheterization December 04, successful intervention on the free mammary bypass graft to the LAD with jain of ORLY-3 flow and successful revascularization of the proximal right coronary artery with improvement in flow : - Renal function worse today with Cr: 3.3 from 2, UO: 665 ml in 24 hrs - Renal US. normal study - Monitor renal function, I/O's, electrolytes replacement as needed - Nephrology Dr. Doyle. Continue Bumex IV 1 mg every 12 and Diuril twice a day. Additional 2 mg IV Bumex 1 - On Free H20 300ml Q8 for hypernatremia, DC D5W 75 ml/hr monitor Sodium level. GI/liver: - On Protonix 40mg daily, TF Nepro with goal rate 40ml/hr Heme: - Monitor CBC, s/p transfuse 1u PRBC 12/09, Guaiac stool for heme ID: - Continue Zosyn, Vanco, pharmacy to adjust dose per renal function. Monitor for signs of infections ( Fever, WBC) Added Micafungin 12/11/16 - BC 12/08, 12/09: NGTD. 12/10 BC 1/ GPC, sputum cx Pseudomonas. ID consulted Endocrine: - On SSI ( medium scale)Levemir 30u BID Prophylaxis: - PPI/SCDs/ Heparin SQ on hold for anemia requiring blood transfusion-resume today Lines Right IJ placed 12/08 CCT 35 mins Logan High MD Dec 12, 2016 12:40
[2016-12-12] MEDS: MICAFUNGIN INJ 100 MG in SODIUM CHLORIDE 0.9% INJ 100 ML IV SCH (13:01)
[2016-12-12] MEDS: DEXMEDETOMIDINE INJ 1,000 MCG in SODIUM CHLOR 0.9% 250 ML INJ 240 ML IV SCH (13:01)
--- NOTE | 2016-12-12 13:14 | PD.ID.CON ---
History of Present Illness Service ID Consult Requested By Dr High Reason for Consult fever leukocytosis Primary Care Physician Ethan Pradhan MD Diagnoses: History of Present Illness 76 yo F admitted 2 wks ago with NSTEMI and DKA, critical, intubated on admission sp 12/04 cardiac catheterization with successful intervention on the free mammary bypass graft to the LAD with religion of ORLY-3 flow and successful revascularization of the proximal right coronary artery with improvement in flow Fever noticewd since 12/09 Patient remains sedated and intubated and experiences difficulty weaning Noted worsening renal fnx with creatinine increased from 2-3.3, and decreased urine output. remains on vent s/p CT guided thoracentesis 12/10/16, with 820 mL of yellow cloudy fluid removed. Fluid studies consistent with transudative effusion; clx remain negative developped fever, leukocytosis in the past 3-4 days sputum clx growing pseudomonas One of BC growing GPC in pairs, clusters she tolerated CPAP yday and today, has large amount of huggins secretions and a very large liquid BM she is on Zosyn, single dose of vancomycin ordered Review of Systems ROS Limitations: Clinical Condition, Altered Mental Status (sedated) Past Family Social History Allergies: Coded Allergies: Sulfa (Verified Allergy, Severe, Swelling, 11/28/16) Swelling of lips *MDRO Multi-Drug Resistant Organism (Verified Allergy, Unknown, 11/28/16) MRSA foot wound 05/2013 MRSA PCR screen negative 12/17/15 & 12/20/15 Per Infection Control, pt does not require isolation for history of MRSA prior to 12/20/2015. Past Medical History 1. Coronary artery disease. 2. Peripheral artery disease. 3. Hypertension 4. Diabetes mellitus. 5. Obesity. 6. Dyslipidemia. 7. Chronic kidney disease. 8. History of breast cancer status post mastectomy and chemotherapy. 9. Hysterectomy. 10.History of sepsis with bilateral pneumonia. 11.Chronic leg edema. 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 13.GERD. 14.Lumbar laminectomy. Past Surgical History 1. Coronary artery bypass grafting ([address] Carty) with a IYER to LAD, vein graft to circumflex, vein graft to RCA. 2. Chronic occlusion of SFA and popliteal with an unsuccessful attempt at opening (February 20, 2011). 3. Previous cardiac catheterization at [facility] by Dr. Sorto with bare metal stenting in the distal and proximal circumflex, two long drug-eluting stents in the mid RCA and one Promus stent at the ostium of the RCA. 4. Left transmetatarsal amputation. 5. Previous mastectomy for breast cancer with breast reconstruction. 6. Hysterectomy. 7. Lumbar laminectomy. Active Ordered Medications Medications where reviewed in EMR Antibiotics Include: Zosyn, single dose of vancomycin ordered Family History Unable to be obtained at this time. Social History The patient is and retired. She is a lifetime nonsmoker. Denies alcohol or drug abuse. Physical Exam Vital Signs Vital Signs Date Time Temp Pulse Resp B/P Pulse Ox O2 Delivery O2 Flow Rate FiO2 12/12/16 11:08 99 35 12/12/16 08:22 99 35 12/12/16 08:22 35 12/12/16 08:00 35 12/12/16 06:00 68 12/12/16 04:00 35 12/12/16 04:00 99 35 12/12/16 04:00 99.2 79 22 119/58 100 12/12/16 04:00 79 12/12/16 02:00 83 12/12/16 00:45 99 35 12/12/16 00:00 98.2 74 19 117/56 99 12/12/16 00:00 74 12/12/16 00:00 35 12/11/16 22:00 91 12/11/16 22:00 99 35 12/11/16 20:30 35 12/11/16 20:00 99.2 93 19 137/62 95 12/11/16 20:00 35 12/11/16 20:00 86 12/11/16 18:22 89 12/11/16 16:20 98 35 12/11/16 16:00 99.9 84 19 129/62 98 12/11/16 16:00 84 12/11/16 16:00 35 12/11/16 14:00 90 Physical Exam CONSTITUTIONAL/GENERAL: This is an obese elderly female patient, in no apparent distress. TUBES/LINES/DRAINS: SKIN: No jaundice, rashes, or lesions.\ Skin temperature appropriate. Not diaphoretic. HEAD: Atraumatic. Normocephalic. EYES: Pupils equal and round and reactive. Extraocular motions intact. No scleral icterus. No injection or drainage. Fundi not examined. ENT: Hearing grossly normal. Nose without bleeding or purulent drainage. oral mucosae without visible erythema, exudates, masses, or lesions. NECK: Trachea midline. Supple, nontender. CARDIOVASCULAR: Regular rate and rhythm without murmurs, gallops, or rubs. No JVD. Peripheral pulses symmetric. RESPIRATORY/CHEST: Symmetric, unlabored respirations. Scattered rhonchi to auscultation. Breath sounds equal bilaterally. No wheezes, rales, or rhonchi. GASTROINTESTINAL: Abdomen soft, non-tender, nondistended. No hepato-splenomegaly , or palpable masses. No guarding. Bowel sounds present. Lower transverse laparotomy abdominal incision, well healed GENITOURINARY: Without palpable bladder distension. Astorga catheter in place with clear uyellow urine, small amount for the day MUSCULOSKELETAL: Extremities without clubbing, cyanosis, or edema. sp L TMA, well healed No joint tenderness or effusion noted. No calf tenderness. No mottling or clubbing. LYMPHATICS: No palpable cervical or supraclavicular adenopathy. NEUROLOGICAL: Sedated, per RN follows commands intermittently when off sedation with all extremities. PSYCHIATRIC: unable to assess - sedated Laboratory Laboratory Tests Test 12/11/16 12/12/16 13:30 04:00 Blood Gas Puncture Site LT RADIAL Blood Gas Patient Temperature 98.6 Blood Gas HCO3 21 Blood Gas Base Excess -3.8 Blood Gas Oxygen Saturation 95 Arterial Blood pH 7.37 Arterial Blood Partial 37 Pressure CO2 Arterial Blood Partial 108 Pressure O2 Arterial Blood Oxygen Content 11.1 Arterial Blood 2.0 Carboxyhemoglobin Arterial Blood Methemoglobin 1.2 Blood Gas Hemoglobin 8.2 Oxygen Delivery Device VENTILATOR Blood Gas Ventilator Setting IPAP 5 EPAP5 Blood Gas Inspired Oxygen 35 White Blood Count 16.1 Red Blood Count 2.49 Hemoglobin 7.3 Hematocrit 21.8 Mean Corpuscular Volume 87.6 Mean Corpuscular Hemoglobin 29.3 Mean Corpuscular Hemoglobin 33.4 Concent Red Cell Distribution Width 14.6 Platelet Count 179 Mean Platelet Volume 10.9 Neutrophils (%) (Auto) 91.1 Lymphocytes (%) (Auto) 3.4 Monocytes (%) (Auto) 4.5 Eosinophils (%) (Auto) 0.5 Basophils (%) (Auto) 0.5 Neutrophils # (Auto) 14.7 Lymphocytes # (Auto) 0.6 Monocytes # (Auto) 0.7 Eosinophils # (Auto) 0.1 Basophils # (Auto) 0.1 CBC Comment AUTO DIFF Differential Comment AUTO DIFF CONFIRMED Ovalocytes 1+ Sodium Level 143 Potassium Level 3.5 Chloride Level 108 Carbon Dioxide Level 22.9 Anion Gap 12 Blood Urea Nitrogen 84 Creatinine 3.31 Estimat Glomerular Filtration 14 Rate Random Glucose 272 Calcium Level 7.3 Protein Corrected Calcium 8.3 Magnesium Level 2.3 Total Bilirubin 0.4 Aspartate Amino Transf 44 (AST/SGOT) Alanine Aminotransferase 81 (ALT/SGPT) Alkaline Phosphatase 55 Total Protein 5.2 Albumin 1.9 Random Vancomycin Level 27.1 Date/Time Procedure Status Source Growth 12/11/16 00:05 Urine Culture - Preliminary Resulted Urine Catheterized Urine NO GROWTH IN 24 HOURS. 12/10/16 20:25 Gram Stain - Final Resulted Sputum Endotracheal 12/10/16 20:25 Sputum Culture - Preliminary Resulted Pseudomonas Species 12/10/16 13:27 Aerobic Blood Culture - Preliminary Resulted Blood Peripheral Gram Positive Cocci 12/10/16 13:27 Anaerobic Blood Culture - Preliminary Resulted Blood Peripheral NO GROWTH IN 2 DAYS Result Diagram: 12/12/16 0400 12/12/16 0400 Imaging Last Impressions Chest X-Ray 12/12/16 0600 Signed Impressions: Service Date/Time: Monday, December 12, 2016 04:47 - CONCLUSION: 1. Cardiomegaly and findings of congestive heart failure. The findings have worsened when compared with the prior examination. Timmy Jones MD Thoracentesis 12/10/16 0000 Signed Impressions: Service Date/Time: Saturday, December 10, 2016 14:43 - CONCLUSION: Uncomplicated CT-guided thoracentesis. Jarrod Meyer MD Renal Ultrasound 12/10/16 0000 Signed Impressions: Service Date/Time: Saturday, December 10, 2016 18:06 - CONCLUSION: Normal examination. Lennox Rodriguez MD Chest Ultrasound 12/09/16 0000 Signed Impressions: Service Date/Time: Friday, December 09, 2016 13:23 - CONCLUSION: Moderate size right pleural effusion. Torito Conklin MD Head CT 12/08/16 0000 Signed Impressions: Service Date/Time: Thursday, December 08, 2016 14:47 - CONCLUSION: 1. 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 2. No acute intracranial process , trauma or fracture. Darius Hernandez MD Assessment and Plan Assessment and Plan NSTEMI on admission Acute rVDRF, difficulty weaning CHF Fever, leukocytosis ? superimposed PNA, PSAE GPC bacteremia, unknown significance -m low grade ARF - cont zosyn, vanco per levels - will dc vanco if low grade coag neg bacteremia - adjust abx per clx Discussed Condition With RN @ b/s Marina Sams MD Dec 12, 2016 13:14
[2016-12-12] MEDS ORDERED: BUMETANIDE INJ 1 MG/4 ML VIAL IV PUSH ONE (13:15)
--- NOTE | 2016-12-12 14:54 | RADRPT ---
EXAM DATE/TIME: 12/12/2016 13:38 [facility] COMPARISON: CHEST SINGLE AP, December 12, 2016, 4:47. INDICATIONS : Respiratory disease. MEDICAL HISTORY : None. SURGICAL HISTORY : None. ENCOUNTER: Subsequent ACUITY: 2 weeks PAIN SCORE: Non-responsive. LOCATION: chest FINDINGS: The patient's right jugular line and endotracheal tube are in good position. The patient is post medi an sternotomy. The heart is mildly enlarged. There is diffuse interstitial prominence and small left basilar effusion. The examination was suggest congestive failure. CONCLUSION: 1. Support equipment in good position. 2. Probable congestive failure. 3. Stable compared to previous examination. Long Multani MD on December 12, 2016 at 14:33 Board Certified Radiologist. This report was verified electronically.
[2016-12-12] MEDS: PIPERACIL-TAZO 2.25 GM PREMIX 50 ML IV SCH ×2 (15:00→20:09)
[2016-12-12] MEDS: RESP: ALBUTEROL 2.5 MG/IPRATROPIUM 0.5 MG NEB (SCH) NEB ×3 (15:39→20:44)
[2016-12-12] MEDS: BUMETANIDE 25 MG/100 ML CONTINOUS DRIP IV SCH (17:09)
[2016-12-12] MEDS: fentaNYL DRIP 250 ML IV SCH (17:10)
--- NOTE | 2016-12-12 17:12 | HHI.NPPN ---
Subjective History of Present Illness The patient is a 76 yo [place] female who presented to the ED on 11/28/16 with suspected HI as she was having significant SOB. She was ultimately intubated on scene and then transported to the hospital for evaluation. She is currently intubated so history is obtained thru previous encounters and her son who is present in the room. She has known CKD, but she does not follow with a slack line yarder as an outpatient. As per son, she has had CKD for many years and believes that her SCr is around 1.5-1.6, which from review of notes seems to be congruent. She has an extensive PMHx of cardiac disease with an EF of 40-45%, triple CABG in 2003, 4 PTCA previously, toe amputations related to PVD, DM for at least 20 years, HTN, and breast cancer treated about 30 years ago with mastectomy and chemotherapy. Son reports that she has has ongoing issues with fluid retention for the past year since she was admitted here for cardiac issues. She does use diuretics as outpatient that has been altered as per her fluid needs. She underwent cardiac cath on 12/04 and had 3 stents placed. She was initially on IVF that was converted to diuretics on 12/07/ thru 12/09. She was started on D5W 12/09 as her sodium levels were elevated. She has been receiving 300mL q8h via NG tube of free water. She received Vanc IV on 12/08 x1 dose and then again today as it is suspected that she has a ventilator associated PNA. Underwent thoracentesis today with approx 800mL drained from R lung. Admitting SCr 2.23 that improved to 1.5-1.6 range until 12/09 when she lisa to 1.74 and then ultimately 2.03 at time of consult. Interval History Patient still ventilatory dependent. Review of Systems General General Remarks Patient unable to respond to questions. Objective Data Data 12/11/16 12/12/16 19:00 07:00 Intake Total 1138 ml 2546 ml Output Total 300 ml 365 ml Balance 838 ml 2181 ml Intake Oral 0 ml IV Total 956 ml 1567 ml Tube Feeding 182 ml 329 ml Albumin 50 ml Other 600 ml Output Urine Total 300 ml 365 ml # Bowel Movements 1 1 Vital Signs Date Time Temp Pulse Resp B/P Pulse Ox O2 Delivery O2 Flow Rate FiO2 12/12/16 16:00 35 12/12/16 16:00 66 12/12/16 15:39 99 35 12/12/16 14:00 65 12/12/16 12:00 35 12/12/16 12:00 84 12/12/16 12:00 99.1 79 24 128/60 96 12/12/16 11:08 99 35 12/12/16 10:00 70 12/12/16 08:22 99 35 12/12/16 08:22 35 12/12/16 08:00 98.4 67 22 128/58 100 12/12/16 08:00 35 12/12/16 06:00 68 12/12/16 04:00 35 12/12/16 04:00 99 35 12/12/16 04:00 99.2 79 22 119/58 100 12/12/16 04:00 79 12/12/16 02:00 83 12/12/16 00:45 99 35 12/12/16 00:00 98.2 74 19 117/56 99 12/12/16 00:00 74 12/12/16 00:00 35 12/11/16 22:00 91 12/11/16 22:00 99 35 12/11/16 20:30 35 12/11/16 20:00 99.2 93 19 137/62 95 12/11/16 20:00 35 12/11/16 20:00 86 12/11/16 18:22 89 -: 12/12/16 0400 12/12/16 0400 Physical Exam General Appearance: Obese Eyes Eye Exam: Sclera White Pulmonary Resp Exam: Clear Bilaterally, Breath Sounds Equal, No Distress, Decreased Bases Cardiology CV Exam: Regular, Normal Sinus Rhythm Gastrointestinal/Abdomen GI Exam: Soft, Non-Tender Integumentary Skin Exam: Clear, Warm Extremeties Extremities Exam: Moderate Edema (involving all limbs and dependent torso.) Neurologic Neuro Exam: Sedated Assessment/Plan Problem List: (1) Acute renal failure Plan: Patient appears to have established acute kidney injury with marginal response to diuretics at this point in time and worsening azotemia. Noted bumetanide drip started 1 mg per hour. Suspect that she will not respond to the same in the setting of established ATN. Will reevaluate clinical status tomorrow however likely we may have to consider dialytic support. Discussed with critical care. Acute on chronic renal failure which is likely multifactorial: cardiorenal with EF of 40-45%, contrast injury (contrast via cath on 12/04), interstitial nephritis from Vanc exposure (received 12/08 & 12/10), infectious process (repeat BCx pending as of 12/10) Ordered labs to r/o any other underlying issues for renal decline. Baseline SCr appears to be 1.5-1.6 with underlying etiology of diabetic nephropathy. Medications should be adjusted for the patient's renal decline. Avoid nephrotoxic agents including iodinated contrast dyes and NSAIDs. Avoid gadolinium when eGFR <30. (2) CHF (congestive heart failure) Plan: Continue bumetanide at current dosage however will increase Diuril in the hope of improving diuresis. (3) Hypernatremia Plan: Related to impaired free water intake. Receiving water via NG. Monitor. (4) Pneumonia Plan: Mgmt as per CC (5) Non-STEMI (non-ST elevated myocardial infarction) Plan: Mgmt as per cardiology (6) Hypertension Plan: BP stable. Continue on current regimen (7) Diabetes mellitus Plan: Mgmt as per CC (8) Anemia Plan: Repeat CBC & Fe panel. May be related to anemia of renal disease versus a dilutional component given her fluid overload. Problem Qualifiers (1) Acute renal failure: Qualified Code: N17.9 - Acute renal failure, unspecified acute renal failure type (2) Pneumonia: Qualified Code: J18.9 - Pneumonia of both lungs due to infectious organism, unspecified part of lung Leandro Doyle MD Dec 12, 2016 17:12
[2016-12-12 19:40] LABS: BICARBONATE 24.1 MEQ/L (21.0-32.0); CALCIUM-PROTEIN CORRECTED 8.5 MG/DL (8.5-10.1); MAGNESIUM 2.4 MG/DL (1.5-2.5); POTASSIUM 3.1 MEQ/L (3.5-5.1); TOTAL BILIRUBIN ADULT 0.3 MG/DL (0.2-1.0)
[2016-12-12] MEDS ORDERED: POTASSIUM CHLORIDE INJ 30 MEQ in SODIUM CHLORIDE 0.9% INJ 100 ML IV-CENTRAL ONE (21:15)
[2016-12-13] VITALS (19 sets, daily range): BP systolic 112–185; BP diastolic 53–84; PULSE 54–72; RESP 14–26; TEMP 97.3–98.3; O2SAT 94–100
[2016-12-13] MEDS: RESP: ALBUTEROL 2.5 MG/IPRATROPIUM 0.5 MG NEB (SCH) NEB ×4 (03:45→20:00)
[2016-12-13] MEDS: CHLORHEXIDINE GLUCONATE 2 % 1 PACK (2 CLOTHS) TOP SCH (03:55)
[2016-12-13] MEDS: PIPERACIL-TAZO 2.25 GM PREMIX 50 ML IV SCH ×4 (03:55→20:45)
[2016-12-13] MEDS: INSULIN ASPART SUPPLEMENTAL SCALE SQ SCH ×5 (03:58→20:00)
[2016-12-13 04:41] LABS: AUTOMATED NEUTROPHIL # 11.9 TH/MM3 (1.8-7.7); BASOPHIL % 0.3 % (0.0-2.0); EOSINOPHIL # 0.5 TH/MM3 (0-0.4); EOSINOPHIL % 3.4 % (0.0-4.0); HEMATOCRIT 21.2 % (35.0-46.0); LYMPH % 4.4 % (9.0-44.0); LYMPHOCYTE # 0.6 TH/MM3 (1.0-4.8); MEAN CELL VOLUME 87.2 FL (80.0-100.0); MEAN CORPUSCULAR HGB CONC 32.1 % (32.0-36.0); MONO % 4.9 % (0.0-8.0); PLATELET COUNT 165 TH/MM3 (150-450); RED BLOOD COUNT 2.43 MIL/MM3 (4.00-5.30); WHITE BLOOD COUNT 13.6 TH/MM3 (4.0-11.0)
[2016-12-13] MEDS: fentaNYL DRIP 250 ML IV SCH ×2 (04:42→17:41)
[2016-12-13] MEDS: hydrALAZINE HCL 10 MG TAB PO SCH ×3 (04:42→20:46)
[2016-12-13] MEDS: FREE WATER G-TUBE SCH ×3 (04:42→20:47)
[2016-12-13] MEDS: NITROGLYCERIN 2% OINT 1 GM PACKET TOPICAL SCH ×3 (04:42→17:42)
[2016-12-13 04:46] LABS: HEMO FLAGS DIFF FINAL
[2016-12-13] MEDS ORDERED: SODIUM CHLOR 0.9% 250 ML INJ 250 ML IV ONE (05:00)
[2016-12-13] MEDS: BUMETANIDE 25 MG/100 ML CONTINOUS DRIP IV SCH ×2 (06:00→18:00)
[2016-12-13] MEDS: DEXMEDETOMIDINE INJ 1,000 MCG in SODIUM CHLOR 0.9% 250 ML INJ 240 ML IV SCH (06:00)
[2016-12-13] MEDS: PANTOPRAZOLE SODIUM 40 MG VIAL IV SCH (08:07)
[2016-12-13] MEDS: CHLORHEXIDINE 0.12% (ORAL KIT) 15 ML CUP MT SCH ×2 (08:07→22:16)
[2016-12-13] MEDS: TICAGRELOR 90 MG TAB PO SCH ×2 (08:07→20:46)
[2016-12-13] MEDS: ALBUMIN HUMAN 25% 12.5 GM/50 ML BAGP IV SCH ×2 (08:07→20:44)
[2016-12-13] MEDS: ASPIRIN 81 MG CHEW TAB CHEW SCH (08:08)
[2016-12-13] MEDS: ATORVASTATIN 40 MG TAB PO SCH (08:08)
[2016-12-13] MEDS: METOPROLOL TARTRATE 25 MG TAB PO SCH ×2 (08:08→20:46)
[2016-12-13] MEDS: SODIUM CHLORIDE 0.9% FLUSH 5 ML FLUSH IVF SCH ×2 (08:09→20:45)
[2016-12-13] MEDS: INSULIN DETEMIR 100 UNITS/ML VIAL SQ SCH ×2 (08:12→20:44)
[2016-12-13] MEDS: CHLOROTHIAZIDE SOD 500 MG VIAL IV SCH ×2 (09:00→22:16)
[2016-12-13 10:50] LABS: HEMATOCRIT 24.2 % (35.0-46.0); REVIEW FLAG FINAL
[2016-12-13] MEDS: MICAFUNGIN INJ 100 MG in SODIUM CHLORIDE 0.9% INJ 100 ML IV SCH (12:50)
--- NOTE | 2016-12-13 14:05 | HHI.CCPN ---
Subjective Remarks/Hospital Course 76-year-old female came to the emergency room brought by EMS as a STEMI alert. Patient called 911 for shortness of breath. When they arrived patient says oxygen saturation was in the 80s and she was in respiratory distress. Patient has history of coronary artery disease and congestive heart failure. She told me she had her bypass surgery done few years ago. Patient denied of any chest pain at any point. EMS said that patient had told them that she was nauseous for past couple days and vomited last night. She was woken up from the sleep with this shortness of breath. By the time patient arrived to the ER she was acutely short of breath and in severe respiratory distress. She was unable to give much history. She was pale and started getting agitated and diaphoretic when they moved her from the gurney to the stretcher. Patient developed worsening respiratory distress and required emergent intubation was placed on mechanical ventilation by ER physician. Her troponin came back at 20 and her EKG suggested intraventricular conduction delay versus left bundle branch block. Cardiology was contacted and felt patient had a non-ST elevation MO. She was also noted to be extremely hyperglycemic with glucose levels in the 500s with metabolic acidosis/lactic acidosis. She was started on the DKA protocol by ER physician. Urine ketones are negative. Beta hydroxybutyrate slightly elevated. Patient had a central line placed by ER physician and was started on heparin drip for anticoagulation for her MO. She was accepted for admission by critical care medicine service. I discussed the case with Dr. Auguste who is not planning cardiac catheterization at this time. Patient also was given empiric antibiotics up to obtaining cultures. 2 Patient is sedated with Diprivan and intubated. Remains on Heparin drip. On PRVC/AC RR 20 IT 1.0, TV 500, PEEP:5 and FIO2 35% 11/30 No acute events overnight. Sedated and intubated. Afebrile. On Heparin drip 12/01 Patient remains sedated and intubated. Afebrile. On Heparin drip. She had episode of desaturation while on CPAP. 12/02 Patient is sedated with Diprivan and intubated. Remains on Heparin drip. 12/03 No events over night. Attempt SBT tomorrow post cardiac Catheterization 12/04 cardiac catheterization today, successful intervention on the free mammary bypass graft to the LAD with sabianist of ORLY-3 flow and successful revascularization of the proximal right coronary artery with improvement in flow 12/05 attempt to wean from the mechanical ventilation failure due to rapid shallow breathing today 12/06 no evidence overnight 12/07 failed as SBT yesterday due to rapid shallow breathing 12/08 Patient remains intubated and on Precedex drip. Afebrile. She was on CPAP x 4 hrs yesterday then became tachycardic and hypertensive. 12/09 Patient remains sedated and intubated. Spiked fever with Tmax 101.7. CT brain yesterday showed no acute intracranial process 12/10 Patient is on Precedex drip, on CPAP 15/5 with FIO2 30%. Tmax 101.6. Renal function worse today with Cr: 2.03 from 1.74. s/p transfusion 1u PRBC yesterday. 12/11 Tolerating CPAP. Remains encephalopathic, not following commands. MAXIMUM TEMPERATURE 101.6, white count was sent from 13.2-20.2. Function also worsening from 2-2.4. s/p CT guided thoracentesis 12/10/16, with 820 mL of yellow cloudy fluid removed. Fluid studies consistent with transudative effusion 12/12: Awake today follows commands but tachypneic, and using accessory muscles on 5 or 5 spontaneous breathing trial. Chest x-ray shows increased pulmonary vascular congestion/CHF. Worsening creatinine increased from 2-3.3, with decreased urine output. Additional 2 mg IV push bumetanide. Sputum culture growing Pseudomonas. One blood culture with gram-positive cocci-continue Zosyn , single dose of vancomycin ordered 12/13: Labs pending labs. The patient continues to fail spontaneous breathing trials. Continues on PRVC/AC 20/500/5/0.35 Objective Vital Signs Date Time Temp Pulse Resp B/P Pulse Ox O2 Delivery O2 Flow Rate FiO2 12/13/16 12:00 72 12/13/16 08:00 35 12/13/16 08:00 98.0 14 122/57 99 Intake and Output 12/12/16 12/12/16 12/13/16 08:00 16:00 00:00 Intake Total 1208 ml 1238 ml 1444 ml Output Total 240 ml 150 ml 495 ml Balance 968 ml 1088 ml 949 ml Result Diagram: 12/13/16 1015 12/12/16 1830 Other Results Microbiology Date/Time Procedure Status Source Growth 12/10/16 15:00 Gram Stain - Final Complete Fluid Pleural Fluid 12/10/16 15:00 Body Fluid Culture - Final Complete Fluid Pleural Fluid NO GROWTH IN 72 HRS.--AEROBICALLY OR ... 12/10/16 20:25 Gram Stain - Final Complete Sputum Endotracheal 12/10/16 20:25 Sputum Culture - Final Complete Pseudomonas Aeruginosa 12/11/16 00:05 Urine Culture - Final Complete Urine Catheterized Urine NO GROWTH IN 48 HOURS. Imaging Last Impressions Chest X-Ray 12/08/16 0600 Signed Impressions: Service Date/Time: Thursday, December 08, 2016 04:10 - CONCLUSION: 1. Left lower lobe atelectasis versus pneumonia. Bilateral effusions There has been no significant change when compared to the prior exam. Timmy Jones MD Head CT 12/08/16 0000 Signed Impressions: Service Date/Time: Thursday, December 08, 2016 14:47 - CONCLUSION: 1. 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 2. No acute intracranial process , trauma or fracture. Darius Hernandez MD Objective Remarks GENERAL: Patient is 76 yo intubated and sedated with Precedex 0.2 -0.4 mcg/kg/hr SKIN: Warm and dry. HEAD: Normocephalic. EYES: No scleral icterus. No injection or drainage. NECK: Supple, trachea midline. No JVD or lymphadenopathy. Orally intubated. CARDIOVASCULAR: Regular rate and rhythm without murmurs, gallops, or rubs. RESPIRATORY: Breath sounds equal bilaterally. + accessory muscle use on CPAP 5/ 5. Anxious GASTROINTESTINAL: Abdomen soft, non-tender, nondistended. MUSCULOSKELETAL: No cyanosis, or edema. Neuro: sedated and intubated. Eyes are open, moves extremities, follows commands today Urinary Catheter: Yes Astorga insert reason: Measure Accurate Output A/P Assessment and Plan 76-year-old female with: ASSESSMENT: Acute respiratory failure Metabolic encephalopathy Non-ST elevation MO Severe sepsis Pseudomonas pneumonia Congestive heart failure Hypernatremia Anemia OSMANI Uncontrolled diabetes mellitus Lactic acidosis History of CAD History of PVD PLAN: Neuro: - Continue Precedex to facilitate ventilator weaning. Monitor neuro status. 12/08 CT brain: No acute intracranial process 12/08 EEG: Moderate degree of encephalopathy - Encephalopathy seems to be metabolic, improving patient following commands today Pulm: - Continue with vent support and keep sat >90% - Bronchodilators, ICU vent bundle, CPAP trials as ramone. Vent day 15 - CT guided thoracentesis 12/10- 820 ml of cloudy fluid removed from the right side. Fluid studies consistent with transudate - If not weaned to extubation in the next 2 days, will need trach - Sputum culture with Pseudomonas continue Zosyn. - ID following -Patient will require tracheostomy, continue failed CPAP trials CV: - Monitor HR and BP keep MAP>65mmHg - Echo showed EF 40-45%, hypokinesis in apical myocardium. - Cardiology- . - Continue ASA, Lipitor, Brilinta 90mg BID, Lopressor 12.5mg Q12 - Status post catheterization December 04, successful intervention on the free mammary bypass graft to the LAD with sabianist of ORLY-3 flow and successful revascularization of the proximal right coronary artery with improvement in flow : - Renal function worse today with Cr: 3.3 from 2, UO: 665 ml in 24 hrs - Renal US. normal study - Monitor renal function, I/O's, electrolytes replacement as needed - Nephrology Dr. Doyle. Continue Bumex IV 1 mg every 12 and Diuril twice a day. Additional 2 mg IV Bumex 1 - D/C Free H20 300ml Q8 for hypernatremia. Na 139 will continue to monitor GI/liver: - On Protonix 40mg daily, TF Nepro with goal rate 40ml/hr Heme: - Monitor CBC, s/p transfuse 1u PRBC 12/09, Guaiac stool for heme ID: - Continue Zosyn, Vanco, pharmacy to adjust dose per renal function. Monitor for signs of infections ( Fever, WBC) Added Micafungin 12/11/16 - BC 12/08, 12/09: NGTD. 12/10 BC 10/29 GPC, sputum cx Pseudomonas. ID consulted Endocrine: - On SSI ( medium scale)Levemir 30u BID Prophylaxis: - PPI/SCDs/ Heparin SQ on hold for anemia requiring blood transfusion Lines Right IJ placed 12/08 This patient remains critically ill with one or more organ systems which are or may become a threat to life. I have spent in excess of 45 minutes discontinuously in the care and management of this patient. This time is exclusive of procedures, and includes, but is not limited to, evaluation of the patient, review of the medical record, discussions with family, consultants, nursing staff, or respiratory therapy, and documentation in the medical record. Physician Julianne Hu MD Dec 13, 2016 14:05
[2016-12-13 14:37] LABS: HEMATOCRIT 23.8 % (35.0-46.0); MEAN CELL VOLUME 87.4 FL (80.0-100.0); MEAN CORPUSCULAR HEMOGLOBIN 29.1 PG (27.0-34.0); MEAN CORPUSCULAR HGB CONC 33.3 % (32.0-36.0); PLATELET COUNT 172 TH/MM3 (150-450); RED BLOOD COUNT 2.72 MIL/MM3 (4.00-5.30); REVIEW FLAG FINAL; WHITE BLOOD COUNT 12.5 TH/MM3 (4.0-11.0)
[2016-12-13 14:57] LABS: BICARBONATE 22.8 MEQ/L (21.0-32.0); MAGNESIUM 2.3 MG/DL (1.5-2.5); POTASSIUM 3.3 MEQ/L (3.5-5.1)
[2016-12-13] MEDS ORDERED: SODIUM CHLOR 0.9% 1000 ML INJ 1,000 ML IV PRN ×2 (15:06)
[2016-12-13] MEDS ORDERED: diphenhydrAMINE HCL 25 MG CAP PO PRN (15:15)
[2016-12-13] MEDS ORDERED: ACETAMINOPHEN 325 MG TAB PO PRN (15:15)
[2016-12-13] MEDS ORDERED: cloNIDine HCL 0.1 MG TAB PO PRN (15:15)
[2016-12-13] MEDS ORDERED: NITROGLYCERIN 0.4 MG SL 25 TABS/BTL SL PRN (15:15)
[2016-12-13] MEDS ORDERED: HEPARIN SODIUM - IV 10,000 UNITS/10 ML VIAL IVF PRN (15:15)
[2016-12-13] MEDS ORDERED: GELATIN 12 MM/7 MM FOAM TOP PRN (15:15)
--- NOTE | 2016-12-13 15:15 | HHI.NPPN ---
Subjective History of Present Illness The patient is a 76 yo [place] female who presented to the ED on 11/28/16 with suspected NJ as she was having significant SOB. She was ultimately intubated on scene and then transported to the hospital for evaluation. She is currently intubated so history is obtained thru previous encounters and her son who is present in the room. 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 As per son, she has had CKD for many years and believes that her SCr is around 1.5-1.6, which from review of notes seems to be congruent. She has an extensive PMHx of cardiac disease with an EF of 40-45%, triple CABG in 2003, 4 PTCA previously, toe amputations related to PVD, DM for at least 20 years, HTN, and breast cancer treated about 30 years ago with mastectomy and chemotherapy. Son reports that she has has ongoing issues with fluid retention for the past year since she was admitted here for cardiac issues. She does use diuretics as outpatient that has been altered as per her fluid needs. She underwent cardiac cath on 12/04 and had 3 stents placed. She was initially on IVF that was converted to diuretics on 12/07/ thru 12/09. She was started on D5W 12/09 as her sodium levels were elevated. She has been receiving 300mL q8h via NG tube of free water. She received Vanc IV on 12/08 x1 dose and then again today as it is suspected that she has a ventilator associated PNA. Underwent thoracentesis today with approx 800mL drained from R lung. Admitting SCr 2.23 that improved to 1.5-1.6 range until 12/09 when she lisa to 1.74 and then ultimately 2.03 at time of consult. Review of Systems General General Remarks Patient unable to respond to questions. Objective Data Data 12/12/16 12/13/16 19:00 07:00 Intake Total 1238 ml 2184 ml Output Total 150 ml 660 ml Balance 1088 ml 1524 ml IV Total 833 ml 942 ml Tube Feeding 285 ml 592 ml Albumin 50 ml Other 120 ml 600 ml Output Urine Total 150 ml 660 ml # Bowel Movements 1 0 Vital Signs Date Time Temp Pulse Resp B/P Pulse Ox O2 Delivery O2 Flow Rate FiO2 12/13/16 14:00 63 12/13/16 12:00 72 12/13/16 12:00 98.0 72 19 158/64 98 12/13/16 12:00 35 12/13/16 10:00 61 12/13/16 08:00 35 12/13/16 08:00 98.0 62 14 122/57 99 12/13/16 08:00 65 12/13/16 07:39 100 35 12/13/16 06:00 57 12/13/16 04:15 100 35 12/13/16 04:02 57 12/13/16 04:00 35 12/13/16 04:00 97.8 57 15 112/53 100 12/13/16 02:00 58 12/13/16 01:12 100 35 12/13/16 00:00 35 12/13/16 00:00 63 12/13/16 00:00 97.5 63 19 122/57 100 12/12/16 22:15 100 35 12/12/16 22:00 59 12/12/16 20:44 100 35 12/12/16 20:00 35 12/12/16 20:00 54 12/12/16 20:00 97.5 54 16 111/56 98 12/12/16 18:00 58 12/12/16 16:00 97.6 67 20 110/56 98 12/12/16 16:00 35 12/12/16 16:00 66 12/12/16 15:39 99 35 -: 12/13/16 1400 12/13/16 1400 Physical Exam General Appearance: Obese Eyes Eye Exam: Sclera White Pulmonary Resp Exam: Clear Bilaterally, Breath Sounds Equal, No Distress, Decreased Bases Cardiology CV Exam: Regular, Normal Sinus Rhythm Gastrointestinal/Abdomen GI Exam: Soft, Non-Tender Integumentary Skin Exam: Clear, Warm Extremeties Extremities Exam: Moderate Edema (involving all limbs and dependent torso.) Neurologic Neuro Exam: Sedated Assessment/Plan Problem List: (1) Acute renal failure Plan: Bumetanide drip was apparently increased last night however patient's urine output still remains marginal and she is frankly fluid overloaded. Azotemia is also worsening. Patient has an established acute tubular necrosis. Do not anticipate any improvement in patient's renal function in the short-term but there is potential for renal recovery subsequently. We'll proceed with dialytic support for fluid management and treatment of azotemia. I discussed with her son previously indications for, alternatives to and risks associated with dialysis and the RN indicated that the son wishes to proceed. We'll consult critical care for placement of Vas-Cath. A contacted the dialysis nurse and dialysis orders have been placed in the EMR for today and tomorrow. Acute on chronic renal failure which is likely multifactorial: cardiorenal with EF of 40-45%, contrast injury (contrast via cath on 12/04), interstitial nephritis from Vanc exposure (received 12/08 & 12/10), infectious process (repeat BCx pending as of 12/10) Ordered labs to r/o any other underlying issues for renal decline. Baseline SCr appears to be 1.5-1.6 with underlying etiology of diabetic nephropathy. Medications should be adjusted for the patient's renal decline. Avoid nephrotoxic agents including iodinated contrast dyes and NSAIDs. Avoid gadolinium when eGFR <30. Total time spent in direct patient care 38 minutes. (2) CHF (congestive heart failure) Plan: No improvement despite high dose diuretic therapy. (3) Hypernatremia Plan: Related to impaired free water intake. Receiving water via NG. Monitor. (4) Pneumonia Plan: Mgmt as per CC (5) Non-STEMI (non-ST elevated myocardial infarction) Plan: Mgmt as per cardiology (6) Hypertension Plan: BP stable. Continue on current regimen (7) Diabetes mellitus Plan: Mgmt as per CC (8) Anemia Plan: Epogen as indicated. Problem Qualifiers (1) Acute renal failure: Qualified Code: N17.9 - Acute renal failure, unspecified acute renal failure type (2) Pneumonia: Qualified Code: J18.9 - Pneumonia of both lungs due to infectious organism, unspecified part of lung Leandro Doyle MD Dec 13, 2016 15:15
[2016-12-13] MEDS ORDERED: MIDAZOLAM HCL 5 MG/ML VIAL (1 ML) ONE (15:50)
[2016-12-13] MEDS ORDERED: PROPOFOL 500 MG/50 ML INJ 50 ML ONE (15:58)
--- NOTE | 2016-12-13 17:14 | EKG ---
Date Performed: 12/12/2016 Time Performed: 21:30:10 PTAGE: 76 years EKG: Sinus bradycardia Prolonged QT interval of .14 Nonspecific T wave change Low QRS voltages i n precordial leads Compared to previous tracing, HR is slower, GA interval is slightly slower, and T wave changes in lead I and AVL are slightly more prominent Abnormal ECG NO PREVIOUS TRACING DOCTOR: Dave Yip Interpretating Date/Time 12/13/2016 17:14:06
--- NOTE | 2016-12-13 17:32 | RADRPT ---
EXAM DATE/TIME: 12/13/2016 16:31 [facility] COMPARISON: CHEST SINGLE AP, December 12, 2016, 13:38. INDICATIONS : Transvenous line placement. MEDICAL HISTORY : None. SURGICAL HISTORY : None. ENCOUNTER: Subsequent ACUITY: 2 weeks PAIN SCORE: Non-responsive. LOCATION: Bilateral chest FINDINGS: A single view of the chest demonstrates endotracheal tube in satisfactory position. NG is seen enteri ng stomach. Left Vas-Cath in right atrium. Right central line in superior vena cava. Bilateral airspa ce disease and effusions similar to exam from December 12. Advanced arthropathy at right shoulder. Po stoperative CABG. CONCLUSION: 1. Support apparatus in satisfactory position. Stable to slight increase in bilateral airspace diseas e over the last day. Larry Dawson MD on December 13, 2016 at 17:29 Board Certified Radiologist. This report was verified electronically.
[2016-12-14] VITALS (18 sets, daily range): BP systolic 123–154; BP diastolic 59–80; PULSE 53–74; RESP 14–18; TEMP 97.5–99.3; O2SAT 95–100
[2016-12-14] MEDS: RESP: ALBUTEROL 2.5 MG/IPRATROPIUM 0.5 MG NEB (SCH) NEB ×4 (03:52→20:07)
[2016-12-14] MEDS: INSULIN ASPART SUPPLEMENTAL SCALE SQ SCH ×6 (04:00→20:00)
[2016-12-14] MEDS: CHLORHEXIDINE GLUCONATE 2 % 1 PACK (2 CLOTHS) TOP SCH (04:00)
[2016-12-14] MEDS: NITROGLYCERIN 2% OINT 1 GM PACKET TOPICAL SCH ×4 (04:13→18:00)
[2016-12-14] MEDS: PIPERACIL-TAZO 2.25 GM PREMIX 50 ML IV SCH ×4 (04:14→21:49)
[2016-12-14] MEDS: DEXMEDETOMIDINE INJ 1,000 MCG in SODIUM CHLOR 0.9% 250 ML INJ 240 ML IV SCH (04:15)
[2016-12-14] MEDS: fentaNYL DRIP 250 ML IV SCH ×3 (04:15→23:08)
[2016-12-14] MEDS: hydrALAZINE HCL 10 MG TAB PO SCH ×3 (04:16→21:50)
[2016-12-14] MEDS: FREE WATER G-TUBE SCH ×3 (04:16→21:50)
[2016-12-14 04:50] LABS: HEMATOCRIT 23.9 % (35.0-46.0); MEAN CELL VOLUME 86.7 FL (80.0-100.0); MEAN CORPUSCULAR HEMOGLOBIN 29.1 PG (27.0-34.0); MEAN CORPUSCULAR HGB CONC 33.6 % (32.0-36.0); PLATELET COUNT 155 TH/MM3 (150-450); RED BLOOD COUNT 2.76 MIL/MM3 (4.00-5.30); RED CELL DISTRIBUTION WIDTH 13.9 % (11.6-17.2); REVIEW FLAG FINAL; WHITE BLOOD COUNT 10.5 TH/MM3 (4.0-11.0)
[2016-12-14 05:32] LABS: BICARBONATE 26.4 MEQ/L (21.0-32.0); MAGNESIUM 2.2 MG/DL (1.5-2.5); POTASSIUM 3.4 MEQ/L (3.5-5.1)
[2016-12-14] MEDS: INSULIN DETEMIR 100 UNITS/ML VIAL SQ SCH ×2 (07:54→21:00)
[2016-12-14] MEDS: ALBUMIN HUMAN 25% 12.5 GM/50 ML BAGP IV SCH ×2 (07:54→21:43)
[2016-12-14] MEDS: METOPROLOL TARTRATE 25 MG TAB PO SCH ×2 (07:55→21:00)
[2016-12-14] MEDS: PANTOPRAZOLE SODIUM 40 MG VIAL IV SCH (07:56)
[2016-12-14] MEDS: TICAGRELOR 90 MG TAB PO SCH ×2 (07:56→21:57)
[2016-12-14] MEDS: ATORVASTATIN 40 MG TAB PO SCH (07:56)
[2016-12-14] MEDS: ASPIRIN 81 MG CHEW TAB CHEW SCH (07:56)
[2016-12-14] MEDS: CHLORHEXIDINE 0.12% (ORAL KIT) 15 ML CUP MT SCH ×2 (07:57→22:07)
[2016-12-14] MEDS: BUMETANIDE 25 MG/100 ML CONTINOUS DRIP IV SCH ×2 (08:04→22:06)
[2016-12-14] MEDS: SODIUM CHLORIDE 0.9% FLUSH 5 ML FLUSH IVF PRN (08:23)
[2016-12-14] MEDS: SODIUM CHLOR 0.9% 1000 ML INJ 1,000 ML IV PRN (08:23)
[2016-12-14] MEDS: ALBUMIN HUMAN 25% 25 GM/100 ML BAGP IV PRN (08:24)
[2016-12-14] MEDS: HEPARIN SODIUM - IV 10,000 UNITS/10 ML VIAL PRN (08:24)
[2016-12-14] MEDS: CHLOROTHIAZIDE SOD 500 MG VIAL IV SCH ×2 (09:00→21:00)
[2016-12-14] MEDS: SODIUM CHLORIDE 0.9% FLUSH 5 ML FLUSH IVF SCH ×2 (09:00→21:49)
--- NOTE | 2016-12-14 11:17 | HHI.NPPN ---
Subjective History of Present Illness The patient is a 76 yo [place] female who presented to the ED on 11/28/16 with suspected UT as she was having significant SOB. She was ultimately intubated on scene and then transported to the hospital for evaluation. She is currently intubated so history is obtained thru previous encounters and her son who is present in the room. 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 As per son, she has had CKD for many years and believes that her SCr is around 1.5-1.6, which from review of notes seems to be congruent. She has an extensive PMHx of cardiac disease with an EF of 40-45%, triple CABG in 2003, 4 PTCA previously, toe amputations related to PVD, DM for at least 20 years, HTN, and breast cancer treated about 30 years ago with mastectomy and chemotherapy. Son reports that she has has ongoing issues with fluid retention for the past year since she was admitted here for cardiac issues. She does use diuretics as outpatient that has been altered as per her fluid needs. She underwent cardiac cath on 12/04 and had 3 stents placed. She was initially on IVF that was converted to diuretics on 12/07/ thru 12/09. She was started on D5W 12/09 as her sodium levels were elevated. She has been receiving 300mL q8h via NG tube of free water. She received Vanc IV on 12/08 x1 dose and then again today as it is suspected that she has a ventilator associated PNA. Underwent thoracentesis today with approx 800mL drained from R lung. Admitting SCr 2.23 that improved to 1.5-1.6 range until 12/09 when she lisa to 1.74 and then ultimately 2.03 at time of consult. Interval History Pt remains intubated and sedated HD started 12/13. s/p 2nd session this AM with 3L UF during both treatments. ( Melinda Orellana) Review of Systems General General Remarks Patient unable to respond to questions. (Melinda Orellana) Objective Data Data 12/13/16 12/14/16 19:00 07:00 Intake Total 1048 ml 1753 ml Output Total 330.0 ml 3900 ml Balance 718.0 ml -2147 ml IV Total 524 ml 823 ml Tube Feeding 404 ml 330 ml Other 120 ml 600 ml Output Urine Total 150 ml 900 ml Tube Feeding Residual Discard 180.0 ml Hemodialysis 3000 ml # Bowel Movements 0 Vital Signs Date Time Temp Pulse Resp B/P Pulse Ox O2 Delivery O2 Flow Rate FiO2 12/14/16 10:00 53 12/14/16 08:08 100 35 12/14/16 08:00 58 12/14/16 08:00 35 12/14/16 08:00 98.0 58 14 125/59 100 12/14/16 06:00 58 12/14/16 04:18 100 35 12/14/16 04:00 57 12/14/16 04:00 35 12/14/16 04:00 97.7 53 14 137/63 100 12/14/16 02:00 53 12/14/16 01:16 100 35 12/14/16 00:00 54 12/14/16 00:00 97.5 54 14 135/62 98 12/14/16 00:00 35 12/13/16 22:29 100 35 12/13/16 22:00 54 12/13/16 20:01 100 35 12/13/16 20:00 35 12/13/16 20:00 58 12/13/16 20:00 97.3 58 14 123/58 100 12/13/16 18:00 56 12/13/16 16:00 35 12/13/16 16:00 67 12/13/16 16:00 98.3 65 26 185/84 94 12/13/16 15:42 96 35 12/13/16 14:00 63 12/13/16 12:00 72 12/13/16 12:00 98.0 72 19 158/64 98 12/13/16 12:00 35 (Melinda Orellana) -: 12/14/16 0415 12/14/16 0415 Medication Review Current Medications Medications (Trade) Dose Ordered Sig/Amber Route Start Time Stop Time Status Last Admin (Aspirin Chew) 81 mg DAILY CHEW 11/28/16 09:00 12/14/16 07:56 (Brilinta) 90 mg BID PO 11/28/16 09:00 12/14/16 07:56 (Tylenol) 650 mg Q6H PRN PO 11/28/16 10:15 12/11/16 05:05 (fentaNYL INJ) 100 mcg Q4H PRN IV 11/28/16 10:15 12/08/16 02:41 (Peridex 0.12% Liq) 15 ml BID@08,20 MT 11/28/16 20:00 12/14/16 07:57 (Protonix Inj) 40 mg DAILY IV 11/28/16 11:00 12/14/16 07:56 Miscellaneous Information 1 Q361D XX 11/28/16 10:15 11/28/16 10:15 (Chlorhexidine 2% Cloth) Taper DAILY@04 TOP 11/29/16 04:00 11/25/17 03:59 12/14/16 04:00 (Chlorhexidine 2% Cloth) 3 pack UNSCH PRN TOP 11/28/16 10:15 (NovoLOG SUPPLEMENTAL SCALE) 1 Q4HR SQ 11/28/16 20:00 12/12/16 23:38 (D50w (Vial) Inj) 25 ml UNSCH PRN IV 11/28/16 17:00 (Glucagon Inj) 1 mg UNSCH PRN IM/SQ 11/28/16 17:00 (Lipitor) 40 mg DAILY PO 11/29/16 09:00 12/14/16 07:56 (Nitroglycerin 2% Oint) 0.5 inch Q6HR TOPICAL 12/01/16 18:00 12/14/16 04:16 (Lopressor) 12.5 mg Q12HR PO 12/01/16 21:00 12/14/16 07:55 (Pill Splitter) 1 ea UNSCH PRN OTHER 12/01/16 12:30 (NS Flush) 2 ml BID IVF 12/04/16 21:00 12/14/16 09:00 (Heparin Inj) 5,000 units Q12HR SQ 12/08/16 21:00 Hold 12/09/16 08:43 (Apresoline) 10 mg Q8HR PO 12/08/16 14:00 12/13/16 12:50 Water 300 ml 300 ml Q8HR G-TUBE 12/09/16 14:00 12/14/16 04:16 Dexmedetomidine HCl 1000 mcg/ Sodium Chloride 250 ml @ 0 mls/hr TITRATE IV 12/09/16 14:45 12/14/16 04:15 Pharmacy Profile Note 0 ml @ 0 mls/hr UNSCH OTHER 12/10/16 10:00 (fentaNYL DRIP) 250 ml @ 0 mls/hr TITRATE IV 12/10/16 17:15 12/14/16 04:15 (Albumin 25% Inj) 12.5 gm Q12HR IV 12/10/16 21:00 12/14/16 07:54 Insulin Detemir 30 units 30 units BID SQ 12/11/16 21:00 12/13/16 08:12 (Mycamine Inj/NS Inj) 100 ml @ 100 mls/hr Q24H IV 12/11/16 14:00 12/13/16 12:50 Chlorothiazide Sodium 500 mg 500 mg Q12HR IV 12/11/16 21:00 12/14/16 09:00 Piperacillin Sod/ Tazobactam Sod 50 ml @ 100 mls/hr Q6H IV 12/12/16 15:00 12/14/16 08:00 Bumetanide 100 ml @ 8 mls/hr [id number] IV 12/12/16 16:00 12/14/16 08:04 (NS 1000 ml Inj) 1,000 ml @ 0 mls/hr Q0M PRN IV 12/13/16 15:06 12/14/16 08:23 Heparin Sodium (Porcine) 8000 units 8,000 units UNSCH PRN IVF 12/13/16 15:15 Sodium Chloride 1,000 ml @ 200 mls/hr Q5H PRN IV 12/13/16 15:06 (NS 1000 ml Inj) 1,000 ml @ 0 mls/hr Q0M PRN IV 12/13/16 15:06 12/14/16 08:23 (Albumin 25% Inj) 25 gm UNSCH PRN IV 12/13/16 15:15 12/14/16 08:24 (NS Flush) 5 ml UNSCH PRN IVF 12/13/16 15:15 12/14/16 08:23 (Heparin Inj) UNSCH PRN .XX 12/13/16 15:15 12/14/16 08:24 (Gentamicin (Dialysis) Inj) 20 mg UNSCH PRN IV 12/13/16 15:15 (Zofran Inj) 4 mg UNSCH PRN IV 12/13/16 15:15 (Tylenol) 650 mg UNSCH PRN PO 2/18/17 15:15 (Benadryl) 25 mg UNSCH PRN PO 12/13/16 15:15 (Nitrostat Sl) 0.4 mg UNSCH PRN SL 12/13/16 15:15 (Catapres) 0.1 mg UNSCH PRN PO 12/13/16 15:15 (Epogen Inj) 5,000 units UNSCH PRN IV 12/13/16 15:15 (Gelfoam 12 Mm/7 Mm Top) 1 foam UNSCH PRN TOP 12/13/16 15:15 (Melinda Orellana) Physical Exam General Appearance: No Acute Distress, Obese (Melinda Orellana) Eyes Eye Exam: Sclera White (Melinda Orellana) Pulmonary Resp Exam: Clear Bilaterally, Breath Sounds Equal, No Distress, Decreased Bases (Melinda Orellana) Cardiology CV Exam: Regular, Normal Sinus Rhythm (Melinda Orellana) Gastrointestinal/Abdomen GI Exam: Soft, Non-Tender (Melinda Orellana) Integumentary Skin Exam: Clear, Warm (Melinda Orellana) Extremeties Extremities Exam: Moderate Edema (involving all limbs and dependent torso.) ( Melinda Orellana) Neurologic Neuro Exam: Sedated (Melinda Orellana) Assessment/Plan Problem List: (1) Acute renal failure Plan: Acute on chronic renal failure which is likely multifactorial with development of ATN: cardiorenal with EF of 40-45%, contrast injury (contrast via cath on 12/04), interstitial nephritis from Vanc exposure (received 12/08 & ), infectious process (repeat BCx pending as of 12/10). s/p HD 12/13 & 12/14. Next HD to be determined, but likely 12/16 Continue to monitor renal functions and UOP. Ordered labs to r/o any other underlying issues for renal decline. Baseline SCr appears to be 1.5-1.6 with underlying etiology of diabetic nephropathy. Medications should be adjusted for the patient's renal decline. Avoid nephrotoxic agents including iodinated contrast dyes and NSAIDs. Avoid gadolinium when eGFR <30. (2) CHF (congestive heart failure) Plan: No improvement despite high dose diuretic therapy. Subsequently started on HD (3) Hypernatremia Plan: Related to impaired free water intake. Resolved (4) Pneumonia Plan: Mgmt as per CC (5) Non-STEMI (non-ST elevated myocardial infarction) Plan: Mgmt as per cardiology (6) Hypertension Plan: BP stable. Continue on current regimen (7) Diabetes mellitus Plan: Mgmt as per CC (8) Anemia Plan: Epogen as indicated. (Melinda Orellana) Plan The exam, history, and the medical decision-making described in the above note were completed with the assistance of the PATrisha. I reviewed and agree with the findings presented. (Leandro Doyle MD) Problem Qualifiers (1) Acute renal failure: Qualified Code: N17.9 - Acute renal failure, unspecified acute renal failure type (2) Pneumonia: Qualified Code: J18.9 - Pneumonia of both lungs due to infectious organism, unspecified part of lung Melinda Orellana Dec 14, 2016 11:17 Leandro Doyle MD Dec 15, 2016 11:34
[2016-12-14] MEDS ORDERED: POTASSIUM CL 40 MEQ/30 ML LIQ UDC NG ONE (12:00)
[2016-12-14] MEDS: MICAFUNGIN INJ 100 MG in SODIUM CHLORIDE 0.9% INJ 100 ML IV SCH (12:45)
--- NOTE | 2016-12-14 17:44 | HHI.CCPN ---
Subjective Remarks/Hospital Course 76-year-old female came to the emergency room brought by EMS as a STEMI alert. Patient called 911 for shortness of breath. When they arrived patient says oxygen saturation was in the 80s and she was in respiratory distress. Patient has history of coronary artery disease and congestive heart failure. She told me she had her bypass surgery done few years ago. Patient denied of any chest pain at any point. EMS said that patient had told them that she was nauseous for past couple days and vomited last night. She was woken up from the sleep with this shortness of breath. By the time patient arrived to the ER she was acutely short of breath and in severe respiratory distress. She was unable to give much history. She was pale and started getting agitated and diaphoretic when they moved her from the gurney to the stretcher. Patient developed worsening respiratory distress and required emergent intubation was placed on mechanical ventilation by ER physician. Her troponin came back at 20 and her EKG suggested intraventricular conduction delay versus left bundle branch block. Cardiology was contacted and felt patient had a non-ST elevation HI. She was also noted to be extremely hyperglycemic with glucose levels in the 500s with metabolic acidosis/lactic acidosis. She was started on the DKA protocol by ER physician. Urine ketones are negative. Beta hydroxybutyrate slightly elevated. Patient had a central line placed by ER physician and was started on heparin drip for anticoagulation for her HI. She was accepted for admission by critical care medicine service. I discussed the case with Dr. Auguste who is not planning cardiac catheterization at this time. Patient also was given empiric antibiotics up to obtaining cultures. 2 Patient is sedated with Diprivan and intubated. Remains on Heparin drip. On PRVC/AC RR 20 IT 1.0, TV 500, PEEP:5 and FIO2 35% 11/30 No acute events overnight. Sedated and intubated. Afebrile. On Heparin drip 12/01 Patient remains sedated and intubated. Afebrile. On Heparin drip. She had episode of desaturation while on CPAP. 12/02 Patient is sedated with Diprivan and intubated. Remains on Heparin drip. 12/03 No events over night. Attempt SBT tomorrow post cardiac Catheterization 12/04 cardiac catheterization today, successful intervention on the free mammary bypass graft to the LAD with sabianism of ORLY-3 flow and successful revascularization of the proximal right coronary artery with improvement in flow 12/05 attempt to wean from the mechanical ventilation failure due to rapid shallow breathing today 12/06 no evidence overnight 12/07 failed as SBT yesterday due to rapid shallow breathing 12/08 Patient remains intubated and on Precedex drip. Afebrile. She was on CPAP x 4 hrs yesterday then became tachycardic and hypertensive. 12/09 Patient remains sedated and intubated. Spiked fever with Tmax 101.7. CT brain yesterday showed no acute intracranial process 12/10 Patient is on Precedex drip, on CPAP 15/5 with FIO2 30%. Tmax 101.6. Renal function worse today with Cr: 2.03 from 1.74. s/p transfusion 1u PRBC yesterday. 12/11 Tolerating CPAP. Remains encephalopathic, not following commands. MAXIMUM TEMPERATURE 101.6, white count was sent from 13.2-20.2. Function also worsening from 2-2.4. s/p CT guided thoracentesis 12/10/16, with 820 mL of yellow cloudy fluid removed. Fluid studies consistent with transudative effusion 12/12: Awake today follows commands but tachypneic, and using accessory muscles on 5 or 5 spontaneous breathing trial. Chest x-ray shows increased pulmonary vascular congestion/CHF. Worsening creatinine increased from 2-3.3, with decreased urine output. Additional 2 mg IV push bumetanide. Sputum culture growing Pseudomonas. One blood culture with gram-positive cocci-continue Zosyn , single dose of vancomycin ordered 12/13: Labs pending labs. The patient continues to fail spontaneous breathing trials. Continues on PRVC/AC 20/500/5/0.35 12/14:Afebrile. A Vas-Cath was placed yesterday, hemodialysis was begun, 3.5 L off. The family plans to discuss with critical care medicine decision whether to place a tracheostomy in a.m.. Objective Vital Signs Date Time Temp Pulse Resp B/P Pulse Ox O2 Delivery O2 Flow Rate FiO2 12/14/16 16:00 98.3 66 14 123/80 100 12/14/16 16:00 35 Intake and Output 12/13/16 12/13/16 12/14/16 08:00 16:00 00:00 Intake Total 740 ml 1048 ml 958 ml Output Total 345.0 ml 150 ml 3550 ml Balance 395.0 ml 898 ml -2592 ml Result Diagram: 12/14/16 0415 12/14/16 0415 Imaging Last Impressions Chest X-Ray 12/08/16 0600 Signed Impressions: Service Date/Time: Thursday, December 08, 2016 04:10 - CONCLUSION: 1. Left lower lobe atelectasis versus pneumonia. Bilateral effusions There has been no significant change when compared to the prior exam. Timmy Jones MD Head CT 12/08/16 0000 Signed Impressions: Service Date/Time: Thursday, December 08, 2016 14:47 - CONCLUSION: 1. 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 2. No acute intracranial process , trauma or fracture. Darius Hernandez MD Objective Remarks GENERAL: Patient is 76 yo intubated and sedated with Precedex 0.2 -0.4 mcg/kg/hr SKIN: Warm and dry. HEAD: Normocephalic. EYES: No scleral icterus. No injection or drainage. NECK: Supple, trachea midline. No JVD or lymphadenopathy. Orally intubated. CARDIOVASCULAR: Regular rate and rhythm without murmurs, gallops, or rubs. RESPIRATORY: Breath sounds equal bilaterally. + accessory muscle use on CPAP 5/ 5. Anxious GASTROINTESTINAL: Abdomen soft, non-tender, nondistended. MUSCULOSKELETAL: No cyanosis, or edema. Neuro: sedated and intubated. Eyes are open, moves extremities, follows commands today Urinary Catheter: Yes Astorga insert reason: ICU Pt Getting Diuretics A/P Assessment and Plan 76-year-old female with: ASSESSMENT: Acute respiratory failure Metabolic encephalopathy Non-ST elevation HI Severe sepsis Pseudomonas pneumonia Congestive heart failure Hypernatremia Anemia OSMANI Uncontrolled diabetes mellitus Lactic acidosis History of CAD History of PVD PLAN: Neuro: - Continue Precedex to facilitate ventilator weaning. Monitor neuro status. 12/08 CT brain: No acute intracranial process 12/08 EEG: Moderate degree of encephalopathy - Encephalopathy seems to be metabolic, GCS 11 T patient following commands Pulm: - Continue with vent support and keep sat >90% - Bronchodilators, ICU vent bundle, CPAP trials as ramone. Vent day . Family wanted to wait until Thursday to decide whether or not to place a tracheostomy - CT guided thoracentesis 12/10- 820 ml of cloudy fluid removed from the right side. Fluid studies consistent with transudate - If not weaned to extubation in the next 2 days, will need trach - Sputum culture with Pseudomonas continue Zosyn. - ID following -Patient will require tracheostomy, continue failed CPAP trials CV: - Monitor HR and BP keep MAP>65mmHg - Echo showed EF 40-45%, hypokinesis in apical myocardium. - Cardiology- . - Continue ASA, Lipitor, Brilinta 90mg BID, Lopressor 12.5mg Q12 - Status post catheterization December 04, successful intervention on the free mammary bypass graft to the LAD with sabianism of ORLY-3 flow and successful revascularization of the proximal right coronary artery with improvement in flow : - Renal function worse today with Cr: 3.3 from 2, UO: 665 ml in 24 hrs - Renal US. normal study - Monitor renal function, I/O's, electrolytes replacement as needed - Nephrology Dr. Doyle. Continue Bumex IV 1 mg every 12 and Diuril twice a day. Additional 2 mg IV Bumex 1 - D/C Free H20 300ml Q8 for hypernatremia. Na 139 will continue to monitor -Vas-Cath placement 12/13/16. HD 3.5 liters off GI/liver: - On Protonix 40mg daily, TF Nepro with goal rate 40ml/hr Heme: - Monitor CBC, s/p transfuse 1u PRBC 12/09, Guaiac stool for heme ID: - Continue Zosyn, Fabien, pharmacy to adjust dose per renal function. Monitor for signs of infections ( Fever, WBC) Added Micafungin 12/11/16 - BC 12/08, 12/09: NGTD. 12/10 BC 1 GPC, sputum cx Pseudomonas. ID consulted Endocrine: - On SSI ( medium scale)Levemir 30u BID Prophylaxis: - PPI/SCDs/ Heparin SQ on hold for anemia requiring blood transfusion Lines Right IJ placed 12/08, left IJ Vas-Cath 12/14 This patient remains critically ill with one or more organ systems which are or may become a threat to life. I have spent in excess of 41 minutes discontinuously in the care and management of this patient. This time is exclusive of procedures, and includes, but is not limited to, evaluation of the patient, review of the medical record, discussions with family, consultants, nursing staff, or respiratory therapy, and documentation in the medical record. Physician Julianne Hu MD Dec 14, 2016 17:44
[2016-12-14] MEDS: METOCLOPRAMIDE HCL 10 MG/2 ML VIAL IV PUSH SCH (21:49)
[2016-12-14] MEDS: PANTOPRAZOLE INJ 80 MG in SODIUM CHLORIDE 0.9% INJ 100 ML IV SCH (23:03)
[2016-12-14 23:25] LABS: AUTOMATED NEUTROPHIL # 11.2 TH/MM3 (1.8-7.7); BASOPHIL % 0.2 % (0.0-2.0); EOSINOPHIL # 0.2 TH/MM3 (0-0.4); EOSINOPHIL % 1.7 % (0.0-4.0); LYMPH % 7.4 % (9.0-44.0); MEAN CELL VOLUME 86.5 FL (80.0-100.0); MEAN CORPUSCULAR HEMOGLOBIN 28.7 PG (27.0-34.0); MEAN CORPUSCULAR HGB CONC 33.2 % (32.0-36.0); MONO % 6.6 % (0.0-8.0); NEUT % 84.1 % (16.0-70.0); PLATELET COUNT 185 TH/MM3 (150-450); RED BLOOD COUNT 2.77 MIL/MM3 (4.00-5.30); RED CELL DISTRIBUTION WIDTH 14.2 % (11.6-17.2); WHITE BLOOD COUNT 13.3 TH/MM3 (4.0-11.0)
[2016-12-14 23:28] LABS: HEMO FLAGS AUTO DIFF
[2016-12-14] MEDS ORDERED: PANTOPRAZOLE INJ 80 MG in SODIUM CHLORIDE 0.9% INJ 35 ML IV ONE (23:30)
[2016-12-14 23:38] LABS: APTT (PATIENT) 32.4 SEC (24.3-30.1); INTERNATIONAL NORMALIZED RATIO 1.1 RATIO; PROTHROMBIN TIME - PATIENT 12.3 SEC (9.8-11.6)
[2016-12-14 23:52] LABS: BANDS 6 % (0-6); EOSINOPHILS 3 % (0-4); MYELOCYTES 1 % (0-0); NEUTROPHIL # MANUAL DIFF 10.8 TH/MM3 (1.8-7.7); POLYS (SEG NEUTROPHILS) 73 % (16-70); PROMYELOCYTES 1 % (0-0); SCAN/DIFF FINAL DIFF MANUAL; WBC DIFF SAMPLE 100
[2016-12-14 23:53] LABS: PLATELET ESTIMATE SMEAR NORMAL (NORMAL); PLATELET MORPHOLOGY NORMAL (NORMAL)
[2016-12-14 23:54] LABS: OVALOCYTES 1+ (NORMAL)
[2016-12-15] VITALS (18 sets, daily range): BP systolic 117–160; BP diastolic 56–73; PULSE 58–81; RESP 14–20; TEMP 97.2–99.1; O2SAT 92–100
[2016-12-15] MEDS: NITROGLYCERIN 2% OINT 1 GM PACKET TOPICAL SCH ×5 (02:08→23:45)
[2016-12-15] MEDS: PIPERACIL-TAZO 2.25 GM PREMIX 50 ML IV SCH ×3 (02:08→16:14)
[2016-12-15] MEDS ORDERED: POTASSIUM CHLOR 40 MEQ PREMIX 100 ML IV ONE (02:45)
[2016-12-15] MEDS: RESP: ALBUTEROL 2.5 MG/IPRATROPIUM 0.5 MG NEB (SCH) NEB ×4 (03:41→19:57)
[2016-12-15] MEDS: CHLORHEXIDINE GLUCONATE 2 % 1 PACK (2 CLOTHS) TOP SCH (04:00)
[2016-12-15] MEDS: INSULIN ASPART SUPPLEMENTAL SCALE SQ SCH ×7 (04:00→23:49)
[2016-12-15] MEDS: FREE WATER G-TUBE SCH (04:38)
[2016-12-15] MEDS: hydrALAZINE HCL 10 MG TAB PO SCH ×3 (04:59→21:42)
[2016-12-15] MEDS: METOCLOPRAMIDE HCL 10 MG/2 ML VIAL IV PUSH SCH ×3 (04:59→21:38)
--- NOTE | 2016-12-15 05:09 | RADRPT ---
EXAM DATE/TIME: 12/15/2016 03:57 [facility] COMPARISON: CHEST SINGLE AP, December 13, 2016, 16:31. INDICATIONS : Shortness of breath, possible pulmonary disease. MEDICAL HISTORY : None. SURGICAL HISTORY : None. ENCOUNTER: Subsequent ACUITY: 2 weeks PAIN SCORE: Non-responsive. LOCATION: Bilateral chest FINDINGS: ET tube, NG tube, right internal jugular central line are well placed. The patient is status post scott rnotomy. Heart size is normal. There is hazy density throughout the lungs bilaterally being worse on the left. There is further increase density at the bases bilaterally being worse on the left. There i s a silhouetting of the left hemidiaphragm. Clips in the left axillary region. There is chronic distr active changes of the right humeral head. CONCLUSION: 1. Hazy density throughout the lungs likely related to effusions. 2. Bibasilar areas of consolidation or atelectasis being worse on the left. Lennox Rodriguez MD on December 15, 2016 at 5:06 Board Certified Radiologist. This report was verified electronically.
[2016-12-15 06:13] LABS: BLOOD GAS BASE EXCESS -5.1 mmol/L (-2-2); BLOOD GAS CARBOXYHEMOGLOBIN 1.8 % (0-4); BLOOD GAS HCO3 20 mmol/L (22-26); BLOOD GAS METHEMOGLOBIN 1.3 % (0-2); BLOOD GAS O2 HGB SATURATION 95 % (90-100); BLOOD GAS OXYGEN CONTENT 10.8 Vol % (12.0-20.0); BLOOD GAS PCO2 39 mmHg (38-42); BLOOD GAS PO2 104 mmHg (61-120); CRITICAL VALUE NO; OXYGEN DEVICE VENTILATOR; TEMP CORR TO 98.6
[2016-12-15 06:14] LABS: DRAW SITE LT RADIAL; FIO2 35 %; NUMBER OF ARTERIAL PUNCTURES 1; STAT NO; ULNAR PULSE PRESENT; VENT SETTINGS PRVC/AC
[2016-12-15 06:16] LABS: HEMATOCRIT 22.3 % (35.0-46.0); MEAN CELL VOLUME 87.4 FL (80.0-100.0); MEAN CORPUSCULAR HEMOGLOBIN 29.6 PG (27.0-34.0); MEAN CORPUSCULAR HGB CONC 33.8 % (32.0-36.0); PLATELET COUNT 174 TH/MM3 (150-450); RED BLOOD COUNT 2.55 MIL/MM3 (4.00-5.30); RED CELL DISTRIBUTION WIDTH 14.2 % (11.6-17.2); REVIEW FLAG FINAL
[2016-12-15 07:02] LABS: BICARBONATE 21.9 MEQ/L (21.0-32.0); MAGNESIUM 2.3 MG/DL (1.5-2.5)
[2016-12-15] MEDS: CHLORHEXIDINE 0.12% (ORAL KIT) 15 ML CUP MT SCH ×2 (08:40→21:39)
[2016-12-15] MEDS: CHLOROTHIAZIDE SOD 500 MG VIAL IV SCH ×2 (08:41→21:00)
[2016-12-15] MEDS: ALBUMIN HUMAN 25% 12.5 GM/50 ML BAGP IV SCH ×2 (08:42→21:39)
[2016-12-15] MEDS: INSULIN DETEMIR 100 UNITS/ML VIAL SQ SCH ×2 (08:42→21:41)
[2016-12-15] MEDS: TICAGRELOR 90 MG TAB PO SCH ×4 (08:43→21:00)
[2016-12-15] MEDS: ASPIRIN 81 MG CHEW TAB CHEW SCH ×3 (08:43→11:45)
[2016-12-15] MEDS: ATORVASTATIN 40 MG TAB PO SCH (08:43)
[2016-12-15] MEDS: METOPROLOL TARTRATE 25 MG TAB PO SCH ×2 (08:44→21:41)
[2016-12-15] MEDS: fentaNYL DRIP 250 ML IV SCH ×2 (08:46→18:02)
[2016-12-15] MEDS: SODIUM CHLORIDE 0.9% FLUSH 5 ML FLUSH IVF SCH ×2 (09:00→21:39)
[2016-12-15] MEDS: PANTOPRAZOLE INJ 80 MG in SODIUM CHLORIDE 0.9% INJ 100 ML IV SCH ×2 (09:00→18:00)
[2016-12-15] MEDS: BUMETANIDE 25 MG/100 ML CONTINOUS DRIP IV SCH (09:04)
--- NOTE | 2016-12-15 11:28 | HHI.NPPN ---
Subjective History of Present Illness The patient is a 76 yo [place] female who presented to the ED on 11/28/16 with suspected OR as she was having significant SOB. She was ultimately intubated on scene and then transported to the hospital for evaluation. She is currently intubated so history is obtained thru previous encounters and her son who is present in the room. 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 As per son, she has had CKD for many years and believes that her SCr is around 1.5-1.6, which from review of notes seems to be congruent. She has an extensive PMHx of cardiac disease with an EF of 40-45%, triple CABG in 2003, 4 PTCA previously, toe amputations related to PVD, DM for at least 20 years, HTN, and breast cancer treated about 30 years ago with mastectomy and chemotherapy. Son reports that she has has ongoing issues with fluid retention for the past year since she was admitted here for cardiac issues. She does use diuretics as outpatient that has been altered as per her fluid needs. She underwent cardiac cath on 12/04 and had 3 stents placed. She was initially on IVF that was converted to diuretics on 12/07/ thru 12/09. She was started on D5W 12/09 as her sodium levels were elevated. She has been receiving 300mL q8h via NG tube of free water. She received Vanc IV on 12/08 x1 dose and then again today as it is suspected that she has a ventilator associated PNA. Underwent thoracentesis today with approx 800mL drained from R lung. Admitting SCr 2.23 that improved to 1.5-1.6 range until 12/09 when she lisa to 1.74 and then ultimately 2.03 at time of consult. Interval History Patient remains ventilatory dependent. Review of Systems General General Remarks Patient unable to respond to questions. Objective Data Data 12/14/16 12/15/16 19:00 07:00 Intake Total 870 ml 2165 ml Output Total 3350 ml 975 ml Balance -2480 ml 1190 ml IV Total 420 ml 1989 ml Tube Feeding 150 ml 66 ml Albumin 50 ml Other 300 ml 60 ml Output Urine Total 350 ml 975 ml Hemodialysis 3000 ml # Bowel Movements 1 Vital Signs Date Time Temp Pulse Resp B/P Pulse Ox O2 Delivery O2 Flow Rate FiO2 12/15/16 10:00 58 12/15/16 08:08 92 35 12/15/16 08:00 60 12/15/16 08:00 98.0 60 14 117/56 93 12/15/16 08:00 35 12/15/16 06:00 63 12/15/16 04:25 99 35 12/15/16 04:00 35 12/15/16 04:00 62 12/15/16 04:00 99.0 81 19 125/64 96 12/15/16 02:00 68 12/15/16 01:12 99 35 12/15/16 00:00 35 12/15/16 00:00 99.1 79 19 144/65 98 12/15/16 00:00 79 12/14/16 22:00 99 35 12/14/16 22:00 35 12/14/16 22:00 66 12/14/16 20:00 74 12/14/16 20:00 99.3 74 18 154/70 95 12/14/16 19:40 98 35 12/14/16 18:00 66 12/14/16 16:00 98.3 66 14 123/80 100 12/14/16 16:00 35 12/14/16 16:00 66 12/14/16 15:12 98 35 12/14/16 14:00 53 12/14/16 12:00 35 12/14/16 12:00 98.0 58 14 123/59 100 12/14/16 12:00 53 -: 12/15/16 0545 12/15/16 0545 Physical Exam General Appearance: No Acute Distress, Obese Eyes Eye Exam: Sclera White Pulmonary Resp Exam: Clear Bilaterally, Breath Sounds Equal, No Distress, Decreased Bases Cardiology CV Exam: Regular, Normal Sinus Rhythm Gastrointestinal/Abdomen GI Exam: Soft, Non-Tender Integumentary Skin Exam: Clear, Warm Extremeties Extremities Exam: Moderate Edema (involving all limbs and dependent torso.), Pitting Edema Neurologic Neuro Exam: Sedated Assessment/Plan Problem List: (1) Acute renal failure Plan: Acute on chronic renal failure which is likely multifactorial with development of ATN: cardiorenal with EF of 40-45%, contrast injury (contrast via cath on 12/04), interstitial nephritis from Vanc exposure (received 12/08 & ), infectious process (repeat BCx pending as of 12/10). Renal indices improved with dialysis however still has significant fluid retention despite bumetanide drip. Hemodialysis today for additional fluid removal. Continue to monitor renal functions and UOP. Ordered labs to r/o any other underlying issues for renal decline. Baseline SCr appears to be 1.5-1.6 with underlying etiology of diabetic nephropathy. Medications should be adjusted for the patient's renal decline. Avoid nephrotoxic agents including iodinated contrast dyes and NSAIDs. Avoid gadolinium when eGFR <30. (2) CHF (congestive heart failure) Plan: No improvement despite high dose diuretic therapy. Subsequently started on HD (3) Hypernatremia Plan: Related to impaired free water intake. Resolved (4) Pneumonia Plan: Mgmt as per CC (5) Non-STEMI (non-ST elevated myocardial infarction) Plan: Mgmt as per cardiology (6) Hypertension Plan: BP stable. Continue on current regimen (7) Diabetes mellitus Plan: Mgmt as per CC (8) Anemia Plan: Epogen as indicated. Problem Qualifiers (1) Acute renal failure: Qualified Code: N17.9 - Acute renal failure, unspecified acute renal failure type (2) Pneumonia: Qualified Code: J18.9 - Pneumonia of both lungs due to infectious organism, unspecified part of lung Leandro Doyle MD Dec 15, 2016 11:28
[2016-12-15] MEDS ORDERED: RESP: RACEPINEPHRINE 2.25% 0.5 ML NEB NEB PRN (11:45)
[2016-12-15] MEDS ORDERED: RESP: RACEPINEPHRINE 2.25% 0.5 ML NEB NEB ONE (12:00)
--- NOTE | 2016-12-15 12:02 | HHI.CCPN ---
Subjective Remarks/Hospital Course 76-year-old female came to the emergency room brought by EMS as a STEMI alert. Patient called 911 for shortness of breath. When they arrived patient says oxygen saturation was in the 80s and she was in respiratory distress. Patient has history of coronary artery disease and congestive heart failure. She told me she had her bypass surgery done few years ago. Patient denied of any chest pain at any point. EMS said that patient had told them that she was nauseous for past couple days and vomited last night. She was woken up from the sleep with this shortness of breath. By the time patient arrived to the ER she was acutely short of breath and in severe respiratory distress. She was unable to give much history. She was pale and started getting agitated and diaphoretic when they moved her from the gurney to the stretcher. Patient developed worsening respiratory distress and required emergent intubation was placed on mechanical ventilation by ER physician. Her troponin came back at 20 and her EKG suggested intraventricular conduction delay versus left bundle branch block. Cardiology was contacted and felt patient had a non-ST elevation SD. She was also noted to be extremely hyperglycemic with glucose levels in the 500s with metabolic acidosis/lactic acidosis. She was started on the DKA protocol by ER physician. Urine ketones are negative. Beta hydroxybutyrate slightly elevated. Patient had a central line placed by ER physician and was started on heparin drip for anticoagulation for her SD. She was accepted for admission by critical care medicine service. I discussed the case with Dr. Auguste who is not planning cardiac catheterization at this time. Patient also was given empiric antibiotics up to obtaining cultures. 2 Patient is sedated with Diprivan and intubated. Remains on Heparin drip. On PRVC/AC RR 20 IT 1.0, TV 500, PEEP:5 and FIO2 35% 11/30 No acute events overnight. Sedated and intubated. Afebrile. On Heparin drip 12/01 Patient remains sedated and intubated. Afebrile. On Heparin drip. She had episode of desaturation while on CPAP. 12/02 Patient is sedated with Diprivan and intubated. Remains on Heparin drip. 12/03 No events over night. Attempt SBT tomorrow post cardiac Catheterization 12/04 cardiac catheterization today, successful intervention on the free mammary bypass graft to the LAD with anabaptist of ORLY-3 flow and successful revascularization of the proximal right coronary artery with improvement in flow 12/05 attempt to wean from the mechanical ventilation failure due to rapid shallow breathing today 12/06 no evidence overnight 12/07 failed as SBT yesterday due to rapid shallow breathing 12/08 Patient remains intubated and on Precedex drip. Afebrile. She was on CPAP x 4 hrs yesterday then became tachycardic and hypertensive. 12/09 Patient remains sedated and intubated. Spiked fever with Tmax 101.7. CT brain yesterday showed no acute intracranial process 12/10 Patient is on Precedex drip, on CPAP 15/ with FIO2 30%. Tmax 101.6. Renal function worse today with Cr: 2.03 from 1.74. s/p transfusion 1u PRBC yesterday. 12/11 Tolerating CPAP. Remains encephalopathic, not following commands. MAXIMUM TEMPERATURE 101.6, white count was sent from 13.2-20.2. Function also worsening from 2-2.4. s/p CT guided thoracentesis 12/10/16, with 820 mL of yellow cloudy fluid removed. Fluid studies consistent with transudative effusion 12/12: Awake today follows commands but tachypneic, and using accessory muscles on 5 or 5 spontaneous breathing trial. Chest x-ray shows increased pulmonary vascular congestion/CHF. Worsening creatinine increased from 2-3.3, with decreased urine output. Additional 2 mg IV push bumetanide. Sputum culture growing Pseudomonas. One blood culture with gram-positive cocci-continue Zosyn , single dose of vancomycin ordered 12/13: Labs pending labs. The patient continues to fail spontaneous breathing trials. Continues on PRVC/AC 20/500/5/0.35 12/14:Afebrile. A Vas-Cath was placed yesterday, hemodialysis was begun, 3.5 L off. The family plans to discuss with critical care medicine decision whether to place a tracheostomy in a.m.. Subjective 12/15: Afebrile. Episodes of hemoptysis overnight since resolved. Scant bloody secretions. Also some coffee-ground emesis from gastric tube noted. Currently nothing by mouth. Positive BM. Still unable x-ray. Day #17 of intubation. Family requests full intervention. Objective Vital Signs Date Time Temp Pulse Resp B/P Pulse Ox O2 Delivery O2 Flow Rate FiO2 12/15/16 10:00 58 12/15/16 08:08 92 35 12/15/16 08:00 98.0 14 117/56 Intake and Output 12/14/16 12/14/16 12/15/16 08:00 16:00 00:00 Intake Total 795 ml 870 ml 1516 ml Output Total 350 ml 3350 ml 650 ml Balance 445 ml -2480 ml 866 ml Result Diagram: 12/15/16 0545 12/15/16 0545 Other Results Microbiology Date/Time Procedure Status Source Growth 12/11/16 00:05 Urine Culture - Final Complete Urine Catheterized Urine NO GROWTH IN 48 HOURS. 12/10/16 20:25 Gram Stain - Final Complete Sputum Endotracheal 12/10/16 20:25 Sputum Culture - Final Complete Pseudomonas Aeruginosa 12/10/16 13:27 Aerobic Blood Culture - Final Complete Blood Peripheral Staphylococcus Epidermidis 12/10/16 13:27 Anaerobic Blood Culture - Final Complete Blood Peripheral NO GROWTH IN 5 DAYS Imaging Last Impressions Chest X-Ray 12/15/16 0600 Signed Impressions: Service Date/Time: Thursday, December 15, 2016 03:57 - CONCLUSION: 1. Hazy density throughout the lungs likely related to effusions. 2. Bibasilar areas of consolidation or atelectasis being worse on the left. Lennox Rodriguez MD Thoracentesis 12/10/16 0000 Signed Impressions: Service Date/Time: Saturday, December 10, 2016 14:43 - CONCLUSION: Uncomplicated CT-guided thoracentesis. Jarrod Meyer MD Renal Ultrasound 12/10/16 0000 Signed Impressions: Service Date/Time: Saturday, December 10, 2016 18:06 - CONCLUSION: Normal examination. Lennox Rodriguez MD Chest Ultrasound 12/09/16 0000 Signed Impressions: Service Date/Time: Friday, December 09, 2016 13:23 - CONCLUSION: Moderate size right pleural effusion. Torito Conklin MD Head CT 12/08/16 0000 Signed Impressions: Service Date/Time: Thursday, December 08, 2016 14:47 - CONCLUSION: 1. 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 2. No acute intracranial process , trauma or fracture. Darius Hernandez MD Objective Remarks GENERAL: 76 -year-old female orotracheally intubated SKIN: Warm and dry. No rash HEAD: Normocephalic. EYES: No scleral icterus. No injection or drainage. NECK: Supple, trachea midline. No JVD or lymphadenopathy. Orally intubated. CARDIOVASCULAR: Regular rate and rhythm. S1, S2 no S4. Without murmurs, gallops, or rubs. RESPIRATORY: Breath sounds equal bilaterally. Diminished in bases. GASTROINTESTINAL: Abdomen soft, non-tender, obese. Hypoactive bowel sounds MUSCULOSKELETAL: With trace lower extremity edema. Neuro: sedated and intubated. Eyes are open, moves extremities continuously Urinary Catheter: Yes Assessment to: Continue Astorga insert reason: ICU Pt Getting Diuretics Date of Insertion: Dec 08, 2016 Side: Right Location: Internal, Jugular A/P Assessment and Plan Neuro/Psych: Acute toxic metabolic encephalopathy Continue Precedex at 1.4 mcg/kg per minute and fentanyl drip at 250 mill grams an hour for sedation/analgesia while intubated Goal of RASS -2 Daily sedation vacation. Monitor neuro status. 12/08 CT brain: No acute intracranial process 12/08 EEG: Moderate degree of encephalopathy - Encephalopathy seems to be metabolic Pulm: Acute hypoxemic respiratory failure Bilateral pleural effusions Pseudomonas pneumonia - Continue PRVC 14/500/1//35 and keep sat >90% - Bronchodilators every 6 hours, ICU vent bundle, CPAP trials as ramone. Vent day . Family wanted to wait until Thursday to decide whether or not to place a tracheostomy - CT guided thoracentesis 12/10- 820 ml of cloudy fluid removed from the right side. Fluid studies consistent with transudate - Sputum culture with Pseudomonas continue Zosyn. - ID following -Patient will require tracheostomy, continue failed CPAP trials to general surgery consulted CV: Non-STEMI Chronic systolic heart failure Coronary Artery disease Hypertension Dys lipidemia History of peripheral vascular disease - Monitor HR and BP keep MAP>65mmHg - Echo showed EF 40-45%, hypokinesis in apical myocardium. - Cardiology- . - Continue ASA, Lipitor, Brilinta 90mg BID, Lopressor 12.5mg Q12 - Status post catheterization December 04, successful intervention balloon angioplasty on the free internal mammary bypass graft to the LAD with anabaptist of ORLY-3 flow and successful revascularization with balloon angioplasty and restore MARIANO stent of the proximal right coronary artery with improvement in flow Maintain aspirin 81 mg daily and Brilinta 90 mg by mouth twice a day for drug- eluting stent 12 months Holding lisinopril 5 mill grams daily/home medication light of acute kidney injury Holding home medication Lopressor 75 mg by mouth twice a day nifedipine 90 mg by mouth daily for hypertension. On Lopressor 12.5 twice a day, hydralazine 10 mg every 8 hours and Nitropaste to 0.5 mill grams every 6 hours At home on atorvastatin 40 mg by mouth daily for dyslipidemia. Continued Renal/: Acute kidney injury - Renal function worse today - Renal US. normal study - Monitor renal function, I/O's, electrolytes replacement as needed - Nephrology Dr. Doyle. Currently holding Bumex IV drip 2 mg an hour and Diuril 500 mg twice a day. - D/C Free H20 300ml Q8 for hypernatremia. Na 139 will continue to monitor -Vas-Cath placement 12/13/16. HD 3.5 liters off. Plan for hemodialysis today GI Tube feeds currently on hold due to coffee ground - On Protonix drip at 8 mg an hour - Colace/as needed Senokot for bowel regimen GI has been consulted for PEG tube placement/possible upper endoscopy Heme: Anemia - Monitor CBC, s/p transfuse 1u PRBC 12/09, Coags within normal limits Transfuse 2 units PRBCs today and history Guaiac stool for heme ID: - Continue Zosyn, Vanco, pharmacy to aDiabetes mellitusdjust dose per renal function. Monitor for signs of infections ( Fever, WBC) Added Micafungin 12/11/16 - BC 12/08, 12/09: NGTD. 12/10 BC 10/29 staph epidermidis, sputum cx Pseudomonas. ID consulted/Dr. Sams Endocrine: - On SSI ( medium scale)Levemir 30u BID Prophylaxis: - PPI/SCDs/ Heparin SQ on hold for anemia requiring blood transfusion Lines Right IJ placed 12/08, left IJ Vas-Cath 12/14 Critical Care: The total critical care time was 55 minutes. Time to perform other separately billable procedures was not included in the critical care time. Gee Santiago MD Dec 15, 2016 12:02 Gee Santiago MD Dec 15, 2016 12:02
--- NOTE | 2016-12-15 13:49 | PD.CONS ---
HPI History of Present Illness This is a 76 year old female who was brought to the ER as a NSTEMI. She underwent cardiac catheterization (12/04/16)----> normal arterial pressure, severe [place] coronary artery disease with occlusion of the LAD and severe disease of the [place] right coronary artery, only one residual graft which was severe compromised- free mammary gravft to the LAD, successful intervention on the free mammary bypass graft to the LAD with oriental orthodox of ORLY-3 flow and successful revascularization of the proximal right coronary artery with improvement in flow with resolute stent. She was started on Brilinta and ASA. She remains in the ICU being treated for the above, as well as acute metabolic encephalopathy, acute respiratory failure, bilateral pleural effusions , PSAE PNA, Chronic systolic heart failure, HTN, dyslipidemia, hx of PVA, acute renal failure (on hemodialysis), and bacteremia. Yesterday, she was noted to have some coffee ground emesis. Her TF was stopped and her OGT was placed to LIWS. She was also started on a protonix gtt. This is currently draining dark green bilious material with some old coffee ground residual on the outside of tubing. The nurse reports that she was told in report that she did pass some clots in her stool last night, but has not had any further evidence of any active bleeding. Her HH has remained relatively stable and is 7.6/22.3 today. She is getting PRBC with HD today. GI has been consulted for PEG tube placement and evaluation of coffee ground emesis. The patient's heparin is on hold, but she is getting Brilinta and ASA. D/W Dr. Hartman possibly holding these for one day for PEG tube placement, but he prefers that these not be placed on hold because of the risk of reocclusion. PFSH Past Medical History According to EMR: CKD DM HTN CHF CAD PVD Breast cancer, s/p mastectomy and chemotherapy Past Surgical History ROLF Mastectomy Toe amputation PTCA CABG Coded Allergies: Sulfa (Verified Allergy, Severe, Swelling, 11/28/16) Swelling of lips *MDRO Multi-Drug Resistant Organism (Verified Allergy, Unknown, 11/28/16) MRSA foot wound 05/2013 MRSA PCR screen negative 12/17/15 & 12/20/15 Per Infection Control, pt does not require isolation for history of MRSA prior to 12/20/2015. Medications Allergies Coded Allergies Type Severity Reaction Last Updated Verified Sulfa Allergy Severe Swelling 11/28/16 Yes *MDRO Multi-Drug Resistant Organism Allergy Unknown 11/28/16 Yes Active Scripts Medications Dose Route/Sig Days Date Category Nifedipine ER (Nifedipine) 90 Mg Tab 1 Tab PO DAILY 11/28/16 Reported Hydrocodone-Acetaminophen 5-300 Mg Tab Unknown Dose PO Q4H PRN 11/28/16 Reported Lopressor (Metoprolol Tartrate) 50 Mg Tab 75 Mg PO DAILY 11/28/16 Reported Lisinopril 5 Mg Tab 5 Mg PO DAILY 11/28/16 Reported Lantus Inj (Insulin Glargine) 100 Unit/Ml Inj 35 Units SQ BID 11/28/16 Reported Furosemide 20 Mg Tab 20 Mg PO DAILY 11/28/16 Reported Brilinta (Ticagrelor) 90 Mg Tab 90 Mg PO BID 11/28/16 Reported Atorvastatin (Atorvastatin Calcium) 40 Mg Tab 40 Mg PO HS 11/28/16 Reported Aspir-81 (Aspirin) 81 Mg Tabdr 1 Tab PO DAILY 11/28/16 Reported Duoneb (Ipratropium-Albuterol Neb) 0.5-2.5 Mg/3 Ml Neb 1 Nebule INH Q4HR NEB 11/28/16 Reported Family History Unable to obtain Social History Unable to obtain Review of Systems ROS Unable to obtain GI Exam Vitals I&O Vital Signs Date Time Temp Pulse Resp B/P Pulse Ox O2 Delivery O2 Flow Rate FiO2 12/15/16 12:38 97 35 12/15/16 12:00 97.4 58 14 125/62 98 12/15/16 12:00 58 12/15/16 12:00 35 12/15/16 10:00 58 12/15/16 08:08 92 35 12/15/16 08:00 60 12/15/16 08:00 98.0 60 14 117/56 93 12/15/16 08:00 35 12/15/16 06:00 63 12/15/16 04:25 99 35 12/15/16 04:00 35 12/15/16 04:00 62 12/15/16 04:00 99.0 81 19 125/64 96 12/15/16 02:00 68 12/15/16 01:12 99 35 12/15/16 00:00 35 12/15/16 00:00 99.1 79 19 144/65 98 2/20/17 00:00 79 12/14/16 22:00 99 35 12/14/16 22:00 35 12/14/16 22:00 66 12/14/16 20:00 74 12/14/16 20:00 99.3 74 18 154/70 95 12/14/16 19:40 98 35 12/14/16 18:00 66 12/14/16 16:00 98.3 66 14 123/80 100 12/14/16 16:00 35 12/14/16 16:00 66 12/14/16 15:12 98 35 12/14/16 14:00 53 I/O 12/14/16 12/14/16 12/14/16 12/15/16 12/15/16 12/15/16 07:00 15:00 23:00 07:00 15:00 23:00 Intake Total 795 ml 870 ml 1516 ml 649 ml 108 ml Output Total 350 ml 3350 ml 650 ml 325 ml Balance 445 ml -2480 ml 866 ml 324 ml 108 ml IV Total 438 ml 420 ml 1340 ml 649 ml 58 ml Tube Feeding 57 ml 150 ml 66 ml Albumin 50 ml 50 ml Other 300 ml 300 ml 60 ml Output Urine Total 350 ml 350 ml 650 ml 325 ml Hemodialysis 3000 ml # Bowel Movements 0 1 Imaging Last Impressions Chest X-Ray 12/15/16 0600 Signed Impressions: Service Date/Time: Thursday, December 15, 2016 03:57 - CONCLUSION: 1. Hazy density throughout the lungs likely related to effusions. 2. Bibasilar areas of consolidation or atelectasis being worse on the left. Lennox Rodriguez MD Thoracentesis 12/10/16 0000 Signed Impressions: Service Date/Time: Saturday, December 10, 2016 14:43 - CONCLUSION: Uncomplicated CT-guided thoracentesis. Jarrod Meyer MD Renal Ultrasound 12/10/16 0000 Signed Impressions: Service Date/Time: Saturday, December 10, 2016 18:06 - CONCLUSION: Normal examination. Lennox Rodriguez MD Chest Ultrasound 12/09/16 0000 Signed Impressions: Service Date/Time: Friday, December 09, 2016 13:23 - CONCLUSION: Moderate size right pleural effusion. Torito Conklin MD Head CT 12/08/16 0000 Signed Impressions: Service Date/Time: Thursday, December 08, 2016 14:47 - CONCLUSION: 1. 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 2. No acute intracranial process , trauma or fracture. Darius Hernandez MD Laboratory Test 12/14/16 12/15/16 12/15/16 12/15/16 23:09 05:45 06:00 12:00 White Blood Count 13.3 TH/MM3 11.0 TH/MM3 Red Blood Count 2.77 MIL/MM3 2.55 MIL/MM3 Hemoglobin 8.0 GM/DL 7.6 GM/DL Hematocrit 24.0 % 22.3 % Mean Corpuscular Volume 86.5 FL 87.4 FL Mean Corpuscular Hemoglobin 28.7 PG 29.6 PG Mean Corpuscular Hemoglobin 33.2 % 33.8 % Concent Red Cell Distribution Width 14.2 % 14.2 % Platelet Count 185 TH/MM3 174 TH/MM3 Mean Platelet Volume 11.1 FL 11.3 FL Neutrophils (%) (Auto) 84.1 % Lymphocytes (%) (Auto) 7.4 % Monocytes (%) (Auto) 6.6 % Eosinophils (%) (Auto) 1.7 % Basophils (%) (Auto) 0.2 % Neutrophils # (Auto) 11.2 TH/MM3 Lymphocytes # (Auto) 1.0 TH/MM3 Monocytes # (Auto) 0.9 TH/MM3 Eosinophils # (Auto) 0.2 TH/MM3 Basophils # (Auto) 0.0 TH/MM3 CBC Comment AUTO DIFF Differential Total Cells 100 Counted Neutrophils % (Manual) 73 % Band Neutrophils % 6 % Lymphocytes % 7 % Monocytes % 9 % Eosinophils % 3 % Neutrophils # (Manual) 10.8 TH/MM3 Myelocytes 1 % Promyelocytes 1 % Differential Comment FINAL DIFF MANUAL Platelet Estimate NORMAL Platelet Morphology Comment NORMAL Polychromasia 2.0 % Basophilic Stippling FAINT Ovalocytes 1+ Prothrombin Time 12.3 SEC Prothromb Time International 1.1 RATIO Ratio Activated Partial 32.4 SEC Thromboplast Time Fibrinogen 482 mg/dL Sodium Level 138 MEQ/L Potassium Level 5.0 MEQ/L Chloride Level 101 MEQ/L Carbon Dioxide Level 21.9 MEQ/L Anion Gap 15 MEQ/L Blood Urea Nitrogen 55 MG/DL Creatinine 3.12 MG/DL Estimat Glomerular Filtration 15 ML/MIN Rate Random Glucose 183 MG/DL Calcium Level 7.8 MG/DL Phosphorus Level 4.4 MG/DL Magnesium Level 2.3 MG/DL Albumin 2.4 GM/DL Random Vancomycin Level 17.0 COMMENT Blood Gas Puncture Site LT RADIAL Blood Gas Patient Temperature 98.6 Blood Gas HCO3 20 mmol/L Blood Gas Base Excess -5.1 mmol/L Blood Gas Oxygen Saturation 95 % Arterial Blood pH 7.33 Arterial Blood Partial 39 mmHg Pressure CO2 Arterial Blood Partial 104 mmHg Pressure O2 Arterial Blood Oxygen Content 10.8 Vol % Arterial Blood 1.8 % Carboxyhemoglobin Arterial Blood Methemoglobin 1.3 % Blood Gas Hemoglobin 8.0 G/DL Oxygen Delivery Device VENTILATOR Blood Gas Ventilator Setting PRVC/AC Blood Gas Inspired Oxygen 35 % Blood Type O NEGATIVE Crossmatch Leukocyte-Reduced Red Blood Cells Blood Bank Comment Date/Time Procedure Status Source Growth 12/11/16 00:05 Urine Culture - Final Complete Urine Catheterized Urine NO GROWTH IN 48 HOURS. 12/10/16 20:25 Gram Stain - Final Complete Sputum Endotracheal 12/10/16 20:25 Sputum Culture - Final Complete Pseudomonas Aeruginosa Physical Examination HEENT: Normocephalic; atraumatic; no jaundice. CHEST: OETT to vent. Resp. even/unlabored, diminished bases CARDIAC: RRR ABDOMEN: Soft, obese, nondistended,no hepatosplenomegaly; bowel sounds are hypoactive. OETT to LIWS with dark green bilious material- some old coffee ground material noted in tubing. EXTREMITIES: Generalized edema. SKIN: Generalized pallor [employer]: Sedated on ventilator Assessment and Plan Plan ASSESSMENT: - Dysphagia, FEN. GI consulted for PEG. TF on hold secondary to coffee ground emesis yesterday- currently to LIWS, dark green bilious gastric secretions, with a small amount of old residue coffee grounds on tubing. Dr. Hartman does not want the ASA/Brilinta held secondary to risk of occluding the stent. Attempted to call shivam Almonte , Jonh . No answer at either phone number. Message left for both to return call to discuss EGD with PEG- procedure , risks of infection, perforation, and increased risk of bleeding secondary to Brilinta. - Coffee ground gastric secretions. OGT to LIWS. Protonix Gtt. Small amount of old residual coffee grounds noted on tubing, but green bilious material in canister. No active bleeding. - Respiratory failure, PSAE Pna, Pleural effusion. - NSTEMI, S/P Cardiac Cath. (12/04/16)----> normal arterial pressure, severe [place] coronary artery disease with occlusion of the LAD and severe disease of the [place] right coronary artery, only one residual graft which was severe compromised- free mammary gravft to the LAD, successful intervention on the free mammary bypass graft to the LAD with oriental orthodox of ORLY-3 flow and successful revascularization of the proximal right coronary artery with improvement in flow with resolute stent. She was started on Brilinta and ASA. D/W Dr. Hartman possibly holding these for one day for PEG tube placement, but he prefers that these not be placed on hold because of the risk of reocclusion. - Acute on chronic kidney disease. HD per renal - Acute metabolic encephalopathy, HTN, dyslipidemia, hx of PVA per [facility] PLAN: - Plan for egd with peg tube placement in am - Obtain consents - NPO after MN - Heparin on hold - Protonix Gtt - Monitor HH - Transfuse as necessary - Unable to hold Brilinta/ASA per cardiology- Dr. Hartman- risk of occluding stent - Supportive care - Further recommendations to follow based on results of above - Pt seen and examined by Dr. Avitia and myself and this note is written on his behalf Alejandra Estrella Dec 15, 2016 13:49
--- NOTE | 2016-12-15 15:02 | PD.CONS ---
HPI Service General Surgery Consult Requested By Dr. Santiago Reason for Consult Trach placement Primary Care Physician Ethan Pradhan MD History of Present Illness This is a 76 year old female who arrived to hospital 17 days ago for NSTEMI and SOB. She was emergently intubated in the ED for respiratory distress. She was taken to the laboratory chemist and S/p stent LAD graft and prox RCA without complications. She was started on ASA and Brilinta. She has had some minimal coffee ground emesis from her OGT. A Gastroenterology consult has been requested for EGD and PEG placement. She had been unable to be weaned from the ventilator and a general surgery consult is being requested for tracheostomy placement. Review of Systems ROS Limitations: Clinical Condition, Intubated Past Family Social History Past Medical History HTN GERD OR PVD DM CAD Past Surgical History ROLF CABG (2003) Reported Medications See chart but of note she is currently on aspirin and Brilinta Allergies: Coded Allergies: Sulfa (Verified Allergy, Severe, Swelling, 11/28/16) Swelling of lips *MDRO Multi-Drug Resistant Organism (Verified Allergy, Unknown, 11/28/16) MRSA foot wound 05/2013 MRSA PCR screen negative 12/17/15 & 12/20/15 Per Infection Control, pt does not require isolation for history of MRSA prior to 12/20/2015. Active Ordered Medications Current Medications Medications (Trade) Dose Ordered Sig/Amber Route Start Time Stop Time Status Last Admin (Aspirin Chew) 81 mg DAILY CHEW 11/28/16 09:00 12/15/16 11:45 (Brilinta) 90 mg BID PO 11/28/16 09:00 12/15/16 11:45 (Tylenol) 650 mg Q6H PRN PO 11/28/16 10:15 12/11/16 05:05 (fentaNYL INJ) 100 mcg Q4H PRN IV 11/28/16 10:15 12/08/16 02:41 (Peridex 0.12% Liq) 15 ml BID@08,20 MT 11/28/16 20:00 12/15/16 08:40 Miscellaneous Information 1 Q361D XX 11/28/16 10:15 11/28/16 10:15 (Chlorhexidine 2% Cloth) Taper DAILY@04 TOP 11/29/16 04:00 11/25/17 03:59 12/15/16 04:00 (Chlorhexidine 2% Cloth) 3 pack UNSCH PRN TOP 11/28/16 10:15 (NovoLOG SUPPLEMENTAL SCALE) 1 Q4HR SQ 11/28/16 20:00 12/15/16 12:00 (D50w (Vial) Inj) 25 ml UNSCH PRN IV 11/28/16 17:00 (Glucagon Inj) 1 mg UNSCH PRN IM/SQ 11/28/16 17:00 (Lipitor) 40 mg DAILY PO 11/29/16 09:00 12/15/16 08:43 (Nitroglycerin 2% Oint) 0.5 inch Q6HR TOPICAL 12/01/16 18:00 12/15/16 04:59 (Lopressor) 12.5 mg Q12HR PO 12/01/16 21:00 12/14/16 07:55 (Pill Splitter) 1 ea UNSCH PRN OTHER 12/01/16 12:30 (NS Flush) 2 ml BID IVF 12/04/16 21:00 12/15/16 09:00 (Heparin Inj) 5,000 units Q12HR SQ 12/08/16 21:00 Hold 12/09/16 08:43 (Apresoline) 10 mg Q8HR PO 12/08/16 14:00 12/14/16 12:45 Water 300 ml 300 ml Q8HR G-TUBE 12/09/16 14:00 Hold 12/14/16 14:00 Dexmedetomidine HCl 1000 mcg/ Sodium Chloride 250 ml @ 0 mls/hr TITRATE IV 12/09/16 14:45 12/14/16 04:15 Pharmacy Profile Note 0 ml @ 0 mls/hr UNSCH OTHER 12/10/16 10:00 (fentaNYL DRIP) 250 ml @ 0 mls/hr TITRATE IV 12/10/16 17:15 12/15/16 08:46 (Albumin 25% Inj) 12.5 gm Q12HR IV 12/10/16 21:00 12/15/16 08:42 Insulin Detemir 30 units 30 units BID SQ 12/11/16 21:00 12/15/16 08:42 (Mycamine Inj/NS Inj) 100 ml @ 100 mls/hr Q24H IV 12/11/16 14:00 12/14/16 12:45 Chlorothiazide Sodium 500 mg 500 mg Q12HR IV 12/11/16 21:00 12/15/16 08:41 Piperacillin Sod/ Tazobactam Sod 50 ml @ 100 mls/hr Q6H IV 12/12/16 15:00 12/15/16 08:42 (NS 1000 ml Inj) 1,000 ml @ 0 mls/hr Q0M PRN IV 12/13/16 15:06 12/14/16 08:23 Heparin Sodium (Porcine) 8000 units 8,000 units UNSCH PRN IVF 12/13/16 15:15 Sodium Chloride 1,000 ml @ 200 mls/hr Q5H PRN IV 12/13/16 15:06 (NS 1000 ml Inj) 1,000 ml @ 0 mls/hr Q0M PRN IV 12/13/16 15:06 12/14/16 08:23 (Albumin 25% Inj) 25 gm UNSCH PRN IV 12/13/16 15:15 12/14/16 08:24 (NS Flush) 5 ml UNSCH PRN IVF 12/13/16 15:15 12/14/16 08:23 (Heparin Inj) UNSCH PRN .XX 12/13/16 15:15 12/14/16 08:24 (Gentamicin (Dialysis) Inj) 20 mg UNSCH PRN IV 12/13/16 15:15 (Zofran Inj) 4 mg UNSCH PRN IV 12/13/16 15:15 (Tylenol) 650 mg UNSCH PRN PO 12/13/16 15:15 (Benadryl) 25 mg UNSCH PRN PO 12/13/16 15:15 (Nitrostat Sl) 0.4 mg UNSCH PRN SL 12/13/16 15:15 (Catapres) 0.1 mg UNSCH PRN PO 12/13/16 15:15 (Epogen Inj) 5,000 units UNSCH PRN IV 12/13/16 15:15 (Gelfoam 12 Mm/7 Mm Top) 1 foam UNSCH PRN TOP 12/13/16 15:15 Metoclopramide HCl 5 mg 5 mg Q8HR IV PUSH 12/14/16 22:00 12/15/16 04:59 Pantoprazole Sodium 80 mg/ Sodium Chloride 100 ml @ 10 mls/hr Q10H IV 12/14/16 23:00 12/15/16 09:00 (Vancomycin Inj/ NS 250 ml Inj) 250 ml @ 250 mls/hr ONCE ONCE IV 12/16/16 06:00 12/16/16 06:59 Family History Non contributory Social History Unable to obtain Physical Exam Vital Signs Vital Signs Date Time Temp Pulse Resp B/P Pulse Ox O2 Delivery O2 Flow Rate FiO2 12/15/16 12:38 97 35 12/15/16 12:00 97.4 58 14 125/62 98 12/15/16 12:00 58 12/15/16 12:00 35 12/15/16 10:00 58 12/15/16 08:08 92 35 12/15/16 08:00 60 12/15/16 08:00 98.0 60 14 117/56 93 12/15/16 08:00 35 12/15/16 06:00 63 12/15/16 04:25 99 35 12/15/16 04:00 35 12/15/16 04:00 62 12/15/16 04:00 99.0 81 19 125/64 96 12/15/16 02:00 68 12/15/16 01:12 99 35 12/15/16 00:00 35 12/15/16 00:00 99.1 79 19 144/65 98 12/15/16 00:00 79 12/14/16 22:00 99 35 12/14/16 22:00 35 12/14/16 22:00 66 12/14/16 20:00 74 12/14/16 20:00 99.3 74 18 154/70 95 12/14/16 19:40 98 35 12/14/16 18:00 66 12/14/16 16:00 98.3 66 14 123/80 100 12/14/16 16:00 35 12/14/16 16:00 66 12/14/16 15:12 98 35 Physical Exam GENERAL: Morbility obese female resting in bed currently receiving traditional hemodialysis SKIN: Warm and dry. HEAD: Atraumatic. Normocephalic. EYES: Pupils equal and round. No scleral icterus. No injection or drainage. ENT: No nasal bleeding or discharge. Mucous membranes pink and moist. NECK: Trachea midline. Large obese neck. CARDIOVASCULAR: Regular rate and rhythm. RESPIRATORY: No accessory muscle use. Clear to auscultation. Breath sounds equal bilaterally. GASTROINTESTINAL: Abdomen soft, non-tender, nondistended. Large transverse incision (healed). MUSCULOSKELETAL: Extremities without clubbing, cyanosis, or edema. No obvious deformities. NEUROLOGICAL: Intubated; Sedated PSYCHIATRIC: Unable to obtain. Laboratory Laboratory Tests Test 12/14/16 12/15/16 12/15/16 12/15/16 23:09 05:45 06:00 12:00 White Blood Count 13.3 11.0 Red Blood Count 2.77 2.55 Hemoglobin 8.0 7.6 Hematocrit 24.0 22.3 Mean Corpuscular Volume 86.5 87.4 Mean Corpuscular Hemoglobin 28.7 29.6 Mean Corpuscular Hemoglobin 33.2 33.8 Concent Red Cell Distribution Width 14.2 14.2 Platelet Count 185 174 Mean Platelet Volume 11.1 11.3 Neutrophils (%) (Auto) 84.1 Lymphocytes (%) (Auto) 7.4 Monocytes (%) (Auto) 6.6 Eosinophils (%) (Auto) 1.7 Basophils (%) (Auto) 0.2 Neutrophils # (Auto) 11.2 Lymphocytes # (Auto) 1.0 Monocytes # (Auto) 0.9 Eosinophils # (Auto) 0.2 Basophils # (Auto) 0.0 CBC Comment AUTO DIFF Differential Total Cells 100 Counted Neutrophils % (Manual) 73 Band Neutrophils % 6 Lymphocytes % 7 Monocytes % 9 Eosinophils % 3 Neutrophils # (Manual) 10.8 Myelocytes 1 Promyelocytes 1 Differential Comment FINAL DIFF MANUAL Platelet Estimate NORMAL Platelet Morphology Comment NORMAL Polychromasia 2.0 Basophilic Stippling FAINT Ovalocytes 1+ Prothrombin Time 12.3 Prothromb Time International 1.1 Ratio Activated Partial 32.4 Thromboplast Time Fibrinogen 482 Sodium Level 138 Potassium Level 5.0 Chloride Level 101 Carbon Dioxide Level 21.9 Anion Gap 15 Blood Urea Nitrogen 55 Creatinine 3.12 Estimat Glomerular Filtration 15 Rate Random Glucose 183 Calcium Level 7.8 Phosphorus Level 4.4 Magnesium Level 2.3 Albumin 2.4 Random Vancomycin Level 17.0 Blood Gas Puncture Site LT RADIAL Blood Gas Patient Temperature 98.6 Blood Gas HCO3 20 Blood Gas Base Excess -5.1 Blood Gas Oxygen Saturation 95 Arterial Blood pH 7.33 Arterial Blood Partial 39 Pressure CO2 Arterial Blood Partial 104 Pressure O2 Arterial Blood Oxygen Content 10.8 Arterial Blood 1.8 Carboxyhemoglobin Arterial Blood Methemoglobin 1.3 Blood Gas Hemoglobin 8.0 Oxygen Delivery Device VENTILATOR Blood Gas Ventilator Setting PRVC/AC Blood Gas Inspired Oxygen 35 Blood Type O NEGATIVE Crossmatch Leukocyte-Reduced Red Blood Cells Blood Bank Comment Date/Time Procedure Status Source Growth 12/11/16 00:05 Urine Culture - Final Complete Urine Catheterized Urine NO GROWTH IN 48 HOURS. 12/10/16 20:25 Gram Stain - Final Complete Sputum Endotracheal 12/10/16 20:25 Sputum Culture - Final Complete Pseudomonas Aeruginosa Result Diagram: 12/15/16 0545 12/15/16 0545 Assessment and Plan Assessment and Plan 76 year old female s/p NSTEMI with stent placement in need of tracheostomy placement for VDRF -Currently on aspirin and Brilinta -Will plan for trach placement Thursday with Dr. Ingram -Obtain consents -NPO after midnight Thursday night Attending Statement The exam, history, and the medical decision-making described in the above note were completed with the assistance of the mid-level provider. I reviewed and agree with the findings presented. I attest that I had a [id number] encounter with the patient on the same day, and personally performed and documented my assessment and findings in the medical record. risk of bleeding with trach on anti-platlet drugs, will proceed due to medical need for trach Zaida Conway Dec 15, 2016 15:02 Ulises Ingram MD Dec 21, 2016 00:40
[2016-12-15] MEDS: GENTAMICIN SULFATE (DIALYSIS USE ONLY) 20 MG/2 ML VIAL IV PRN (15:42)
[2016-12-15] MEDS: HEPARIN SODIUM - IV 10,000 UNITS/10 ML VIAL PRN (15:42)
[2016-12-15] MEDS: EPOETIN ALFA 10,000 UNITS/ML VIAL IV PRN (15:43)
[2016-12-15] MEDS: MICAFUNGIN INJ 100 MG in SODIUM CHLORIDE 0.9% INJ 100 ML IV SCH (16:11)
[2016-12-15] MEDS: DEXMEDETOMIDINE INJ 1,000 MCG in SODIUM CHLOR 0.9% 250 ML INJ 240 ML IV SCH ×2 (18:00→22:47)
--- NOTE | 2016-12-15 18:04 | HHI.IDPN ---
Subjective Subjective Remarks pt is dw RN On HD TF on hold 11/27 coffee ground emesis afebrile off pressors Antibiotics vanco zosyn micafungin Allergies: Coded Allergies: Sulfa (Verified Allergy, Severe, Swelling, 11/28/16) Swelling of lips *MDRO Multi-Drug Resistant Organism (Verified Allergy, Unknown, 11/28/16) MRSA foot wound 05/2013 MRSA PCR screen negative 12/17/15 & 12/20/15 Per Infection Control, pt does not require isolation for history of MRSA prior to 12/20/2015. Objective . Vital Signs Date Time Temp Pulse Resp B/P Pulse Ox O2 Delivery O2 Flow Rate FiO2 12/15/16 17:31 94 35 12/15/16 16:00 65 12/15/16 16:00 97.2 65 16 143/65 100 12/15/16 16:00 35 12/15/16 14:00 59 12/15/16 12:38 97 35 12/15/16 12:00 97.4 58 14 125/62 98 12/15/16 12:00 58 12/15/16 12:00 35 12/15/16 10:00 58 12/15/16 08:08 92 35 12/15/16 08:00 60 12/15/16 08:00 98.0 60 14 117/56 93 12/15/16 08:00 35 12/15/16 06:00 63 12/15/16 04:25 99 35 12/15/16 04:00 35 12/15/16 04:00 62 12/15/16 04:00 99.0 81 19 125/64 96 12/15/16 02:00 68 12/15/16 01:12 99 35 12/15/16 00:00 35 12/15/16 00:00 99.1 79 19 144/65 98 12/15/16 00:00 79 12/14/16 22:00 99 35 12/14/16 22:00 35 12/14/16 22:00 66 12/14/16 20:00 74 12/14/16 20:00 99.3 74 18 154/70 95 12/14/16 19:40 98 35 12/14/16 18:00 66 12/14/16 12/14/16 12/15/16 15:00 23:00 07:00 Intake Total 870 ml 1516 ml 649 ml Output Total 3350 ml 650 ml 325 ml Balance -2480 ml 866 ml 324 ml IV Total 420 ml 1340 ml 649 ml Tube Feeding 150 ml 66 ml Albumin 50 ml Other 300 ml 60 ml Output Urine Total 350 ml 650 ml 325 ml Hemodialysis 3000 ml # Bowel Movements 1 . Laboratory Tests Test 12/14/16 12/14/16 12/15/16 04:15 23:09 05:45 White Blood Count 10.5 TH/MM3 13.3 TH/MM3 11.0 TH/MM3 Red Blood Count 2.76 MIL/MM3 2.77 MIL/MM3 2.55 MIL/MM3 Hemoglobin 8.0 GM/DL 8.0 GM/DL 7.6 GM/DL Hematocrit 23.9 % 24.0 % 22.3 % Mean Corpuscular Volume 86.7 FL 86.5 FL 87.4 FL Mean Corpuscular Hemoglobin 29.1 PG 28.7 PG 29.6 PG Mean Corpuscular Hemoglobin 33.6 % 33.2 % 33.8 % Concent Red Cell Distribution Width 13.9 % 14.2 % 14.2 % Platelet Count 155 TH/MM3 185 TH/MM3 174 TH/MM3 Mean Platelet Volume 11.1 FL 11.1 FL 11.3 FL Neutrophils (%) (Auto) 84.1 % Lymphocytes (%) (Auto) 7.4 % Monocytes (%) (Auto) 6.6 % Eosinophils (%) (Auto) 1.7 % Basophils (%) (Auto) 0.2 % Neutrophils # (Auto) 11.2 TH/MM3 Lymphocytes # (Auto) 1.0 TH/MM3 Monocytes # (Auto) 0.9 TH/MM3 Eosinophils # (Auto) 0.2 TH/MM3 Basophils # (Auto) 0.0 TH/MM3 CBC Comment AUTO DIFF Differential Total Cells 100 Counted Neutrophils % (Manual) 73 % Band Neutrophils % 6 % Lymphocytes % 7 % Monocytes % 9 % Eosinophils % 3 % Neutrophils # (Manual) 10.8 TH/MM3 Myelocytes 1 % Promyelocytes 1 % Differential Comment FINAL DIFF MANUAL Platelet Estimate NORMAL Platelet Morphology Comment NORMAL Polychromasia 2.0 % Basophilic Stippling FAINT Ovalocytes 1+ Laboratory Tests Test 12/14/16 12/15/16 04:15 05:45 Sodium Level 140 MEQ/L 138 MEQ/L Potassium Level 3.4 MEQ/L 5.0 MEQ/L Chloride Level 102 MEQ/L 101 MEQ/L Carbon Dioxide Level 26.4 MEQ/L 21.9 MEQ/L Anion Gap 12 MEQ/L 15 MEQ/L Blood Urea Nitrogen 62 MG/DL 55 MG/DL Creatinine 3.10 MG/DL 3.12 MG/DL Estimat Glomerular Filtration 15 ML/MIN 15 ML/MIN Rate Random Glucose 85 MG/DL 183 MG/DL Calcium Level 8.1 MG/DL 7.8 MG/DL Phosphorus Level 4.2 MG/DL 4.4 MG/DL Magnesium Level 2.2 MG/DL 2.3 MG/DL Albumin 2.4 GM/DL Imaging Last Impressions Chest X-Ray 12/15/16 0600 Signed Impressions: Service Date/Time: Thursday, December 15, 2016 03:57 - CONCLUSION: 1. Hazy density throughout the lungs likely related to effusions. 2. Bibasilar areas of consolidation or atelectasis being worse on the left. Lennox Rodriguez MD Thoracentesis 12/10/16 0000 Signed Impressions: Service Date/Time: Saturday, December 10, 2016 14:43 - CONCLUSION: Uncomplicated CT-guided thoracentesis. Jarrod Meyer MD Renal Ultrasound 12/10/16 0000 Signed Impressions: Service Date/Time: Saturday, December 10, 2016 18:06 - CONCLUSION: Normal examination. Lennox Rodriguez MD Chest Ultrasound 12/09/16 0000 Signed Impressions: Service Date/Time: Friday, December 09, 2016 13:23 - CONCLUSION: Moderate size right pleural effusion. Torito Conklin MD Head CT 12/08/16 0000 Signed Impressions: Service Date/Time: Thursday, December 08, 2016 14:47 - CONCLUSION: 1. 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 2. No acute intracranial process , trauma or fracture. Darius Hernandez MD Physical Exam CONSTITUTIONAL/GENERAL: This is an obese elderly female patient, in no apparent distress. TUBES/LINES/DRAINS: SKIN: No jaundice, rashes, or lesions.\ Skin temperature appropriate. Not diaphoretic. EYES: Pupils equal and round and reactive. Extraocular motions intact. No scleral icterus. No injection or drainage. Fundi not examined. ENT oral mucosae without visible erythema, exudates, masses, or lesions. CARDIOVASCULAR: Regular rate and rhythm without murmurs, gallops, or rubs. No JVD. Peripheral pulses symmetric. RESPIRATORY/CHEST: Symmetric, unlabored respirations. Scattered rhonchi to auscultation. Breath sounds equal bilaterally. GASTROINTESTINAL: Abdomen soft, non-tender, nondistended. No hepato-splenomegaly , or palpable masses. No guarding. Bowel sounds present. Lower transverse laparotomy abdominal incision, well healed GENITOURINARY: Without palpable bladder distension. Astorga catheter in place with clear uyellow urine, small amount MUSCULOSKELETAL: Extremities without clubbing, cyanosis, 3-4+ edema sp L TMA, well healed NEUROLOGICAL: Sedated, per RN follows commands intermittently when off sedation with all extremities. PSYCHIATRIC: unable to assess - sedated Assessment & Plan Remarks NSTEMI on admission Acute rVDRF, difficulty weaning CHF Fever, leukocytosis ? superimposed PNA, PSAE roberts S Coag neg staph bacteremia, low grade - cw contaminaton ARF, on HD - dc zosyn, - start cefepime dc vanco - dc micafungin - will dc vanco if low grade coag neg bacteremia - adjust abx per clx Marina Sams MD Dec 15, 2016 18:03
[2016-12-15 21:22] LABS: HEMATOCRIT 31.7 % (35.0-46.0); MEAN CELL VOLUME 84.6 FL (80.0-100.0); MEAN CORPUSCULAR HEMOGLOBIN 28.3 PG (27.0-34.0); MEAN CORPUSCULAR HGB CONC 33.5 % (32.0-36.0); PLATELET COUNT 185 TH/MM3 (150-450); RED BLOOD COUNT 3.75 MIL/MM3 (4.00-5.30); RED CELL DISTRIBUTION WIDTH 14.2 % (11.6-17.2); REVIEW FLAG FINAL; WHITE BLOOD COUNT 11.5 TH/MM3 (4.0-11.0)
[2016-12-15] MEDS: CEFEPIME INJ 2,000 MG in SODIUM CHLORIDE 0.9% INJ 100 ML IV SCH (21:37)
[2016-12-16] VITALS (19 sets, daily range): BP systolic 149–177; BP diastolic 63–79; PULSE 57–65; RESP 14–15; TEMP 97.4–97.9; O2SAT 97–100
[2016-12-16] MEDS: RESP: ALBUTEROL 2.5 MG/IPRATROPIUM 0.5 MG NEB (SCH) NEB ×2 (02:55→07:50)
[2016-12-16 03:47] LABS: AUTOMATED NEUTROPHIL # 8.3 TH/MM3 (1.8-7.7); BASOPHIL % 0.3 % (0.0-2.0); EOSINOPHIL # 0.2 TH/MM3 (0-0.4); EOSINOPHIL % 1.7 % (0.0-4.0); HEMATOCRIT 30.2 % (35.0-46.0); LYMPH % 7.8 % (9.0-44.0); LYMPHOCYTE # 0.8 TH/MM3 (1.0-4.8); MEAN CORPUSCULAR HGB CONC 34.2 % (32.0-36.0); NEUT % 83.2 % (16.0-70.0); PLATELET COUNT 188 TH/MM3 (150-450); RED BLOOD COUNT 3.56 MIL/MM3 (4.00-5.30); RED CELL DISTRIBUTION WIDTH 14.3 % (11.6-17.2); WHITE BLOOD COUNT 9.9 TH/MM3 (4.0-11.0)
[2016-12-16 03:49] LABS: HEMO FLAGS AUTO DIFF
[2016-12-16 04:00] LABS: APTT (PATIENT) 31.7 SEC (24.3-30.1); INTERNATIONAL NORMALIZED RATIO 1.1 RATIO; PROTHROMBIN TIME - PATIENT 12.1 SEC (9.8-11.6)
[2016-12-16] MEDS: CHLORHEXIDINE GLUCONATE 2 % 1 PACK (2 CLOTHS) TOP SCH (04:00)
[2016-12-16] MEDS: INSULIN ASPART SUPPLEMENTAL SCALE SQ SCH ×5 (04:00→20:00)
[2016-12-16 04:12] LABS: BICARBONATE 25.9 MEQ/L (21.0-32.0); POTASSIUM 3.7 MEQ/L (3.5-5.1)
[2016-12-16] MEDS: fentaNYL DRIP 250 ML IV SCH ×3 (04:29→21:34)
[2016-12-16] MEDS: PANTOPRAZOLE INJ 80 MG in SODIUM CHLORIDE 0.9% INJ 100 ML IV SCH ×3 (04:29→22:20)
[2016-12-16] MEDS: DEXMEDETOMIDINE INJ 1,000 MCG in SODIUM CHLOR 0.9% 250 ML INJ 240 ML IV SCH ×4 (04:29→22:20)
[2016-12-16] MEDS: METOCLOPRAMIDE HCL 10 MG/2 ML VIAL IV PUSH SCH ×3 (04:43→21:00)
[2016-12-16] MEDS: hydrALAZINE HCL 10 MG TAB PO SCH ×3 (04:43→21:00)
[2016-12-16] MEDS: NITROGLYCERIN 2% OINT 1 GM PACKET TOPICAL SCH ×3 (04:44→17:35)
[2016-12-16 05:32] LABS: BANDS 21 % (0-6); EOSINOPHILS 2 % (0-4); METAMYELOCYTES 1 % (0-1); NEUTROPHIL # MANUAL DIFF 8.9 TH/MM3 (1.8-7.7); PLATELET ESTIMATE SMEAR NORMAL (NORMAL); POLYS (SEG NEUTROPHILS) 68 % (16-70); SCAN/DIFF FINAL DIFF MANUAL; WBC DIFF SAMPLE 100
[2016-12-16 05:33] LABS: PLATELET MORPHOLOGY ENLARGED (NORMAL)
[2016-12-16] MEDS ORDERED: VANCOMYCIN 1,000 MG/NS 250 ML IV ONE ×2 (06:00)
[2016-12-16] MEDS: CHLOROTHIAZIDE SOD 500 MG VIAL IV SCH ×2 (09:00→21:00)
[2016-12-16] MEDS: ALBUMIN HUMAN 25% 12.5 GM/50 ML BAGP IV SCH ×2 (09:01→21:00)
[2016-12-16] MEDS: METOPROLOL TARTRATE 25 MG TAB PO SCH ×2 (09:01→21:00)
[2016-12-16] MEDS: TICAGRELOR 90 MG TAB PO SCH ×2 (09:01→20:59)
[2016-12-16] MEDS: ASPIRIN 81 MG CHEW TAB CHEW SCH (09:01)
[2016-12-16] MEDS: ATORVASTATIN 40 MG TAB PO SCH (09:01)
[2016-12-16] MEDS: CHLORHEXIDINE 0.12% (ORAL KIT) 15 ML CUP MT SCH ×2 (09:02→21:03)
[2016-12-16] MEDS: SODIUM CHLORIDE 0.9% FLUSH 5 ML FLUSH IVF SCH ×2 (09:02→21:04)
[2016-12-16] MEDS: INSULIN DETEMIR 100 UNITS/ML VIAL SQ SCH ×3 (09:02→21:01)
--- NOTE | 2016-12-16 11:13 | HHI.NPPN ---
Subjective History of Present Illness The patient is a 76 yo [place] female who presented to the ED on 11/28/16 with suspected ID as she was having significant SOB. She was ultimately intubated on scene and then transported to the hospital for evaluation. She is currently intubated so history is obtained thru previous encounters and her son who is present in the room. She has known CKD, but she does not follow with a manufacturing engineer machining as an outpatient. As per son, she has had CKD for many years and believes that her SCr is around 1.5-1.6, which from review of notes seems to be congruent. She has an extensive PMHx of cardiac disease with an EF of 40-45%, triple CABG in 2003, 4 PTCA previously, toe amputations related to PVD, DM for at least 20 years, HTN, and breast cancer treated about 30 years ago with mastectomy and chemotherapy. Son reports that she has has ongoing issues with fluid retention for the past year since she was admitted here for cardiac issues. She does use diuretics as outpatient that has been altered as per her fluid needs. She underwent cardiac cath on 12/04 and had 3 stents placed. She was initially on IVF that was converted to diuretics on 12/07/ thru 12/09. She was started on D5W 12/09 as her sodium levels were elevated. She has been receiving 300mL q8h via NG tube of free water. She received Vanc IV on 12/08 x1 dose and then again today as it is suspected that she has a ventilator associated PNA. Underwent thoracentesis today with approx 800mL drained from R lung. Admitting SCr 2.23 that improved to 1.5-1.6 range until 12/09 when she lisa to 1.74 and then ultimately 2.03 at time of consult. Interval History Received HD x3 days in a row (UF of 3L Thu & Sun with 3.5L Thursday). Still vent dependent. PEG planned today Trach planned for tomorrow. (Melinda Orellana) Review of Systems General General Remarks Patient unable to respond to questions. (Melinda Orellana) Objective Data Data 12/15/16 12/16/16 19:00 07:00 Intake Total 995 ml 1338 ml Output Total 4350 ml 1050 ml Balance -3355 ml 288 ml IV Total 825 ml 1338 ml Albumin 50 ml Tube Irrigant 120 ml Output Urine Total 625 ml 800 ml Gastric Drainage Total 225 ml 250 ml Hemodialysis 3500 ml # Bowel Movements 1 Vital Signs Date Time Temp Pulse Resp B/P Pulse Ox O2 Delivery O2 Flow Rate FiO2 12/16/16 10:00 63 12/16/16 08:00 65 12/16/16 08:00 35 12/16/16 08:00 97.8 65 14 158/71 99 12/16/16 07:52 100 35 12/16/16 06:00 62 12/16/16 04:14 98 35 12/16/16 04:00 97.4 63 14 152/67 98 12/16/16 04:00 35 12/16/16 04:00 63 12/16/16 02:00 60 12/16/16 00:13 97 35 12/16/16 00:00 97.6 62 15 149/66 97 12/16/16 00:00 35 12/16/16 00:00 62 12/15/16 22:00 66 12/15/16 20:00 97.6 59 20 160/73 99 12/15/16 20:00 35 12/15/16 20:00 59 12/15/16 19:54 99 35 12/15/16 18:00 60 12/15/16 17:31 94 35 12/15/16 16:00 65 12/15/16 16:00 97.2 65 16 143/65 100 12/15/16 16:00 35 12/15/16 14:00 59 12/15/16 12:38 97 35 12/15/16 12:00 97.4 58 14 125/62 98 12/15/16 12:00 58 12/15/16 12:00 35 (Melinda Orellana) -: 12/16/16 0259 12/16/16 0302 Medication Review Current Medications Medications (Trade) Dose Ordered Sig/Amber Route Start Time Stop Time Status Last Admin (Aspirin Chew) 81 mg DAILY CHEW 11/28/16 09:00 12/16/16 09:01 (Brilinta) 90 mg BID PO 11/28/16 09:00 12/16/16 09:01 (Tylenol) 650 mg Q6H PRN PO 11/28/16 10:15 12/11/16 05:05 (fentaNYL INJ) 100 mcg Q4H PRN IV 11/28/16 10:15 12/08/16 02:41 (Peridex 0.12% Liq) 15 ml BID@08,20 MT 11/28/16 20:00 12/16/16 09:02 Miscellaneous Information 1 Q361D XX 11/28/16 10:15 11/28/16 10:15 (Chlorhexidine 2% Cloth) Taper DAILY@04 TOP 11/29/16 04:00 11/25/17 03:59 12/16/16 04:00 (Chlorhexidine 2% Cloth) 3 pack UNSCH PRN TOP 11/28/16 10:15 (NovoLOG SUPPLEMENTAL SCALE) 1 Q4HR SQ 11/28/16 20:00 12/15/16 12:00 (D50w (Vial) Inj) 25 ml UNSCH PRN IV 11/28/16 17:00 (Glucagon Inj) 1 mg UNSCH PRN IM/SQ 11/28/16 17:00 (Lipitor) 40 mg DAILY PO 11/29/16 09:00 12/16/16 09:01 (Nitroglycerin 2% Oint) 0.5 inch Q6HR TOPICAL 12/01/16 18:00 12/16/16 04:44 (Lopressor) 12.5 mg Q12HR PO 12/01/16 21:00 12/16/16 09:01 (Pill Splitter) 1 ea UNSCH PRN OTHER 12/01/16 12:30 (NS Flush) 2 ml BID IVF 12/04/16 21:00 12/16/16 09:02 (Heparin Inj) 5,000 units Q12HR SQ 12/08/16 21:00 Hold 12/09/16 08:43 (Apresoline) 10 mg Q8HR PO 12/08/16 14:00 12/16/16 04:43 Water 300 ml 300 ml Q8HR G-TUBE 12/09/16 14:00 Hold 12/14/16 14:00 Dexmedetomidine HCl 1000 mcg/ Sodium Chloride 250 ml @ 0 mls/hr TITRATE IV 12/09/16 14:45 12/16/16 04:29 (fentaNYL DRIP) 250 ml @ 0 mls/hr TITRATE IV 12/10/16 17:15 12/16/16 04:29 (Albumin 25% Inj) 12.5 gm Q12HR IV 12/10/16 21:00 12/16/16 09:01 (Levemir Inj) 30 units BID SQ 12/11/16 21:00 12/16/16 09:02 Chlorothiazide Sodium 500 mg 500 mg Q12HR IV 12/11/16 21:00 12/16/16 09:00 (NS 1000 ml Inj) 1,000 ml @ 0 mls/hr Q0M PRN IV 12/13/16 15:06 12/14/16 08:23 Heparin Sodium (Porcine) 8000 units 8,000 units UNSCH PRN IVF 12/13/16 15:15 Sodium Chloride 1,000 ml @ 200 mls/hr Q5H PRN IV 12/13/16 15:06 (NS 1000 ml Inj) 1,000 ml @ 0 mls/hr Q0M PRN IV 12/13/16 15:06 12/14/16 08:23 (Albumin 25% Inj) 25 gm UNSCH PRN IV 12/13/16 15:15 12/14/16 08:24 (NS Flush) 5 ml UNSCH PRN IVF 12/13/16 15:15 12/14/16 08:23 (Heparin Inj) UNSCH PRN .XX 12/13/16 15:15 12/15/16 15:42 (Gentamicin (Dialysis) Inj) 20 mg UNSCH PRN IV 12/13/16 15:15 12/15/16 15:42 (Zofran Inj) 4 mg UNSCH PRN IV 12/13/16 15:15 (Tylenol) 650 mg UNSCH PRN PO 12/13/16 15:15 (Benadryl) 25 mg UNSCH PRN PO 12/13/16 15:15 (Nitrostat Sl) 0.4 mg UNSCH PRN SL 12/13/16 15:15 (Catapres) 0.1 mg UNSCH PRN PO 12/13/16 15:15 (Epogen Inj) 5,000 units UNSCH PRN IV 12/13/16 15:15 12/15/16 15:43 (Gelfoam 12 Mm/7 Mm Top) 1 foam UNSCH PRN TOP 12/13/16 15:15 Metoclopramide HCl 5 mg 5 mg Q8HR IV PUSH 12/14/16 22:00 12/16/16 04:43 Pantoprazole Sodium 80 mg/ Sodium Chloride 100 ml @ 10 mls/hr Q10H IV 12/14/16 23:00 12/16/16 04:29 (Maxipime Inj/NS Inj) 100 ml @ 200 mls/hr Q24H IV 12/15/16 20:00 12/15/16 21:37 (Melinda Orellana) Physical Exam General Appearance: No Acute Distress, Obese (Melinda Orellana) Eyes Eye Exam: Sclera White (Melinda Orellana) Pulmonary Resp Exam: Clear Bilaterally, Breath Sounds Equal, No Distress, Decreased Bases (Melinda Orellana) Cardiology CV Exam: Regular, Normal Sinus Rhythm (Melinda Orellana) Gastrointestinal/Abdomen GI Exam: Soft, Non-Tender (Melinda Orellana) Integumentary Skin Exam: Clear, Warm (Melinda Orellana) Extremeties Extremities Exam: Moderate Edema (involving all limbs and dependent torso.), Pitting Edema (Melinda Orellana) Neurologic Neuro Exam: Sedated (Melinda Orellana) Assessment/Plan Problem List: (1) Acute renal failure Plan: Acute on chronic renal failure which is likely multifactorial with development of ATN: cardiorenal with EF of 40-45%, contrast injury (contrast via cath on 12/04), interstitial nephritis from Vanc exposure (received 12/08 & ), infectious process (repeat BCx pending as of 12/10). HD likely tomorrow. Continue to monitor renal functions and UOP. Ordered labs to r/o any other underlying issues for renal decline. Baseline SCr appears to be 1.5-1.6 with underlying etiology of diabetic nephropathy. Medications should be adjusted for the patient's renal decline. Avoid nephrotoxic agents including iodinated contrast dyes and NSAIDs. Avoid gadolinium when eGFR <30. (2) CHF (congestive heart failure) Plan: No improvement despite high dose diuretic therapy. Subsequently started on HD (3) Hypernatremia Plan: Related to impaired free water intake. Resolved (4) Pneumonia Plan: Mgmt as per CC (5) Non-STEMI (non-ST elevated myocardial infarction) Plan: Mgmt as per cardiology (6) Hypertension Plan: BP stable. Continue on current regimen (7) Diabetes mellitus Plan: Mgmt as per CC (8) Anemia Plan: Epogen as indicated. (Melinda Orellana) Plan The exam, history, and the medical decision-making described in the above note were completed with the assistance of the PA-C. I reviewed and agree with the findings presented. (Leandro Doyle MD) Problem Qualifiers (1) Acute renal failure: Qualified Code: N17.9 - Acute renal failure, unspecified acute renal failure type (2) Pneumonia: Qualified Code: J18.9 - Pneumonia of both lungs due to infectious organism, unspecified part of lung Melinda Orellana Dec 16, 2016 11:13 Leandro Doyle MD Dec 17, 2016 16:46
--- NOTE | 2016-12-16 11:34 | HHI.PR ---
Subjective Subjective Notes Intubated/Sedated Objective Vitals/I&O Vital Signs Date Time Temp Pulse Resp B/P Pulse Ox O2 Delivery O2 Flow Rate FiO2 12/16/16 10:00 63 12/16/16 08:00 35 12/16/16 08:00 97.8 14 158/71 99 Labs Laboratory Tests Test 12/15/16 12/15/16 12/16/16 12/16/16 12:00 20:25 02:59 03:00 Blood Type O NEGATIVE Crossmatch Leukocyte-Reduced Red Blood Cells Blood Bank Comment White Blood Count 11.5 9.9 Red Blood Count 3.75 3.56 Hemoglobin 10.6 10.3 Hematocrit 31.7 30.2 Mean Corpuscular Volume 84.6 85.0 Mean Corpuscular Hemoglobin 28.3 29.0 Mean Corpuscular Hemoglobin 33.5 34.2 Concent Red Cell Distribution Width 14.2 14.3 Platelet Count 185 188 Mean Platelet Volume 11.5 11.1 Neutrophils (%) (Auto) 83.2 Lymphocytes (%) (Auto) 7.8 Monocytes (%) (Auto) 7.0 Eosinophils (%) (Auto) 1.7 Basophils (%) (Auto) 0.3 Neutrophils # (Auto) 8.3 Lymphocytes # (Auto) 0.8 Monocytes # (Auto) 0.7 Eosinophils # (Auto) 0.2 Basophils # (Auto) 0.0 CBC Comment AUTO DIFF Differential Total Cells 100 Counted Neutrophils % (Manual) 68 Band Neutrophils % 21 Lymphocytes % 6 Monocytes % 2 Eosinophils % 2 Neutrophils # (Manual) 8.9 Metamyelocytes 1 Differential Comment FINAL DIFF MANUAL Platelet Estimate NORMAL Platelet Morphology Comment ENLARGED Prothrombin Time 12.1 Prothromb Time International 1.1 Ratio Activated Partial 31.7 Thromboplast Time Fibrinogen 509 Test 12/16/16 12/16/16 12/16/16 03:01 03:02 03:03 Phosphorus Level 4.2 4.2 Magnesium Level 2.0 Total Creatine Kinase 33 Sodium Level 140 Potassium Level 3.7 Chloride Level 103 Carbon Dioxide Level 25.9 Anion Gap 11 Blood Urea Nitrogen 42 Creatinine 2.75 Estimat Glomerular Filtration 17 Rate Random Glucose 111 Calcium Level 8.3 Albumin 2.7 Lactic Acid Level 0.9 Cardiovascular: Regular Lungs: Clear Abdomen: Non-distended, Non-tender Extremities: Other (generalized edema ) A/P Assessment and Plan 76 year old female with multiple medical problems s/p NSTEMI -Plan for trachestomy placement tomorrow in OR at 1pm -Obtain consents -NPO after MN -Spoke with Jonh (son) and answered all his questions and informed of time of procedure in OR Attending Statement The exam, history, and the medical decision-making described in the above note were completed with the assistance of the mid-level provider. I reviewed and agree with the findings presented. I attest that I had a [id number] encounter with the patient on the same day, and personally performed and documented my assessment and findings in the medical record. OR tomorrow Zaida Conway Dec 16, 2016 11:34 Ulises Ingram MD Dec 21, 2016 00:40
[2016-12-16 12:09] LABS: HEPATITIS B SURFACE ANTIBODY 0.3 mIU/mL
--- NOTE | 2016-12-16 12:44 | HHI.CCPN ---
Subjective Remarks/Hospital Course 76-year-old female came to the emergency room brought by EMS as a STEMI alert. Patient called 911 for shortness of breath. When they arrived patient says oxygen saturation was in the 80s and she was in respiratory distress. Patient has history of coronary artery disease and congestive heart failure. She told me she had her bypass surgery done few years ago. Patient denied of any chest pain at any point. EMS said that patient had told them that she was nauseous for past couple days and vomited last night. She was woken up from the sleep with this shortness of breath. By the time patient arrived to the ER she was acutely short of breath and in severe respiratory distress. She was unable to give much history. She was pale and started getting agitated and diaphoretic when they moved her from the gurney to the stretcher. Patient developed worsening respiratory distress and required emergent intubation was placed on mechanical ventilation by ER physician. Her troponin came back at 20 and her EKG suggested intraventricular conduction delay versus left bundle branch block. Cardiology was contacted and felt patient had a non-ST elevation CA. She was also noted to be extremely hyperglycemic with glucose levels in the 500s with metabolic acidosis/lactic acidosis. She was started on the DKA protocol by ER physician. Urine ketones are negative. Beta hydroxybutyrate slightly elevated. Patient had a central line placed by ER physician and was started on heparin drip for anticoagulation for her CA. She was accepted for admission by critical care medicine service. I discussed the case with Dr. Auguste who is not planning cardiac catheterization at this time. Patient also was given empiric antibiotics up to obtaining cultures. 2 Patient is sedated with Diprivan and intubated. Remains on Heparin drip. On PRVC/AC RR 20 IT 1.0, TV 500, PEEP:5 and FIO2 35% 11/30 No acute events overnight. Sedated and intubated. Afebrile. On Heparin drip 12/01 Patient remains sedated and intubated. Afebrile. On Heparin drip. She had episode of desaturation while on CPAP. 12/02 Patient is sedated with Diprivan and intubated. Remains on Heparin drip. 12/03 No events over night. Attempt SBT tomorrow post cardiac Catheterization 12/04 cardiac catheterization today, successful intervention on the free mammary bypass graft to the LAD with zoroastrianism of ORLY-3 flow and successful revascularization of the proximal right coronary artery with improvement in flow 12/05 attempt to wean from the mechanical ventilation failure due to rapid shallow breathing today 12/06 no evidence overnight 12/07 failed as SBT yesterday due to rapid shallow breathing 12/08 Patient remains intubated and on Precedex drip. Afebrile. She was on CPAP x 4 hrs yesterday then became tachycardic and hypertensive. 12/09 Patient remains sedated and intubated. Spiked fever with Tmax 101.7. CT brain yesterday showed no acute intracranial process 12/10 Patient is on Precedex drip, on CPAP 15/ with FIO2 30%. Tmax 101.6. Renal function worse today with Cr: 2.03 from 1.74. s/p transfusion 1u PRBC yesterday. 12/11 Tolerating CPAP. Remains encephalopathic, not following commands. MAXIMUM TEMPERATURE 101.6, white count was sent from 13.2-20.2. Function also worsening from 2-2.4. s/p CT guided thoracentesis 12/10/16, with 820 mL of yellow cloudy fluid removed. Fluid studies consistent with transudative effusion 12/12: Awake today follows commands but tachypneic, and using accessory muscles on 5 or 5 spontaneous breathing trial. Chest x-ray shows increased pulmonary vascular congestion/CHF. Worsening creatinine increased from 2-3.3, with decreased urine output. Additional 2 mg IV push bumetanide. Sputum culture growing Pseudomonas. One blood culture with gram-positive cocci-continue Zosyn , single dose of vancomycin ordered 12/13: Labs pending labs. The patient continues to fail spontaneous breathing trials. Continues on PRVC/AC 20/500/5/0.35 12/14:Afebrile. A Vas-Cath was placed yesterday, hemodialysis was begun, 3.5 L off. The family plans to discuss with critical care medicine decision whether to place a tracheostomy in a.m.. 12/15: Afebrile. Episodes of hemoptysis overnight since resolved. Scant bloody secretions. Also some coffee-ground emesis from gastric tube noted. Currently nothing by mouth. Positive BM. Still unable x-ray. Day #17 of intubation. Family requests full intervention. Subjective 12/16: Afebrile. Plan for tracheostomy are in OR with PEG tube placement today. Hemoglobin stable status post transfusion. Currently nothing by mouth Objective Vital Signs Date Time Temp Pulse Resp B/P Pulse Ox O2 Delivery O2 Flow Rate FiO2 12/16/16 11:55 100 35 12/16/16 10:00 63 12/16/16 08:00 97.8 14 158/71 Intake and Output 12/15/16 12/15/16 12/16/16 08:00 16:00 00:00 Intake Total 649 ml 995 ml 800 ml Output Total 325 ml 4350 ml 650 ml Balance 324 ml -3355 ml 150 ml Result Diagram: 12/16/16 0259 12/16/16 0302 Imaging Last Impressions Chest X-Ray 12/15/16 0600 Signed Impressions: Service Date/Time: Thursday, December 15, 2016 03:57 - CONCLUSION: 1. Hazy density throughout the lungs likely related to effusions. 2. Bibasilar areas of consolidation or atelectasis being worse on the left. Lennox Rodriguez MD Thoracentesis 12/10/16 0000 Signed Impressions: Service Date/Time: Saturday, December 10, 2016 14:43 - CONCLUSION: Uncomplicated CT-guided thoracentesis. Jarrod Meyer MD Renal Ultrasound 12/10/16 0000 Signed Impressions: Service Date/Time: Saturday, December 10, 2016 18:06 - CONCLUSION: Normal examination. Lennox Rodriguez MD Chest Ultrasound 12/09/16 0000 Signed Impressions: Service Date/Time: Friday, December 09, 2016 13:23 - CONCLUSION: Moderate size right pleural effusion. Torito Conklin MD Head CT 12/08/16 0000 Signed Impressions: Service Date/Time: Thursday, December 08, 2016 14:47 - CONCLUSION: 1. 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 2. No acute intracranial process , trauma or fracture. Darius Hernandez MD Objective Remarks GENERAL: 76 -year-old female orotracheally intubated SKIN: Warm and dry. No rash HEAD: Normocephalic. EYES: No scleral icterus. No injection or drainage. NECK: Supple, trachea midline. No JVD or lymphadenopathy. Orally intubated. CARDIOVASCULAR: Regular rate and rhythm. S1, S2 no S4. Without murmurs, gallops, or rubs. RESPIRATORY: Breath sounds equal bilaterally. Diminished in bases. GASTROINTESTINAL: Abdomen soft, non-tender, obese. Hypoactive bowel sounds MUSCULOSKELETAL: With trace lower extremity edema. Neuro: sedated and intubated. Eyes are open, moves extremities continuously Date of Insertion: Dec 08, 2016 Side: Right Location: Internal, Jugular A/P Assessment and Plan Neuro/Psych: Acute toxic metabolic encephalopathy Continue Precedex at 1.4 mcg/kg per minute and fentanyl drip at 250 micrograms an hour for sedation/analgesia while intubated Goal of RASS -2 Daily sedation vacation. Monitor neuro status. 12/08 CT brain: No acute intracranial process 12/08 EEG: Moderate degree of encephalopathy - Encephalopathy seems to be metabolic Pulm: Acute hypoxemic respiratory failure Bilateral pleural effusions Pseudomonas pneumonia - Continue PRVC 14/500/10/30/34 and keep sat >90% - Bronchodilators every 6 hours, ICU vent bundle, CPAP trials as ramone. Vent day 18. Plan for tracheostomy in a.m. 12/17 - CT guided thoracentesis 12/10- 820 ml of cloudy fluid removed from the right side. Fluid studies consistent with transudate - Sputum culture with Pseudomonas continue Zosyn. - ID following CV: Non-STEMI Chronic systolic heart failure Coronary Artery disease Hypertension Dys lipidemia History of peripheral vascular disease - Monitor HR and BP keep MAP>65mmHg - Echo showed EF 40-45%, hypokinesis in apical myocardium. - Cardiology- . - Continue ASA, Lipitor, Brilinta 90mg BID, Lopressor 12.5mg Q12 - Status post catheterization December 04, successful intervention balloon angioplasty on the free internal mammary bypass graft to the LAD with zoroastrianism of ORLY-3 flow and successful revascularization with balloon angioplasty and restore MARIANO stent of the proximal right coronary artery with improvement in flow Maintain aspirin 81 mg daily and Brilinta 90 mg by mouth twice a day for drug- eluting stent 12 months Holding lisinopril 5 mill grams daily/home medication light of acute kidney injury Holding home medication Lopressor 75 mg by mouth twice a day nifedipine 90 mg by mouth daily for hypertension. On Lopressor 12.5 twice a day, hydralazine 10 mg every 8 hours and Nitropaste to 0.5 mill grams every 6 hours At home on atorvastatin 40 mg by mouth daily for dyslipidemia. Continued Renal/: Acute kidney injury - Renal function worse today - Renal US. normal study - Monitor renal function, I/O's, electrolytes replacement as needed - Nephrology Dr. Doyle. Currently holding Bumex IV drip 2 mg an hour and Diuril 500 mg twice a day. - D/C Free H20 300ml Q8 for hypernatremia. Na 139 will continue to monitor Vas-Cath placed 12/13 GI Tube feeds currently on hold due to coffee ground emesis - On Protonix drip at 8 mg an hour - Colace/as needed Senokot for bowel regimen GI has been consulted for PEG tube placement/possible upper endoscopy Heme: Anemia - Monitor CBC, s/p transfuse 1u PRBC 12/09, Coags within normal limits Transfuse 2 units PRBCs yesterday. Hemoglobin currently greater than 10 Guaiac stool for heme ID: - Continue Zosyn, Vanco, pharmacy to aDiabetes mellitusdjust dose per renal function. Monitor for signs of infections ( Fever, WBC) Added Micafungin 12/11/16 - BC 12/08, 12/09: NGTD. 12/10 BC 10/29 staph epidermidis, sputum cx Pseudomonas. ID consulted/Dr. Sams Endocrine: Hyperglycemia - On SSI ( medium scale)Levemir 30u BID Prophylaxis: - PPI/SCDs/ Heparin SQ on hold for anemia requiring blood transfusion Lines Right IJ placed 12/08, left IJ Vas-Cath 12/14 Critical Care: The total critical care time was 35 minutes. Time to perform other separately billable procedures was not included in the critical care time. Gee Santiago MD Dec 16, 2016 12:44 Gee Santiago MD Dec 16, 2016 12:44
[2016-12-16] MEDS ORDERED: ceFAZolin 2 GM/50 ML BAG IV ONE (15:00)
[2016-12-16] MEDS ORDERED: PROPOFOL 200 MG/20 ML AMP IV ONE (15:05)
--- NOTE | 2016-12-16 15:34 | HHI.GIFU ---
Subjective Remarks no changes, laying in bed, seems comfortable, no bleeding Objective Vitals I&O Vital Signs Date Time Temp Pulse Resp B/P Pulse Ox O2 Delivery O2 Flow Rate FiO2 12/16/16 14:00 59 12/16/16 13:56 100 35 12/16/16 12:00 35 12/16/16 12:00 61 12/16/16 12:00 97.8 61 15 177/79 100 12/16/16 11:55 100 35 12/16/16 10:00 63 12/16/16 08:00 65 12/16/16 08:00 35 12/16/16 08:00 97.8 65 14 158/71 99 12/16/16 07:52 100 35 12/16/16 06:00 62 12/16/16 04:14 98 35 12/16/16 04:00 97.4 63 14 152/67 98 12/16/16 04:00 35 12/16/16 04:00 63 12/16/16 02:00 60 12/16/16 00:13 97 35 12/16/16 00:00 97.6 62 15 149/66 97 12/16/16 00:00 35 12/16/16 00:00 62 12/15/16 22:00 66 12/15/16 20:00 97.6 59 20 160/73 99 12/15/16 20:00 35 12/15/16 20:00 59 12/15/16 19:54 99 35 12/15/16 18:00 60 12/15/16 17:31 94 35 12/15/16 16:00 65 12/15/16 16:00 97.2 65 16 143/65 100 12/15/16 16:00 35 I/O 12/15/16 12/15/16 12/15/16 12/16/16 12/16/16 12/16/16 07:00 15:00 23:00 07:00 15:00 23:00 Intake Total 649 ml 108 ml 1687 ml 538 ml 844 ml Output Total 325 ml 5000 ml 400 ml 1025 ml Balance 324 ml 108 ml -3313 ml 138 ml -181 ml IV Total 649 ml 58 ml 1567 ml 538 ml 794 ml Albumin 50 ml 50 ml Tube Irrigant 120 ml Output Urine Total 325 ml 1025 ml 400 ml 850 ml Gastric Drainage Total 475 ml 175 ml Hemodialysis 3500 ml # Bowel Movements 1 1 0 Laboratory Laboratory Tests Test 12/15/16 12/16/16 12/16/16 12/16/16 20:25 02:59 03:00 03:01 White Blood Count 11.5 9.9 Red Blood Count 3.75 3.56 Hemoglobin 10.6 10.3 Hematocrit 31.7 30.2 Mean Corpuscular Volume 84.6 85.0 Mean Corpuscular Hemoglobin 28.3 29.0 Mean Corpuscular Hemoglobin 33.5 34.2 Concent Red Cell Distribution Width 14.2 14.3 Platelet Count 185 188 Mean Platelet Volume 11.5 11.1 Neutrophils (%) (Auto) 83.2 Lymphocytes (%) (Auto) 7.8 Monocytes (%) (Auto) 7.0 Eosinophils (%) (Auto) 1.7 Basophils (%) (Auto) 0.3 Neutrophils # (Auto) 8.3 Lymphocytes # (Auto) 0.8 Monocytes # (Auto) 0.7 Eosinophils # (Auto) 0.2 Basophils # (Auto) 0.0 CBC Comment AUTO DIFF Differential Total Cells 100 Counted Neutrophils % (Manual) 68 Band Neutrophils % 21 Lymphocytes % 6 Monocytes % 2 Eosinophils % 2 Neutrophils # (Manual) 8.9 Metamyelocytes 1 Differential Comment FINAL DIFF MANUAL Platelet Estimate NORMAL Platelet Morphology Comment ENLARGED Prothrombin Time 12.1 Prothromb Time International 1.1 Ratio Activated Partial 31.7 Thromboplast Time Fibrinogen 509 Phosphorus Level 4.2 Magnesium Level 2.0 Total Creatine Kinase 33 Test 12/16/16 12/16/16 03:02 03:03 Sodium Level 140 Potassium Level 3.7 Chloride Level 103 Carbon Dioxide Level 25.9 Anion Gap 11 Blood Urea Nitrogen 42 Creatinine 2.75 Estimat Glomerular Filtration 17 Rate Random Glucose 111 Calcium Level 8.3 Phosphorus Level 4.2 Albumin 2.7 Lactic Acid Level 0.9 Physical Exam HEENT: Pupils round and reactive to light; normocephalic; atraumatic; no jaundice. Throat is clear. intubated NECK: Neck is supple, no JVD, no lymphadenopathy. CHEST: Chest is clear to auscultation and percussion. CARDIAC: Regular rate and rhythm with no murmur gallop or rubs. ABDOMEN: Soft, nondistended, nontender; no hepatosplenomegaly; bowel sounds are present in all four quadrants. EXTREMITIES: No clubbing, cyanosis, or edema. SKIN: Normal; no rash; no jaundice. 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 GI consulted for PEG. TF on hold secondary to coffee ground emesis yesterday- currently to LIWS, dark green bilious gastric secretions, with a small amount of old residue coffee grounds on tubing. Dr. Hartman does not want the ASA/Brilinta held secondary to risk of occluding the stent. Attempted to call shivam Almonte , Jonh . No answer at either phone number. Message left for both to return call to discuss EGD with PEG- procedure , risks of infection, perforation, and increased risk of bleeding secondary to Brilinta. - Coffee ground gastric secretions. OGT to LIWS. Protonix Gtt. Small amount of old residual coffee grounds noted on tubing, but green bilious material in canister. No active bleeding. - Respiratory failure, PSAE Pna, Pleural effusion. - NSTEMI, S/P Cardiac Cath. (12/04/16)----> normal arterial pressure, severe [place] coronary artery disease with occlusion of the LAD and severe disease of the [place] right coronary artery, only one residual graft which was severe compromised- free mammary gravft to the LAD, successful intervention on the free mammary bypass graft to the LAD with christianity of ORLY-3 flow and successful revascularization of the proximal right coronary artery with improvement in flow with resolute stent. She was started on Brilinta and ASA. D/W Dr. Hartman possibly holding these for one day for PEG tube placement, but he prefers that these not be placed on hold because of the risk of reocclusion. - Acute on chronic kidney disease. HD per renal - Acute metabolic encephalopathy, HTN, dyslipidemia, hx of PVA per CCM 2-20=17 awake, still intubated EGD with PEG placement, she can be using PEG tube in 6 hours PLAN: - NPOfor 6 hours - Heparin on hold may be started in am - Protonix Gtt - Monitor HH - Transfuse as necessary - Unable to hold Brilinta/ASA per cardiology- Dr. Hartman- risk of occluding stent - Supportive care Kirk Avitia MD Dec 16, 2016 15:34
[2016-12-16] MEDS: CEFEPIME INJ 2,000 MG in SODIUM CHLORIDE 0.9% INJ 100 ML IV SCH (21:01)
[2016-12-16] MEDS: DEXTROSE 5% IN WATE 1000ML INJ 1,000 ML IV SCH (23:23)
[2016-12-17] VITALS (17 sets, daily range): BP systolic 127–159; BP diastolic 58–88; PULSE 53–77; RESP 14–27; TEMP 96.1–97.9; O2SAT 94–100
[2016-12-17] MEDS: NITROGLYCERIN 2% OINT 1 GM PACKET TOPICAL SCH ×4 (00:57→17:26)
[2016-12-17] MEDS: CHLORHEXIDINE GLUCONATE 2 % 1 PACK (2 CLOTHS) TOP SCH (03:41)
[2016-12-17 03:49] LABS: AUTOMATED NEUTROPHIL # 8.4 TH/MM3 (1.8-7.7); BASOPHIL % 0.3 % (0.0-2.0); EOSINOPHIL # 0.2 TH/MM3 (0-0.4); EOSINOPHIL % 1.8 % (0.0-4.0); HEMATOCRIT 29.9 % (35.0-46.0); LYMPH % 5.4 % (9.0-44.0); LYMPHOCYTE # 0.5 TH/MM3 (1.0-4.8); MEAN CELL VOLUME 85.4 FL (80.0-100.0); MEAN CORPUSCULAR HEMOGLOBIN 29.1 PG (27.0-34.0); MEAN CORPUSCULAR HGB CONC 34.1 % (32.0-36.0); MONO % 5.8 % (0.0-8.0); NEUT % 86.7 % (16.0-70.0); PLATELET COUNT 208 TH/MM3 (150-450); RED CELL DISTRIBUTION WIDTH 14.2 % (11.6-17.2); WHITE BLOOD COUNT 9.7 TH/MM3 (4.0-11.0)
[2016-12-17 03:54] LABS: HEMO FLAGS AUTO DIFF
[2016-12-17 03:56] LABS: HCV RNA PCR IU/ML LESS THAN 15 IU/mL (()); HCV RNA PCR LOGIU/ML LESS THAN 1.18 (())
[2016-12-17] MEDS: INSULIN ASPART SUPPLEMENTAL SCALE SQ SCH ×6 (04:00→19:46)
[2016-12-17 04:04] LABS: BICARBONATE 26.2 MEQ/L (21.0-32.0); POTASSIUM 3.6 MEQ/L (3.5-5.1)
[2016-12-17] MEDS: hydrALAZINE HCL 10 MG TAB PO SCH ×3 (05:01→21:52)
[2016-12-17] MEDS: METOCLOPRAMIDE HCL 10 MG/2 ML VIAL IV PUSH SCH ×3 (05:01→21:51)
[2016-12-17] MEDS: DEXMEDETOMIDINE INJ 1,000 MCG in SODIUM CHLOR 0.9% 250 ML INJ 240 ML IV SCH ×3 (05:11→19:46)
--- NOTE | 2016-12-17 05:51 | RADRPT ---
EXAM DATE/TIME: 12/17/2016 04:47 [facility] COMPARISON: CHEST SINGLE AP, December 15, 2016, 3:57. INDICATIONS : Congestive heart failure. MEDICAL HISTORY : Cardiovascular disease. Hypertension. Carcinoma, breast. SURGICAL HISTORY : CABG. Mastectomy, left. Stents. ENCOUNTER: Subsequent ACUITY: 3 weeks PAIN SCORE: Non-responsive. LOCATION: Bilateral chest FINDINGS: The ET tube and bilateral internal jugular central lines were placed. The heart size is normal. There is increased density throughout the lungs being worse on the right. CONCLUSION: Diffuse processes such as edema being worse on the right. Lennox oRdriguez MD on December 17, 2016 at 5:48 Board Certified Radiologist. This report was verified electronically.
--- NOTE | 2016-12-17 06:34 | MR ---
cc: ALYSA WOODS M.D. DATE OF [address] Santiago DATE OF PROCEDURE 12/16/2016 PROCEDURE Upper endoscopy with PEG tube placement. INDICATION A 76-year-old lady who is intubated long-term, needs PEG tube for feeding. The patient is on anticoagulation. The family is aware of the high-risk OB but cardiology did not advise to stop the anticoagulation and they are willing to take the risk and to proceed with the procedure. PROCEDURE After informing the family about the procedure and complications including the high risk of bleeding, the patient was placed on her back. Adequate sedation was achieved by propofol. The scope was placed in the mouth, advanced under video guidance down to the second portion of the duodenum. The scope was drawn back into the stomach. The area for the PEG tube was identified with Illumination and indentation, sterilized with Betadine, injected with lidocaine and a 20-Swedish Microvasive tube was placed with a pull technique without immediate complication. Confirmation of the PEG tube was done without any difficulty endoscopically. FINDINGS 1. EGD: Normal exam except some old coffee-ground material, most likely from NG tube trauma. 2. PEG tube was placed without any difficulty. RECOMMENDATIONS N.p.o. For 6 hours, then may feed patient and use the PEG tube. MD DEMARIO Chen/MAME /3:25 PM /6:24 AM
[2016-12-17 07:41] LABS: BANDS 17 % (0-6); CORRECTED NUCLEATED RBC 1 /100 WBC (0-0); EOSINOPHILS 1 % (0-4); MYELOCYTES 1 % (0-0); NEUTROPHIL # MANUAL DIFF 8.6 TH/MM3 (1.8-7.7); PLATELET ESTIMATE SMEAR NORMAL (NORMAL); PLATELET MORPHOLOGY NORMAL (NORMAL); POLYS (SEG NEUTROPHILS) 71 % (16-70); SCAN/DIFF FINAL DIFF MANUAL; WBC DIFF SAMPLE 100
[2016-12-17] MEDS: CHLORHEXIDINE 0.12% (ORAL KIT) 15 ML CUP MT SCH ×2 (07:59→21:57)
[2016-12-17] MEDS: ALBUMIN HUMAN 25% 12.5 GM/50 ML BAGP IV SCH ×2 (08:00→21:51)
[2016-12-17] MEDS: TICAGRELOR 90 MG TAB PO SCH ×2 (08:00→21:50)
[2016-12-17] MEDS: ASPIRIN 81 MG CHEW TAB CHEW SCH (08:00)
[2016-12-17] MEDS: SODIUM CHLORIDE 0.9% FLUSH 5 ML FLUSH IVF SCH ×2 (08:00→21:57)
[2016-12-17] MEDS: ATORVASTATIN 40 MG TAB PO SCH (08:00)
[2016-12-17] MEDS: BUMETANIDE INJ 1 MG/4 ML VIAL IV PUSH SCH ×2 (08:00→17:26)
[2016-12-17] MEDS: INSULIN DETEMIR 100 UNITS/ML VIAL SQ SCH ×2 (08:01→21:00)
[2016-12-17] MEDS: METOPROLOL TARTRATE 25 MG TAB PO SCH ×2 (08:01→21:00)
[2016-12-17] MEDS: CHLOROTHIAZIDE SOD 500 MG VIAL IV SCH ×2 (08:33→21:00)
[2016-12-17] MEDS: SODIUM CHLOR 0.9% 1000 ML INJ 1,000 ML IV PRN (09:32)
[2016-12-17] MEDS: HEPARIN SODIUM - IV 10,000 UNITS/10 ML VIAL PRN (09:32)
[2016-12-17] MEDS: GENTAMICIN SULFATE (DIALYSIS USE ONLY) 20 MG/2 ML VIAL IV PRN (09:33)
--- NOTE | 2016-12-17 09:59 | HHI.GIFU ---
Subjective Remarks Sedated on vent. No coffee ground emesis or sign of GI bleeding. NPO for tracheostomy later today. Objective Vitals I&O Vital Signs Date Time Temp Pulse Resp B/P Pulse Ox O2 Delivery O2 Flow Rate FiO2 12/17/16 08:00 35 12/17/16 08:00 54 12/17/16 08:00 97.8 54 14 141/64 98 12/17/16 06:00 61 12/17/16 04:34 100 35 12/17/16 04:00 57 12/17/16 04:00 35 12/17/16 04:00 97.6 57 27 159/74 98 12/17/16 02:00 58 12/17/16 01:18 100 35 12/17/16 00:00 35 12/17/16 00:00 97.8 58 14 154/68 99 12/17/16 00:00 58 12/16/16 22:00 57 12/16/16 20:17 100 35 12/16/16 20:00 35 12/16/16 20:00 59 12/16/16 20:00 97.9 59 15 153/63 100 12/16/16 18:00 58 12/16/16 16:00 57 12/16/16 16:00 97.4 57 14 155/72 98 12/16/16 16:00 35 12/16/16 15:50 98 35 12/16/16 14:00 59 12/16/16 13:56 100 35 12/16/16 12:00 35 12/16/16 12:00 61 12/16/16 12:00 97.8 61 15 177/79 100 12/16/16 11:55 100 35 12/16/16 10:00 63 I/O 12/16/16 12/16/16 12/16/16 12/17/16 12/17/16 12/17/16 07:00 15:00 23:00 07:00 15:00 23:00 Intake Total 538 ml 844 ml 814 ml 1092 ml Output Total 400 ml 1025 ml 775 ml 600 ml Balance 138 ml -181 ml 39 ml 492 ml IV Total 538 ml 794 ml 814 ml 1092 ml Albumin 50 ml Output Urine Total 400 ml 850 ml 775 ml 600 ml Gastric Drainage Total 175 ml # Bowel Movements 0 Laboratory Laboratory Tests Test 12/17/16 03:02 White Blood Count 9.7 Red Blood Count 3.50 Hemoglobin 10.2 Hematocrit 29.9 Mean Corpuscular Volume 85.4 Mean Corpuscular Hemoglobin 29.1 Mean Corpuscular Hemoglobin 34.1 Concent Red Cell Distribution Width 14.2 Platelet Count 208 Mean Platelet Volume 10.7 Neutrophils (%) (Auto) 86.7 Lymphocytes (%) (Auto) 5.4 Monocytes (%) (Auto) 5.8 Eosinophils (%) (Auto) 1.8 Basophils (%) (Auto) 0.3 Neutrophils # (Auto) 8.4 Lymphocytes # (Auto) 0.5 Monocytes # (Auto) 0.6 Eosinophils # (Auto) 0.2 Basophils # (Auto) 0.0 CBC Comment AUTO DIFF Differential Total Cells 100 Counted Neutrophils % (Manual) 71 Band Neutrophils % 17 Lymphocytes % 3 Monocytes % 7 Eosinophils % 1 Neutrophils # (Manual) 8.6 Myelocytes 1 Nucleated Red Blood Cells 1 Differential Comment FINAL DIFF MANUAL Platelet Estimate NORMAL Platelet Morphology Comment NORMAL Red Cell Morphology Comment NORMAL Sodium Level 140 Potassium Level 3.6 Chloride Level 103 Carbon Dioxide Level 26.2 Anion Gap 11 Blood Urea Nitrogen 46 Creatinine 3.19 Estimat Glomerular Filtration 14 Rate Random Glucose 109 Calcium Level 7.7 Phosphorus Level 4.3 Albumin 2.6 Imaging Last Impressions Chest X-Ray 12/17/16 0600 Signed Impressions: Service Date/Time: Saturday, December 17, 2016 04:47 - CONCLUSION: Diffuse processes such as edema being worse on the right. Lennox Rodriguez MD Thoracentesis 12/10/16 0000 Signed Impressions: Service Date/Time: Saturday, December 10, 2016 14:43 - CONCLUSION: Uncomplicated CT-guided thoracentesis. Jarrod Meyer MD Renal Ultrasound 12/10/16 0000 Signed Impressions: Service Date/Time: Saturday, December 10, 2016 18:06 - CONCLUSION: Normal examination. Lennox Rodriguez MD Chest Ultrasound 12/09/16 0000 Signed Impressions: Service Date/Time: Friday, December 09, 2016 13:23 - CONCLUSION: Moderate size right pleural effusion. Torito Conklin MD Head CT 12/08/16 0000 Signed Impressions: Service Date/Time: Thursday, December 08, 2016 14:47 - CONCLUSION: 1. 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 2. No acute intracranial process , trauma or fracture. Darius Hernandez MD Physical Exam HEENT: Normocephalic; atraumatic; no jaundice. Throat is clear. intubated NECK: Neck is supple, no JVD, no lymphadenopathy. CHEST: CTA CARDIAC: RRR ABDOMEN: Soft, obese, nondistended, nontender; no hepatosplenomegaly; bowel sounds are present in all four quadrants. PEG tube site without redness or swelling EXTREMITIES: Generalized, edema. SKIN: Normal; no rash; no jaundice. OBSERVER GRAVITY PROSPECTING: Sedated on vent Assessment and Plan Plan ASSESSMENT: - Dysphagia, FEN. GI consulted for PEG. S/P EGD with PEG tube placement ()---> normal EGD except some old coffee ground material, likely NGT trauma. Pathology pending. Protonix Gtt. PEG tube site without redness, swelling, drainage. NPO for tracheostomy later today. - Coffee ground gastric secretions. Protonix Gtt. No further problems with this. EGD as above. Will change protonix gtt to BID dosing. - Respiratory failure, PSAE Pna, Pleural effusion. - NSTEMI, S/P Cardiac Cath. (12/04/16)----> normal arterial pressure, severe [place] coronary artery disease with occlusion of the LAD and severe disease of the [place] right coronary artery, only one residual graft which was severe compromised- free mammary gravft to the LAD, successful intervention on the free mammary bypass graft to the LAD with sikhism of ORLY-3 flow and successful revascularization of the proximal right coronary artery with improvement in flow with resolute stent. She was started on Brilinta and ASA. D/W Dr. Hartman possibly holding these for one day for PEG tube placement, but he prefers that these not be placed on hold because of the risk of reocclusion. - Acute on chronic kidney disease. HD per renal - Acute metabolic encephalopathy, HTN, dyslipidemia, hx of PVA per [facility] PLAN: - NPO for tracheostomy later today - Okay from GI standpoint to start Nepro and increase to GR of 45cc/hr once tracheostomy placed and okay with GS - D/C Protonix Gtt - Protonix 40mg IV BID - Monitor HH - Transfuse as necessary - GI will sign off, please reconsult as needed - Pt seen and examined by Dr. Avitia and myself and this note is written on his behalf Alejandra Estrella Dec 17, 2016 09:59
[2016-12-17] MEDS: fentaNYL DRIP 250 ML IV SCH (10:46)
[2016-12-17] MEDS: DEXTROSE 5% IN WATE 1000ML INJ 1,000 ML IV SCH ×2 (10:51→22:52)
[2016-12-17] MEDS: PANTOPRAZOLE SODIUM 40 MG VIAL IV PUSH SCH ×2 (10:51→22:52)
[2016-12-17] MEDS ORDERED: ONDANSETRON HCL 4 MG/2 ML VIAL IV PUSH ONE (12:32)
[2016-12-17] MEDS ORDERED: SODIUM BICARBONATE 8.4% INJ 50 ML ONE (13:39)
[2016-12-17] MEDS ORDERED: BUPIVACAINE/EPINEPHRINE 0.5% PF 30 ML VIAL ONE (13:39)
[2016-12-17] MEDS ORDERED: LIDOCAINE HCL 1% 50 ML VIAL ONE (13:39)
[2016-12-17] MEDS ORDERED: KETAMINE HCL 500 MG/5 ML VIAL ONE (13:59)
--- NOTE | 2016-12-17 14:29 | HHI.CCPN ---
Subjective Remarks/Hospital Course 76-year-old female came to the emergency room brought by EMS as a STEMI alert. Patient called 911 for shortness of breath. When they arrived patient says oxygen saturation was in the 80s and she was in respiratory distress. Patient has history of coronary artery disease and congestive heart failure. She told me she had her bypass surgery done few years ago. Patient denied of any chest pain at any point. EMS said that patient had told them that she was nauseous for past couple days and vomited last night. She was woken up from the sleep with this shortness of breath. By the time patient arrived to the ER she was acutely short of breath and in severe respiratory distress. She was unable to give much history. She was pale and started getting agitated and diaphoretic when they moved her from the gurney to the stretcher. Patient developed worsening respiratory distress and required emergent intubation was placed on mechanical ventilation by ER physician. Her troponin came back at 20 and her EKG suggested intraventricular conduction delay versus left bundle branch block. Cardiology was contacted and felt patient had a non-ST elevation HI. She was also noted to be extremely hyperglycemic with glucose levels in the 500s with metabolic acidosis/lactic acidosis. She was started on the DKA protocol by ER physician. Urine ketones are negative. Beta hydroxybutyrate slightly elevated. Patient had a central line placed by ER physician and was started on heparin drip for anticoagulation for her HI. She was accepted for admission by critical care medicine service. I discussed the case with Dr. Auguste who is not planning cardiac catheterization at this time. Patient also was given empiric antibiotics up to obtaining cultures. 2 Patient is sedated with Diprivan and intubated. Remains on Heparin drip. On PRVC/AC RR 20 IT 1.0, TV 500, PEEP:5 and FIO2 35% 11/30 No acute events overnight. Sedated and intubated. Afebrile. On Heparin drip 12/01 Patient remains sedated and intubated. Afebrile. On Heparin drip. She had episode of desaturation while on CPAP. 12/02 Patient is sedated with Diprivan and intubated. Remains on Heparin drip. 12/03 No events over night. Attempt SBT tomorrow post cardiac Catheterization 12/04 cardiac catheterization today, successful intervention on the free mammary bypass graft to the LAD with sikhism of ORLY-3 flow and successful revascularization of the proximal right coronary artery with improvement in flow 12/05 attempt to wean from the mechanical ventilation failure due to rapid shallow breathing today 12/06 no evidence overnight 12/07 failed as SBT yesterday due to rapid shallow breathing 12/08 Patient remains intubated and on Precedex drip. Afebrile. She was on CPAP x 4 hrs yesterday then became tachycardic and hypertensive. 12/09 Patient remains sedated and intubated. Spiked fever with Tmax 101.7. CT brain yesterday showed no acute intracranial process 12/10 Patient is on Precedex drip, on CPAP 15/ with FIO2 30%. Tmax 101.6. Renal function worse today with Cr: 2.03 from 1.74. s/p transfusion 1u PRBC yesterday. 12/11 Tolerating CPAP. Remains encephalopathic, not following commands. MAXIMUM TEMPERATURE 101.6, white count was sent from 13.2-20.2. Function also worsening from 2-2.4. s/p CT guided thoracentesis 12/10/16, with 820 mL of yellow cloudy fluid removed. Fluid studies consistent with transudative effusion 12/12: Awake today follows commands but tachypneic, and using accessory muscles on 5 or 5 spontaneous breathing trial. Chest x-ray shows increased pulmonary vascular congestion/CHF. Worsening creatinine increased from 2-3.3, with decreased urine output. Additional 2 mg IV push bumetanide. Sputum culture growing Pseudomonas. One blood culture with gram-positive cocci-continue Zosyn , single dose of vancomycin ordered 12/13: Labs pending labs. The patient continues to fail spontaneous breathing trials. Continues on PRVC/AC 20/500/5/0.35 12/14:Afebrile. A Vas-Cath was placed yesterday, hemodialysis was begun, 3.5 L off. The family plans to discuss with critical care medicine decision whether to place a tracheostomy in a.m.. 12/15: Afebrile. Episodes of hemoptysis overnight since resolved. Scant bloody secretions. Also some coffee-ground emesis from gastric tube noted. Currently nothing by mouth. Positive BM. Still unable x-ray. Day #17 of intubation. Family requests full intervention. 12/16: Afebrile. Plan for tracheostomy are in OR with PEG tube placement today. Hemoglobin stable status post transfusion. Currently nothing by mouth Subjective 12/17: Currently afebrile. Status post PEG tube placement yesterday. Plan for Tracheostomy today. Currently nothing by mouth. Objective Vital Signs Date Time Temp Pulse Resp B/P Pulse Ox O2 Delivery O2 Flow Rate FiO2 12/17/16 12:00 35 12/17/16 10:08 99 12/17/16 08:00 54 12/17/16 08:00 97.8 14 141/64 Intake and Output 12/16/16 12/16/16 12/17/16 08:00 16:00 00:00 Intake Total 538 ml 844 ml 814 ml Output Total 400 ml 1025 ml 775 ml Balance 138 ml -181 ml 39 ml Result Diagram: 12/17/16 0302 12/17/16 0302 Imaging Last Impressions Chest X-Ray 12/17/16 0600 Signed Impressions: Service Date/Time: Saturday, December 17, 2016 04:47 - CONCLUSION: Diffuse processes such as edema being worse on the right. Lennox Rodriguez MD Thoracentesis 12/10/16 0000 Signed Impressions: Service Date/Time: Saturday, December 10, 2016 14:43 - CONCLUSION: Uncomplicated CT-guided thoracentesis. Jarrod Meyer MD Renal Ultrasound 12/10/16 0000 Signed Impressions: Service Date/Time: Saturday, December 10, 2016 18:06 - CONCLUSION: Normal examination. Lennox Rodriguez MD Chest Ultrasound 12/09/16 0000 Signed Impressions: Service Date/Time: Friday, December 09, 2016 13:23 - CONCLUSION: Moderate size right pleural effusion. Torito Conklin MD Head CT 12/08/16 0000 Signed Impressions: Service Date/Time: Thursday, December 08, 2016 14:47 - CONCLUSION: 1. 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 2. No acute intracranial process , trauma or fracture. Darius Hernandez MD Objective Remarks GENERAL: 76 -year-old female orotracheally intubated SKIN: Warm and dry. No rash HEAD: Normocephalic. EYES: No scleral icterus. No injection or drainage. NECK: Supple, trachea midline. No JVD or lymphadenopathy. Orally intubated. Ecchymoses noted around left IJ hemodialysis catheter CARDIOVASCULAR: Regular rate and rhythm. S1, S2 no S4. Without murmurs, gallops, or rubs. RESPIRATORY: Breath sounds equal bilaterally. Diminished in bases. GASTROINTESTINAL: Abdomen soft, non-tender, obese. PEG tube site is clean dry and intact MUSCULOSKELETAL: With trace lower extremity edema. Neuro: sedated and intubated. Eyes are open, moves extremities continuously Date of Insertion: Dec 08, 2016 Side: Right Location: Internal, Jugular A/P Assessment and Plan Neuro/Psych: Acute toxic metabolic encephalopathy Continue Precedex at 1.4 mcg/kg per minute and fentanyl drip at 250 micrograms an hour for sedation/analgesia while intubated Goal of RASS -2 Daily sedation vacation. Monitor neuro status. 12/08 CT brain: No acute intracranial process 12/08 EEG: Moderate degree of encephalopathy - Encephalopathy seems to be metabolic Pulm: Acute hypoxemic respiratory failure Bilateral pleural effusions Pseudomonas pneumonia - Continue PRVC 14/500/10/30/34 and keep sat >90% - Bronchodilators every 6 hours, ICU vent bundle, CPAP trials as ramone. Vent day 18. Plan for tracheostomy in a.m. 12/17 - CT guided thoracentesis 12/10- 820 ml of cloudy fluid removed from the right side. Fluid studies consistent with transudate - Sputum culture with Pseudomonas continue Zosyn. - ID following CV: Non-STEMI Chronic systolic heart failure Coronary Artery disease Hypertension Dys lipidemia History of peripheral vascular disease - Monitor HR and BP keep MAP>65mmHg - Echo showed EF 40-45%, hypokinesis in apical myocardium. - Cardiology- . - Continue ASA, Lipitor, Brilinta 90mg BID, Lopressor 12.5mg Q12 - Status post catheterization December 04, successful intervention balloon angioplasty on the free internal mammary bypass graft to the LAD with sikhism of ORLY-3 flow and successful revascularization with balloon angioplasty and restore MARIANO stent of the proximal right coronary artery with improvement in flow Maintain aspirin 81 mg daily and Brilinta 90 mg by mouth twice a day for drug- eluting stent 12 months Holding lisinopril 5 mill grams daily/home medication light of acute kidney injury Holding home medication Lopressor 75 mg by mouth twice a day nifedipine 90 mg by mouth daily for hypertension. On Lopressor 12.5 twice a day, hydralazine 10 mg every 8 hours and Nitropaste to 0.5 mill grams every 6 hours At home on atorvastatin 40 mg by mouth daily for dyslipidemia. Continued Renal/: Acute kidney injury - Renal function worse today - Renal US. normal study - Monitor renal function, I/O's, electrolytes replacement as needed - Nephrology Dr. Doyle. Currently on Bumex 2 mg twice a day and Diuril 500 mg daily. Vas-Cath placed 12/13 and hemodialysis today noted GI Tube feeds currently on hold due to percutaneous tracheostomy in OR - On Protonix 40 mg IV twice a day - Colace/as needed Senokot for bowel regimen Status post PEG tube 12/16 Heme: Anemia - Monitor CBC, s/p transfuse 1u PRBC 12/09, Coags within normal limits Transfuse 2 units PRBCs 12/15 hemoglobin currently greater than 10 Guaiac stool for heme ID: -Off all antibiotics - BC 12/08, 12/09: NGTD. 12/10 BC 10/29 staph epidermidis, sputum cx Pseudomonas. ID consulted/Dr. Sams Endocrine: Hyperglycemia - On SSI ( medium scale)Levemir 30u BID Prophylaxis: - PPI/SCDs/ Heparin SQ on hold for tracheostomy today Lines Right IJ placed 12/08, left IJ Vas-Cath 12/14 Critical Care: The total care time was 35 minutes. Time to perform other separately billable procedures was not included in the critical care time. Gee Santiago MD Dec 17, 2016 14:29 Gee Santiago MD Dec 17, 2016 14:29
[2016-12-17] MEDS ORDERED: MIDAZOLAM HCL 2 MG/2 ML VIAL ONE (15:57)
[2016-12-17] MEDS ORDERED: DO NOT ADM ANY ANTICOAGULANT DRUGS XX PRN (16:15)
--- NOTE | 2016-12-17 16:23 | HHI.PR ---
Immediate Post Op Note Procedure Date: Dec 17, 2016 Pre Op Diagnosis: (1) Acute respiratory failure with hypoxemia Post Op Diagnosis: (1) Acute respiratory failure with hypoxemia Surgeon: Ulises Ingram Switchman Supervisor(s): none Procedure: open tracheostomy Findings: 8.0 XLT trach in tracheotomy Complications: none Specimen(s) removed: none Estimated blood loss: 10ml Anesthesia: General, Local Drains: None IVF Patient to: Other Patient Condition: Critical Ulises Ingram MD Dec 17, 2016 16:23
--- NOTE | 2016-12-17 16:49 | HHI.NPPN ---
Subjective History of Present Illness The patient is a 76 yo [place] female who presented to the ED on 11/28/16 with suspected WA as she was having significant SOB. She was ultimately intubated on scene and then transported to the hospital for evaluation. She is currently intubated so history is obtained thru previous encounters and her son who is present in the room. She has known CKD, but she does not follow with a finished cigar maker as an outpatient. As per son, she has had CKD for many years and believes that her SCr is around 1.5-1.6, which from review of notes seems to be congruent. She has an extensive PMHx of cardiac disease with an EF of 40-45%, triple CABG in 2003, 4 PTCA previously, toe amputations related to PVD, DM for at least 20 years, HTN, and breast cancer treated about 30 years ago with mastectomy and chemotherapy. Son reports that she has has ongoing issues with fluid retention for the past year since she was admitted here for cardiac issues. She does use diuretics as outpatient that has been altered as per her fluid needs. She underwent cardiac cath on 12/04 and had 3 stents placed. She was initially on IVF that was converted to diuretics on 12/07/ thru 12/09. She was started on D5W 12/09 as her sodium levels were elevated. She has been receiving 300mL q8h via NG tube of free water. She received Vanc IV on 12/08 x1 dose and then again today as it is suspected that she has a ventilator associated PNA. Underwent thoracentesis today with approx 800mL drained from R lung. Admitting SCr 2.23 that improved to 1.5-1.6 range until 12/09 when she lisa to 1.74 and then ultimately 2.03 at time of consult. Interval History Trach and PEG placed. Review of Systems General General Remarks Patient unable to respond to questions. Objective Data Data 12/16/16 12/17/16 19:00 07:00 Intake Total 844 ml 1906 ml Output Total 1025 ml 1375 ml Balance -181 ml 531 ml IV Total 794 ml 1906 ml Albumin 50 ml Output Urine Total 850 ml 1375 ml Gastric Drainage Total 175 ml # Bowel Movements 0 Vital Signs Date Time Temp Pulse Resp B/P Pulse Ox O2 Delivery O2 Flow Rate FiO2 12/17/16 16:28 100 35 12/17/16 16:00 97.8 60 14 127/58 100 12/17/16 16:00 35 12/17/16 16:00 60 12/17/16 14:00 74 12/17/16 12:00 35 12/17/16 12:00 55 12/17/16 12:00 97.9 55 14 157/71 100 12/17/16 10:08 99 35 12/17/16 10:00 53 12/17/16 08:00 35 12/17/16 08:00 54 12/17/16 08:00 97.8 54 14 141/64 98 12/17/16 06:00 61 12/17/16 04:34 100 35 12/17/16 04:00 57 12/17/16 04:00 35 12/17/16 04:00 97.6 57 27 159/74 98 12/17/16 02:00 58 12/17/16 01:18 100 35 12/17/16 00:00 35 12/17/16 00:00 97.8 58 14 154/68 99 12/17/16 00:00 58 12/16/16 22:00 57 12/16/16 20:17 100 35 12/16/16 20:00 35 12/16/16 20:00 59 12/16/16 20:00 97.9 59 15 153/63 100 12/16/16 18:00 58 -: 12/17/16 0302 12/17/16 0302 Tubes & Lines: Vas-Cath Physical Exam General Appearance: No Acute Distress, Obese Eyes Eye Exam: Sclera White Pulmonary Resp Exam: Clear Bilaterally, Breath Sounds Equal, No Distress, Decreased Bases Cardiology CV Exam: Regular, Normal Sinus Rhythm Gastrointestinal/Abdomen GI Exam: Soft, Non-Tender Integumentary Skin Exam: Clear, Warm Extremeties Extremities Exam: Moderate Edema (involving all limbs and dependent torso.), Pitting Edema Neurologic Neuro Exam: Sedated Assessment/Plan Problem List: (1) Acute renal failure Plan: Fair urine output with high dose bumetanide however azotemia has worsened since yesterday. We'll plan for dialysis tomorrow Acute on chronic renal failure which is likely multifactorial with development of ATN: cardiorenal with EF of 40-45%, contrast injury (contrast via cath on 12/04), interstitial nephritis from Vanc exposure (received 12/08 & 12/10), infectious process (repeat BCx pending as of 12/10). Continue to monitor renal functions and UOP. Ordered labs to r/o any other underlying issues for renal decline. Baseline SCr appears to be 1.5-1.6 with underlying etiology of diabetic nephropathy. Medications should be adjusted for the patient's renal decline. Avoid nephrotoxic agents including iodinated contrast dyes and NSAIDs. Avoid gadolinium when eGFR <30. (2) CHF (congestive heart failure) Plan: Continue diuretics and dialysis for volume management. (3) Hypernatremia Plan: Related to impaired free water intake. Resolved (4) Pneumonia Plan: Mgmt as per CC (5) Non-STEMI (non-ST elevated myocardial infarction) Plan: Mgmt as per cardiology (6) Hypertension Plan: BP stable. Continue on current regimen (7) Diabetes mellitus Plan: Mgmt as per CC (8) Anemia Plan: Epogen as indicated. Problem Qualifiers (1) Acute renal failure: Qualified Code: N17.9 - Acute renal failure, unspecified acute renal failure type (2) Pneumonia: Qualified Code: J18.9 - Pneumonia of both lungs due to infectious organism, unspecified part of lung Leandro Doyle MD Dec 17, 2016 16:49
--- NOTE | 2016-12-17 19:36 | MB ---
cc: CHLOENAINNADINE DRISCOLL DATE OF CONSULTATION 12/16/[address] Gee Santiago, crankshaft grinder. REASON FOR CONSULTATION Tracheostomy placement for ventilator dependent respiratory failure. HISTORY OF THE PRESENT ILLNESS The patient is a 76-year-old female who came to the emergency department by EMS. The patient upon evaluation was to have an STEMI alert due to concern for myocardial infarction. The patient was found have elevated troponin and cardiology was consulted for evaluation. The patient was placed on a heparin drip anticoagulation for non-ST elevation myocardial infarction. The patient unable to be weaned from the ventilator and has been on the ventilator since 11/29/2016. The family wished to continue aggressive measures and discussion about tracheostomy was performed with them by the crankshaft grinder and general surgery was consulted for consideration of a tracheostomy. The patient was also felt to not be a candidate for percutaneous tracheostomy due to anticoagulation that was unable to be discontinued as well as the patient's body habitus and morbid obesity. REVIEW OF SYSTEMS Obtained from the chart. The patient is intubated, sedated. Unable to be assessed from the patient. PAST MEDICAL HISTORY Per the chart. 1. Coronary artery disease. 2. Left breast cancer. 3. High cholesterol. 4. Chronic renal insufficiency. 5. Hypertension. PAST SURGICAL HISTORY 1. CABG in 2003. 2. History of coronary stent placement. 3. Hysterectomy. 4. Left mastectomy. ALLERGIES SULFA. MEDICATIONS 1. Protonix. 2. Bumex. 3. Dextrose. 4. Cefepime. 5. Reglan. 6. Heparin. 7. Albumin. 8. Nitrostat. 9. Catapres. 10. Epogen. 11. Levemir. 12. Diuril. 13. Lipitor. 14. Lopressor. 15. Apresoline. 16. Insulin. 17. Tylenol. 18. Aspirin. 19. Brilinta. SOCIAL HISTORY The patient has no history of alcohol, tobacco or drug use per record. FAMILY HISTORY Noncontributory. PHYSICAL EXAMINATION VITAL SIGNS: Pulse 63, temperature 97.8 degrees, blood pressure 158/71. O2 saturation is 100% on the ventilator. GENERAL: The patient is obese, chronically ill and acutely ill appearing female. HEENT: Normocephalic, atraumatic. Pupils round, reactive to light and accommodation. Sclerae is anicteric. NECK: There is a left-sided ecchymosis with deep jugular veins. ____ catheter is in place on the left. No scars on the neck. No masses or lymphadenopathy. Trachea is midline. Normal anatomy. LUNGS: Breath sounds present bilaterally on the ventilator. Nonlabored breathing. HEART: Regular rhythm. ABDOMEN: Obese. Nontender to palpation. Nondistended. No organomegaly. No ascites. EXTREMITIES: Chronic and acute edema. NEUROLOGICAL: The patient's GCS 5T on the ventilator. ASSESSMENT/PLAN The patient is a 76-year-old female status post myocardial infarction on blood thinners for a stent placement and NE with ventilator dependent respiratory failure. We discussed with the family about the risks, benefits, alternatives to the tracheostomy including inability to stop anticoagulation and increased risk of bleeding. They are in agreement with proceeding with the PEG tube and a tracheostomy due to continued aggressive care. We will plan open tracheostomy in the operating room tomorrow on Thursday12/17/2016 at 01:00 p.m. We will await the results of bedside PEG tube today and ensure there are no complications. The patient on low vent settings and feel safe to proceed tomorrow at this time. MD PAULO Mcclendon/CINDY /4:09 PM /7:14 PM
[2016-12-17] MEDS: CEFEPIME INJ 2,000 MG in SODIUM CHLORIDE 0.9% INJ 100 ML IV SCH (19:46)
[2016-12-17 22:01] LABS: HEMATOCRIT 28.9 % (35.0-46.0); REVIEW FLAG FINAL
[2016-12-18] VITALS (18 sets, daily range): BP systolic 150–176; BP diastolic 65–75; PULSE 55–87; RESP 14–23; TEMP 97.1–99.6; O2SAT 97–100
[2016-12-18] MEDS: DEXMEDETOMIDINE INJ 1,000 MCG in SODIUM CHLOR 0.9% 250 ML INJ 240 ML IV SCH ×4 (01:26→21:03)
[2016-12-18] MEDS: INSULIN ASPART SUPPLEMENTAL SCALE SQ SCH ×6 (03:46→21:11)
[2016-12-18] MEDS: CHLORHEXIDINE GLUCONATE 2 % 1 PACK (2 CLOTHS) TOP SCH (03:47)
[2016-12-18 05:07] LABS: AUTOMATED NEUTROPHIL # 10.2 TH/MM3 (1.8-7.7); BASOPHIL % 0.3 % (0.0-2.0); EOSINOPHIL # 0.2 TH/MM3 (0-0.4); EOSINOPHIL % 1.6 % (0.0-4.0); HEMATOCRIT 28.3 % (35.0-46.0); LYMPH % 4.5 % (9.0-44.0); LYMPHOCYTE # 0.5 TH/MM3 (1.0-4.8); MEAN CELL VOLUME 86.5 FL (80.0-100.0); MEAN CORPUSCULAR HEMOGLOBIN 28.8 PG (27.0-34.0); MEAN CORPUSCULAR HGB CONC 33.3 % (32.0-36.0); MONO % 5.2 % (0.0-8.0); NEUT % 88.4 % (16.0-70.0); PLATELET COUNT 217 TH/MM3 (150-450); RED BLOOD COUNT 3.27 MIL/MM3 (4.00-5.30); RED CELL DISTRIBUTION WIDTH 14.4 % (11.6-17.2); WHITE BLOOD COUNT 11.6 TH/MM3 (4.0-11.0)
[2016-12-18 05:14] LABS: HEMO FLAGS AUTO DIFF
[2016-12-18 05:41] LABS: ALKALINE PHOSPHATASE 50 U/L (45-117); ALT (GPT) 18 U/L (10-53); ANION GAP 11 MEQ/L (5-15); AST (GOT) 12 U/L (15-37); BICARBONATE 28.3 MEQ/L (21.0-32.0); BLOOD UREA NITROGEN 35 MG/DL (7-18); CHLORIDE 97 MEQ/L (98-107); GLOMERULAR FILTRATION RATE 17 ML/MIN (>89); MAGNESIUM 1.7 MG/DL (1.5-2.5); SODIUM (NA) 136 MEQ/L (136-145); TOTAL BILIRUBIN ADULT 0.5 MG/DL (0.2-1.0)
[2016-12-18] MEDS: fentaNYL DRIP 250 ML IV SCH ×3 (05:47→23:07)
[2016-12-18] MEDS: METOCLOPRAMIDE HCL 10 MG/2 ML VIAL IV PUSH SCH ×3 (05:47→21:04)
[2016-12-18] MEDS: hydrALAZINE HCL 10 MG TAB PO SCH ×2 (05:48→10:28)
[2016-12-18] MEDS: NITROGLYCERIN 2% OINT 1 GM PACKET TOPICAL SCH ×3 (05:49→10:28)
[2016-12-18 06:23] LABS: SCAN/DIFF AUTO DIFF CONFIRMED
[2016-12-18 06:24] LABS: PLATELET ESTIMATE SMEAR LOW (NORMAL); PLATELET MORPHOLOGY NORMAL (NORMAL)
--- NOTE | 2016-12-18 07:24 | MP ---
cc: NADINE CONWAY DATE OF SURGERY 12/17/2016 PREOPERATIVE DIAGNOSIS Ventilator dependent respiratory failure and myocardial infarction. POSTOPERATIVE DIAGNOSIS Ventilator dependent respiratory failure and myocardial infarction. PROCEDURE Open tracheostomy placement. ANESTHESIA General ATTENDING SURGEON Nadine Conway MD MAKE UP EDITOR Staff BLOOD LOSS 10 cc FINDINGS Tracheostomy tube in good position in the trachea at the second and third tracheal ring. COMPLICATIONS None INDICATIONS FOR THE PROCEDURE The patient is a 76-year-old female with ventilator dependent respiratory failure status post stent placement for a myocardial infarction. The patient requires tracheostomy placement due to prolonged respiratory failure and endotracheal tube placement. The risks, benefits, and alternatives including significant increased risk for bleeding and complications due to inability to stop blood thinners were discussed with the patients family before consent was obtained for the procedure. PROCEDURE The patient was taken to the operating room from her bed in the Medical Intensive Care Unit and placed under general anesthesia through her already in place endotracheal tube. The patient's anterior neck was prepped and draped in a sterile fashion. Time-out was performed. Local anesthetic was instilled into the skin incision. An approximately 5 cm horizontal skin incision was made approximately two fingerbreadths above the sternal notch with a 15 blade scalpel. Bovie electrocautery was used in the subcutaneous tissue to the platysma fascia. We then continued dissection. We were able to identify the strap muscles. These were actually tied and divided with 3-0 silk sutures and Bovie electrocautery. We then identified the isthmus of a thyroid. We got around this with the right-angle and tied this on either side with 3-0 silk sutures as well as dividing this with the Bovie electrocautery. We were able to take the remaining portion of the thyroid off of the anterior portion of the trachea and identified the trachea at the second and third ring area. We had excellent closure. We placed two 2-0 Prolene sutures on and the right and left side of the second tracheal ring. We then lifted up on the cricoid thyroid with a trache hook and opened the trachea in a T-style fashion. Anesthesia removed the endotracheal tube to above the area of the tracheostomy site and a size XLT #8 tracheostomy tube was placed into the tracheotomy site without difficulty. The balloon was inflated and the patient was placed on anesthesia and oxygen through the in place tracheostomy tube without difficulty. Good tidal volumes and the patient to maintain oxygenation throughout the procedure. Due to the patient being on blood thinners and the risk for bleeding, we did place [place] anticoagulant impregnated absorbable gauze into the wound as a dressing. We also placed some Surgicel at the skin edges as well. We closed the skin lateral with a vertical mattress of 2-0 nylon sutures. We sutured this tracheostomy cuff in place with 2-0 nylon sutures and placed a tracheostomy collar in place. The patient at this point in time was discontinued from anesthesia, placed back on sedation and ventilated through the ventilator through her newly placed tracheostomy tube and sent back to the Medical Intensive Care Unit in critical condition with no changes from her previous preoperative condition. I was present and scrubbed throughout the entire procedure. No apparent complications. All counts were correct and I was present throughout the entire procedure. MD PAULO Mcclendon/ALYSSA /4:18 PM /7:02 AM
[2016-12-18] MEDS: ALBUMIN HUMAN 25% 12.5 GM/50 ML BAGP IV SCH ×2 (07:55→21:04)
[2016-12-18] MEDS: CHLOROTHIAZIDE SOD 500 MG VIAL IV SCH ×2 (07:55→21:09)
[2016-12-18] MEDS: TICAGRELOR 90 MG TAB PO SCH ×2 (07:56→21:08)
[2016-12-18] MEDS: CHLORHEXIDINE 0.12% (ORAL KIT) 15 ML CUP MT SCH ×2 (07:56→21:10)
[2016-12-18] MEDS: BUMETANIDE INJ 1 MG/4 ML VIAL IV PUSH SCH ×2 (07:56→17:36)
[2016-12-18] MEDS: ATORVASTATIN 40 MG TAB PO SCH (07:57)
[2016-12-18] MEDS: METOPROLOL TARTRATE 25 MG TAB PO SCH ×2 (07:57→21:04)
[2016-12-18] MEDS: SODIUM CHLORIDE 0.9% FLUSH 5 ML FLUSH IVF SCH ×2 (07:57→21:05)
[2016-12-18] MEDS: ASPIRIN 81 MG CHEW TAB CHEW SCH (07:57)
[2016-12-18] MEDS: PANTOPRAZOLE SODIUM 40 MG VIAL IV PUSH SCH ×2 (08:01→21:09)
[2016-12-18] MEDS: INSULIN DETEMIR 100 UNITS/ML VIAL SQ SCH ×2 (08:40→21:05)
[2016-12-18] MEDS ORDERED: POTASSIUM CL 40 MEQ/30 ML LIQ UDC PEG ONE (11:00)
[2016-12-18] MEDS: DEXTROSE 5% IN WATE 1000ML INJ 1,000 ML IV SCH (11:10)
[2016-12-18] MEDS ORDERED: NITROGLYCERIN 2% OINT 1 GM PACKET TOPICAL PRN (14:00)
[2016-12-18] MEDS ORDERED: hydrALAZINE HCL 10 MG TAB PO SCH (14:00)
--- NOTE | 2016-12-18 14:08 | HHI.CCPN ---
Subjective Remarks/Hospital Course 76-year-old female came to the emergency room brought by EMS as a STEMI alert. Patient called 911 for shortness of breath. When they arrived patient says oxygen saturation was in the 80s and she was in respiratory distress. Patient has history of coronary artery disease and congestive heart failure. She told me she had her bypass surgery done few years ago. Patient denied of any chest pain at any point. EMS said that patient had told them that she was nauseous for past couple days and vomited last night. She was woken up from the sleep with this shortness of breath. By the time patient arrived to the ER she was acutely short of breath and in severe respiratory distress. She was unable to give much history. She was pale and started getting agitated and diaphoretic when they moved her from the gurney to the stretcher. Patient developed worsening respiratory distress and required emergent intubation was placed on mechanical ventilation by ER physician. Her troponin came back at 20 and her EKG suggested intraventricular conduction delay versus left bundle branch block. Cardiology was contacted and felt patient had a non-ST elevation LA. She was also noted to be extremely hyperglycemic with glucose levels in the 500s with metabolic acidosis/lactic acidosis. She was started on the DKA protocol by ER physician. Urine ketones are negative. Beta hydroxybutyrate slightly elevated. Patient had a central line placed by ER physician and was started on heparin drip for anticoagulation for her LA. She was accepted for admission by critical care medicine service. I discussed the case with Dr. Auguste who is not planning cardiac catheterization at this time. Patient also was given empiric antibiotics up to obtaining cultures. 2 Patient is sedated with Diprivan and intubated. Remains on Heparin drip. On PRVC/AC RR 20 IT 1.0, TV 500, PEEP:5 and FIO2 35% 11/30 No acute events overnight. Sedated and intubated. Afebrile. On Heparin drip 12/01 Patient remains sedated and intubated. Afebrile. On Heparin drip. She had episode of desaturation while on CPAP. 12/02 Patient is sedated with Diprivan and intubated. Remains on Heparin drip. 12/03 No events over night. Attempt SBT tomorrow post cardiac Catheterization 12/04 cardiac catheterization today, successful intervention on the free mammary bypass graft to the LAD with buddhism of ORLY-3 flow and successful revascularization of the proximal right coronary artery with improvement in flow 12/05 attempt to wean from the mechanical ventilation failure due to rapid shallow breathing today 12/06 no evidence overnight 12/07 failed as SBT yesterday due to rapid shallow breathing 12/08 Patient remains intubated and on Precedex drip. Afebrile. She was on CPAP x 4 hrs yesterday then became tachycardic and hypertensive. 12/09 Patient remains sedated and intubated. Spiked fever with Tmax 101.7. CT brain yesterday showed no acute intracranial process 12/10 Patient is on Precedex drip, on CPAP 15/ with FIO2 30%. Tmax 101.6. Renal function worse today with Cr: 2.03 from 1.74. s/p transfusion 1u PRBC yesterday. 12/11 Tolerating CPAP. Remains encephalopathic, not following commands. MAXIMUM TEMPERATURE 101.6, white count was sent from 13.2-20.2. Function also worsening from 2-2.4. s/p CT guided thoracentesis 12/10/16, with 820 mL of yellow cloudy fluid removed. Fluid studies consistent with transudative effusion 12/12: Awake today follows commands but tachypneic, and using accessory muscles on 5 or 5 spontaneous breathing trial. Chest x-ray shows increased pulmonary vascular congestion/CHF. Worsening creatinine increased from 2-3.3, with decreased urine output. Additional 2 mg IV push bumetanide. Sputum culture growing Pseudomonas. One blood culture with gram-positive cocci-continue Zosyn , single dose of vancomycin ordered 12/13: Labs pending labs. The patient continues to fail spontaneous breathing trials. Continues on PRVC/AC 20/500/5/0.35 12/14:Afebrile. A Vas-Cath was placed yesterday, hemodialysis was begun, 3.5 L off. The family plans to discuss with critical care medicine decision whether to place a tracheostomy in a.m.. 12/15: Afebrile. Episodes of hemoptysis overnight since resolved. Scant bloody secretions. Also some coffee-ground emesis from gastric tube noted. Currently nothing by mouth. Positive BM. Still unable x-ray. Day #17 of intubation. Family requests full intervention. 12/16: Afebrile. Plan for tracheostomy are in OR with PEG tube placement today. Hemoglobin stable status post transfusion. Currently nothing by mouth 12/17: Currently afebrile. Status post PEG tube placement Dr. Avitia 12/16. Plan for Tracheostomy today. Currently nothing by mouth. Subjective 12/18: Currently afebrile. Status post tracheostomy by Dr. Ingram 12/17. Some oozing from trach site appears stable currently. Hemodynamic stable. Actually hypertense requiring when necessary's. Complaining of abdominal pain. Objective Vital Signs Date Time Temp Pulse Resp B/P Pulse Ox O2 Delivery O2 Flow Rate FiO2 12/18/16 12:00 71 12/18/16 12:00 35 12/18/16 12:00 98.7 16 169/75 100 Intake and Output 12/17/16 12/17/16 12/18/16 08:00 16:00 00:00 Intake Total 1092 ml 1053 ml 1454 ml Output Total 600 ml 4050 ml 700 ml Balance 492 ml -2997 ml 754 ml Result Diagram: 12/18/16 0450 12/18/16 0450 Imaging Last Impressions Chest X-Ray 12/17/16 0600 Signed Impressions: Service Date/Time: Saturday, December 17, 2016 04:47 - CONCLUSION: Diffuse processes such as edema being worse on the right. Lennox Rodriguez MD Thoracentesis 12/10/16 0000 Signed Impressions: Service Date/Time: Saturday, December 10, 2016 14:43 - CONCLUSION: Uncomplicated CT-guided thoracentesis. Jarrod Meyer MD Renal Ultrasound 12/10/16 0000 Signed Impressions: Service Date/Time: Saturday, December 10, 2016 18:06 - CONCLUSION: Normal examination. Lennox Rodriguez MD Chest Ultrasound 12/09/16 0000 Signed Impressions: Service Date/Time: Friday, December 09, 2016 13:23 - CONCLUSION: Moderate size right pleural effusion. Torito Conklin MD Head CT 12/08/16 0000 Signed Impressions: Service Date/Time: Thursday, December 08, 2016 14:47 - CONCLUSION: 1. 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 2. No acute intracranial process , trauma or fracture. Darius Hernandez MD Objective Remarks GENERAL: 76 -year-old female orotracheally intubated SKIN: Warm and dry. No rash HEAD: Normocephalic. EYES: No scleral icterus. No injection or drainage. NECK: Supple, trachea midline. No JVD or lymphadenopathy. Orally intubated. Ecchymoses noted around left IJ hemodialysis catheter CARDIOVASCULAR: Regular rate and rhythm. S1, S2 no S4. Without murmurs, gallops, or rubs. RESPIRATORY: Breath sounds equal bilaterally. Diminished in bases. GASTROINTESTINAL: Abdomen soft, non-tender, obese. PEG tube site is clean dry and intact MUSCULOSKELETAL: With trace lower extremity edema. Neuro: sedated and intubated. Eyes are open, moves extremities continuously Date of Insertion: Dec 08, 2016 Side: Right Location: Internal, Jugular A/P Assessment and Plan Neuro/Psych: Acute toxic metabolic encephalopathy Chronic pain management Continue Precedex at 1.4 mcg/kg per minute and fentanyl drip at 250 micrograms an hour for sedation/analgesia while intubated As needed oxycodone liquid 10 by tube every 4 for pain Goal of RASS -2 Daily sedation vacation. Monitor neuro status. 12/08 CT brain: No acute intracranial process 12/08 EEG: Moderate degree of encephalopathy - Encephalopathy seems to be metabolic Pulm: Acute hypoxemic respiratory failure Bilateral pleural effusions Pseudomonas pneumonia - Continue PRVC 14/500/10/30/34 - CPAP 12/5 and 35% and keep sat >92% - Bronchodilators every 6 hours, ICU vent bundle, CPAP trials as ramone. - Status post tracheostomy in a.m. 12/[address] Yolie Reddy - CT guided thoracentesis 12/10- 820 ml of cloudy fluid removed from the right side. Fluid studies consistent with transudate - Sputum culture with Pseudomonas continue cefepime - ID following CV: Non-STEMI Chronic systolic heart failure Coronary Artery disease Hypertension Dys lipidemia History of peripheral vascular disease - Monitor HR and BP keep MAP>65mmHg - Echo showed EF 40-45%, hypokinesis in apical myocardium. - Cardiology- . - Continue ASA 81 mg daily, Lipitor 40 mg daily r, Brilinta 90mg BID, Lopressor 12.5mg Q12 and hydralazine 25 3 times a day with Isordil 10 3 times a day - Status post catheterization December 04, successful intervention balloon angioplasty on the free internal mammary bypass graft to the LAD with buddhism of ORLY-3 flow and successful revascularization with balloon angioplasty and restore MARIANO stent of the proximal right coronary artery with improvement in flow Maintain aspirin 81 mg daily and Brilinta 90 mg by mouth twice a day for drug- eluting stent 12 months Holding lisinopril 5 mill grams daily/home medication light of acute kidney injury Holding home medication Lopressor 75 mg by mouth twice a day nifedipine 90 mg by mouth daily for hypertension. At home on atorvastatin 40 mg by mouth daily for dyslipidemia. Continued Renal/: Acute kidney injury Hypokalemia - Renal function worse today - Renal US. normal study - Monitor renal function, I/O's, electrolytes replacement as needed - Nephrology Dr. Doyle. Currently on Bumex 2 mg twice a day and Diuril 500 mg daily. Vas-Cath placed 12/13 and hemodialysis today noted 20 mEq KCl 1 now. GI Tube feeds currently on hold due to percutaneous tracheostomy in OR - On Protonix 40 mg IV twice a day - Colace/as needed Senokot for bowel regimen Status post PEG tube 12/16 Heme: Anemia - Monitor CBC, s/p transfuse 1u PRBC 12/09, Coags within normal limits Transfuse 2 units PRBCs 12/15 hemoglobin currently greater than 10 Guaiac stool for heme ID: -Continues to be on cefepime since 12/15. Use and Zosyn and vancomycin - BC 12/08, 12/09: NGTD. 12/10 BC 10/29 staph epidermidis, sputum cx Pseudomonas. ID consulted/Dr. Sams Endocrine: Hyperglycemia - On SSI (medium scale)Levemir 30u BID. 6 units sliding scale insulin past 24 hours Prophylaxis: - PPI/SCDs/ Heparin SQ on hold for tracheostomy today resume 12/19 Lines Right IJ placed 12/08, left IJ Vas-Cath 12/14 Critical Care: The total care time was 35 minutes. Time to perform other separately billable procedures was not included in the critical care time. Gee Santiago MD Dec 18, 2016 14:08
[2016-12-18] MEDS ORDERED: oxyCODONE HCL ORAL CONC 20 MG/ML SYRINGE PO PRN (14:15)
--- NOTE | 2016-12-18 14:29 | HHI.PR ---
Subjective Subjective Notes Resting in bed Eyes open Objective Vitals/I&O Vital Signs Date Time Temp Pulse Resp B/P Pulse Ox O2 Delivery O2 Flow Rate FiO2 12/18/16 12:00 71 12/18/16 12:00 35 12/18/16 12:00 98.7 16 169/75 100 Labs Laboratory Tests Test 12/17/16 12/18/16 21:40 04:50 Hemoglobin 9.8 9.4 Hematocrit 28.9 28.3 White Blood Count 11.6 Red Blood Count 3.27 Mean Corpuscular Volume 86.5 Mean Corpuscular Hemoglobin 28.8 Mean Corpuscular Hemoglobin 33.3 Concent Red Cell Distribution Width 14.4 Platelet Count 217 Mean Platelet Volume 9.8 Neutrophils (%) (Auto) 88.4 Lymphocytes (%) (Auto) 4.5 Monocytes (%) (Auto) 5.2 Eosinophils (%) (Auto) 1.6 Basophils (%) (Auto) 0.3 Neutrophils # (Auto) 10.2 Lymphocytes # (Auto) 0.5 Monocytes # (Auto) 0.6 Eosinophils # (Auto) 0.2 Basophils # (Auto) 0.0 CBC Comment AUTO DIFF Differential Comment AUTO DIFF CONFIRMED Platelet Estimate LOW Platelet Morphology Comment NORMAL Sodium Level 136 Potassium Level 3.0 Chloride Level 97 Carbon Dioxide Level 28.3 Anion Gap 11 Blood Urea Nitrogen 35 Creatinine 2.71 Estimat Glomerular Filtration 17 Rate Random Glucose 182 Calcium Level 8.1 Phosphorus Level 4.2 Magnesium Level 1.7 Total Bilirubin 0.5 Aspartate Amino Transf 12 (AST/SGOT) Alanine Aminotransferase 18 (ALT/SGPT) Alkaline Phosphatase 50 Total Protein 5.5 Albumin 2.4 Cardiovascular: Regular Lungs: Clear Abdomen: Non-distended, Non-tender, Other (PEG in place ) Extremities: Other (generalized edema ) Narrative Exam Trach with dressing----minimal bloody drainage A/P Assessment and Plan 76 year old female with multiple medical problems s/p NSTEMI -POD1 trach placement -VITA Gaffney reports bleeding last night----Surgicel placed this AM -Will follow again tomorrow but trach should be not be manipulated at this time due to high risk of bleeding Zaida Conway Dec 18, 2016 14:29
[2016-12-18] MEDS: ISOSORBIDE DINITRATE 10 MG TAB PO SCH ×2 (15:16→21:08)
[2016-12-18] MEDS: hydrALAZINE HCL 25 MG TAB PO SCH ×2 (15:16→21:04)
--- NOTE | 2016-12-18 16:52 | HHI.NPPN ---
Subjective History of Present Illness The patient is a 76 yo [place] female who presented to the ED on 11/28/16 with suspected ID as she was having significant SOB. She was ultimately intubated on scene and then transported to the hospital for evaluation. She is currently intubated so history is obtained thru previous encounters and her son who is present in the room. 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 As per son, she has had CKD for many years and believes that her SCr is around 1.5-1.6, which from review of notes seems to be congruent. She has an extensive PMHx of cardiac disease with an EF of 40-45%, triple CABG in 2003, 4 PTCA previously, toe amputations related to PVD, DM for at least 20 years, HTN, and breast cancer treated about 30 years ago with mastectomy and chemotherapy. Son reports that she has has ongoing issues with fluid retention for the past year since she was admitted here for cardiac issues. She does use diuretics as outpatient that has been altered as per her fluid needs. She underwent cardiac cath on 12/04 and had 3 stents placed. She was initially on IVF that was converted to diuretics on 12/07/ thru 12/09. She was started on D5W 12/09 as her sodium levels were elevated. She has been receiving 300mL q8h via NG tube of free water. She received Vanc IV on 12/08 x1 dose and then again today as it is suspected that she has a ventilator associated PNA. Underwent thoracentesis today with approx 800mL drained from R lung. Admitting SCr 2.23 that improved to 1.5-1.6 range until 12/09 when she lisa to 1.74 and then ultimately 2.03 at time of consult. Interval History s/p PEG & Trach. Awake, is able to shake head yes and no. (Melinda Orellana) Review of Systems General General Remarks Patient unable to respond to questions. (Melinda Orellana) Objective Data Data 12/17/16 12/18/16 19:00 07:00 Intake Total 1053 ml 2531 ml Output Total 4050 ml 1350 ml Balance -2997 ml 1181 ml IV Total 1053 ml 2285 ml Tube Feeding 246 ml Output Urine Total 550 ml 1350 ml Hemodialysis 3500 ml # Bowel Movements 0 Vital Signs Date Time Temp Pulse Resp B/P Pulse Ox O2 Delivery O2 Flow Rate FiO2 12/18/16 16:15 100 35 12/18/16 16:00 98.6 82 14 176/75 99 12/18/16 16:00 82 12/18/16 16:00 35 12/18/16 14:00 74 12/18/16 12:00 71 12/18/16 12:00 35 12/18/16 12:00 98.7 71 16 169/75 100 12/18/16 11:55 100 35 12/18/16 10:00 66 12/18/16 08:46 100 35 12/18/16 08:46 35 12/18/16 08:43 35 12/18/16 08:00 65 12/18/16 08:00 35 12/18/16 08:00 97.6 65 14 173/74 100 12/18/16 06:00 62 12/18/16 04:14 100 35 12/18/16 04:00 61 12/18/16 04:00 97.8 61 18 169/69 99 12/18/16 04:00 35 12/18/16 02:00 55 12/18/16 01:25 100 35 12/18/16 00:00 35 12/18/16 00:00 97.1 55 14 151/65 100 12/18/16 00:00 55 12/17/16 22:00 56 12/17/16 20:26 100 35 12/17/16 20:00 96.1 58 14 149/88 94 12/17/16 20:00 58 12/17/16 20:00 35 12/17/16 18:00 56 (Melinda Orellana) -: 12/18/16 0450 12/18/16 0450 Tubes & Lines: Vas-Cath Medication Review Current Medications Medications (Trade) Dose Ordered Sig/Amber Route Start Time Stop Time Status Last Admin (Aspirin Chew) 81 mg DAILY CHEW 11/28/16 09:00 12/18/16 07:57 (Brilinta) 90 mg BID PO 11/28/16 09:00 12/18/16 07:56 (Tylenol) 650 mg Q6H PRN PO 11/28/16 10:15 12/11/16 05:05 (fentaNYL INJ) 100 mcg Q4H PRN IV 11/28/16 10:15 12/18/16 13:57 (Peridex 0.12% Liq) 15 ml BID@08,20 MT 11/28/16 20:00 12/18/16 07:56 Miscellaneous Information 1 Q361D XX 11/28/16 10:15 11/28/16 10:15 (Chlorhexidine 2% Cloth) 3 pack Taper DAILY@04 TOP 11/29/16 04:00 11/25/17 03:59 12/18/16 03:47 (Chlorhexidine 2% Cloth) 3 pack UNSCH PRN TOP 11/28/16 10:15 (NovoLOG SUPPLEMENTAL SCALE) 1 Q4HR SQ 11/28/16 20:00 12/18/16 16:09 (D50w (Vial) Inj) 25 ml UNSCH PRN IV 11/28/16 17:00 12/16/16 20:59 (Glucagon Inj) 1 mg UNSCH PRN IM/SQ 11/28/16 17:00 (Lipitor) 40 mg DAILY PO 11/29/16 09:00 12/18/16 07:57 (Lopressor) 12.5 mg Q12HR PO 12/01/16 21:00 12/18/16 07:57 (Pill Splitter) 1 ea UNSCH PRN OTHER 12/01/16 12:30 (NS Flush) 2 ml BID IVF 12/04/16 21:00 12/18/16 07:57 Water 300 ml 300 ml Q8HR G-TUBE 12/09/16 14:00 Hold 12/14/16 14:00 Dexmedetomidine HCl 1000 mcg/ Sodium Chloride 250 ml @ 0 mls/hr TITRATE IV 12/09/16 14:45 12/18/16 13:56 (fentaNYL DRIP) 250 ml @ 0 mls/hr TITRATE IV 12/10/16 17:15 12/18/16 13:56 (Albumin 25% Inj) 12.5 gm Q12HR IV 12/10/16 21:00 12/18/16 07:55 (Levemir Inj) 30 units BID SQ 12/11/16 21:00 12/18/16 08:40 Chlorothiazide Sodium 500 mg 500 mg Q12HR IV 12/11/16 21:00 12/18/16 07:55 (NS 1000 ml Inj) 1,000 ml @ 0 mls/hr Q0M PRN IV 12/13/16 15:06 12/17/16 09:32 Heparin Sodium (Porcine) 8000 units 8,000 units UNSCH PRN IVF 12/13/16 15:15 Sodium Chloride 1,000 ml @ 200 mls/hr Q5H PRN IV 12/13/16 15:06 (NS 1000 ml Inj) 1,000 ml @ 0 mls/hr Q0M PRN IV 12/13/16 15:06 12/14/16 08:23 (Albumin 25% Inj) 25 gm UNSCH PRN IV 12/13/16 15:15 12/14/16 08:24 (NS Flush) 5 ml UNSCH PRN IVF 12/13/16 15:15 12/14/16 08:23 (Heparin Inj) UNSCH PRN .XX 12/13/16 15:15 12/17/16 09:32 (Gentamicin (Dialysis) Inj) 20 mg UNSCH PRN IV 12/13/16 15:15 12/17/16 09:33 (Zofran Inj) 4 mg UNSCH PRN IV 12/13/16 15:15 (Tylenol) 650 mg UNSCH PRN PO 12/13/16 15:15 (Benadryl) 25 mg UNSCH PRN PO 12/13/16 15:15 (Nitrostat Sl) 0.4 mg UNSCH PRN SL 12/13/16 15:15 (Catapres) 0.1 mg UNSCH PRN PO 12/13/16 15:15 12/17/16 03:15 (Epogen Inj) 5,000 units UNSCH PRN IV 12/13/16 15:15 12/15/16 15:43 (Gelfoam 12 Mm/7 Mm Top) 1 foam UNSCH PRN TOP 12/13/16 15:15 Metoclopramide HCl 5 mg 5 mg Q8HR IV PUSH 12/14/16 22:00 12/18/16 13:59 (Maxipime Inj/NS Inj) 100 ml @ 200 mls/hr Q24H IV 12/15/16 20:00 12/17/16 19:46 (Bumex Inj) 2 mg BID@,18 IV PUSH 12/17/16 09:00 12/18/16 07:56 (Protonix Inj) 40 mg Q12H IV PUSH 12/17/16 11:00 12/18/16 08:01 (Trandate Inj) 10 mg Q1HR PRN IV PUSH 12/18/16 14:00 (Nitroglycerin 2% Oint) 2 inch Q6HR PRN TOPICAL 12/18/16 14:00 (Apresoline Inj) 10 mg Q1HR PRN IV PUSH 12/18/16 14:00 (Isordil) 10 mg Q8HR PO 12/18/16 14:00 12/18/16 15:16 (Apresoline) 25 mg Q8HR PO 12/18/16 14:00 12/18/16 15:16 (Heparin Inj) 5,000 units Q12HR SQ 12/19/16 21:00 (Roxicodone Intensol Liq) 10 mg Q4H PRN PO 12/18/16 18:15 (Melinda Orellana) Physical Exam General Appearance: No Acute Distress, Obese (Melinda Orellana) Eyes Eye Exam: Sclera White (Melinda Orellana) Pulmonary Resp Exam: Clear Bilaterally, Breath Sounds Equal, No Distress, Decreased Bases (Melinda Orellana) Cardiology CV Exam: Regular, Normal Sinus Rhythm (Melinda Orellana) Gastrointestinal/Abdomen GI Exam: Soft, Non-Tender (Melinda Orellana) Integumentary Skin Exam: Clear, Warm (Melinda Orellana) Extremeties Extremities Exam: Moderate Edema (involving all limbs and dependent torso.), Pitting Edema (Melinda Orellana) Neurologic Neuro Exam: Awake, Sedated (Melinda Orellana) Assessment/Plan Problem List: (1) Acute renal failure Plan: Fair urine output with high dose bumetanide. s/p HD today. Still with significant edema however. Will re-eval in the AM. May need HD again 12/19 Acute on chronic renal failure which is likely multifactorial with development of ATN Continue to monitor renal functions and UOP. Baseline SCr appears to be 1.5-1.6 with underlying etiology of diabetic nephropathy. Medications should be adjusted for the patient's renal decline. Avoid nephrotoxic agents including iodinated contrast dyes and NSAIDs. Avoid gadolinium when eGFR <30. (2) CHF (congestive heart failure) Plan: Continue diuretics and dialysis for volume management. (3) Hypernatremia Plan: Related to impaired free water intake. Resolved (4) Pneumonia Plan: Mgmt as per CC (5) Non-STEMI (non-ST elevated myocardial infarction) Plan: Mgmt as per cardiology (6) Hypertension Plan: BP stable. Continue on current regimen (7) Diabetes mellitus Plan: Mgmt as per CC (8) Anemia Plan: Epogen as indicated. (Melinda Orellana) Plan The exam, history, and the medical decision-making described in the above note were completed with the assistance of the PATrisha. I reviewed and agree with the findings presented. (Leandro Doyle MD) Problem Qualifiers (1) Acute renal failure: Qualified Code: N17.9 - Acute renal failure, unspecified acute renal failure type (2) Pneumonia: Qualified Code: J18.9 - Pneumonia of both lungs due to infectious organism, unspecified part of lung Melinda Orellana Dec 18, 2016 16:52 Leandro Doyle MD Dec 19, 2016 11:11
[2016-12-18] MEDS: oxyCODONE HCL ORAL CONC 20 MG/ML SYRINGE PO PRN ×2 (17:42→23:06)
[2016-12-18] MEDS: CEFEPIME INJ 2,000 MG in SODIUM CHLORIDE 0.9% INJ 100 ML IV SCH (21:04)
[2016-12-19] VITALS (23 sets, daily range): BP systolic 90–178; BP diastolic 48–77; PULSE 62–103; RESP 12–21; TEMP 99.1–99.9; O2SAT 93–100
[2016-12-19] MEDS: INSULIN ASPART SUPPLEMENTAL SCALE SQ SCH ×6 (01:42→22:14)
[2016-12-19] MEDS: DEXMEDETOMIDINE INJ 1,000 MCG in SODIUM CHLOR 0.9% 250 ML INJ 240 ML IV SCH ×3 (02:27→15:01)
[2016-12-19] MEDS: CHLORHEXIDINE GLUCONATE 2 % 1 PACK (2 CLOTHS) TOP SCH (04:00)
[2016-12-19] MEDS: hydrALAZINE HCL 20 MG/ML VIAL IV PUSH PRN ×2 (04:27→12:10)
[2016-12-19] MEDS: oxyCODONE HCL ORAL CONC 20 MG/ML SYRINGE PO PRN (04:27)
--- NOTE | 2016-12-19 06:02 | RADRPT ---
EXAM DATE/TIME: 12/19/2016 04:53 [facility] COMPARISON: CHEST SINGLE AP, December 17, 2016, 4:47. INDICATIONS : Evaluate for pulmonary edema. MEDICAL HISTORY : Cardiovascular disease. Hypertension. Carcinoma, breast. SURGICAL HISTORY : CABG. Mastectomy, left. Stents. ENCOUNTER: Subsequent ACUITY: 3 weeks PAIN SCORE: Non-responsive. LOCATION: chest FINDINGS: There is cardiomegaly, bilateral effusions, right jugular line, tracheostomy tube and sternotomy wire s. Left axillary clips. CONCLUSION: Bilateral pleural effusions and left basilar airspace disease noted. Clay oLco MD on December 19, 2016 at 6:00 Board Certified Radiologist. This report was verified electronically.
[2016-12-19 06:26] LABS: AUTOMATED NEUTROPHIL # 9.9 TH/MM3 (1.8-7.7); BASOPHIL # 0.1 TH/MM3 (0-0.2); BASOPHIL % 0.5 % (0.0-2.0); EOSINOPHIL # 0.1 TH/MM3 (0-0.4); EOSINOPHIL % 0.5 % (0.0-4.0); HEMATOCRIT 26.7 % (35.0-46.0); HEMO FLAGS DIFF FINAL; LYMPH % 4.8 % (9.0-44.0); LYMPHOCYTE # 0.5 TH/MM3 (1.0-4.8); MEAN CORPUSCULAR HEMOGLOBIN 28.7 PG (27.0-34.0); MEAN CORPUSCULAR HGB CONC 33.4 % (32.0-36.0); MONO % 5.8 % (0.0-8.0); NEUT % 88.4 % (16.0-70.0); PLATELET COUNT 256 TH/MM3 (150-450); RED CELL DISTRIBUTION WIDTH 14.3 % (11.6-17.2); WHITE BLOOD COUNT 11.2 TH/MM3 (4.0-11.0)
[2016-12-19 07:05] LABS: ALKALINE PHOSPHATASE 79 U/L (45-117); ALT (GPT) 14 U/L (10-53); ANION GAP 11 MEQ/L (5-15); AST (GOT) 15 U/L (15-37); BLOOD UREA NITROGEN 50 MG/DL (7-18); CHLORIDE 95 MEQ/L (98-107); GLOMERULAR FILTRATION RATE 15 ML/MIN (>89); MAGNESIUM 1.9 MG/DL (1.5-2.5); POTASSIUM 3.3 MEQ/L (3.5-5.1); SODIUM (NA) 134 MEQ/L (136-145); TOTAL BILIRUBIN ADULT 0.4 MG/DL (0.2-1.0)
[2016-12-19] MEDS: METOCLOPRAMIDE HCL 10 MG/2 ML VIAL IV PUSH SCH ×3 (07:31→22:13)
[2016-12-19] MEDS: hydrALAZINE HCL 25 MG TAB PO SCH ×3 (07:32→20:58)
[2016-12-19] MEDS: ISOSORBIDE DINITRATE 10 MG TAB PO SCH ×3 (07:32→20:58)
[2016-12-19] MEDS: ALBUMIN HUMAN 25% 12.5 GM/50 ML BAGP IV SCH ×2 (08:30→22:14)
[2016-12-19] MEDS: INSULIN DETEMIR 100 UNITS/ML VIAL SQ SCH ×2 (08:32→22:14)
[2016-12-19] MEDS: SODIUM CHLORIDE 0.9% FLUSH 5 ML FLUSH IVF SCH ×2 (08:32→21:00)
[2016-12-19] MEDS: CHLOROTHIAZIDE SOD 500 MG VIAL IV SCH ×2 (08:32→22:15)
[2016-12-19] MEDS: BUMETANIDE INJ 1 MG/4 ML VIAL IV PUSH SCH ×2 (08:33→19:24)
[2016-12-19] MEDS: ATORVASTATIN 40 MG TAB PO SCH (08:33)
[2016-12-19] MEDS: METOPROLOL TARTRATE 25 MG TAB PO SCH ×2 (08:37→20:58)
[2016-12-19] MEDS: ASPIRIN 81 MG CHEW TAB CHEW SCH (08:37)
[2016-12-19] MEDS: TICAGRELOR 90 MG TAB PO SCH ×2 (08:37→23:25)
[2016-12-19] MEDS: CHLORHEXIDINE 0.12% (ORAL KIT) 15 ML CUP MT SCH ×2 (08:38→22:15)
--- NOTE | 2016-12-19 11:11 | HHI.NPPN ---
Subjective History of Present Illness The patient is a 76 yo [place] female who presented to the ED on 11/28/16 with suspected OR as she was having significant SOB. She was ultimately intubated on scene and then transported to the hospital for evaluation. She is currently intubated so history is obtained thru previous encounters and her son who is present in the room. 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 As per son, she has had CKD for many years and believes that her SCr is around 1.5-1.6, which from review of notes seems to be congruent. She has an extensive PMHx of cardiac disease with an EF of 40-45%, triple CABG in 2003, 4 PTCA previously, toe amputations related to PVD, DM for at least 20 years, HTN, and breast cancer treated about 30 years ago with mastectomy and chemotherapy. Son reports that she has has ongoing issues with fluid retention for the past year since she was admitted here for cardiac issues. She does use diuretics as outpatient that has been altered as per her fluid needs. She underwent cardiac cath on 12/04 and had 3 stents placed. She was initially on IVF that was converted to diuretics on 12/07/ thru 12/09. She was started on D5W 12/09 as her sodium levels were elevated. She has been receiving 300mL q8h via NG tube of free water. She received Vanc IV on 12/08 x1 dose and then again today as it is suspected that she has a ventilator associated PNA. Underwent thoracentesis today with approx 800mL drained from R lung. Admitting SCr 2.23 that improved to 1.5-1.6 range until 12/09 when she lisa to 1.74 and then ultimately 2.03 at time of consult. Interval History Patient on ventilator. Nonverbal. Does not appear to be in distress. Review of Systems General General Remarks Patient unable to respond to questions. Objective Data Data 12/18/16 12/19/16 19:00 07:00 Intake Total 1547 ml 2071 ml Output Total 1100 ml 1950 ml Balance 447 ml 121 ml IV Total 886 ml 1263 ml Tube Feeding 321 ml 658 ml Albumin 100 ml Other 240 ml 150 ml Output Urine Total 1100 ml 1950 ml # Bowel Movements 0 Vital Signs Date Time Temp Pulse Resp B/P Pulse Ox O2 Delivery O2 Flow Rate FiO2 12/19/16 08:20 35 12/19/16 08:07 99 35 12/19/16 06:00 81 12/19/16 04:20 97 35 12/19/16 04:00 35 12/19/16 04:00 87 12/19/16 04:00 99.9 87 21 178/77 98 12/19/16 02:00 71 12/19/16 00:08 99 35 12/19/16 00:00 35 12/19/16 00:00 82 12/19/16 00:00 99.6 82 17 159/72 99 12/18/16 22:00 84 12/18/16 21:09 97 35 12/18/16 20:00 35 12/18/16 20:00 99.6 87 23 150/66 98 12/18/16 20:00 76 12/18/16 18:00 75 12/18/16 16:15 100 35 12/18/16 16:00 98.6 82 14 176/75 99 12/18/16 16:00 82 12/18/16 16:00 35 12/18/16 14:00 74 12/18/16 12:00 71 12/18/16 12:00 35 12/18/16 12:00 98.7 71 16 169/75 100 12/18/16 11:55 100 35 -: 12/19/16 0600 12/19/16 0600 Tubes & Lines: Vas-Cath Physical Exam General Appearance: No Acute Distress, Obese Eyes Eye Exam: Sclera White Pulmonary Resp Exam: Clear Bilaterally, Breath Sounds Equal, No Distress, Decreased Bases Cardiology CV Exam: Regular, Normal Sinus Rhythm Gastrointestinal/Abdomen GI Exam: Soft, Non-Tender Integumentary Skin Exam: Clear, Warm Extremeties Extremities Exam: Moderate Edema (involving all limbs and dependent torso.), Pitting Edema Neurologic Neuro Exam: Awake Assessment/Plan Problem List: (1) Acute renal failure Plan: Patient's urine output has slowed down this morning and she still has quite a bit of edema/fluid retention. She will be having her Vas-Cath replaced today. Will do dialysis again today for further fluid removal and probably again tomorrow to try and optimize respiratory status.. Acute on chronic renal failure which is likely multifactorial with development of ATN Continue to monitor renal functions and UOP. Baseline SCr appears to be 1.5-1.6 with underlying etiology of diabetic nephropathy. Medications should be adjusted for the patient's renal decline. Avoid nephrotoxic agents including iodinated contrast dyes and NSAIDs. Avoid gadolinium when eGFR <30. (2) CHF (congestive heart failure) Plan: Continue diuretics and dialysis for volume management. (3) Hypernatremia Plan: Related to impaired free water intake. Resolved (4) Pneumonia Plan: Mgmt as per CC (5) Non-STEMI (non-ST elevated myocardial infarction) Plan: Mgmt as per cardiology (6) Hypertension Plan: BP stable. Continue on current regimen (7) Diabetes mellitus Plan: Mgmt as per CC (8) Anemia Plan: Epogen as indicated. Problem Qualifiers (1) Acute renal failure: Qualified Code: N17.9 - Acute renal failure, unspecified acute renal failure type (2) Pneumonia: Qualified Code: J18.9 - Pneumonia of both lungs due to infectious organism, unspecified part of lung Leandro Doyle MD Dec 19, 2016 11:11
[2016-12-19] MEDS: PANTOPRAZOLE SODIUM 40 MG VIAL IV PUSH SCH ×2 (11:37→22:15)
--- NOTE | 2016-12-19 13:12 | HHI.CCPN ---
Subjective Remarks/Hospital Course 76-year-old female came to the emergency room brought by EMS as a STEMI alert. Patient called 911 for shortness of breath. When they arrived patient says oxygen saturation was in the 80s and she was in respiratory distress. Patient has history of coronary artery disease and congestive heart failure. She told me she had her bypass surgery done few years ago. Patient denied of any chest pain at any point. EMS said that patient had told them that she was nauseous for past couple days and vomited last night. She was woken up from the sleep with this shortness of breath. By the time patient arrived to the ER she was acutely short of breath and in severe respiratory distress. She was unable to give much history. She was pale and started getting agitated and diaphoretic when they moved her from the gurney to the stretcher. Patient developed worsening respiratory distress and required emergent intubation was placed on mechanical ventilation by ER physician. Her troponin came back at 20 and her EKG suggested intraventricular conduction delay versus left bundle branch block. Cardiology was contacted and felt patient had a non-ST elevation MO. She was also noted to be extremely hyperglycemic with glucose levels in the 500s with metabolic acidosis/lactic acidosis. She was started on the DKA protocol by ER physician. Urine ketones are negative. Beta hydroxybutyrate slightly elevated. Patient had a central line placed by ER physician and was started on heparin drip for anticoagulation for her MO. She was accepted for admission by critical care medicine service. I discussed the case with Dr. Auguste who is not planning cardiac catheterization at this time. Patient also was given empiric antibiotics up to obtaining cultures. 2 Patient is sedated with Diprivan and intubated. Remains on Heparin drip. On PRVC/AC RR 20 IT 1.0, TV 500, PEEP:5 and FIO2 35% 11/30 No acute events overnight. Sedated and intubated. Afebrile. On Heparin drip 12/01 Patient remains sedated and intubated. Afebrile. On Heparin drip. She had episode of desaturation while on CPAP. 12/02 Patient is sedated with Diprivan and intubated. Remains on Heparin drip. 12/03 No events over night. Attempt SBT tomorrow post cardiac Catheterization 12/04 cardiac catheterization today, successful intervention on the free mammary bypass graft to the LAD with christian of ORLY-3 flow and successful revascularization of the proximal right coronary artery with improvement in flow 12/05 attempt to wean from the mechanical ventilation failure due to rapid shallow breathing today 12/06 no evidence overnight 12/07 failed as SBT yesterday due to rapid shallow breathing 12/08 Patient remains intubated and on Precedex drip. Afebrile. She was on CPAP x 4 hrs yesterday then became tachycardic and hypertensive. 12/09 Patient remains sedated and intubated. Spiked fever with Tmax 101.7. CT brain yesterday showed no acute intracranial process 12/10 Patient is on Precedex drip, on CPAP 15/ with FIO2 30%. Tmax 101.6. Renal function worse today with Cr: 2.03 from 1.74. s/p transfusion 1u PRBC yesterday. 12/11 Tolerating CPAP. Remains encephalopathic, not following commands. MAXIMUM TEMPERATURE 101.6, white count was sent from 13.2-20.2. Function also worsening from 2-2.4. s/p CT guided thoracentesis 12/10/16, with 820 mL of yellow cloudy fluid removed. Fluid studies consistent with transudative effusion 12/12: Awake today follows commands but tachypneic, and using accessory muscles on 5 or 5 spontaneous breathing trial. Chest x-ray shows increased pulmonary vascular congestion/CHF. Worsening creatinine increased from 2-3.3, with decreased urine output. Additional 2 mg IV push bumetanide. Sputum culture growing Pseudomonas. One blood culture with gram-positive cocci-continue Zosyn , single dose of vancomycin ordered 12/13: Labs pending labs. The patient continues to fail spontaneous breathing trials. Continues on PRVC/AC 20/500/5/0.35 12/14:Afebrile. A Vas-Cath was placed yesterday, hemodialysis was begun, 3.5 L off. The family plans to discuss with critical care medicine decision whether to place a tracheostomy in a.m.. 12/15: Afebrile. Episodes of hemoptysis overnight since resolved. Scant bloody secretions. Also some coffee-ground emesis from gastric tube noted. Currently nothing by mouth. Positive BM. Still unable x-ray. Day #17 of intubation. Family requests full intervention. 12/16: Afebrile. Plan for tracheostomy are in OR with PEG tube placement today. Hemoglobin stable status post transfusion. Currently nothing by mouth 12/17: Currently afebrile. Status post PEG tube placement Dr. Avitia 12/16. Plan for Tracheostomy today. Currently nothing by mouth. 12/18: Currently afebrile. Status post tracheostomy by Dr. Ingram 12/17. Some oozing from trach site appears stable currently. Hemodynamic stable. Actually hypertense requiring when necessary's. Complaining of abdominal pain. Subjective 12/19: Tmax 99.9. Patient with guidewire exchange of right IJ catheter with hematoma, had large hematemesis during exchange. Hemodynamically stable. H&H and coags currently pending. Objective Vital Signs Date Time Temp Pulse Resp B/P Pulse Ox O2 Delivery O2 Flow Rate FiO2 12/19/16 08:20 35 12/19/16 08:07 99 12/19/16 06:00 81 12/19/16 04:00 99.9 21 178/77 Intake and Output 12/18/16 12/18/16 12/19/16 08:00 16:00 00:00 Intake Total 1077 ml 1547 ml 1146 ml Output Total 650 ml 1100 ml 1200 ml Balance 427 ml 447 ml -54 ml Result Diagram: 12/19/16 0600 12/19/16 06 Imaging Last Impressions Chest X-Ray 12/19/16 06 Signed Impressions: Service Date/Time: Monday, December 19, 2016 04:53 - CONCLUSION: Bilateral pleural effusions and left basilar airspace disease noted. Clay Loco MD Thoracentesis 12/10/16 0000 Signed Impressions: Service Date/Time: Saturday, December 10, 2016 14:43 - CONCLUSION: Uncomplicated CT-guided thoracentesis. Jarrod Meyer MD Renal Ultrasound 12/10/16 0000 Signed Impressions: Service Date/Time: Saturday, December 10, 2016 18:06 - CONCLUSION: Normal examination. Lennox Rodriguez MD Chest Ultrasound 12/09/16 0000 Signed Impressions: Service Date/Time: Friday, December 09, 2016 13:23 - CONCLUSION: Moderate size right pleural effusion. Torito Conklin MD Head CT 12/08/16 0000 Signed Impressions: Service Date/Time: Thursday, December 08, 2016 14:47 - CONCLUSION: 1. 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 2. No acute intracranial process , trauma or fracture. Darius Hernandez MD Objective Remarks GENERAL: 76 -year-old female orotracheally intubated SKIN: Warm and dry. No rash HEAD: Normocephalic. EYES: No scleral icterus. No injection or drainage. NECK: Supple, trachea midline. No JVD or lymphadenopathy. Orally intubated. Ecchymoses noted around left IJ hemodialysis catheter right IJ with small hematoma CARDIOVASCULAR: Regular rate and rhythm. S1, S2 no S4. Without murmurs, gallops, or rubs. RESPIRATORY: Breath sounds equal bilaterally. Diminished in bases. GASTROINTESTINAL: Abdomen soft, non-tender, obese. PEG tube site is clean dry and intact MUSCULOSKELETAL: With trace lower extremity edema. Neuro: sedated and intubated. Eyes are open, moves extremities continuously Date of Insertion: Dec 08, 2016 Side: Right Location: Internal, Jugular A/P Assessment and Plan Neuro/Psych: Acute toxic metabolic encephalopathy Chronic pain management Continue Precedex at 1.4 mcg/kg per minute and fentanyl drip at 250 micrograms an hour for sedation/analgesia while intubated As needed oxycodone liquid 10 by tube every 4 for pain Goal of RASS -2 Daily sedation vacation. Monitor neuro status. 12/08 CT brain: No acute intracranial process 12/08 EEG: Moderate degree of encephalopathy Pulm: Acute hypoxemic respiratory failure Bilateral pleural effusions Pseudomonas pneumonia - Continue PRVC 14/500//5/35 - CPAP 12/5 and 35% and keep sat >92% - Bronchodilators every 6 hours, ICU vent bundle, CPAP trials as ramone. - Status post tracheostomy in a.m. 12/[address] Yolie Reddy - CT guided thoracentesis 12/10- 820 ml of cloudy fluid removed from the right side. Fluid studies consistent with transudate - Sputum culture with Pseudomonas continue cefepime - ID following CV: Non-STEMI Chronic systolic heart failure Coronary Artery disease Hypertension Dys lipidemia History of peripheral vascular disease - Monitor HR and BP keep MAP>65mmHg - Echo showed EF 40-45%, hypokinesis in apical myocardium. - Cardiology- . - Continue ASA 81 mg daily, Lipitor 40 mg daily r, Brilinta 90mg BID, Lopressor 12.5mg Q12 and hydralazine 25 3 times a day with Isordil 10 3 times a day - Status post catheterization December 04, successful intervention balloon angioplasty on the free internal mammary bypass graft to the LAD with christian of ORLY-3 flow and successful revascularization with balloon angioplasty and restore MARIANO stent of the proximal right coronary artery with improvement in flow Maintain aspirin 81 mg daily and Brilinta 90 mg by mouth twice a day for drug- eluting stent 12 months Holding lisinopril 5 mill grams daily/home medication light of acute kidney injury Holding home medication Lopressor 75 mg by mouth twice a day nifedipine 90 mg by mouth daily for hypertension. At home on atorvastatin 40 mg by mouth daily for dyslipidemia. Continued Renal/: Acute kidney injury Hypokalemia - Renal function worse today - Renal US. normal study - Monitor renal function, I/O's, electrolytes replacement as needed - Nephrology Dr. Doyle. Currently on Bumex 2 mg twice a day and Diuril 500 mg daily. Vas-Cath placed 12/13 and hemodialysis today noted 20 mEq KCl 1 now. GI Tube feeds with Nepro currently 45 cc an hour on hold due to line exchange - On Protonix 40 mg IV twice a day - Colace/as needed Senokot for bowel regimen Status post PEG tube 12/16 With large hematemesis will reconsult GI for evaluation. Possibly oozing from PEG tube sites internally Heme: Anemia - Monitor CBC, s/p transfuse 1u PRBC 12/09, Coags within normal limits Transfuse 2 units PRBCs 12/15 hemoglobin currently greater than 10 Stat H&H ID: -Continues to be on cefepime since 12/15. Use and Zosyn and vancomycin - BC 12/08, 12/09: NGTD. 12/10 BC 10/29 staph epidermidis, sputum cx Pseudomonas. ID consulted/Dr. Sams Endocrine: Hyperglycemia - On SSI (medium scale)Levemir 30u BID. 6 units sliding scale insulin past 24 hours Prophylaxis: - PPI/SCDs/ Heparin SQ on hold for tracheostomy today resume 12/19 Lines Right IJ placed 12/08 with guidewire exchange 12/19, left IJ Vas-Cath 12/14 Critical Care: The total care time was 35 minutes. Time to perform other separately billable procedures was not included in the critical care time. Gee Santiago MD Dec 19, 2016 13:12
[2016-12-19] MEDS ORDERED: LACTULOSE SYRUP 20 GM/30 ML CUP PO ONE (13:30)
[2016-12-19] MEDS ORDERED: POLYETHYLENE GLYCOL 17 GM PKG PO ONE (13:30)
[2016-12-19] MEDS ORDERED: POTASSIUM CL 40 MEQ/30 ML LIQ UDC PO ONE (14:00)
--- NOTE | 2016-12-19 14:21 | PD.RAD ---
Post Procedure Progress Note Pre Procedure Diagnosis: (1) NSTEMI (non-ST elevated myocardial infarction) (2) Bilateral pneumonia (3) OSMANI (acute kidney injury) (4) Sepsis Post Procedure Diagnosis: (1) NSTEMI (non-ST elevated myocardial infarction) (2) Bilateral pneumonia (3) OSMANI (acute kidney injury) (4) Sepsis Procedure Date: Dec 19, 2016 Supervising Radiologist: Lennox Rubio Proceduralist/Assist: Marina Lu RT(R) Anesthesia: Local Plan of Activity Patient to Unit: Critical Care Patient Condition: Fair See PACS Report for procedural detail/treatment Central Venous Access Device Procedure 1 Right Internal Jugular Central Line Exchange triple lumen Malawian: 7 Additional Detail: 20 cm Lennox Rubio MD Dec 19, 2016 14:21
[2016-12-19] MEDS ORDERED: SODIUM CHLORIDE 0.9% FLUSH 5 ML FLUSH IVF PRN (14:30)
[2016-12-19 15:50] LABS: APTT (PATIENT) 32.4 SEC (24.3-30.1); INTERNATIONAL NORMALIZED RATIO 1.1 RATIO; PROTHROMBIN TIME - PATIENT 12.5 SEC (9.8-11.6)
[2016-12-19 15:52] LABS: HEMATOCRIT 27.4 % (35.0-46.0); REVIEW FLAG FINAL
--- NOTE | 2016-12-19 16:02 | HHI.GIFU ---
Subjective Remarks Reconsulted for hematemesis. Getting HD. Nurse reports that patient went to IR this afternoon to have Central line exchanged and she was informed that she vomited a large blood clot while in IR. Once back to the floor, she had a few episodes of vomiting small amount of coffee ground emesis. She is having significant oozing and ecchymosis from tracheostomy site and she has been suctioning leandro red blood from trach. Objective Vitals I&O Vital Signs Date Time Temp Pulse Resp B/P Pulse Ox O2 Delivery O2 Flow Rate FiO2 12/19/16 14:31 100 100 12/19/16 14:00 77 12/19/16 12:00 99.4 62 12 106/53 100 12/19/16 12:00 35 12/19/16 12:00 62 12/19/16 10:00 76 12/19/16 08:20 35 12/19/16 08:20 35 12/19/16 08:07 99 35 12/19/16 08:00 35 12/19/16 08:00 74 12/19/16 08:00 99.6 74 16 133/60 97 12/19/16 06:00 81 12/19/16 04:20 97 35 12/19/16 04:00 35 12/19/16 04:00 87 12/19/16 04:00 99.9 87 21 178/77 98 12/19/16 02:00 71 12/19/16 00:08 99 35 12/19/16 00:00 35 12/19/16 00:00 82 12/19/16 00:00 99.6 82 17 159/72 99 12/18/16 22:00 84 12/18/16 21:09 97 35 12/18/16 20:00 35 12/18/16 20:00 99.6 87 23 150/66 98 12/18/16 20:00 76 12/18/16 18:00 75 12/18/16 16:15 100 35 12/18/16 16:00 98.6 82 14 176/75 99 12/18/16 16:00 82 12/18/16 16:00 35 I/O 12/18/16 12/18/16 12/18/16 12/19/16 12/19/16 12/19/16 07:00 15:00 23:00 07:00 15:00 23:00 Intake Total 1077 ml 1547 ml 1146 ml 925 ml Output Total 650 ml 1100 ml 1200 ml 750 ml Balance 427 ml 447 ml -54 ml 175 ml IV Total 931 ml 886 ml 696 ml 567 ml Tube Feeding 146 ml 321 ml 350 ml 308 ml Albumin 100 ml Other 240 ml 100 ml 50 ml Output Urine Total 650 ml 1100 ml 1200 ml 750 ml # Bowel Movements 0 0 0 Laboratory Laboratory Tests Test 12/19/16 06:00 White Blood Count 11.2 Red Blood Count 3.10 Hemoglobin 8.9 Hematocrit 26.7 Mean Corpuscular Volume 86.0 Mean Corpuscular Hemoglobin 28.7 Mean Corpuscular Hemoglobin 33.4 Concent Red Cell Distribution Width 14.3 Platelet Count 256 Mean Platelet Volume 9.7 Neutrophils (%) (Auto) 88.4 Lymphocytes (%) (Auto) 4.8 Monocytes (%) (Auto) 5.8 Eosinophils (%) (Auto) 0.5 Basophils (%) (Auto) 0.5 Neutrophils # (Auto) 9.9 Lymphocytes # (Auto) 0.5 Monocytes # (Auto) 0.7 Eosinophils # (Auto) 0.1 Basophils # (Auto) 0.1 CBC Comment DIFF FINAL Differential Comment Sodium Level 134 Potassium Level 3.3 Chloride Level 95 Carbon Dioxide Level 28.0 Anion Gap 11 Blood Urea Nitrogen 50 Creatinine 3.03 Estimat Glomerular Filtration 15 Rate Random Glucose 197 Calcium Level 8.4 Phosphorus Level 4.2 Magnesium Level 1.9 Total Bilirubin 0.4 Aspartate Amino Transf 15 (AST/SGOT) Alanine Aminotransferase 14 (ALT/SGPT) Alkaline Phosphatase 79 Total Protein 6.0 Albumin 2.5 Imaging Last Impressions Chest X-Ray 12/19/16 0600 Signed Impressions: Service Date/Time: Monday, December 19, 2016 04:53 - CONCLUSION: Bilateral pleural effusions and left basilar airspace disease noted. Clay Loco MD Thoracentesis 12/10/16 0000 Signed Impressions: Service Date/Time: Saturday, December 10, 2016 14:43 - CONCLUSION: Uncomplicated CT-guided thoracentesis. Jarrod Meyer MD Renal Ultrasound 12/10/16 0000 Signed Impressions: Service Date/Time: Saturday, December 10, 2016 18:06 - CONCLUSION: Normal examination. Lennox Rodriguez MD Chest Ultrasound 12/09/16 0000 Signed Impressions: Service Date/Time: Friday, December 09, 2016 13:23 - CONCLUSION: Moderate size right pleural effusion. Torito Conklin MD Head CT 12/08/16 0000 Signed Impressions: Service Date/Time: Thursday, December 08, 2016 14:47 - CONCLUSION: 1. 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 2. No acute intracranial process , trauma or fracture. Darius Hernandez MD Physical Exam HEENT: Normocephalic; atraumatic; no jaundice. NECK: Tracheostomy, with significant ecchymosis and oozing of blood from site, leandro red blood being suctioned from trach. CHEST: Diminshed, trach to vent. CARDIAC: ST ABDOMEN: Soft, obese, nondistended, nontender; no hepatosplenomegaly; bowel sounds are present in all four quadrants. PEG tube site without redness or swelling. Flushed and aspirated peg- clear drainage in return. However, when placed to suction, small amount of old coffee ground emesis suctioned. EXTREMITIES: Generalized, edema. SKIN: Normal; no rash; no jaundice. QUALITY IMPROVEMENT ENGINEER: Sedated on vent Assessment and Plan Plan ASSESSMENT: - Reconsulted for hematemesis. Nurse reports that patient went to IR this afternoon to have Central line exchanged and she was informed that she vomited a large blood clot while in IR. Once back to the floor, she had a few episodes of vomiting small amount of coffee ground emesis. She is having oozing and ecchymosis from tracheostomy site and she has been suctioning leandro red blood from trach. I flushed and aspirated the peg and originally only got back clear drainage, but when placed to LIWS, did get a small amount of coffee ground gastric secretions- old appearing. HH pending. Suspect that some of the bleeding from the tracheostomy is draining into stomach. Will continue Protonix with BID dosing. Monitor serial HH. PEG tube to LIWS, will continue this and if HH remains stable and there is no evidence of leandro red blood from OGT, then okay to stop in am and start trickle feeds. Of note, she is on Plavix, heparin. Plavix cannot be held per cardiology. - Dysphagia, FEN. GI consulted for PEG. S/P EGD with PEG tube placement ()---> normal EGD except some old coffee ground material, likely NGT trauma. PEG tube site without redness, swelling, drainage. - Respiratory failure, PSAE Pna, Pleural effusion. S/P Tracheostomy placement- ecchymosis and oozing from site. leanrdo red blood suctioned out from trach. - NSTEMI, S/P Cardiac Cath. (12/04/16)----> normal arterial pressure, severe [place] coronary artery disease with occlusion of the LAD and severe disease of the [place] right coronary artery, only one residual graft which was severe compromised- free mammary gravft to the LAD, successful intervention on the free mammary bypass graft to the LAD with voodoo of ORLY-3 flow and successful revascularization of the proximal right coronary artery with improvement in flow with resolute stent. She was started on Brilinta and ASA. D/W Dr. Hartman possibly holding these for one day for PEG tube placement, but he prefers that these not be placed on hold because of the risk of reocclusion. - Acute on chronic kidney disease. HD per renal - Acute metabolic encephalopathy, HTN, dyslipidemia, hx of PVA per CCM PLAN: - NPO - PEG to LIWS - Serial HH (ordered already) - Protonix with BID dosing. - If HH remains stable and there is no evidence of leandro red blood from OGT, then okay to stop in am and start trickle feeds. - Potato Inspector recommends Nepro GR of 45cc/hr - Supportive care - Pt seen and examined by Dr. Avitia and myself and this note is written on his behalf Alejandra Estrella Dec 19, 2016 16:02
[2016-12-19] MEDS: ALBUMIN HUMAN 25% 25 GM/100 ML BAGP IV PRN (16:55)
[2016-12-19] MEDS: GENTAMICIN SULFATE (DIALYSIS USE ONLY) 20 MG/2 ML VIAL IV PRN (16:55)
[2016-12-19] MEDS: HEPARIN SODIUM - IV 10,000 UNITS/10 ML VIAL PRN (16:56)
[2016-12-19] MEDS: fentaNYL DRIP 250 ML IV SCH (17:16)
--- NOTE | 2016-12-19 17:17 | RADRPT ---
EXAM DATE/TIME: 12/19/2016 12:29 INDICATIONS : Patient with history of myocardial infarction in need of central line replacement. MEDICAL HISTORY : CAD, CHF, Breast cancer, HLD, Diabetes, GERD, HTN, [place], Kidney disease, PVD SURGICAL HISTORY : CABG X4, Left mastectomy, Hysterectomy, Laminectomy, Left 5th toe amputation ENCOUNTER: Initial ACUITY: 3 weeks PAIN SCORE: Nonresponsive. FLUORO TIME: 0.6 minutes DEVICE(S): 1.) 7 Yoruba dual lumen 20 cm Arrow central line PROCEDURE: CENTRAL VENOUS CATHETER REPLACEMENT, RT 1. Fluoroscopically guided central venous catheter exchange. The risks, benefits and alternatives to the procedure were explained and verbal and written consent w as obtained. The site was prepped in sterile fashion. Full sterile technique was used, including ca p, mask, sterile gloves and gown and a large sterile sheet. Hand hygiene and 2% chlorhexidine and/or betadine/alcohol prep was utilized per protocol for cutaneous antisepsis. The skin and subcutaneous tissues were infiltrated with local anesthetic solution. With fluoroscopic guidance the previously placed central venous catheter was exchanged for the prescr ibed catheter as above. Post procedure image demonstrates satisfactory position of the tube. The cath eter was sutured in place.CONCLUSION: Uncomplicated venous catheter change as above. Lennox Rubio MD on December 19, 2016 at 17:15 Board Certified Radiologist. This report was verified electronically.
--- NOTE | 2016-12-19 19:04 | RADRPT ---
EXAM DATE/TIME: 12/19/2016 18:43 [facility] COMPARISON: No previous studies available for comparison. INDICATIONS : Post tracheostomy. Evaluate for hematoma. RADIATION DOSE: 23.23 CTDIvol (mGy) MEDICAL HISTORY : Cardiovascular disease. Carcinoma, breast. SURGICAL HISTORY : CABG Mastectomy, left. ENCOUNTER: Initial ACUITY: 2 days PAIN SCORE: Non-responsive LOCATION: neck TECHNIQUE: Volumetric scanning of the neck was performed. Using automated exposure control and adjustment of th e mA and/or kV according to patient size, radiation dose was kept as low as reasonably achievable to obtain optimal diagnostic quality images. FINDINGS: Tracheostomy noted. There are small subcutaneous hemorrhage and air collections on both sides of the tracheostomy measuring about 18 mm on the right and 28 mm on the left. No deep hematomas are identifi ed. In the airway between the tube and cords is debris, some of which may be hemorrhagic, that essent ially completely occludes the airway for approximately 1 cm in length. Incidentally seen bilateral thyroid nodules measuring 21 mm on the right and 16 mm on the left. Fluid levels are seen in the visualized maxillary and sphenoid air cells. CONCLUSION: 1. Small superficial hematoma surrounds the tracheostomy tube. 2. There is debris that occludes the airway above the tube and below the cords. 3. Bilateral thyroid nodules. 4. Sinus disease. Lennox Cason MD on December 19, 2016 at 18:57 Board Certified Radiologist. This report was verified electronically.
[2016-12-19] MEDS ORDERED: HEPARIN SODIUM - SQ 10,000 UNITS/ML VIAL SQ SCH (21:00)
[2016-12-19] MEDS: CEFEPIME INJ 2,000 MG in SODIUM CHLORIDE 0.9% INJ 100 ML IV SCH (22:14)
[2016-12-19] MEDS: DOCUSATE SODIUM 100 MG CAP PO SCH (22:14)
[2016-12-20] VITALS (19 sets, daily range): BP systolic 152–199; BP diastolic 67–92; PULSE 71–107; RESP 16–22; TEMP 97.9–100.1; O2SAT 94–99
[2016-12-20] MEDS: LABETALOL HCL 100 MG/20 ML VIAL IV PUSH PRN ×2 (00:54→04:04)
[2016-12-20] MEDS: DEXMEDETOMIDINE INJ 1,000 MCG in SODIUM CHLOR 0.9% 250 ML INJ 240 ML IV SCH ×2 (00:55→14:04)
[2016-12-20] MEDS: INSULIN ASPART SUPPLEMENTAL SCALE SQ SCH ×6 (00:55→19:42)
[2016-12-20 01:23] LABS: REVIEW FLAG FINAL
[2016-12-20] MEDS: CHLORHEXIDINE GLUCONATE 2 % 1 PACK (2 CLOTHS) TOP SCH (04:00)
[2016-12-20] MEDS: fentaNYL DRIP 250 ML IV SCH ×2 (04:04→14:04)
[2016-12-20] MEDS: hydrALAZINE HCL 25 MG TAB PO SCH ×3 (04:47→22:13)
[2016-12-20] MEDS: ISOSORBIDE DINITRATE 10 MG TAB PO SCH ×3 (04:47→22:13)
[2016-12-20] MEDS: METOCLOPRAMIDE HCL 10 MG/2 ML VIAL IV PUSH SCH ×3 (04:48→22:13)
[2016-12-20 06:07] LABS: AUTOMATED NEUTROPHIL # 10.5 TH/MM3 (1.8-7.7); BASOPHIL % 0.1 % (0.0-2.0); HEMATOCRIT 23.7 % (35.0-46.0); HEMO FLAGS DIFF FINAL; LYMPH % 2.1 % (9.0-44.0); LYMPHOCYTE # 0.2 TH/MM3 (1.0-4.8); MEAN CELL VOLUME 86.8 FL (80.0-100.0); MEAN CORPUSCULAR HEMOGLOBIN 29.8 PG (27.0-34.0); MEAN CORPUSCULAR HGB CONC 34.4 % (32.0-36.0); MONO % 3.4 % (0.0-8.0); NEUT % 94.4 % (16.0-70.0); PLATELET COUNT 243 TH/MM3 (150-450); RED BLOOD COUNT 2.73 MIL/MM3 (4.00-5.30); RED CELL DISTRIBUTION WIDTH 14.3 % (11.6-17.2); WHITE BLOOD COUNT 11.1 TH/MM3 (4.0-11.0)
[2016-12-20] MEDS: SODIUM CHLOR 0.9% 1000 ML INJ 1,000 ML IV PRN (06:38)
[2016-12-20] MEDS: GENTAMICIN SULFATE (DIALYSIS USE ONLY) 20 MG/2 ML VIAL IV PRN (06:39)
[2016-12-20] MEDS: HEPARIN SODIUM - IV 10,000 UNITS/10 ML VIAL PRN (06:41)
[2016-12-20] MEDS: SODIUM CHLORIDE 0.9% FLUSH 5 ML FLUSH IVF PRN (06:41)
[2016-12-20] MEDS: ALBUMIN HUMAN 25% 25 GM/100 ML BAGP IV PRN ×2 (06:41→06:42)
[2016-12-20] MEDS: ONDANSETRON HCL 4 MG/2 ML VIAL IV PRN ×2 (06:42→11:38)
[2016-12-20] MEDS: EPOETIN ALFA 10,000 UNITS/ML VIAL IV PRN (06:46)
[2016-12-20] MEDS: INSULIN DETEMIR 100 UNITS/ML VIAL SQ SCH ×2 (08:32→20:08)
[2016-12-20] MEDS: SODIUM CHLORIDE 0.9% FLUSH 5 ML FLUSH IVF SCH ×3 (08:33→20:08)
[2016-12-20] MEDS: CHLORHEXIDINE 0.12% (ORAL KIT) 15 ML CUP MT SCH ×2 (08:33→20:09)
[2016-12-20] MEDS: ALBUMIN HUMAN 25% 12.5 GM/50 ML BAGP IV SCH ×2 (08:33→20:08)
[2016-12-20] MEDS: BUMETANIDE INJ 1 MG/4 ML VIAL IV PUSH SCH ×2 (08:34→17:14)
[2016-12-20] MEDS: METOPROLOL TARTRATE 25 MG TAB PO SCH ×2 (08:34→20:06)
[2016-12-20] MEDS: DOCUSATE SODIUM 100 MG CAP PO SCH ×2 (08:34→20:06)
[2016-12-20] MEDS: ASPIRIN 81 MG CHEW TAB CHEW SCH (08:35)
[2016-12-20] MEDS: oxyCODONE HCL ORAL CONC 20 MG/ML SYRINGE PO PRN (08:36)
[2016-12-20] MEDS: TICAGRELOR 90 MG TAB PO SCH ×2 (08:36→20:06)
[2016-12-20] MEDS: ATORVASTATIN 40 MG TAB PO SCH (08:38)
[2016-12-20] MEDS: CHLOROTHIAZIDE SOD 500 MG VIAL IV SCH ×2 (08:39→20:08)
--- NOTE | 2016-12-20 08:55 | HHI.GIFU ---
Subjective Remarks LIghtly sedated. On hemodialysis. Nurse reports that she did vomit a small amount of green bilious material. In the tubing there is a clear greenish with very scant amount of old coffee grounds noted in tubing. No vomiting of leandro red blood. Objective Vitals I&O Vital Signs Date Time Temp Pulse Resp B/P Pulse Ox O2 Delivery O2 Flow Rate FiO2 12/20/16 08:31 95 35 12/20/16 08:31 35 12/20/16 08:00 35 12/20/16 08:00 77 12/20/16 08:00 97.9 81 16 159/68 98 12/20/16 06:00 74 12/20/16 04:15 99 35 12/20/16 04:00 98.0 91 21 199/92 99 12/20/16 04:00 35 12/20/16 04:00 92 12/20/16 02:00 82 12/20/16 01:19 98 35 12/20/16 00:00 35 12/20/16 00:00 99.1 89 21 165/77 98 12/20/16 00:00 89 12/19/16 22:00 103 12/19/16 22:00 99 35 12/19/16 20:00 86 12/19/16 20:00 99.3 86 21 166/77 96 12/19/16 20:00 35 12/19/16 19:35 96 35 12/19/16 19:07 93 100 12/19/16 18:00 77 12/19/16 16:00 78 12/19/16 16:00 99.1 64 14 90/48 99 12/19/16 16:00 35 12/19/16 15:59 99 35 12/19/16 15:34 99.8 69 20 135/65 98 12/19/16 15:04 99.8 64 21 101/50 98 12/19/16 14:34 99.8 71 20 141/66 99 12/19/16 14:31 100 100 12/19/16 14:19 99.8 72 20 142/65 99 12/19/16 14:00 77 12/19/16 12:00 99.4 62 12 106/53 100 12/19/16 12:00 35 12/19/16 12:00 62 12/19/16 10:00 76 I/O 12/19/16 12/19/16 12/19/16 12/20/16 12/20/16 12/20/16 07:00 15:00 23:00 07:00 15:00 23:00 Intake Total 925 ml 884 ml 1847 ml 327 ml Output Total 750 ml 425 ml 3950 ml 225 ml 3500 ml Balance 175 ml 459 ml -2103 ml 102 ml -3500 ml IV Total 567 ml 519 ml 1168 ml 327 ml Tube Feeding 308 ml 225 ml Albumin 50 ml 50 ml FFP 629 ml Other 50 ml 90 ml Output Urine Total 750 ml 425 ml 250 ml 125 ml Gastric Drainage Total 200 ml 100 ml Hemodialysis 3500 ml 3500 ml # Bowel Movements 0 0 Laboratory Laboratory Tests Test 12/19/16 12/19/16 12/20/16 12/20/16 14:50 16:50 01:00 04:40 Hemoglobin 9.1 8.4 8.2 Hematocrit 27.4 25.0 23.7 Prothrombin Time 12.5 Prothromb Time International 1.1 Ratio Activated Partial 32.4 Thromboplast Time Blood Bank Comment White Blood Count 11.1 Red Blood Count 2.73 Mean Corpuscular Volume 86.8 Mean Corpuscular Hemoglobin 29.8 Mean Corpuscular Hemoglobin 34.4 Concent Red Cell Distribution Width 14.3 Platelet Count 243 Mean Platelet Volume 9.9 Neutrophils (%) (Auto) 94.4 Lymphocytes (%) (Auto) 2.1 Monocytes (%) (Auto) 3.4 Eosinophils (%) (Auto) 0.0 Basophils (%) (Auto) 0.1 Neutrophils # (Auto) 10.5 Lymphocytes # (Auto) 0.2 Monocytes # (Auto) 0.4 Eosinophils # (Auto) 0.0 Basophils # (Auto) 0.0 CBC Comment DIFF FINAL Differential Comment Imaging Last Impressions Chest X-Ray 12/19/16 0600 Signed Impressions: Service Date/Time: Monday, December 19, 2016 04:53 - CONCLUSION: Bilateral pleural effusions and left basilar airspace disease noted. Clay Loco MD Neck CT 12/19/16 0000 Signed Impressions: Service Date/Time: Monday, December 19, 2016 18:43 - CONCLUSION: 1. Small superficial hematoma surrounds the tracheostomy tube. 2. There is debris that occludes the airway above the tube and below the cords. 3. Bilateral thyroid nodules. 4. Sinus disease. Lennox Cason MD Catheter Placement X-Ray 12/19/16 0000 Signed Impressions: Service Date/Time: Monday, December 19, 2016 12:29 - CONCLUSION: Uncomplicated venous catheter change as above. Lennox Rubio MD Thoracentesis 12/10/16 0000 Signed Impressions: Service Date/Time: Saturday, December 10, 2016 14:43 - CONCLUSION: Uncomplicated CT-guided thoracentesis. Jarrod Meyer MD Renal Ultrasound 12/10/16 0000 Signed Impressions: Service Date/Time: Saturday, December 10, 2016 18:06 - CONCLUSION: Normal examination. Lennox Rodriguez MD Chest Ultrasound 12/09/16 0000 Signed Impressions: Service Date/Time: Friday, December 09, 2016 13:23 - CONCLUSION: Moderate size right pleural effusion. Torito Conklin MD Head CT 12/08/16 0000 Signed Impressions: Service Date/Time: Thursday, December 08, 2016 14:47 - CONCLUSION: 1. 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 2. No acute intracranial process , trauma or fracture. Darius Hernandez MD Physical Exam HEENT: Normocephalic; atraumatic; no jaundice. NECK: Tracheostomy, with ecchymosis, leandro red blood being suctioned from trach. CHEST: Diminshed, trach to vent. CARDIAC: RR ABDOMEN: Soft, obese, nondistended, nontender; no hepatosplenomegaly; bowel sounds are present in all four quadrants. PEG tube site without redness or swelling. LIWS, clear greenish drainage with scant amount of old coffee grounds in tubing. EXTREMITIES: Generalized, edema. SKIN: Ecchymoatic areas SOLARIS ADMINISTRATOR: Sedated on vent Assessment and Plan Plan ASSESSMENT: - Reconsulted for hematemesis. Pt had tracheostomy and has small superficial hematoma surrounds the tracheostomy tube with debris that occludes the airway above the tube and below the cords. It is most likely that she is swallowing some blood from the tracheostomy site. She is not having actual GI bleeding. She did vomit small amount of greenish gastric drainage. PEG to LIWS with clear greenish drainage with scant amount of old coffee grounds noted in tubing. Protonix with BID dosing. Monitor HH - N/V. Nurse reports that he vomited small amount of green bilious material x 2 - small amount each time. PEG to LIWS. Will start low dose reglan. If no further vomiting, then okay to start tube feedings this afternoon. No bm since 12/16. On bowel regimen. - Constipation. No BM since 12/16. If no bm x 4pm, then soap suds enema x 2 - Dysphagia, FEN. GI consulted for PEG. S/P EGD with PEG tube placement ()---> normal EGD except some old coffee ground material, likely NGT trauma. PEG tube site without redness, swelling, drainage. - Respiratory failure, PSAE Pna, Pleural effusion. S/P Tracheostomy placement- ecchymosis. leandro red blood suctioned out from trach. Neck CT (12/19/16)----> 1. Small superficial hematoma surrounds the tracheostomy tube. 2. There is debris that occludes the airway above the tube and below the cords. 3. Bilateral thyroid nodules. 4. Sinus disease. - NSTEMI, S/P Cardiac Cath. (12/04/16)----> normal arterial pressure, severe [place] coronary artery disease with occlusion of the LAD and severe disease of the [place] right coronary artery, only one residual graft which was severe compromised- free mammary gravft to the LAD, successful intervention on the free mammary bypass graft to the LAD with synagogue of ORLY-3 flow and successful revascularization of the proximal right coronary artery with improvement in flow with resolute stent. She was started on Brilinta and ASA. D/W Dr. Hartman possibly holding these for one day for PEG tube placement, but he prefers that these not be placed on hold because of the risk of reocclusion. - Acute on chronic kidney disease. HD per renal - Acute metabolic encephalopathy, HTN, dyslipidemia, hx of PVA per [facility] PLAN: - NPO for now - PEG to LIWS - Reglan 5mg IV q8h - If no further vomiting, okay to start Nepro at 20cc/hr and slowly increase to 45cc/hr - Cont. protonix with BID dosing. - Monitor HH - Transfuse as necessary - Lactulose, Miralax - If no BM by 4pm, then soap suds enema x 2 - Supportive care - Pt seen and examined by Dr. Avitia and myself and this note is written on his behalf Alejandra Estrella Dec 20, 2016 08:55
[2016-12-20] MEDS ORDERED: POLYETHYLENE GLYCOL 17 GM PKG PO SCH (09:00)
[2016-12-20] MEDS ORDERED: LACTULOSE SYRUP 20 GM/30 ML CUP PO SCH (09:00)
--- NOTE | 2016-12-20 11:12 | HHI.NPPN ---
Subjective History of Present Illness The patient is a 76 yo [place] female who presented to the ED on 11/28/16 with suspected TN as she was having significant SOB. She was ultimately intubated on scene and then transported to the hospital for evaluation. She is currently intubated so history is obtained thru previous encounters and her son who is present in the room. She has known CKD, but she does not follow with a marine designer as an outpatient. As per son, she has had CKD for many years and believes that her SCr is around 1.5-1.6, which from review of notes seems to be congruent. She has an extensive PMHx of cardiac disease with an EF of 40-45%, triple CABG in 2003, 4 PTCA previously, toe amputations related to PVD, DM for at least 20 years, HTN, and breast cancer treated about 30 years ago with mastectomy and chemotherapy. Son reports that she has has ongoing issues with fluid retention for the past year since she was admitted here for cardiac issues. She does use diuretics as outpatient that has been altered as per her fluid needs. She underwent cardiac cath on 12/04 and had 3 stents placed. She was initially on IVF that was converted to diuretics on 12/07/ thru 12/09. She was started on D5W 12/09 as her sodium levels were elevated. She has been receiving 300mL q8h via NG tube of free water. She received Vanc IV on 12/08 x1 dose and then again today as it is suspected that she has a ventilator associated PNA. Underwent thoracentesis today with approx 800mL drained from R lung. Admitting SCr 2.23 that improved to 1.5-1.6 range until 12/09 when she lisa to 1.74 and then ultimately 2.03 at time of consult. Interval History The patient is more awake. Has been vomiting. PEG feeding held currently. s/p HD this AM with UF of 3500mL. UOP decreased Review of Systems General General Remarks Patient unable to respond to questions. Objective Data Data 12/19/16 12/20/16 19:00 07:00 Intake Total 884 ml 2174 ml Output Total 3925 ml 675 ml Balance -3041 ml 1499 ml IV Total 519 ml 1495 ml Tube Feeding 225 ml Albumin 50 ml 50 ml FFP 629 ml Other 90 ml Output Urine Total 425 ml 375 ml Gastric Drainage Total 300 ml Hemodialysis 3500 ml # Bowel Movements 0 Vital Signs Date Time Temp Pulse Resp B/P Pulse Ox O2 Delivery O2 Flow Rate FiO2 12/20/16 10:00 71 12/20/16 09:48 16 12/20/16 08:31 95 35 12/20/16 08:31 35 12/20/16 08:00 35 12/20/16 08:00 77 12/20/16 08:00 97.9 81 16 159/68 98 12/20/16 06:00 74 12/20/16 04:15 99 35 12/20/16 04:00 98.0 91 21 199/92 99 12/20/16 04:00 35 12/20/16 04:00 92 12/20/16 02:00 82 12/20/16 01:19 98 35 12/20/16 00:00 35 12/20/16 00:00 99.1 89 21 165/77 98 12/20/16 00:00 89 12/19/16 22:00 103 12/19/16 22:00 99 35 12/19/16 20:00 86 12/19/16 20:00 99.3 86 21 166/77 96 12/19/16 20:00 35 12/19/16 19:35 96 35 12/19/16 19:07 93 100 12/19/16 18:00 77 12/19/16 16:00 78 12/19/16 16:00 99.1 64 14 90/48 99 12/19/16 16:00 35 12/19/16 15:59 99 35 12/19/16 15:34 99.8 69 20 135/65 98 12/19/16 15:04 99.8 64 21 101/50 98 12/19/16 14:34 99.8 71 20 141/66 99 12/19/16 14:31 100 100 12/19/16 14:19 99.8 72 20 142/65 99 12/19/16 14:00 77 12/19/16 12:00 99.4 62 12 106/53 100 12/19/16 12:00 35 12/19/16 12:00 62 -: 12/20/16 0440 12/19/16 0600 Tubes & Lines: Vas-Cath Medication Review Current Medications Medications (Trade) Dose Ordered Sig/Amber Route Start Time Stop Time Status Last Admin (Aspirin Chew) 81 mg DAILY CHEW 11/28/16 09:00 12/20/16 08:35 (Brilinta) 90 mg BID PO 11/28/16 09:00 12/20/16 08:36 (Tylenol) 650 mg Q6H PRN PO 11/28/16 10:15 12/11/16 05:05 (fentaNYL INJ) 100 mcg Q4H PRN IV 11/28/16 10:15 12/18/16 13:57 (Peridex 0.12% Liq) 15 ml BID@08,20 MT 11/28/16 20:00 12/20/16 08:33 Miscellaneous Information 1 Q361D XX 11/28/16 10:15 11/28/16 10:15 (Chlorhexidine 2% Cloth) 3 pack Taper DAILY@04 TOP 11/29/16 04:00 11/25/17 03:59 12/20/16 04:00 (Chlorhexidine 2% Cloth) 3 pack UNSCH PRN TOP 11/28/16 10:15 (NovoLOG SUPPLEMENTAL SCALE) 1 Q4HR SQ 11/28/16 20:00 12/20/16 04:48 (D50w (Vial) Inj) 25 ml UNSCH PRN IV 11/28/16 17:00 12/16/16 20:59 (Glucagon Inj) 1 mg UNSCH PRN IM/SQ 11/28/16 17:00 (Lipitor) 40 mg DAILY PO 11/29/16 09:00 12/20/16 08:38 (Lopressor) 12.5 mg Q12HR PO 12/01/16 21:00 12/20/16 08:34 (Pill Splitter) 1 ea UNSCH PRN OTHER 12/01/16 12:30 (NS Flush) 2 ml BID IVF 12/04/16 21:00 12/20/16 08:33 Water 300 ml 300 ml Q8HR G-TUBE 12/09/16 14:00 Hold 12/14/16 14:00 Dexmedetomidine HCl 1000 mcg/ Sodium Chloride 250 ml @ 0 mls/hr TITRATE IV 12/09/16 14:45 12/20/16 00:55 (fentaNYL DRIP) 250 ml @ 0 mls/hr TITRATE IV 12/10/16 17:15 12/20/16 04:04 (Albumin 25% Inj) 12.5 gm Q12HR IV 12/10/16 21:00 12/20/16 08:33 (Levemir Inj) 30 units BID SQ 12/11/16 21:00 12/19/16 22:14 Chlorothiazide Sodium 500 mg 500 mg Q12HR IV 12/11/16 21:00 12/20/16 08:39 (NS 1000 ml Inj) 1,000 ml @ 0 mls/hr Q0M PRN IV 12/13/16 15:06 12/20/16 06:38 Heparin Sodium (Porcine) 8000 units 8,000 units UNSCH PRN IVF 12/13/16 15:15 Sodium Chloride 1,000 ml @ 200 mls/hr Q5H PRN IV 12/13/16 15:06 (NS 1000 ml Inj) 1,000 ml @ 0 mls/hr Q0M PRN IV 12/13/16 15:06 12/14/16 08:23 (Albumin 25% Inj) 25 gm UNSCH PRN IV 12/13/16 15:15 12/20/16 06:42 (NS Flush) 5 ml UNSCH PRN IVF 12/13/16 15:15 12/20/16 06:41 (Heparin Inj) UNSCH PRN .XX 12/13/16 15:15 12/20/16 06:41 (Gentamicin (Dialysis) Inj) 20 mg UNSCH PRN IV 12/13/16 15:15 12/20/16 06:39 (Zofran Inj) 4 mg UNSCH PRN IV 12/13/16 15:15 12/20/16 06:42 (Tylenol) 650 mg UNSCH PRN PO 12/13/16 15:15 12/19/16 04:27 (Benadryl) 25 mg UNSCH PRN PO 12/13/16 15:15 (Nitrostat Sl) 0.4 mg UNSCH PRN SL 12/13/16 15:15 (Catapres) 0.1 mg UNSCH PRN PO 12/13/16 15:15 12/17/16 03:15 (Epogen Inj) 5,000 units UNSCH PRN IV 12/13/16 15:15 12/20/16 06:46 (Gelfoam 12 Mm/7 Mm Top) 1 foam UNSCH PRN TOP 12/13/16 15:15 Metoclopramide HCl 5 mg 5 mg Q8HR IV PUSH 12/14/16 22:00 12/20/16 04:48 (Maxipime Inj/NS Inj) 100 ml @ 200 mls/hr Q24H IV 12/15/16 20:00 12/19/16 22:14 (Bumex Inj) 2 mg BID@09,18 IV PUSH 12/17/16 09:00 12/20/16 08:34 (Protonix Inj) 40 mg Q12H IV PUSH 12/17/16 11:00 12/19/16 22:15 (Trandate Inj) 10 mg Q1HR PRN IV PUSH 12/18/16 14:00 12/20/16 04:04 (Nitroglycerin 2% Oint) 2 inch Q6HR PRN TOPICAL 12/18/16 14:00 (Apresoline Inj) 10 mg Q1HR PRN IV PUSH 12/18/16 14:00 12/19/16 12:10 (Isordil) 10 mg Q8HR PO 12/18/16 14:00 12/20/16 04:47 (Apresoline) 25 mg Q8HR PO 12/18/16 14:00 12/20/16 04:47 (Roxicodone Intensol Liq) 10 mg Q4H PRN PO 12/18/16 18:15 12/20/16 08:36 (Colace) 100 mg BID PO 12/19/16 21:00 12/20/16 08:34 (Lactulose Liq) 30 ml DAILY PO 12/20/16 09:00 12/20/16 08:34 (Miralax) 17 gm DAILY PO 12/20/16 09:00 12/20/16 08:39 (NS Flush) DAILY IVF 12/20/16 09:00 12/20/16 08:33 (NS Flush) UNSCH PRN IVF 12/19/16 14:30 Physical Exam General Appearance: No Acute Distress, Obese Eyes Eye Exam: Sclera White Pulmonary Resp Exam: Clear Bilaterally, Breath Sounds Equal, No Distress, Decreased Bases Cardiology CV Exam: Regular, Normal Sinus Rhythm Gastrointestinal/Abdomen GI Exam: Soft, Non-Tender Integumentary Skin Exam: Clear, Warm Extremeties Extremities Exam: Moderate Edema (involving all limbs and dependent torso.), Pitting Edema Neurologic Neuro Exam: Awake Assessment/Plan Problem List: (1) Acute renal failure Plan: Acute on chronic renal failure which is likely multifactorial with development of ATN s/p HD this AM. Will rest tomorrow and likely dialyze again on Thursday. UOP decreased again Continue on IV Bumex Baseline SCr appears to be 1.5-1.6 with underlying etiology of diabetic nephropathy. Medications should be adjusted for the patient's renal decline. Avoid nephrotoxic agents including iodinated contrast dyes and NSAIDs. Avoid gadolinium when eGFR <30. (2) CHF (congestive heart failure) Plan: Continue diuretics and dialysis for volume management. (3) Pneumonia Plan: Mgmt as per CC (4) Non-STEMI (non-ST elevated myocardial infarction) Plan: Mgmt as per cardiology (5) Hypertension Plan: BP stable. Continue on current regimen (6) Diabetes mellitus Plan: Mgmt as per CC (7) Anemia Plan: Epogen as indicated. Problem Qualifiers (1) Acute renal failure: Qualified Code: N17.9 - Acute renal failure, unspecified acute renal failure type (2) Pneumonia: Qualified Code: J18.9 - Pneumonia of both lungs due to infectious organism, unspecified part of lung Melinda Orellana Dec 20, 2016 11:12
--- NOTE | 2016-12-20 11:24 | HHI.CCPN ---
Subjective Remarks/Hospital Course 76-year-old female came to the emergency room brought by EMS as a STEMI alert. Patient called 911 for shortness of breath. When they arrived patient says oxygen saturation was in the 80s and she was in respiratory distress. Patient has history of coronary artery disease and congestive heart failure. She told me she had her bypass surgery done few years ago. Patient denied of any chest pain at any point. EMS said that patient had told them that she was nauseous for past couple days and vomited last night. She was woken up from the sleep with this shortness of breath. By the time patient arrived to the ER she was acutely short of breath and in severe respiratory distress. She was unable to give much history. She was pale and started getting agitated and diaphoretic when they moved her from the gurney to the stretcher. Patient developed worsening respiratory distress and required emergent intubation was placed on mechanical ventilation by ER physician. Her troponin came back at 20 and her EKG suggested intraventricular conduction delay versus left bundle branch block. Cardiology was contacted and felt patient had a non-ST elevation MD. She was also noted to be extremely hyperglycemic with glucose levels in the 500s with metabolic acidosis/lactic acidosis. She was started on the DKA protocol by ER physician. Urine ketones are negative. Beta hydroxybutyrate slightly elevated. Patient had a central line placed by ER physician and was started on heparin drip for anticoagulation for her MD. She was accepted for admission by critical care medicine service. I discussed the case with Dr. Auguste who is not planning cardiac catheterization at this time. Patient also was given empiric antibiotics up to obtaining cultures. 2 Patient is sedated with Diprivan and intubated. Remains on Heparin drip. On PRVC/AC RR 20 IT 1.0, TV 500, PEEP:5 and FIO2 35% 11/30 No acute events overnight. Sedated and intubated. Afebrile. On Heparin drip 12/01 Patient remains sedated and intubated. Afebrile. On Heparin drip. She had episode of desaturation while on CPAP. 12/02 Patient is sedated with Diprivan and intubated. Remains on Heparin drip. 12/03 No events over night. Attempt SBT tomorrow post cardiac Catheterization 12/04 cardiac catheterization today, successful intervention on the free mammary bypass graft to the LAD with sikhism of ORLY-3 flow and successful revascularization of the proximal right coronary artery with improvement in flow 12/05 attempt to wean from the mechanical ventilation failure due to rapid shallow breathing today 12/06 no evidence overnight 12/07 failed as SBT yesterday due to rapid shallow breathing 12/08 Patient remains intubated and on Precedex drip. Afebrile. She was on CPAP x 4 hrs yesterday then became tachycardic and hypertensive. 12/09 Patient remains sedated and intubated. Spiked fever with Tmax 101.7. CT brain yesterday showed no acute intracranial process 12/10 Patient is on Precedex drip, on CPAP 15/ with FIO2 30%. Tmax 101.6. Renal function worse today with Cr: 2.03 from 1.74. s/p transfusion 1u PRBC yesterday. 12/11 Tolerating CPAP. Remains encephalopathic, not following commands. MAXIMUM TEMPERATURE 101.6, white count was sent from 13.2-20.2. Function also worsening from 2-2.4. s/p CT guided thoracentesis 12/10/16, with 820 mL of yellow cloudy fluid removed. Fluid studies consistent with transudative effusion 12/12: Awake today follows commands but tachypneic, and using accessory muscles on 5 or 5 spontaneous breathing trial. Chest x-ray shows increased pulmonary vascular congestion/CHF. Worsening creatinine increased from 2-3.3, with decreased urine output. Additional 2 mg IV push bumetanide. Sputum culture growing Pseudomonas. One blood culture with gram-positive cocci-continue Zosyn , single dose of vancomycin ordered 12/13: Labs pending labs. The patient continues to fail spontaneous breathing trials. Continues on PRVC/AC 20/500/5/0.35 12/14:Afebrile. A Vas-Cath was placed yesterday, hemodialysis was begun, 3.5 L off. The family plans to discuss with critical care medicine decision whether to place a tracheostomy in a.m.. 12/15: Afebrile. Episodes of hemoptysis overnight since resolved. Scant bloody secretions. Also some coffee-ground emesis from gastric tube noted. Currently nothing by mouth. Positive BM. Still unable x-ray. Day #17 of intubation. Family requests full intervention. 12/16: Afebrile. Plan for tracheostomy are in OR with PEG tube placement today. Hemoglobin stable status post transfusion. Currently nothing by mouth 12/17: Currently afebrile. Status post PEG tube placement Dr. Avitia 12/16. Plan for Tracheostomy today. Currently nothing by mouth. 12/18: Currently afebrile. Status post tracheostomy by Dr. Ingram 12/17. Some oozing from trach site appears stable currently. Hemodynamic stable. Actually hypertense requiring when necessary's. Complaining of abdominal pain. 12/19: Tmax 99.9. Patient with guidewire exchange of right IJ catheter with hematoma, had large hematemesis during exchange. Hemodynamically stable. H&H and coags currently pending. Subjective 12/20: Afebrile. No more hematemesis. She has nausea. No bowel movement 4 days. Receiving enema. Currently out of bed to chair. Objective Vital Signs Date Time Temp Pulse Resp B/P Pulse Ox O2 Delivery O2 Flow Rate FiO2 12/20/16 10:00 71 12/20/16 09:48 16 12/20/16 08:31 95 35 12/20/16 08:00 97.9 159/68 Intake and Output 12/19/16 12/19/16 12/20/16 08:00 16:00 00:00 Intake Total 925 ml 884 ml 1847 ml Output Total 750 ml 425 ml 3950 ml Balance 175 ml 459 ml -2103 ml Result Diagram: 12/20/16 0440 12/19/16 0600 Imaging Last Impressions Chest X-Ray 12/19/16 0600 Signed Impressions: Service Date/Time: Monday, December 19, 2016 04:53 - CONCLUSION: Bilateral pleural effusions and left basilar airspace disease noted. Clay Loco MD Neck CT 12/19/16 0000 Signed Impressions: Service Date/Time: Monday, December 19, 2016 18:43 - CONCLUSION: 1. Small superficial hematoma surrounds the tracheostomy tube. 2. There is debris that occludes the airway above the tube and below the cords. 3. Bilateral thyroid nodules. 4. Sinus disease. Lennox Cason MD Catheter Placement X-Ray 12/19/16 0000 Signed Impressions: Service Date/Time: Monday, December 19, 2016 12:29 - CONCLUSION: Uncomplicated venous catheter change as above. Lennox Rubio MD Thoracentesis 12/10/16 0000 Signed Impressions: Service Date/Time: Saturday, December 10, 2016 14:43 - CONCLUSION: Uncomplicated CT-guided thoracentesis. Jarrod Meyer MD Renal Ultrasound 12/10/16 0000 Signed Impressions: Service Date/Time: Saturday, December 10, 2016 18:06 - CONCLUSION: Normal examination. Lennox Rodriguez MD Chest Ultrasound 12/09/16 0000 Signed Impressions: Service Date/Time: Friday, December 09, 2016 13:23 - CONCLUSION: Moderate size right pleural effusion. Torito Conklin MD Head CT 12/08/16 0000 Signed Impressions: Service Date/Time: Thursday, December 08, 2016 14:47 - CONCLUSION: 1. 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 2. No acute intracranial process , trauma or fracture. Darius Hernandez MD Objective Remarks GENERAL: 76 -year-old female status post tracheostomy SKIN: Warm and dry. No rash HEAD: Normocephalic. EYES: No scleral icterus. No injection or drainage. NECK: Supple, trachea midline. No JVD or lymphadenopathy. Orally intubated. Ecchymoses noted around left IJ hemodialysis catheter right IJ with small hematoma also run tracheostomy CARDIOVASCULAR: Regular rate and rhythm. S1, S2 no S4. Without murmurs, gallops, or rubs. RESPIRATORY: Breath sounds equal bilaterally. Diminished in bases. GASTROINTESTINAL: Abdomen soft, non-tender, obese. PEG tube site is clean dry and intact MUSCULOSKELETAL: With trace lower extremity edema. Neuro: Eyes are open, moves extremities continuously Date of Insertion: Dec 08, 2016 Side: Right Location: Internal, Jugular A/P Assessment and Plan Neuro/Psych: Acute toxic metabolic encephalopathy Chronic pain management Continue Precedex at 1.4 mcg/kg per minute and fentanyl drip at 250 micrograms an hour for sedation/analgesia while intubated As needed oxycodone liquid 10 by tube every 4 for pain Goal of RASS -2 Daily sedation vacation. Monitor neuro status. 12/08 CT brain: No acute intracranial process 12/08 EEG: Moderate degree of encephalopathy Pulm: Acute hypoxemic respiratory failure Bilateral pleural effusions Pseudomonas pneumonia - Continue [facility] 14/500/1/5/35 - CPAP 12/5 and 35% and keep sat >92% - Bronchodilators every 6 hours, ICU vent bundle, CPAP trials as ramone. - Status post tracheostomy in a.m. 12/[address] Yolie Reddy - CT guided thoracentesis 12/10- 820 ml of cloudy fluid removed from the right side. Fluid studies consistent with transudate - Sputum culture with Pseudomonas continue cefepime - ID following CV: Non-STEMI Chronic systolic heart failure Coronary Artery disease Hypertension Dys lipidemia History of peripheral vascular disease - Monitor HR and BP keep MAP>65mmHg - Echo showed EF 40-45%, hypokinesis in apical myocardium. - Cardiology- . - Continue ASA 81 mg daily, Lipitor 40 mg daily r, Brilinta 90mg BID, Lopressor 12.5mg Q12 and hydralazine 25 3 times a day with Isordil 10 3 times a day - Status post catheterization December 04, successful intervention balloon angioplasty on the free internal mammary bypass graft to the LAD with sikhism of ORLY-3 flow and successful revascularization with balloon angioplasty and restore MARIANO stent of the proximal right coronary artery with improvement in flow Maintain aspirin 81 mg daily and Brilinta 90 mg by mouth twice a day for drug- eluting stent 12 months Holding lisinopril 5 mill grams daily/home medication light of acute kidney injury Holding home medication Lopressor 75 mg by mouth twice a day nifedipine 90 mg by mouth daily for hypertension. At home on atorvastatin 40 mg by mouth daily for dyslipidemia. Continued Renal/: Acute kidney injury Hypokalemia - Renal function worse today - Renal US. normal study - Monitor renal function, I/O's, electrolytes replacement as needed - Nephrology Dr. Doyle. Currently on Bumex 2 mg twice a day and Diuril 500 mg daily. Vas-Cath placed 12/13 and hemodialysis today noted GI Tube feeds with Nepro currently 45 cc an hour on hold due to line exchange - On Protonix 40 mg IV twice a day - Colace/Senokot twice a day, MiraLAX twice a day and lactulose 4 times a day for bowel regimen. Status post PEG tube 12/16 CT neck revealed bleeding likely between trachea and vocal cords. Appears to have stopped. Heme: Anemia - Monitor CBC, s/p transfuse 1u PRBC 12/09, Coags within normal limits Transfuse 2 units PRBCs 12/15 hemoglobin currently greater than 10 Stat H&H ID: -Continues to be on cefepime since 12/15. Previously on Zosyn and vancomycin - BC 12/08, 12/09: NGTD. 12/10 BC 10/29 staph epidermidis, sputum cx Pseudomonas. ID consulted/Dr. Sams Endocrine: Hyperglycemia - On SSI (medium scale)Levemir 30u BID. 6 units sliding scale insulin past 24 hours Prophylaxis: - PPI/SCDs/ Heparin SQ on hold for tracheostomy today resume 12/19 Lines Right IJ placed 12/08 with guidewire exchange 12/19, left IJ Vas-Cath 12/14 Critical Care: The total care time was 35 minutes. Time to perform other separately billable procedures was not included in the critical care time. Gee Santiago MD Dec 20, 2016 11:24
[2016-12-20] MEDS ORDERED: GLYCERIN ADULT 2 GM SUPP RECTAL PRN (11:30)
[2016-12-20] MEDS ORDERED: MINERAL OIL LIQUID 30 ML CUP PO ONE (11:30)
[2016-12-20] MEDS: hydrALAZINE HCL 20 MG/ML VIAL IV PUSH PRN (11:36)
[2016-12-20] MEDS: PANTOPRAZOLE SODIUM 40 MG VIAL IV PUSH SCH ×2 (11:36→22:13)
[2016-12-20] MEDS ORDERED: ONDANSETRON HCL 4 MG/2 ML VIAL IV PUSH PRN (12:30)
[2016-12-20 13:05] LABS: ALKALINE PHOSPHATASE 53 U/L (45-117); ALT (GPT) 17 U/L (10-53); ANION GAP 9 MEQ/L (5-15); AST (GOT) 27 U/L (15-37); BICARBONATE 31.8 MEQ/L (21.0-32.0); BLOOD UREA NITROGEN 26 MG/DL (7-18); CHLORIDE 99 MEQ/L (98-107); GLOMERULAR FILTRATION RATE 27 ML/MIN (>89); MAGNESIUM 1.7 MG/DL (1.5-2.5); POTASSIUM 3.6 MEQ/L (3.5-5.1); SODIUM (NA) 140 MEQ/L (136-145); TOTAL BILIRUBIN ADULT 0.7 MG/DL (0.2-1.0)
[2016-12-20] MEDS: LACTULOSE SYRUP 20 GM/30 ML CUP PO SCH ×3 (13:26→23:42)
[2016-12-20 17:13] LABS: HEMATOCRIT 26.2 % (35.0-46.0); REVIEW FLAG FINAL
[2016-12-20] MEDS ORDERED: METHYLNALTREXONE BROMIDE 12 MG/0.6 ML VIAL SQ ONE ×2 (18:00→20:00)
[2016-12-20] MEDS ORDERED: SODIUM CHLORID 0.9% 500 ML INJ 500 ML IV ONE (18:30)
--- NOTE | 2016-12-20 18:42 | HHI.IDPN ---
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 Objective . Vital Signs Date Time Temp Pulse Resp B/P Pulse Ox O2 Delivery O2 Flow Rate FiO2 12/20/16 16:00 35 12/20/16 16:00 107 12/20/16 16:00 99.6 107 22 166/74 96 12/20/16 15:51 96 35 12/20/16 14:00 101 12/20/16 12:00 98 12/20/16 12:00 99.0 97 20 152/67 97 12/20/16 12:00 35 12/20/16 11:22 94 35 12/20/16 10:00 71 12/20/16 09:48 16 12/20/16 08:31 95 35 12/20/16 08:31 35 12/20/16 08:00 35 12/20/16 08:00 77 12/20/16 08:00 97.9 81 16 159/68 98 12/20/16 06:00 74 12/20/16 04:15 99 35 12/20/16 04:00 98.0 91 21 199/92 99 12/20/16 04:00 35 12/20/16 04:00 92 12/20/16 02:00 82 12/20/16 01:19 98 35 12/20/16 00:00 35 12/20/16 00:00 99.1 89 21 165/77 98 12/20/16 00:00 89 12/19/16 22:00 103 12/19/16 22:00 99 35 12/19/16 20:00 86 12/19/16 20:00 99.3 86 21 166/77 96 12/19/16 20:00 35 12/19/16 19:35 96 35 12/19/16 19:07 93 100 12/19/16 12/19/16 12/20/16 15:00 23:00 07:00 Intake Total 884 ml 1847 ml 327 ml Output Total 425 ml 3950 ml 225 ml Balance 459 ml -2103 ml 102 ml IV Total 519 ml 1168 ml 327 ml Tube Feeding 225 ml Albumin 50 ml 50 ml FFP 629 ml Other 90 ml Output Urine Total 425 ml 250 ml 125 ml Gastric Drainage Total 200 ml 100 ml Hemodialysis 3500 ml # Bowel Movements 0 . Laboratory Tests Test 12/19/16 12/19/16 12/20/16 12/20/16 06:00 14:50 01:00 04:40 White Blood Count 11.2 TH/MM3 11.1 TH/MM3 Red Blood Count 3.10 MIL/MM3 2.73 MIL/MM3 Hemoglobin 8.9 GM/DL 9.1 GM/DL 8.4 GM/DL 8.2 GM/DL Hematocrit 26.7 % 27.4 % 25.0 % 23.7 % Mean Corpuscular Volume 86.0 FL 86.8 FL Mean Corpuscular Hemoglobin 28.7 PG 29.8 PG Mean Corpuscular Hemoglobin 33.4 % 34.4 % Concent Red Cell Distribution Width 14.3 % 14.3 % Platelet Count 256 TH/MM3 243 TH/MM3 Mean Platelet Volume 9.7 FL 9.9 FL Neutrophils (%) (Auto) 88.4 % 94.4 % Lymphocytes (%) (Auto) 4.8 % 2.1 % Monocytes (%) (Auto) 5.8 % 3.4 % Eosinophils (%) (Auto) 0.5 % 0.0 % Basophils (%) (Auto) 0.5 % 0.1 % Neutrophils # (Auto) 9.9 TH/MM3 10.5 TH/MM3 Lymphocytes # (Auto) 0.5 TH/MM3 0.2 TH/MM3 Monocytes # (Auto) 0.7 TH/MM3 0.4 TH/MM3 Eosinophils # (Auto) 0.1 TH/MM3 0.0 TH/MM3 Basophils # (Auto) 0.1 TH/MM3 0.0 TH/MM3 CBC Comment DIFF FINAL DIFF FINAL Differential Comment Test 12/20/16 16:26 Hemoglobin 8.6 GM/DL Hematocrit 26.2 % Laboratory Tests Test 12/19/16 12/20/16 06:00 10:22 Sodium Level 134 MEQ/L 140 MEQ/L Potassium Level 3.3 MEQ/L 3.6 MEQ/L Chloride Level 95 MEQ/L 99 MEQ/L Carbon Dioxide Level 28.0 MEQ/L 31.8 MEQ/L Anion Gap 11 MEQ/L 9 MEQ/L Blood Urea Nitrogen 50 MG/DL 26 MG/DL Creatinine 3.03 MG/DL 1.82 MG/DL Estimat Glomerular Filtration 15 ML/MIN 27 ML/MIN Rate Random Glucose 197 MG/DL 140 MG/DL Calcium Level 8.4 MG/DL 9.0 MG/DL Phosphorus Level 4.2 MG/DL 3.4 MG/DL Magnesium Level 1.9 MG/DL 1.7 MG/DL Total Bilirubin 0.4 MG/DL 0.7 MG/DL Aspartate Amino Transf 15 U/L 27 U/L (AST/SGOT) Alanine Aminotransferase 14 U/L 17 U/L (ALT/SGPT) Alkaline Phosphatase 79 U/L 53 U/L Total Protein 6.0 GM/DL 7.2 GM/DL Albumin 2.5 GM/DL 3.8 GM/DL Imaging Last Impressions Chest X-Ray 12/19/16 0600 Signed Impressions: Service Date/Time: Monday, December 19, 2016 04:53 - CONCLUSION: Bilateral pleural effusions and left basilar airspace disease noted. Clay Loco MD Neck CT 12/19/16 0000 Signed Impressions: Service Date/Time: Monday, December 19, 2016 18:43 - CONCLUSION: 1. Small superficial hematoma surrounds the tracheostomy tube. 2. There is debris that occludes the airway above the tube and below the cords. 3. Bilateral thyroid nodules. 4. Sinus disease. Lennox Cason MD Catheter Placement X-Ray 12/19/16 0000 Signed Impressions: Service Date/Time: Monday, December 19, 2016 12:29 - CONCLUSION: Uncomplicated venous catheter change as above. Lennox Rubio MD Thoracentesis 12/10/16 0000 Signed Impressions: Service Date/Time: Saturday, December 10, 2016 14:43 - CONCLUSION: Uncomplicated CT-guided thoracentesis. Jarrod Meyer MD Renal Ultrasound 12/10/16 0000 Signed Impressions: Service Date/Time: Saturday, December 10, 2016 18:06 - CONCLUSION: Normal examination. Lennox Rodriguez MD Chest Ultrasound 12/09/16 0000 Signed Impressions: Service Date/Time: Friday, December 09, 2016 13:23 - CONCLUSION: Moderate size right pleural effusion. Torito Conklin MD Head CT 12/08/16 0000 Signed Impressions: Service Date/Time: Thursday, December 08, 2016 14:47 - CONCLUSION: 1. 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 2. No acute intracranial process , trauma or fracture. Darius Hernandez MD Physical Exam CONSTITUTIONAL/GENERAL: This is an obese elderly female patient, in no apparent distress. TUBES/LINES/DRAINS: SKIN: No jaundice, rashes, or lesions.\ Skin temperature appropriate. Not diaphoretic. EYES: Pupils equal and round and reactive. Extraocular motions intact. No scleral icterus. No injection or drainage. Fundi not examined. ENT oral mucosae without visible erythema, exudates, masses, or lesions. NECK: trach in place with echymosis, hematoma CARDIOVASCULAR: Regular rate and rhythm without murmurs, gallops, or rubs. No JVD. Peripheral pulses symmetric. RESPIRATORY/CHEST: Symmetric, unlabored respirations. Scattered rhonchi to auscultation. Breath sounds equal bilaterally. GASTROINTESTINAL: Abdomen soft, non-tender, moderately to markedly distended. No hepato-splenomegaly, or palpable masses. No guarding. Bowel sounds present. Lower transverse laparotomy abdominal incision, well healed GENITOURINARY: Without palpable bladder distension. [place] catheter in place with clear yellow urine, small amount MUSCULOSKELETAL: Extremities without clubbing, cyanosis, 3-4+ edema sp L TMA, well healed NEUROLOGICAL: eyes opened, moves extremeties PSYCHIATRIC: unable to assess Assessment & Plan Remarks NSTEMI on admission Acute rVDRF, difficulty weaning CHF Fever, leukocytosis - improved ? superimposed PNA, PSAE roberts S Coag neg staph bacteremia, low grade - cw contaminaton ARF, on HD Diarrhea, sp disimpaction - cont cefepime, increase the dose per improving GFR Marina Sams MD Dec 20, 2016 18:42
[2016-12-20] MEDS: SODIUM CHLOR 0.9% 1000 ML INJ 1,000 ML IV SCH (18:50)
--- NOTE | 2016-12-20 19:12 | RADRPT ---
EXAM DATE/TIME: 12/20/2016 18:26 [facility] COMPARISON: No previous studies available for comparison. INDICATIONS : Respiratory Failure, Nausea. MEDICAL HISTORY : Cardiovascular disease. Hypertension. Carcinoma, breast. SURGICAL HISTORY : CABG. Mastectomy, left. Stents. ENCOUNTER: Subsequent ACUITY: 3 weeks PAIN SCORE: Non-responsive. LOCATION: Abdomen. FINDINGS: Supine view of the abdomen was performed. Gaseous distention of some bowel loops in the right mid abd omen but no definite obstruction. No abnormal masses, calcifications, or organomegaly is seen. The osseous structures are unremarkable. Bilateral pleural effusions. Generat changes lumbar spine. CONCLUSION: 1. Mild gaseous distention of bowel loops in the right abdomen. 2. Bilateral pleural effusions. Jarrod Meyer MD on December 20, 2016 at 19:10 Board Certified Radiologist. This report was verified electronically.
--- NOTE | 2016-12-20 19:12 | RADRPT ---
EXAM DATE/TIME: 12/20/2016 18:18 [facility] COMPARISON: CHEST SINGLE AP, December 19, 2016, 4:53. INDICATIONS : Respiratory Failure, Nausea. MEDICAL HISTORY : Hypertension. Cardiovascular disease. Carcinoma, breast. SURGICAL HISTORY : CABG. Mastectomy, left. Stents. ENCOUNTER: Subsequent ACUITY: 3 weeks PAIN SCORE: Non-responsive. LOCATION: Bilateral chest FINDINGS: A single view of the chest demonstrates cardiomegaly with increased pulmonary vascularity and bilater al pulmonary edema. Small bilateral pleural effusions. Previous CABG. Tracheostomy tube with tip in a t the 3 cm above the ad. Jugular lines bilaterally are stable.. Osseous structures are intact. CONCLUSION: Cardiomegaly with bilateral perihilar airspace disease and bilateral pleural effusions. Jarrod Meyer MD on December 20, 2016 at 19:09 Board Certified Radiologist. This report was verified electronically.
[2016-12-20 19:15] LABS: AMYLASE 39 U/L (25-115)
[2016-12-20] MEDS: ACETAMINOPHEN 325 MG TAB PO PRN (20:06)
[2016-12-20] MEDS: SENNOSIDES 8.6 MG TAB PO SCH (20:06)
[2016-12-20] MEDS: POLYETHYLENE GLYCOL 17 GM PKG PO SCH (20:07)
[2016-12-20] MEDS: CEFEPIME INJ 2,000 MG in SODIUM CHLORIDE 0.9% INJ 100 ML IV SCH (20:07)
--- NOTE | 2016-12-20 22:20 | HHI.PR ---
Subjective Subjective Notes small bleeding from trach site overnight Objective Vitals/I&O Vital Signs Date Time Temp Pulse Resp B/P Pulse Ox O2 Delivery O2 Flow Rate FiO2 12/20/16 20:11 96 35 12/20/16 18:00 95 12/20/16 16:00 99.6 22 166/74 Labs Laboratory Tests Test 12/20/16 12/20/16 12/20/16 12/20/16 01:00 04:40 10:22 16:26 Hemoglobin 8.4 8.2 8.6 Hematocrit 25.0 23.7 26.2 White Blood Count 11.1 Red Blood Count 2.73 Mean Corpuscular Volume 86.8 Mean Corpuscular Hemoglobin 29.8 Mean Corpuscular Hemoglobin 34.4 Concent Red Cell Distribution Width 14.3 Platelet Count 243 Mean Platelet Volume 9.9 Neutrophils (%) (Auto) 94.4 Lymphocytes (%) (Auto) 2.1 Monocytes (%) (Auto) 3.4 Eosinophils (%) (Auto) 0.0 Basophils (%) (Auto) 0.1 Neutrophils # (Auto) 10.5 Lymphocytes # (Auto) 0.2 Monocytes # (Auto) 0.4 Eosinophils # (Auto) 0.0 Basophils # (Auto) 0.0 CBC Comment DIFF FINAL Differential Comment Sodium Level 140 Potassium Level 3.6 Chloride Level 99 Carbon Dioxide Level 31.8 Anion Gap 9 Blood Urea Nitrogen 26 Creatinine 1.82 Estimat Glomerular Filtration 27 Rate Random Glucose 140 Calcium Level 9.0 Phosphorus Level 3.4 Magnesium Level 1.7 Total Bilirubin 0.7 Aspartate Amino Transf 27 (AST/SGOT) Alanine Aminotransferase 17 (ALT/SGPT) Alkaline Phosphatase 53 Total Protein 7.2 Albumin 3.8 Amylase Level 39 Lipase 110 Narrative Exam trach site c/d/i no blood A/P Assessment and Plan 76yo female s/p open trach, trach working ok, some bleeding 2/2 anticoagulation that can be managed with topical coagulants and medially. Ulises Ingram MD Dec 20, 2016 22:20
[2016-12-21] VITALS (17 sets, daily range): BP systolic 109–176; BP diastolic 53–84; PULSE 62–91; RESP 14–26; TEMP 94.6–99; O2SAT 96–100
[2016-12-21] MEDS: hydrALAZINE HCL 20 MG/ML VIAL IV PUSH PRN (00:41)
[2016-12-21] MEDS: fentaNYL DRIP 250 ML IV SCH ×3 (02:45→17:59)
[2016-12-21] MEDS: oxyCODONE HCL ORAL CONC 20 MG/ML SYRINGE PO PRN (03:11)
[2016-12-21] MEDS: LABETALOL HCL 100 MG/20 ML VIAL IV PUSH PRN (03:12)
[2016-12-21] MEDS: LACTULOSE SYRUP 20 GM/30 ML CUP PO SCH ×4 (03:26→23:49)
[2016-12-21] MEDS: CHLORHEXIDINE GLUCONATE 2 % 1 PACK (2 CLOTHS) TOP SCH (03:28)
[2016-12-21] MEDS: ISOSORBIDE DINITRATE 10 MG TAB PO SCH ×3 (05:19→22:40)
[2016-12-21] MEDS: hydrALAZINE HCL 25 MG TAB PO SCH ×3 (05:19→22:40)
[2016-12-21] MEDS: METOCLOPRAMIDE HCL 10 MG/2 ML VIAL IV PUSH SCH ×3 (05:19→22:40)
[2016-12-21] MEDS: INSULIN ASPART SUPPLEMENTAL SCALE SQ SCH ×6 (05:20→19:22)
[2016-12-21] MEDS: SODIUM CHLOR 0.9% 1000 ML INJ 1,000 ML IV SCH (06:10)
[2016-12-21 06:27] LABS: BICARBONATE 25.2 MEQ/L (21.0-32.0); MAGNESIUM 1.9 MG/DL (1.5-2.5); POTASSIUM 3.6 MEQ/L (3.5-5.1)
[2016-12-21 07:05] LABS: AUTOMATED NEUTROPHIL # 14.1 TH/MM3 (1.8-7.7); BASOPHIL % 0.2 % (0.0-2.0); HEMATOCRIT 25.1 % (35.0-46.0); LYMPH % 3.1 % (9.0-44.0); LYMPHOCYTE # 0.5 TH/MM3 (1.0-4.8); MEAN CORPUSCULAR HEMOGLOBIN 28.7 PG (27.0-34.0); MEAN CORPUSCULAR HGB CONC 32.6 % (32.0-36.0); MONO % 4.3 % (0.0-8.0); NEUT % 92.4 % (16.0-70.0); PLATELET COUNT 252 TH/MM3 (150-450); RED BLOOD COUNT 2.85 MIL/MM3 (4.00-5.30); RED CELL DISTRIBUTION WIDTH 14.7 % (11.6-17.2); WHITE BLOOD COUNT 15.3 TH/MM3 (4.0-11.0)
[2016-12-21 07:47] LABS: HEMO FLAGS AUTO DIFF
[2016-12-21] MEDS: ATORVASTATIN 40 MG TAB PO SCH (08:15)
[2016-12-21] MEDS: SENNOSIDES 8.6 MG TAB PO SCH ×2 (08:15→19:35)
[2016-12-21] MEDS: DOCUSATE SODIUM 100 MG CAP PO SCH ×3 (08:16→19:57)
[2016-12-21] MEDS: METOPROLOL TARTRATE 25 MG TAB PO SCH ×2 (08:16→19:35)
[2016-12-21] MEDS: TICAGRELOR 90 MG TAB PO SCH ×2 (08:16→19:35)
[2016-12-21] MEDS: ASPIRIN 81 MG CHEW TAB CHEW SCH (08:17)
[2016-12-21] MEDS: INSULIN DETEMIR 100 UNITS/ML VIAL SQ SCH (08:17)
[2016-12-21] MEDS: BUMETANIDE INJ 1 MG/4 ML VIAL IV PUSH SCH ×2 (08:18→17:58)
[2016-12-21] MEDS: ALBUMIN HUMAN 25% 12.5 GM/50 ML BAGP IV SCH ×2 (08:19→19:33)
[2016-12-21] MEDS: POLYETHYLENE GLYCOL 17 GM PKG PO SCH ×2 (08:19→19:34)
[2016-12-21] MEDS: SODIUM CHLORIDE 0.9% FLUSH 5 ML FLUSH IVF SCH ×3 (08:20→19:35)
[2016-12-21] MEDS: CHLOROTHIAZIDE SOD 500 MG VIAL IV SCH ×2 (08:20→19:36)
[2016-12-21] MEDS: CHLORHEXIDINE 0.12% (ORAL KIT) 15 ML CUP MT SCH ×2 (08:21→19:36)
--- NOTE | 2016-12-21 11:20 | HHI.GIFU ---
Subjective Remarks 76 oy female in no apparent distress. Lightly sedated. No vomiting of leandro red blood. OGT LIWS, dark green bilious material with old coffee ground residual. Objective Vitals I&O Vital Signs Date Time Temp Pulse Resp B/P Pulse Ox O2 Delivery O2 Flow Rate FiO2 12/21/16 10:00 83 12/21/16 08:13 35 12/21/16 08:11 97 35 12/21/16 08:00 35 12/21/16 08:00 62 12/21/16 08:00 97.6 62 14 109/56 97 12/21/16 06:00 84 12/21/16 04:15 97 35 12/21/16 04:00 35 12/21/16 04:00 98.1 78 20 150/70 97 12/21/16 04:00 78 12/21/16 02:00 91 12/21/16 01:22 97 35 12/21/16 00:00 91 12/21/16 00:00 35 12/21/16 00:00 99.0 91 20 176/79 96 12/20/16 22:25 95 35 12/20/16 22:00 91 12/20/16 20:11 96 35 12/20/16 20:00 90 12/20/16 20:00 100.1 90 21 165/72 95 12/20/16 20:00 35 12/20/16 18:00 95 12/20/16 16:00 35 12/20/16 16:00 107 12/20/16 16:00 99.6 107 22 166/74 96 12/20/16 15:51 96 35 12/20/16 14:00 101 12/20/16 12:00 98 12/20/16 12:00 99.0 97 20 152/67 97 12/20/16 12:00 35 12/20/16 11:22 94 35 I/O 12/20/16 12/20/16 12/20/16 12/21/16 12/21/16 12/21/16 07:00 15:00 23:00 07:00 15:00 23:00 Intake Total 327 ml 466 ml 1284 ml 926 ml Output Total 225 ml 3630 ml 175 ml 155 ml Balance 102 ml -3164 ml 1109 ml 771 ml Intake Oral 0 ml IV Total 327 ml 346 ml 1084 ml 806 ml Tube Feeding 0 ml Tube Irrigant 120 ml 200 ml 120 ml Output Urine Total 125 ml 100 ml 75 ml 55 ml Gastric Drainage Total 100 ml 30 ml 100 ml 100 ml Hemodialysis 3500 ml # Bowel Movements 0 3 Laboratory Laboratory Tests Test 12/20/16 12/21/16 16:26 05:15 Hemoglobin 8.6 8.2 Hematocrit 26.2 25.1 White Blood Count 15.3 Red Blood Count 2.85 Mean Corpuscular Volume 88.0 Mean Corpuscular Hemoglobin 28.7 Mean Corpuscular Hemoglobin 32.6 Concent Red Cell Distribution Width 14.7 Platelet Count 252 Mean Platelet Volume 9.3 Neutrophils (%) (Auto) 92.4 Lymphocytes (%) (Auto) 3.1 Monocytes (%) (Auto) 4.3 Eosinophils (%) (Auto) 0.0 Basophils (%) (Auto) 0.2 Neutrophils # (Auto) 14.1 Lymphocytes # (Auto) 0.5 Monocytes # (Auto) 0.7 Eosinophils # (Auto) 0.0 Basophils # (Auto) 0.0 CBC Comment AUTO DIFF Sodium Level 141 Potassium Level 3.6 Chloride Level 100 Carbon Dioxide Level 25.2 Anion Gap 16 Blood Urea Nitrogen 46 Creatinine 2.68 Estimat Glomerular Filtration 17 Rate Random Glucose 193 Calcium Level 8.7 Phosphorus Level 4.5 Magnesium Level 1.9 Albumin 3.4 Imaging Last Impressions Chest X-Ray 12/20/16 0000 Signed Impressions: Service Date/Time: Tuesday, December 20, 2016 18:18 - CONCLUSION: Cardiomegaly with bilateral perihilar airspace disease and bilateral pleural effusions. Jarrod Meyer MD Abdomen X-Ray 12/20/16 0000 Signed Impressions: Service Date/Time: Tuesday, December 20, 2016 18:26 - CONCLUSION: 1. Mild gaseous distention of bowel loops in the right abdomen. 2. Bilateral pleural effusions. Jarrod Meyer MD Neck CT 12/19/16 0000 Signed Impressions: Service Date/Time: Monday, December 19, 2016 18:43 - CONCLUSION: 1. Small superficial hematoma surrounds the tracheostomy tube. 2. There is debris that occludes the airway above the tube and below the cords. 3. Bilateral thyroid nodules. 4. Sinus disease. Lennox Cason MD Catheter Placement X-Ray 12/19/16 0000 Signed Impressions: Service Date/Time: Monday, December 19, 2016 12:29 - CONCLUSION: Uncomplicated venous catheter change as above. Lennox Rubio MD Thoracentesis 12/10/16 0000 Signed Impressions: Service Date/Time: Saturday, December 10, 2016 14:43 - CONCLUSION: Uncomplicated CT-guided thoracentesis. Jarrod Meyer MD Renal Ultrasound 12/10/16 0000 Signed Impressions: Service Date/Time: Saturday, December 10, 2016 18:06 - CONCLUSION: Normal examination. Lennox Rodriguez MD Chest Ultrasound 12/09/16 0000 Signed Impressions: Service Date/Time: Friday, December 09, 2016 13:23 - CONCLUSION: Moderate size right pleural effusion. Torito Conklin MD Head CT 12/08/16 0000 Signed Impressions: Service Date/Time: Thursday, December 08, 2016 14:47 - CONCLUSION: 1. 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 2. No acute intracranial process , trauma or fracture. Darius Hernandez MD Physical Exam HEENT: Normocephalic; atraumatic; no jaundice. NECK: Tracheostomy, with ecchymosis, leandro red blood being suctioned from trach. CHEST: Diminshed, trach to vent. CARDIAC: RRR ABDOMEN: Soft, obese, nondistended, nontender; no hepatosplenomegaly; bowel sounds x 4 quadrants. PEG tube site without redness or swelling. LIWS, clear dark green drainage with small amount of old coffee grounds in tubing. EXTREMITIES: Generalized, edema. SKIN: Ecchymotic areas TRAINING MGR: Lightly sedated on vent Assessment and Plan Plan ASSESSMENT: - Reconsulted for hematemesis. Pt had tracheostomy and has small superficial hematoma surrounds the tracheostomy tube with debris that occludes the airway above the tube and below the cords. It is most likely that she is swallowing some blood from the tracheostomy site. She is not having actual GI bleeding. PEG to LIWS with dark green drainage with small amount of old coffee grounds noted in tubing. Protonix with BID dosing. Hemoglobin 8.2, Hematocrit 25.1 Monitor HH. Abdominal X RAY-->1. Mild gaseous distention of bowel loops in the right abdomen. 2. Bilateral pleural effusions. - N/V. Emesis x 2, small amount green bilious. PEG to LIWS. On Reglan. Plan to start tube feedings, once emesis resolved. - Constipation, Resolved. - Dysphagia, FEN. GI consulted for PEG. S/P EGD with PEG tube placement ()---> normal EGD except some old coffee ground material, likely NGT trauma. PEG tube site without redness, swelling, drainage. - Respiratory failure, PSAE Pna, Pleural effusion. S/P Tracheostomy placement- ecchymosis. leandro red blood suctioned out from trach. Neck CT (12/19/16)----> 1. Small superficial hematoma surrounds the tracheostomy tube. 2. There is debris that occludes the airway above the tube and below the cords. 3. Bilateral thyroid nodules. 4. Sinus disease. CXR 12/20-->Cardiomegaly with bilateral perihilar airspace disease and bilateral pleural effusions. - NSTEMI, S/P Cardiac Cath. (12/04/16)----> normal arterial pressure, severe [place] coronary artery disease with occlusion of the LAD and severe disease of the [place] right coronary artery, only one residual graft which was severe compromised- free mammary gravft to the LAD, successful intervention on the free mammary bypass graft to the LAD with mormon of ORLY-3 flow and successful revascularization of the proximal right coronary artery with improvement in flow with resolute stent. She was started on Brilinta and ASA. D/W Dr. Hartman possibly holding these for one day for PEG tube placement, but he prefers that these not be placed on hold because of the risk of reocclusion. - Acute on chronic kidney disease. HD per renal - Acute metabolic encephalopathy, HTN, dyslipidemia, hx of PVA per [facility] PLAN: - NPO for now - PEG to LIWS - Continue Reglan 5mg IV q8h - Once vomiting resolved, okay to start Nepro at 20cc/hr and slowly increase to 45cc/hr - Cont. protonix with BID dosing. - Monitor HH - Transfuse as necessary - Lactulose, Miralax - Supportive care -Further recommendations to follow based on results of above. Pt seen and examined by Dr. Avitia and myself and this note is written on his behalf Margi Connelly Dec 21, 2016 11:20
[2016-12-21 11:31] LABS: OVALOCYTES 1+ (NORMAL); SCAN/DIFF AUTO DIFF CONFIRMED
[2016-12-21] MEDS: PANTOPRAZOLE SODIUM 40 MG VIAL IV PUSH SCH ×2 (11:40→22:40)
[2016-12-21] MEDS: DEXMEDETOMIDINE INJ 1,000 MCG in SODIUM CHLOR 0.9% 250 ML INJ 240 ML IV SCH (15:12)
--- NOTE | 2016-12-21 15:28 | HHI.CCPN ---
Subjective Remarks/Hospital Course 76-year-old female came to the emergency room brought by EMS as a STEMI alert. Patient called 911 for shortness of breath. When they arrived patient says oxygen saturation was in the 80s and she was in respiratory distress. Patient has history of coronary artery disease and congestive heart failure. She told me she had her bypass surgery done few years ago. Patient denied of any chest pain at any point. EMS said that patient had told them that she was nauseous for past couple days and vomited last night. She was woken up from the sleep with this shortness of breath. By the time patient arrived to the ER she was acutely short of breath and in severe respiratory distress. She was unable to give much history. She was pale and started getting agitated and diaphoretic when they moved her from the gurney to the stretcher. Patient developed worsening respiratory distress and required emergent intubation was placed on mechanical ventilation by ER physician. Her troponin came back at 20 and her EKG suggested intraventricular conduction delay versus left bundle branch block. Cardiology was contacted and felt patient had a non-ST elevation MT. She was also noted to be extremely hyperglycemic with glucose levels in the 500s with metabolic acidosis/lactic acidosis. She was started on the DKA protocol by ER physician. Urine ketones are negative. Beta hydroxybutyrate slightly elevated. Patient had a central line placed by ER physician and was started on heparin drip for anticoagulation for her MT. She was accepted for admission by critical care medicine service. I discussed the case with Dr. Auguste who is not planning cardiac catheterization at this time. Patient also was given empiric antibiotics up to obtaining cultures. 2 Patient is sedated with Diprivan and intubated. Remains on Heparin drip. On PRVC/AC RR 20 IT 1.0, TV 500, PEEP:5 and FIO2 35% 11/30 No acute events overnight. Sedated and intubated. Afebrile. On Heparin drip 12/01 Patient remains sedated and intubated. Afebrile. On Heparin drip. She had episode of desaturation while on CPAP. 12/02 Patient is sedated with Diprivan and intubated. Remains on Heparin drip. 12/03 No events over night. Attempt SBT tomorrow post cardiac Catheterization 12/04 cardiac catheterization today, successful intervention on the free mammary bypass graft to the LAD with zoroastrianism of ORLY-3 flow and successful revascularization of the proximal right coronary artery with improvement in flow 12/05 attempt to wean from the mechanical ventilation failure due to rapid shallow breathing today 12/06 no evidence overnight 12/07 failed as SBT yesterday due to rapid shallow breathing 12/08 Patient remains intubated and on Precedex drip. Afebrile. She was on CPAP x 4 hrs yesterday then became tachycardic and hypertensive. 12/09 Patient remains sedated and intubated. Spiked fever with Tmax 101.7. CT brain yesterday showed no acute intracranial process 12/10 Patient is on Precedex drip, on CPAP 15/ with FIO2 30%. Tmax 101.6. Renal function worse today with Cr: 2.03 from 1.74. s/p transfusion 1u PRBC yesterday. 12/11 Tolerating CPAP. Remains encephalopathic, not following commands. MAXIMUM TEMPERATURE 101.6, white count was sent from 13.2-20.2. Function also worsening from 2-2.4. s/p CT guided thoracentesis 12/10/16, with 820 mL of yellow cloudy fluid removed. Fluid studies consistent with transudative effusion 12/12: Awake today follows commands but tachypneic, and using accessory muscles on 5 or 5 spontaneous breathing trial. Chest x-ray shows increased pulmonary vascular congestion/CHF. Worsening creatinine increased from 2-3.3, with decreased urine output. Additional 2 mg IV push bumetanide. Sputum culture growing Pseudomonas. One blood culture with gram-positive cocci-continue Zosyn , single dose of vancomycin ordered 12/13: Labs pending labs. The patient continues to fail spontaneous breathing trials. Continues on PRVC/AC 20/500/5/0.35 12/14:Afebrile. A Vas-Cath was placed yesterday, hemodialysis was begun, 3.5 L off. The family plans to discuss with critical care medicine decision whether to place a tracheostomy in a.m.. 12/15: Afebrile. Episodes of hemoptysis overnight since resolved. Scant bloody secretions. Also some coffee-ground emesis from gastric tube noted. Currently nothing by mouth. Positive BM. Still unable x-ray. Day #17 of intubation. Family requests full intervention. 12/16: Afebrile. Plan for tracheostomy are in OR with PEG tube placement today. Hemoglobin stable status post transfusion. Currently nothing by mouth 12/17: Currently afebrile. Status post PEG tube placement Dr. Avitia 12/16. Plan for Tracheostomy today. Currently nothing by mouth. 12/18: Currently afebrile. Status post tracheostomy by Dr. Ingram 12/17. Some oozing from trach site appears stable currently. Hemodynamic stable. Actually hypertense requiring when necessary's. Complaining of abdominal pain. 12/19: Tmax 99.9. Patient with guidewire exchange of right IJ catheter with hematoma, had large hematemesis during exchange. Hemodynamically stable. H&H and coags currently pending. 12/20: Afebrile. No more hematemesis. She has nausea. No bowel movement 4 days. Receiving enema. Currently out of bed to chair. Subjective 12/21: Afebrile. 3 bowel movements overnight. Nausea somewhat improved. Written for out of bed daily to stretcher chair. Tolerated well for 6 hours yesterday. Objective Vital Signs Date Time Temp Pulse Resp B/P Pulse Ox O2 Delivery O2 Flow Rate FiO2 12/21/16 12:48 97 35 12/21/16 10:00 83 12/21/16 08:00 97.6 14 109/56 Intake and Output 12/20/16 12/20/16 12/21/16 08:00 16:00 00:00 Intake Total 327 ml 466 ml 1284 ml Output Total 225 ml 3630 ml 175 ml Balance 102 ml -3164 ml 1109 ml Result Diagram: 12/21/16 0515 12/21/16 0515 Imaging Last Impressions Chest X-Ray 12/20/16 0000 Signed Impressions: Service Date/Time: Tuesday, December 20, 2016 18:18 - CONCLUSION: Cardiomegaly with bilateral perihilar airspace disease and bilateral pleural effusions. Jarrod Meyer MD Abdomen X-Ray 12/20/16 0000 Signed Impressions: Service Date/Time: Tuesday, December 20, 2016 18:26 - CONCLUSION: 1. Mild gaseous distention of bowel loops in the right abdomen. 2. Bilateral pleural effusions. Jarrod Meyer MD Neck CT 12/19/16 0000 Signed Impressions: Service Date/Time: Monday, December 19, 2016 18:43 - CONCLUSION: 1. Small superficial hematoma surrounds the tracheostomy tube. 2. There is debris that occludes the airway above the tube and below the cords. 3. Bilateral thyroid nodules. 4. Sinus disease. Lennox Cason MD Catheter Placement X-Ray 12/19/16 0000 Signed Impressions: Service Date/Time: Monday, December 19, 2016 12:29 - CONCLUSION: Uncomplicated venous catheter change as above. Lennox Rubio MD Thoracentesis 12/10/16 0000 Signed Impressions: Service Date/Time: Saturday, December 10, 2016 14:43 - CONCLUSION: Uncomplicated CT-guided thoracentesis. Jarrod Meyer MD Renal Ultrasound 12/10/16 0000 Signed Impressions: Service Date/Time: Saturday, December 10, 2016 18:06 - CONCLUSION: Normal examination. Lennox Rodriguez MD Chest Ultrasound 12/09/16 0000 Signed Impressions: Service Date/Time: Friday, December 09, 2016 13:23 - CONCLUSION: Moderate size right pleural effusion. Torito Conklin MD Head CT 12/08/16 0000 Signed Impressions: Service Date/Time: Thursday, December 08, 2016 14:47 - CONCLUSION: 1. 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 2. No acute intracranial process , trauma or fracture. Darius Hernandez MD Objective Remarks GENERAL: 76 -year-old female status post tracheostomy SKIN: Warm and dry. No rash HEAD: Normocephalic. EYES: No scleral icterus. No injection or drainage. NECK: Supple, trachea midline. No JVD or lymphadenopathy. Orally intubated. Ecchymoses noted around left IJ hemodialysis catheter right IJ with small hematoma also run tracheostomy CARDIOVASCULAR: Regular rate and rhythm. S1, S2 no S4. Without murmurs, gallops, or rubs. RESPIRATORY: Breath sounds equal bilaterally. Diminished in bases. GASTROINTESTINAL: Abdomen soft, non-tender, obese. PEG tube site is clean dry and intact MUSCULOSKELETAL: With trace lower extremity edema. Neuro: Eyes are open, moves extremities continuously Date of Insertion: Dec 08, 2016 Side: Right Location: Internal, Jugular A/P Assessment and Plan Neuro/Psych: Acute toxic metabolic encephalopathy Chronic pain management Continue Precedex at 0.4 mcg/kg per minute and fentanyl drip at 250 micrograms an hour for sedation/analgesia while intubated As needed oxycodone liquid 10 by tube every 4 for pain Goal of RASS -2 Daily sedation vacation. Monitor neuro status. 12/08 CT brain: No acute intracranial process 12/08 EEG: Moderate degree of encephalopathy Pulm: Acute hypoxemic respiratory failure Bilateral pleural effusions Pseudomonas pneumonia - Continue PRVC 14/500/1//35 - CPAP 12/5 and 35% and keep sat >92% - Bronchodilators every 6 hours, ICU vent bundle, CPAP trials as ramone. - Status post tracheostomy in a.m. 12/[address] Yolie Reddy - CT guided thoracentesis 12/10- 820 ml of cloudy fluid removed from the right side. Fluid studies consistent with transudate - Sputum culture with Pseudomonas continue cefepime - ID following CV: Non-STEMI Chronic systolic heart failure Coronary Artery disease Hypertension Dys lipidemia History of peripheral vascular disease - Monitor HR and BP keep MAP>65mmHg - Echo showed EF 40-45%, hypokinesis in apical myocardium. - Cardiology- . - Continue ASA 81 mg daily, Lipitor 40 mg daily, Brilinta 90mg BID, Lopressor 12.5mg Q12 and hydralazine 25 3 times a day with Isordil 10 3 times a day - Status post catheterization December 04, successful intervention balloon angioplasty on the free internal mammary bypass graft to the LAD with zoroastrianism of ORLY-3 flow and successful revascularization with balloon angioplasty and restore MARIANO stent of the proximal right coronary artery with improvement in flow Maintain aspirin 81 mg daily and Brilinta 90 mg by mouth twice a day for drug- eluting stent 12 months Holding lisinopril 5 mill grams daily/home medication light of acute kidney injury Holding home medication Lopressor 75 mg by mouth twice a day nifedipine 90 mg by mouth daily for hypertension. At home on atorvastatin 40 mg by mouth daily for dyslipidemia. Continued Renal/: Acute kidney injury Hypokalemia - Renal function worse today - Renal US. normal study - Monitor renal function, I/O's, electrolytes replacement as needed - Nephrology Dr. Doyle. Currently on Bumex 2 mg twice a day and Diuril 500 mg daily. Vas-Cath placed 12/13 and hemodialysis intermittent Switch IV fluids to D5 normal saline at 100 cc an hour due to nothing by mouth status. GI Tube feeds with Nepro currently 45 cc an hour on hold due to nausea - On Protonix 40 mg IV twice a day - Colace/Senokot twice a day, MiraLAX twice a day and lactulose 4 times a day for bowel regimen. Status post PEG tube 12/16 CT neck revealed bleeding likely between trachea and vocal cords. Appears to have stopped. Heme: Anemia - Monitor CBC, s/p transfuse 1u PRBC 12/09, Coags within normal limits Transfuse 2 units PRBCs 12/15 hemoglobin currently greater than 10 ID: -Continues to be on cefepime since 12/15. Previously on Zosyn and vancomycin - BC 12/08, 12/09: NGTD. 12/10 BC 10/29 staph epidermidis, sputum cx Pseudomonas. ID consulted/Dr. Sams Endocrine: Hyperglycemia - On SSI (medium scale)Levemir 30u BID we'll switch to 8 units twice a day. 4 units sliding scale insulin past 24 hours - Prophylaxis: - PPI/SCDs/ Heparin SQ on hold for tracheostomy today resume within the next day or 2 once "oozing" has held Lines Right IJ placed 12/08 with guidewire exchange 12/19, left IJ Vas-Cath 12/14 Critical Care: The total care time was 35 minutes. Time to perform other separately billable procedures was not included in the critical care time. Gee Santiago MD Dec 21, 2016 15:27
[2016-12-21] MEDS: DEXT 5%-NACL 0.9% 1000 ML INJ 1,000 ML IV SCH (15:58)
[2016-12-21] MEDS: CEFEPIME INJ 2,000 MG in SODIUM CHLORIDE 0.9% INJ 100 ML IV SCH (19:34)
[2016-12-21] MEDS ORDERED: INSULIN DETEMIR 100 UNITS/ML VIAL SQ SCH (21:00)
[2016-12-22] VITALS: BP 173/81; PULSE 84; RESP 17; TEMP 97.3; O2SAT 96
[2016-12-22] MEDS: INSULIN ASPART SUPPLEMENTAL SCALE SQ SCH ×2 (00:02→04:00)
[2016-12-22] MEDS: LABETALOL HCL 100 MG/20 ML VIAL IV PUSH PRN ×2 (00:25→05:57)
[2016-12-22] MEDS: DEXT 5%-NACL 0.9% 1000 ML INJ 1,000 ML IV SCH (00:27)
[2016-12-22 01:24] VITALS: O2SAT 97
[2016-12-22 02:00] VITALS: PULSE 67
[2016-12-22 04:00] VITALS: BP 121/57; PULSE 66; RESP 14; TEMP 98.4; O2SAT 95
[2016-12-22] MEDS: CHLORHEXIDINE GLUCONATE 2 % 1 PACK (2 CLOTHS) TOP SCH (04:00)
[2016-12-22 04:22] VITALS: O2SAT 100
[2016-12-22 04:34] LABS: AUTOMATED NEUTROPHIL # 9.5 TH/MM3 (1.8-7.7); HEMATOCRIT 21.8 % (35.0-46.0); LYMPH % 3.5 % (9.0-44.0); LYMPHOCYTE # 0.4 TH/MM3 (1.0-4.8); MEAN CELL VOLUME 87.8 FL (80.0-100.0); MEAN CORPUSCULAR HEMOGLOBIN 28.4 PG (27.0-34.0); MEAN CORPUSCULAR HGB CONC 32.3 % (32.0-36.0); MONO % 6.5 % (0.0-8.0); PLATELET COUNT 208 TH/MM3 (150-450); RED BLOOD COUNT 2.48 MIL/MM3 (4.00-5.30); RED CELL DISTRIBUTION WIDTH 14.6 % (11.6-17.2); WHITE BLOOD COUNT 10.5 TH/MM3 (4.0-11.0)
[2016-12-22 04:36] LABS: HEMO FLAGS AUTO DIFF
[2016-12-22 04:54] LABS: BICARBONATE 25.1 MEQ/L (21.0-32.0); POTASSIUM 3.2 MEQ/L (3.5-5.1)
[2016-12-22] MEDS: METOCLOPRAMIDE HCL 10 MG/2 ML VIAL IV PUSH SCH (05:56)
[2016-12-22] MEDS: hydrALAZINE HCL 25 MG TAB PO SCH (05:57)
[2016-12-22] MEDS: LACTULOSE SYRUP 20 GM/30 ML CUP PO SCH (05:57)
[2016-12-22] MEDS: ISOSORBIDE DINITRATE 10 MG TAB PO SCH (05:57)
[2016-12-22 06:30] VITALS: O2SAT 84
[2016-12-22] MEDS ORDERED: EPINEPHrine HCL (1:1000) 1 MG/ML VIAL ONE (06:41)
[2016-12-22] MEDS ORDERED: VASOPRESSIN INJ 20 UNITS/ML VIAL ONE (06:58)
[2016-12-22] MEDS ORDERED: SODIUM BICARBONATE 8.4% INJ 50 MEQ/50 ML SYR ONE (07:00)
[2016-12-22 07:16] LABS: BANDS 19 % (0-6); NEUTROPHIL # MANUAL DIFF 9.7 TH/MM3 (1.8-7.7); POLYS (SEG NEUTROPHILS) 73 % (16-70); WBC DIFF SAMPLE 100
[2016-12-22 07:17] LABS: PLATELET ESTIMATE SMEAR NORMAL (NORMAL); PLATELET MORPHOLOGY NORMAL (NORMAL); SCAN/DIFF FINAL DIFF MANUAL
[2016-12-22 07:20] LABS: BLOOD GAS BASE EXCESS -8.1 mmol/L (-2-2); BLOOD GAS CARBOXYHEMOGLOBIN 1.2 % (0-4); BLOOD GAS HCO3 19 mmol/L (22-26); BLOOD GAS METHEMOGLOBIN 1.6 % (0-2); BLOOD GAS O2 HGB SATURATION 42 % (90-100); BLOOD GAS OXYGEN CONTENT 4.7 Vol % (12.0-20.0); BLOOD GAS PCO2 59 mmHg (38-42); BLOOD GAS PO2 32 mmHg (61-120); TEMP CORR TO 98.6
[2016-12-22 07:21] LABS: CRITICAL VALUE YES; OXYGEN DEVICE VENTILATOR
[2016-12-22 07:23] LABS: DRAW SITE RT RADIAL; FIO2 100 %; NUMBER OF ARTERIAL PUNCTURES 2; STAT YES; ULNAR PULSE PRESENT
[2016-12-22 07:32] LABS: AUTOMATED NEUTROPHIL # 14.6 TH/MM3 (1.8-7.7); BASOPHIL # 0.1 TH/MM3 (0-0.2); BASOPHIL % 0.3 % (0.0-2.0); HEMATOCRIT 25.9 % (35.0-46.0); LYMPH % 18.7 % (9.0-44.0); LYMPHOCYTE # 3.7 TH/MM3 (1.0-4.8); MEAN CELL VOLUME 91.9 FL (80.0-100.0); MEAN CORPUSCULAR HEMOGLOBIN 28.4 PG (27.0-34.0); MEAN CORPUSCULAR HGB CONC 30.9 % (32.0-36.0); MONO % 7.8 % (0.0-8.0); NEUT % 73.2 % (16.0-70.0); PLATELET COUNT 252 TH/MM3 (150-450); RED BLOOD COUNT 2.82 MIL/MM3 (4.00-5.30); RED CELL DISTRIBUTION WIDTH 15.5 % (11.6-17.2); WHITE BLOOD COUNT 19.9 TH/MM3 (4.0-11.0)
[2016-12-22 07:33] LABS: HEMO FLAGS AUTO DIFF
[2016-12-22 07:35] LABS: APTT (PATIENT) 27.2 SEC (24.3-30.1)
[2016-12-22 07:58] LABS: BICARBONATE 18.2 MEQ/L (21.0-32.0); TOTAL BILIRUBIN ADULT 0.4 MG/DL (0.2-1.0)
--- NOTE | 2016-12-22 08:14 | HHI.CCPN ---
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 Major 24 Hour Events CPR Note I was notified of a CODE BLUE was called at 6:30 AM, Dr. High arrived at 0634, I arrived a 0635, PEA arrest rhythm was noted. CPR had been initiated the patient was noted to be in a PEA arrest. Immediately prior to the event, the patient was turned laterally, and large amounts of blood was noted to be coming from around the tracheostomy, and through the tracheostomy, and orally as reported by RN. A phone call was initiated to the family, unable to contact. The patient was bolused with IV fluid and simultaneously 1 unit packed red blood cells was rapidly transfused, with multiple units ordered . The patient underwent approximately 2 rounds of CPR, with epinephrine, and calcium chloride , with ROSC at 0640. Labs were obtained to include CBC BMP, magnesium, phosphorus and calcium. ABG was attempted, unsuccessful but obtained VBG. 2 amps Sodium bicarbonate were given upon receipt of the VBG, 7.17/42/59///-8 simultaneously the patient was placed on epinephrine and vasopressin infusion. The patient continued to receive packed red blood cells, and volume, labs pending. Plan for bronchoscopy , awaiting equipment .The patient subsequently became hypotensive, at 0705 spoke with son Jonh Almonte during resuscitative efforts, he decided to change the CODE STATUS to DNR. As 0717, the patient became bradycardic, rhythm HR 30's, PEA arrest. Time of 716. Drips Drips Epinephrine Vasopressin Assessment/Plan Assessment/Plan - PEA arrest Hypovolemic shock Hemorrhagic shock Possible upper GI bleed Cardiac ischemia Possible uremic coagulopathy The patient went into PEA arrest immediately after repositioning the patient laterally and large amounts of blood emanating from the oropharynx and tracheostomy site, in situ and circumferentially. Of note, the patient had complaints last evening of abdominal pain. Unable to initiate bronchoscopy( awaiting equipment), prior to second PEA arrest. Patient too unstable, for CT scan imaging of abdomen. The patient had been on 100 cc normal saline/hr continuously, and hemoglobin was noted to be decreased in the early a.m. lab with patient undergoing transfusion immediately prior to the PEA arrest. Volume resuscitation was initiated, acidosis correction, with labs pending calcium was replaced magnesium was replaced. Upon provision of information to family member, after ROSC, it was decided to change CODE STATUS to DNR , if there was a subsequent arrest despite resuscitative efforts. The patient was pronounced at 0717. Time Spend with Patient Discharge Minutes: 45 Julianne Roa MD Dec 22, 2016 08:14
--- NOTE | 2016-12-22 08:16 | HHI.DS ---
Summary Note Date of : Dec 22, 2016 Time Of : 716 Admission Date Nov 28, 2016 at 06:39 Admitting Diagnosis respiratory failure, non-STEMI, congestive heart failure, sepsis, DK Diagnosis at Time of : Brief History HPI 76-year-old female came to the emergency room brought by EMS as a STEMI alert. Patient called 911 for shortness of breath. When they arrived patient says oxygen saturation was in the 80s and she was in respiratory distress. Patient has history of coronary artery disease and congestive heart failure. She told me she had her bypass surgery done few years ago. Patient denied of any chest pain at any point. EMS said that patient had told them that she was nauseous for past couple days and vomited last night. She was woken up from the sleep with this shortness of breath. By the time patient arrived to the ER she was acutely short of breath and in severe respiratory distress. She was unable to give much history. She was pale and started getting agitated and diaphoretic when they moved her from the gurney to the stretcher. Patient developed worsening respiratory distress and required emergent intubation was placed on mechanical ventilation by ER physician. Her troponin came back at 20 and her EKG suggested intraventricular conduction delay versus left bundle branch block. Cardiology was contacted and felt patient had a non-ST elevation CA. She was also noted to be extremely hyperglycemic with glucose levels in the 500s with metabolic acidosis/lactic acidosis. She was started on the DKA protocol by ER physician. Urine ketones are negative. Beta hydroxybutyrate slightly elevated. Patient had a central line placed by ER physician and was started on heparin drip for anticoagulation for her CA. She was accepted for admission by critical care medicine service. I discussed the case with Dr. Auguste who is not planning cardiac catheterization at this time. Patient also was given empiric antibiotics up to obtaining cultures. History [facility] Past Medical History Narrative Medical List of her past medical history as reviewed from the nursing note. Arthritis: Yes Asthma: No Autoimmune Disease: No Heart Rhythm Problems: No Cancer: Yes Cardiac Catheterization: Yes Cardiovascular Problems: Yes High Cholesterol: Yes Chemotherapy: Yes (LT BREAST) Chest Pain: Yes Congestive Heart Failure: Yes COPD: No Cerebrovascular Accident: No Coronary Artery Disease: Yes Diabetes: Yes (type 2) Diminished Hearing: No Endocrine: Yes Gastrointestinal Disorders: Yes GERD: Yes Glaucoma: No Genitourinary: Yes (KIDNEY PROBLEMS, MD CLAY) Headaches: No Hepatitis: No Hiatal Hernia: No Hypertension: Yes Immune Disorder: No Implanted Vascular Access Dvce: No Kidney Stones: No Musculoskeletal: Yes (POLIO) Neurologic: Yes (POLIO) Psychiatric: No Reproductive: No Respiratory: Yes Immunizations Current: Yes Myocardial Infarction: Yes Radiation Therapy: No Renal Failure: No Seizures: No Sleep Apnea: No Thyroid Disease: No Ulcer: No Past Surgical History Abdominal Surgery: No AICD: No Body Medical Devices: STENTS Cardiac Surgery: Yes (CABG) Coronary Artery Bypass Graft: Yes (triple bypass 2003) Coronary Stent: Yes (X 4) Ear Surgery: No Endocrine Surgery: No Eye Surgery: No Genitourinary Surgery: No Gynecologic Surgery: Yes (ROLF) Hysterectomy: Yes Mastectomy: Yes (lt) Neurologic Surgery: No Oral Surgery: No Pacemaker: No Thoracic Surgery: No Other Surgery: Yes (BREAST RECONSTRUCTION DUE TO CA BREAST) Social History Alcohol Use: No Tobacco Use: No Substance Use: No Allergies-Medications Allergies-Medications (Allergen,Severity, Reaction): Coded Allergies: Sulfa (Verified Allergy, Severe, Swelling, 11/28/16) Swelling of lips *MDRO Multi-Drug Resistant Organism (Verified Allergy, Unknown, 11/28/16) MRSA foot wound 05/2013 MRSA PCR screen negative 12/17/15 & 12/20/15 Per Infection Control, pt does not require isolation for history of MRSA prior to 12/20/2015. Comments List of allergies reviewed from the nursing note. Reported Meds & Prescriptions Reported Meds & Active Scripts Active Furosemide 20 Mg Tab 40 Mg PO DAILY Procardia Xl (Nifedipine) 90 Mg Tabcr 90 Mg PO BID 30 Days Lipitor 40 Mg Tab (Atorvastatin Calcium) 40 Mg Tab 40 Mg PO HS 30 Days Brilinta 90 Mg Tab (Ticagrelor) 90 Mg Tab 90 Mg PO Q12H 30 Days Resp: Albuterol/Ipratropium 2.5 Mg/0.5 Mg (Albuterol/Ipratropium) 1 Amp Nebu 1 Ampule NEB Q4HR NEB PRN 30 Days Reported Lopressor (Metoprolol Tartrate) 50 Mg Tab 75 Mg PO BID Lisinopril 5 mg (Lisinopril) 5 Mg Tab 5 Mg PO DAILY Hydrocodone/Acetaminophen 10 mg/325 mg 1 Tab 1 Tab PO Q4H PRN Aspir-81 (Aspirin) 81 Mg Tab 81 Mg PO HS CBC/BMP: 12/22/16 0640 12/22/16 0420 Significant Findings Laboratory Tests Test 12/19/16 12/20/16 12/20/16 12/20/16 14:50 01:00 04:40 10:22 Hemoglobin 9.1 GM/DL 8.4 GM/DL 8.2 GM/DL (11.6-15.3) (11.6-15.3) (11.6-15.3) Hematocrit 27.4 % 25.0 % 23.7 % (35.0-46.0) (35.0-46.0) (35.0-46.0) Prothrombin Time 12.5 SEC (9.8-11.6) Activated Partial 32.4 SEC Thromboplast Time (24.3-30.1) White Blood Count 11.1 TH/MM3 (4.0-11.0) Red Blood Count 2.73 MIL/MM3 (4.00-5.30) Neutrophils (%) (Auto) 94.4 % (16.0-70.0) Lymphocytes (%) (Auto) 2.1 % (9.0-44.0) Neutrophils # (Auto) 10.5 TH/MM3 (1.8-7.7) Lymphocytes # (Auto) 0.2 TH/MM3 (1.0-4.8) Blood Urea Nitrogen 26 MG/DL (7-18) Creatinine 1.82 MG/DL (0.50-1.00) Estimat Glomerular Filtration 27 ML/MIN (>89) Rate Random Glucose 140 MG/DL (74-106) Test 12/20/16 12/21/16 12/22/16 12/22/16 16:26 05:15 04:20 06:40 Hemoglobin 8.6 GM/DL 8.2 GM/DL 7.0 GM/DL 8.0 GM/DL (11.6-15.3) (11.6-15.3) (11.6-15.3) (11.6-15.3) Hematocrit 26.2 % 25.1 % 21.8 % 25.9 % (35.0-46.0) (35.0-46.0) (35.0-46.0) (35.0-46.0) White Blood Count 15.3 TH/MM3 19.9 TH/MM3 (4.0-11.0) (4.0-11.0) Red Blood Count 2.85 MIL/MM3 2.48 MIL/MM3 2.82 MIL/MM3 (4.00-5.30) (4.00-5.30) (4.00-5.30) Neutrophils (%) (Auto) 92.4 % 90.0 % 73.2 % (16.0-70.0) (16.0-70.0) (16.0-70.0) Lymphocytes (%) (Auto) 3.1 % 3.5 % (9.0-44.0) (9.0-44.0) Neutrophils # (Auto) 14.1 TH/MM3 9.5 TH/MM3 14.6 TH/MM3 (1.8-7.7) (1.8-7.7) (1.8-7.7) Lymphocytes # (Auto) 0.5 TH/MM3 0.4 TH/MM3 (1.0-4.8) (1.0-4.8) Ovalocytes 1+ (NORMAL) Anion Gap 16 MEQ/L (5-15) Blood Urea Nitrogen 46 MG/DL (7-18) 56 MG/DL (7-18) Creatinine 2.68 MG/DL 3.33 MG/DL (0.50-1.00) (0.50-1.00) Estimat Glomerular Filtration 17 ML/MIN (>89) 13 ML/MIN (>89) Rate Random Glucose 193 MG/DL 211 MG/DL (74-106) (74-106) Neutrophils % (Manual) 73 % (16-70) Band Neutrophils % 19 % (0-6) Lymphocytes % 4 % (9-44) Neutrophils # (Manual) 9.7 TH/MM3 (1.8-7.7) Basophilic Stippling FAINT (NORMAL) Potassium Level 3.2 MEQ/L (3.5-5.1) Albumin 3.0 GM/DL (3.4-5.0) Mean Corpuscular Hemoglobin 30.9 % Concent (32.0-36.0) Monocytes # (Auto) 1.5 TH/MM3 (0-0.9) Test 12/22/16 06:48 Blood Gas HCO3 19 mmol/L (22-26) Blood Gas Base Excess -8.1 mmol/L (-2-2) Blood Gas Oxygen Saturation 42 % (90-100) Arterial Blood pH 7.15 (7.380-7.420) Arterial Blood Partial 59 mmHg (38-42) Pressure CO2 Arterial Blood Partial 32 mmHg Pressure O2 (61-120) Arterial Blood Oxygen Content 4.7 Vol % (12.0-20.0) Blood Gas Hemoglobin 8.0 G/DL (12.0-16.0) Imaging Last Impressions Chest X-Ray 12/20/16 0000 Signed Impressions: Service Date/Time: Tuesday, December 20, 2016 18:18 - CONCLUSION: Cardiomegaly with bilateral perihilar airspace disease and bilateral pleural effusions. Jarrod Meyer MD Abdomen X-Ray 12/20/16 0000 Signed Impressions: Service Date/Time: Tuesday, December 20, 2016 18:26 - CONCLUSION: 1. Mild gaseous distention of bowel loops in the right abdomen. 2. Bilateral pleural effusions. Jarrod Meyer MD Neck CT 12/19/16 0000 Signed Impressions: Service Date/Time: Monday, December 19, 2016 18:43 - CONCLUSION: 1. Small superficial hematoma surrounds the tracheostomy tube. 2. There is debris that occludes the airway above the tube and below the cords. 3. Bilateral thyroid nodules. 4. Sinus disease. Lennox Cason MD Catheter Placement X-Ray 12/19/16 0000 Signed Impressions: Service Date/Time: Monday, December 19, 2016 12:29 - CONCLUSION: Uncomplicated venous catheter change as above. Lennox Rubio MD Thoracentesis 12/10/16 0000 Signed Impressions: Service Date/Time: Saturday, December 10, 2016 14:43 - CONCLUSION: Uncomplicated CT-guided thoracentesis. Jarrod Meyer MD Renal Ultrasound 12/10/16 0000 Signed Impressions: Service Date/Time: Saturday, December 10, 2016 18:06 - CONCLUSION: Normal examination. Lennox Rodriguez MD Chest Ultrasound 12/09/16 0000 Signed Impressions: Service Date/Time: Friday, December 09, 2016 13:23 - CONCLUSION: Moderate size right pleural effusion. Torito Conklin MD Head CT 12/08/16 0000 Signed Impressions: Service Date/Time: Thursday, December 08, 2016 14:47 - CONCLUSION: 1. 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 2. No acute intracranial process , trauma or fracture. Darius Hernandez MD Hospital Course 76-year-old female came to the emergency room brought by EMS as a STEMI alert. Patient called 911 for shortness of breath. When they arrived patient says oxygen saturation was in the 80s and she was in respiratory distress. Patient has history of coronary artery disease and congestive heart failure. She told me she had her bypass surgery done few years ago. Patient denied of any chest pain at any point. EMS said that patient had told them that she was nauseous for past couple days and vomited last night. She was woken up from the sleep with this shortness of breath. By the time patient arrived to the ER she was acutely short of breath and in severe respiratory distress. She was unable to give much history. She was pale and started getting agitated and diaphoretic when they moved her [facility]. Patient developed worsening respiratory distress and required emergent intubation was placed on mechanical ventilation by ER physician. Her troponin came back at 20 and her EKG suggested intraventricular conduction delay versus left bundle branch block. Cardiology was contacted and felt patient had a non-ST elevation CA. She was also noted to be extremely hyperglycemic with glucose levels in the 500s with metabolic acidosis/lactic acidosis. She was started on the DKA protocol by ER physician. Urine ketones are negative. Beta hydroxybutyrate slightly elevated. Patient had a central line placed by ER physician and was started on heparin drip for anticoagulation for her CA. She was accepted for admission by critical care medicine service. I discussed the case with Dr. Auguste who is not planning cardiac catheterization at this time. Patient also was given empiric antibiotics up to obtaining cultures. 2/ Patient is sedated with Diprivan and intubated. Remains on Heparin drip. On PRVC/AC RR 20 IT 1.0, TV 500, PEEP:5 and FIO2 35% 11/30 No acute events overnight. Sedated and intubated. Afebrile. On Heparin drip 12/01 Patient remains sedated and intubated. Afebrile. On Heparin drip. She had episode of desaturation while on CPAP. 12/02 Patient is sedated with Diprivan and intubated. Remains on Heparin drip. 12/03 No events over night. Attempt SBT tomorrow post cardiac Catheterization 12/04 cardiac catheterization today, successful intervention on the free mammary bypass graft to the LAD with restorationism of ORLY-3 flow and successful revascularization of the proximal right coronary artery with improvement in flow 12/05 attempt to wean from the mechanical ventilation failure due to rapid shallow breathing today 12/06 no evidence overnight 12/07 failed as SBT yesterday due to rapid shallow breathing 12/08 Patient remains intubated and on Precedex drip. Afebrile. She was on CPAP x 4 hrs yesterday then became tachycardic and hypertensive. 12/09 Patient remains sedated and intubated. Spiked fever with Tmax 101.7. CT brain yesterday showed no acute intracranial process 12/10 Patient is on Precedex drip, on CPAP 15/5 with FIO2 30%. Tmax 101.6. Renal function worse today with Cr: 2.03 from 1.74. s/p transfusion 1u PRBC yesterday. 12/11 Tolerating CPAP. Remains encephalopathic, not following commands. MAXIMUM TEMPERATURE 101.6, white count was sent from 13.2-20.2. Function also worsening from 2-2.4. s/p CT guided thoracentesis 12/10/16, with 820 mL of yellow cloudy fluid removed. Fluid studies consistent with transudative effusion 12/12: Awake today follows commands but tachypneic, and using accessory muscles on 5 or 5 spontaneous breathing trial. Chest x-ray shows increased pulmonary vascular congestion/CHF. Worsening creatinine increased from 2-3.3, with decreased urine output. Additional 2 mg IV push bumetanide. Sputum culture growing Pseudomonas. One blood culture with gram-positive cocci-continue Zosyn , single dose of vancomycin ordered 12/13: Labs pending labs. The patient continues to fail spontaneous breathing trials. Continues on PRVC/AC 20/500/5/0.35 12/14:Afebrile. A Vas-Cath was placed yesterday, hemodialysis was begun, 3.5 L off. The family plans to discuss with critical care medicine decision whether to place a tracheostomy in a.m.. 12/15: Afebrile. Episodes of hemoptysis overnight since resolved. Scant bloody secretions. Also some coffee-ground emesis from gastric tube noted. Currently nothing by mouth. Positive BM. Still unable x-ray. Day #17 of intubation. Family requests full intervention. 12/16: Afebrile. Plan for tracheostomy are in OR with PEG tube placement today. Hemoglobin stable status post transfusion. Currently nothing by mouth 12/17: Currently afebrile. Status post PEG tube placement Dr. Avitia 12/16. Plan for Tracheostomy today. Currently nothing by mouth. 12/18: Currently afebrile. Status post tracheostomy by Dr. Ingram 12/17. Some oozing from trach site appears stable currently. Hemodynamic stable. Actually hypertense requiring when necessary's. Complaining of abdominal pain. 12/19: Tmax 99.9. Patient with guidewire exchange of right IJ catheter with hematoma, had large hematemesis during exchange. Hemodynamically stable. H&H and coags currently pending. 12/20: Afebrile. No more hematemesis. She has nausea. No bowel movement 4 days. Receiving enema. Currently out of bed to chair. Subjective 12/21: Afebrile. 3 bowel movements overnight. Nausea somewhat improved. Written for out of bed daily to stretcher chair. Tolerated well for 6 hours yesterday. 12/22: I was notified of a CODE BLUE was called at 6:30 AM, Dr. High arrived at 0634, I arrived a 0635, PEA arrest rhythm was noted. CPR had been initiated the patient was noted to be in a PEA arrest. Immediately prior to the event, the patient was turned laterally, and large amounts of blood was noted to be coming from around the tracheostomy, and through the tracheostomy, and orally as reported by RN. A phone call was initiated to the family, unable to contact. The patient was bolused with IV fluid and simultaneously 1 unit packed red blood cells was rapidly transfused, with multiple units ordered . The patient underwent approximately 2 rounds of CPR, with epinephrine, and calcium chloride, with ROSC at 0640. Labs were obtained to include CBC BMP, magnesium, phosphorus and calcium. ABG was attempted, unsuccessful but obtained VBG. 2 amps Sodium bicarbonate were given upon receipt of the VBG, 7.17/42/59/3/19/-8 simultaneously the patient was placed on epinephrine and vasopressin infusion. The patient continued to receive packed red blood cells, and volume, labs pending. Plan for bronchoscopy , awaiting equipment .The patient subsequently became hypotensive, at 0705 spoke with son Jonh Almonte during resuscitative efforts, he decided to change the CODE STATUS to DNR. As 0717, the patient became bradycardic, rhythm HR 30's, PEA arrest. Time of 0717 Julianne Roa MD Dec 22, 2016 08:15
[2016-12-22 08:22] LABS: BANDS 15 % (0-6); CORRECTED NUCLEATED RBC 1 /100 WBC (0-0); METAMYELOCYTES 2 % (0-1); MYELOCYTES 5 % (0-0); NEUTROPHIL # MANUAL DIFF 14.7 TH/MM3 (1.8-7.7); POLYS (SEG NEUTROPHILS) 52 % (16-70); WBC DIFF SAMPLE 100
[2016-12-22 08:23] LABS: OVALOCYTES 1+ (NORMAL); PLATELET ESTIMATE SMEAR NORMAL (NORMAL); PLATELET MORPHOLOGY NORMAL (NORMAL); TEARDROP RBCS 1+ (NORMAL)
[2016-12-22 08:24] LABS: ACANTHOCYTES OCC (NORMAL); SCAN/DIFF FINAL DIFF MANUAL
== END 2016-12-22 07:17 | disposition expired | DRG 3 ==
LOC: NEPE 05:02 → NEDA 06:39 → HIMN 10:00
PROVIDERS: ADMIT Internal Medicine Critical Care Medicine; ATTEND Internal Medicine Critical Care Medicine
PROC: 5A1955Z Respiratory Ventilation, Greater than 96 Consecutive Hours (ICD-10-PCS; 2016-11-28)
PROC: 0BH17EZ Insertion of Endotracheal Airway into Trachea, Via Natural or Artificial Opening (ICD-10-PCS; 2016-11-28)
PROC: 02HV33Z Insertion of Infusion Device into Superior Vena Cava, Percutaneous Approach (ICD-10-PCS; 2016-11-28)
PROC: B2111ZZ Fluoroscopy of Multiple Coronary Arteries using Low Osmolar Contrast (ICD-10-PCS; 2016-12-04)
PROC: 4A023N7 Measurement of Cardiac Sampling and Pressure, Left Heart, Percutaneous Approach (ICD-10-PCS; 2016-12-04)
PROC: 027136Z Dilation of Coronary Artery, Two Arteries with Three Drug-eluting Intraluminal Devices, Percutaneous Approach (ICD-10-PCS; principal; 2016-12-04 07:30)
PROC: 02HV33Z Insertion of Infusion Device into Superior Vena Cava, Percutaneous Approach (ICD-10-PCS; 2016-12-08)
PROC: 30233N1 Transfusion of Nonautologous Red Blood Cells into Peripheral Vein, Percutaneous Approach (ICD-10-PCS; 2016-12-09)
PROC: 0W993ZX Drainage of Right Pleural Cavity, Percutaneous Approach, Diagnostic (ICD-10-PCS; 2016-12-10)
PROC: 02H633Z Insertion of Infusion Device into Right Atrium, Percutaneous Approach (ICD-10-PCS; 2016-12-13)
PROC: 5A1D60Z (ICD-10-PCS; 2016-12-13)
PROC: 0DH63UZ Insertion of Feeding Device into Stomach, Percutaneous Approach (ICD-10-PCS; 2016-12-16)
PROC: 0DJ08ZZ Inspection of Upper Intestinal Tract, Via Natural or Artificial Opening Endoscopic (ICD-10-PCS; 2016-12-16)
PROC: 0B110F4 Bypass Trachea to Cutaneous with Tracheostomy Device, Open Approach (ICD-10-PCS; 2016-12-17)
PROC: 05HM33Z Insertion of Infusion Device into Right Internal Jugular Vein, Percutaneous Approach (ICD-10-PCS; 2016-12-19)
PROC: 05PYX3Z Removal of Infusion Device from Upper Vein, External Approach (ICD-10-PCS; 2016-12-19)
PROC: 30233K1 Transfusion of Nonautologous Frozen Plasma into Peripheral Vein, Percutaneous Approach (ICD-10-PCS; 2016-12-19)
DX: I21.4 Non-ST elevation (NSTEMI) myocardial infarction (principal); N17.0 Acute kidney failure with tubular necrosis; R57.1 Hypovolemic shock; J15.1 Pneumonia due to Pseudomonas; A41.9 Sepsis, unspecified organism; I50.43 Acute on chronic combined systolic (congestive) and diastolic (congestive) heart failure; G93.41 Metabolic encephalopathy; J90 Pleural effusion, not elsewhere classified; E13.10 Other specified diabetes mellitus with ketoacidosis without coma; J96.01 Acute respiratory failure with hypoxia; E87.0 Hyperosmolality and hypernatremia; K92.0 Hematemesis; I13.0 Hypertensive heart and chronic kidney disease with heart failure and stage 1 through stage 4 chronic kidney disease, or unspecified chronic kidney disease; Z68.42 Body mass index [BMI] 45.0-49.9, adult; I25.810 Atherosclerosis of coronary artery bypass graft(s) without angina pectoris; Z99.11 Dependence on respirator [ventilator] status; R04.2 Hemoptysis; R13.10 Dysphagia, unspecified; E66.01 Morbid (severe) obesity due to excess calories; I25.10 Atherosclerotic heart disease of native coronary artery without angina pectoris; M19.90 Unspecified osteoarthritis, unspecified site; K21.9 Gastro-esophageal reflux disease without esophagitis; I45.9 Conduction disorder, unspecified; E78.5 Hyperlipidemia, unspecified; N18.9 Chronic kidney disease, unspecified; I73.9 Peripheral vascular disease, unspecified; D64.9 Anemia, unspecified; E04.2 Nontoxic multinodular goiter; K59.00 Constipation, unspecified; E87.6 Hypokalemia; I46.9 Cardiac arrest, cause unspecified; R19.7 Diarrhea, unspecified; Z66 Do not resuscitate; Z79.4 Long term (current) use of insulin; Z79.02 Long term (current) use of antithrombotics/antiplatelets; Z79.82 Long term (current) use of aspirin; I25.2 Old myocardial infarction; Z95.5 Presence of coronary angioplasty implant and graft; Z85.3 Personal history of malignant neoplasm of breast; Z86.14 Personal history of Methicillin resistant Staphylococcus aureus infection; Z92.21 Personal history of antineoplastic chemotherapy
CPT/HCPCS: 31500; 32555; 36430; 36556; 36580; 36600; 51702; 70450; 70490; 71010; 74000; 76604; 76775; 76937; 77001; 80048; 80053; 80069; 80076; 80202; 81001; 82010; 82150; 82435; 82550; 82552; 82565; 82805; 82945; 82947; 82948; 83036; 83605; 83615; 83690; 83735; 83880; 83986; 84100; 84132; 84155; 84157; 84165; 84295; 84484; 84520; 85007; 85014; 85018; 85025; 85027; 85384; 85610; 85730; 86317; 86335; 86850; 86900; 86901; 86920; 86927; 87040; 87070; 87077; 87086; 87186; 87205; 87340; 87522; 87641; 89051; 90935; 92928; 92937; 93005; 93306; 93455; 94002; 94003; 94640; 94664; 95819; 96365; 96372; 96374; 96375; A7521; C1725; C1729; C1760; C1769; C1874; C1887; C1893; C9113; C9399; G0269; J0171; J0330; J0360; J0456; J0583; J0610; J0690; J0692; J1205; J1580; J1644; J1815; J1817; J1940; J2212; J2248; J2250; J2405; J2543; J2765; J2997; J3010; J3370; J3480; J7030; J7040; J7042; J7050; J7070; J7613; P9016; P9017; P9047; Q4081; Q9967